=== PATIENT | female | born 1980 | race Caucasian/White ===

== ENCOUNTER 2022-12-27 21:10 | Emergency (ER) | payer MEDICAID, SELFPAY ==
[2022-12-27 21:11] VITALS: BP 201/115; PULSE 89; RESP 16; TEMP 36.1; O2SAT 100; BMI 28.8
--- NOTE | 2022-12-27 21:30 | ED.VIS.FEGU ---
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 She denies any pain, urinary symptoms, lightheadedness, near syncope, fevers or chills. [facility] Medical History (Updated 12/27/22 @ 22:[address] Wes Corona MD) Home Medications NK 12/27/22 [History Last Taken Unknown] Allergy/AdvReac Type Severity Reaction Status Date / Time No Known Allergies Allergy Verified 07/16/15 16:56 Social History Smoking Status: Light Smoker (<10/day) ROS ROS ED Constitutional Constitutional ED: Denies chills or fever(s) Eyes Eyes: Denies change in vision or diplopia ENT ENT ED: Denies rhinorrhea or sore throat Cardiovascular Cardiovascular: Denies chest pain or palpitations Respiratory/Chest Respiratory/Chest: Denies cough or dyspnea Gastrointestinal Gastrointestinal: Denies abdominal pain, diarrhea, nausea or vomiting Genitourinary Genitourinary ED: Reports as per HPI and vaginal bleeding; Denies dysuria or hematuria Musculoskeletal Musculoskeletal: Denies back pain or neck pain Integumentary Denies abscess or rash Neurologic Neurologic: Denies headache(s), paresthesias or weakness Psychiatric Psychiatric: Denies anxiety or suicidal thoughts EXAM Physical Exam Const Vital Signs: 12/27/22 21:11 12/27/22 22:50 12/27/22 23:03 Temperature 96.9 F L Temperature Source Temporal Pulse Rate 89 81 Respiratory Rate 16 16 Blood Pressure 201/115 H 160/100 H 149/96 H Blood Pressure Mean 143 120 Pulse Ox 100 99 Oxygen Delivery Method Room Air Positive well nourished and well developed General Appearance ED: well developed and NAD HEENT Reports moist mucous membranes normocephalic and atraumatic Eyes PERRL and EOMs intact bilaterally Neck full ROM and supple Resp normal respiratory effort and clear to auscultation bilaterally Cardio regular rate, regular rhythm and no murmurs GI non-tender and non-distended Auscultation: normoactive bowel sounds Palpation: soft Speculum Exam - Vagina: vaginal bleeding Back/Spine no CVA tenderness General Back: other FROM Extremity normal to inspection General Extremety ED: Negative for edema, pulses abnormal or tenderness General Extremity: Negative for edema or pulses abnormal Neuro oriented x3, CN's II-XII intact bilaterally and no sensory deficits noted Sensorium / Orientation: awake and alert Motor Exam: strength 5/5 throughout Skin no rashes or lesions noted and no wounds MDM MDM MDM Narrative Medical decision making narrative: Performed a bedside ultrasound, patient does have a good double decidual sign, and what appears to be an early pole versus yolk sac but I cannot detect whether there is a heart rate or absence thereof since everything is too small. Exam is somewhat limited due to her abdominal obesity. However she does not have any pain, her exam is very benign, and I think this is good enough to rule out from intensive purposes an ectopic . I am sending off a quantitative hCG, and she is getting an injection of RhoGAM since she states she is O- and gets RhoGAM every time she is , and then she will be able to be discharged and follow-up with her OB, she has an appointment at the practice where she used to see Dr. Barnes. Lab Data Attestation: I reviewed the patient's lab results. Labs: Laboratory Results - last 24 hr 12/27/22 12/27/22 12/27/22 21:36 22:08 22:36 HCG, Quant [id number] H Blood Type Cancelled B NEGATIVE Procedures Other Procedures Procedure(s): Bedside ultrasound OB first trimester: Good double decidual sign with a gestational sac consistent with 8W0D. Small either yolk sac or pole seen, but not large enough to evaluate for heartbeat. Discharge Plan Triage Chief Complaint: Vag Bld, Preg ED Provider: Wes Corona Dx/Rx/DC Orders Clinical Impression: Threatened in first trimester Instructions: If You Are Rh Negative, ED Possible Miscarriage ... Prescriptions: No Action NK Primary Care Provider: Care Physician,No Primary Referrals: Justa Linares DO [Med Staff - Active Staff] - Keep Juan appointment Care Physician,No Primary [Primary Care Provider] - Disposition Disposition: Home, Self Care Discharge Date/Time: 12/27/22 23:42
[2022-12-27 22:50] VITALS: BP 160/100
[2022-12-27 23:03] VITALS: BP 149/96; PULSE 81; RESP 16; O2SAT 99
[2022-12-27 23:42] LABS: hCG Titer Quant., Serum 30053 mIU/mL (1-3)
== END 2022-12-27 23:42 | disposition home or self-care (01) ==
PROVIDERS: Emergency Provider Emergency Medicine; Visit Provider Emergency Medicine
DX: O20.0 Threatened abortion (principal); F17.200 Nicotine dependence, unspecified, uncomplicated; E66.9 Obesity, unspecified; O99.210 Obesity complicating pregnancy, unspecified trimester; O99.330 Smoking (tobacco) complicating pregnancy, unspecified trimester; Z3A.00 Weeks of gestation of pregnancy not specified
CPT/HCPCS: 84702; 86900; 86901; 96372; 99282; A4216; J2790

== ENCOUNTER 2023-01-20 09:12 | Day surgery (SDC) | payer MEDICAID, SELFPAY ==
[2023-01-20] VITALS (9 sets, daily range): BP systolic 136–177; BP diastolic 96–110; PULSE 70–90; RESP 18; TEMP 36.6–36.9; O2SAT 98–100; BMI 29.2
--- NOTE | 2023-01-20 09:55 | PCM.HP.BLA ---
History and Physical Date of Admission: 01/20/23 Chief complaint: Missed History present illness: 42-year-old arrives for scheduled suction dilation and curettage with missed . No medical changes since last seen. All questions answered and consent signed. Obstetric history: with a history of 3 vaginal deliveries Past medical history: Hypertension, thrombocytopenia, hepatitis C Medications: vitamin Past surgical history: Cholecystectomy, D&C Allergies: No known drug allergies Social history: 1 pack/day smoker, denies alcohol or drug use Family history: Denies history DVT or PE Review of systems: Besides above pertinent positives a full review of systems was performed and found to be negative Physical exam: Vitals: Pending General: Normal-appearing no acute distress HEENT: Normocephalic/atraumatic no cervical lymphadenopathy Cardiac/respiratory: No use of accessory muscles, nonlabored breathing Abdomen: Soft, nontender, obese Extremities: No peripheral edema normal peripheral pulses Psych: Normal affect normal demeanor nonpressured speech Assessment and plan: 42-year-old arrives for scheduled suction dilation and curettage with missed . Educated patient on the risks of the procedure include but are not limited to visceral or vascular injury, prolonged hospitalization, blood loss need for transfusion, reoperation. Educated patient on other options for missed . Patient states understanding and wished to proceed. All questions were answered and consent was signed.
[2023-01-20] MEDS: Lactated Ringers 1,000 ML 15 ML IV (10:15)
[2023-01-20 10:16] LABS: Hemoglobin 14.4 g/dL (12.0-15.0); Mean Corp Hgb Conc 33.5 g/dL (32-36); Mean Corpuscular Hgb 33.3 pg (27.0-32.0); Mean Corpuscular Volume 99.5 fL (81-99); Mean Platelet Vol. 10.8 fl (6.2-12.0); POSITIVE COUNT YES; Platelet Count 60 K/mm3 (150-450); RBC Distribution Width CV 13.7 % (11.6-14.6); RBC Distribution Width SD 50.3 fl (35.1-43.9); Red Blood Count 4.32 M/mm3 (4.2-5.4); White Blood Count 5.6 K/mm3 (4.4-11.0)
[2023-01-20 10:19] LABS: Scan Indicated on CBC? Y/N YES- FLAGS NOTED
--- NOTE | 2023-01-20 10:40 | POC_PTH ---
PATIENT: BOB [place] [facility] [id number] AGE/SX: 42/F ROOM: RE01/20/[address]: Dr. Kong Linares MD : 1980 BED: DIS: 01/20/2023 SPEC #: [id number] RECD: 01/20/23 14:33 STATUS: MELINA DIMITRIS #: [id number] AGUILAR: 01/20/23 10:[address]: Kong Linares DEPT: SURGICAL PATHOLOGY RECD BY: Michelle Greenwood ENTERED: 01/21/23 06:45 SP TYPE: PROD CONC OTHR DR: No Primary Care Phys Tissues: Product of conception, NOS Procedures: Surgery Specimen Level IV HEADER OPERATION: Suction dilation and curettage PRE-OP DIAGNOSIS: Missed TISSUE SUBMITTED: Products of conception MICROSCOPIC DIAGNOSIS Endometrium, curettage: Chorionic villi, decidualized stroma and trophoblastic cells consistent with products of conception. AM:alberto 01/22/2023 MICROSCOPIC DESCRIPTION Slides are reviewed. GROSS DESCRIPTION Received in fixative is one container labeled with the patient's name and designated products of conception. The specimen consists of multiple fragments of hemorrhagic soft tissue measuring in aggregate 5.0 x 5.0 x 1.5 cm. tissue is not identified. Consult[employer] In [employer] tissue is submitted in two cassettes. / SJ:alberto 01/21/2023 TC:5 CPT: 46447
[2023-01-20 10:48] LABS: Differential Comment SCANNED
--- NOTE | 2023-01-20 13:40 | DCINST_ITS ---
Discharge Instructions Diet Discharge Diet: No restrictions Activity Discharge Activity: Return to Normal Activity, May Drive and May Shower May resume sexual activity in: 4-6 weeks Weight Bearing Status: Weight bearing as tolerated Dressing / Incision Call your doctor if your incision/area has: Continuous Slow Oozing and Foul Smelling Discharge Call your doctor if you observe: Fever of 101 or Higher, Shortness of breath and Chest pain Follow Up Care Please Follow Up With: Kong Linares MD When: 2 weeks postoperatively Test Results: Test results from this visit will be discussed in further detail at your follow- up appointment, if applicable. Discharge Plan Admission Attending Provider: Kong Linares Primary Care Provider: Selina Vitale Primary Discharge Orders/Prescriptions Prescriptions: No Action (DME) vitamen See Rx Instructions .ROUTE .MEDSUPPLY Rx Instructions: once a day Referrals / Follow Up: Care PhysicianSelina Primary [Primary Care Provider] - Disposition Disposition (needs filled in before D/C Order can be placed): Home, Self Care
--- NOTE | 2023-01-20 13:41 | PCM.OPRPT ---
Report of Operation Date of Procedure: 01/20/23 Pre-Operative Diagnosis: Missed Post-Operative Diagnosis: Missed Surgery/Procedure Performed:: Suction dilation and curettage Description of Surgical Findings:: Surgeon: Kong Linares MD Anesthesia: MAC EBL: 25 cc Urine output: 500 cc IV fluids: 1000 cc Complications: None Specimen: Products of conception Findings: Cervix closed. Mild to moderate amount of tissue. Consent: Patient with missed elects for suction dilation curettage. Patient understands risk of the procedure include but are not limited to visceral or vascular injury, prolonged hospitalization, blood loss need for transfusion, reoperation. Patient state understanding wish to proceed. All questions were answered and consent was signed. Procedure: Patient was brought back to the OR where MAC anesthesia was found to be adequate. 200 mg of doxycycline IV were given for infection prophylaxis. Patient was prepared and draped in a dorsolithotomy position with yellowfin stirrups. A weighted speculum was placed in the posterior aspect of vagina and cervical dilators were used to dilate the cervix. 8 mm curved suction curettage was used under direct visualization. Above findings were noted. Lightly performed sharp endometrial curettings in all 4 quadrants. Again suction curettage was performed in all quadrants. All tissue sent to pathology. Good hemostasis was noted. Prolonged monitoring was performed and again good hemostasis was noted. All counts were correct x2. Patient tolerated procedure well and was brought to recovery in stable condition.
--- NOTE | 2023-01-20 15:29 | SUR.PHASEII ---
clarification that x1 dose of rhogam to be given, order did not reflex to pharmacy for verification and documentation and 2nd order placed in computer but only one dose given as ordered.
== END 2023-01-20 15:34 | disposition home or self-care (01) ==
LOC: SDC 09:15 → AC 09:42
PROVIDERS: Referring Provider Obstetrics & Gynecology; Visit Provider Obstetrics & Gynecology
PROC: (CPT 59820; principal; 2023-01-20 10:25)
DX: O02.1 Missed abortion (principal); O16.9 Unspecified maternal hypertension, unspecified trimester; O99.330 Smoking (tobacco) complicating pregnancy, unspecified trimester; F17.200 Nicotine dependence, unspecified, uncomplicated; Z86.73 Personal history of transient ischemic attack (TIA), and cerebral infarction without residual deficits; Z86.19 Personal history of other infectious and parasitic diseases
CPT/HCPCS: 59820; 85027; 86850; 86870; 86900; 86901; 88305; J7120; J2405; J2790

== ENCOUNTER → 2023-02-12 | Outpatient (CLI) | payer MEDICAID, SELFPAY ==
--- NOTE | 2023-02-12 | CER_PTH ---
PATIENT: BOB WARNER LOC: [facility] U#:[id number] AGE/SX: 42/F ROOM: RE02/12/[address]: Dr. Kong Linares MD : 1980 BED: DIS: 02/12/2023 SPEC #: [id number] RECD: 02/12/23 09:46 STATUS: MELINA DIMITRIS #: [id number] AGUILAR: 02/12/23 00:[address]: oKng Linares DEPT: SURGICAL PATHOLOGY RECD BY: Jasmin Dietz ENTERED: 02/13/23 09:47 SP TYPE: CERV VALERIANO DR: Selina Primary Care Phys Tissues: A - Uterine cervix, NOS B - Endocervical Procedures: Surgery Specimen Level IV HEADER OPERATION: Colposcopy PRE-OP DIAGNOSIS: R87.610 TISSUE SUBMITTED: Lionel Butts 1, 5, 7, 11 o'clock, B - Endocervical curettings MICROSCOPIC DIAGNOSIS A. Cervix, 1, 5, 7 and 11 o'clock, biopsy: Focal changes consistent with HPV cytopathic effects. Moderate acute and chronic inflammation. See comment. B. Endocervical curettings: Fragments of benign ectocervix and endocervical epithelium with focal squamous metaplasia, negative for dysplasia. SANKET:alberto 02/14/2023 COMMENT A. Immunohistochemistry ([id number]) for surrogate HPV marker (p16) supports the above diagnosis. Case has been reviewed in consultation with Dr. Ba who concurs with the above diagnosis. IDC:SJ MICROSCOPIC DESCRIPTION Slides are reviewed. GROSS DESCRIPTION A - Received in fixative is one container labeled with the patient's name and designated cervix 1, 5, 7, 11 o'clock. The specimen consists of multiple irregular fragments of light soni soft tissue that in aggregate measure 1.5 x 0.5 x 0.1 cm. The specimen is totally submitted in one cassette. B - Received in fixative is one container labeled with the patient's name and designated ECC. The specimen consists of a scant amount of soft tissue. The specimen is totally submitted for cell block preparation. / SANKET:alberto 02/13/2023 TC:5 CPT: 82520 x2
--- NOTE | 2023-02-12 | IMM_PTH ---
PATIENT: BOB WARNER LOC: [facility] U#:[id number] AGE/SX: 42/F ROOM: RE02/12/[address]: Dr. Kong Linares MD : 1980 BED: DIS: 02/12/2023 SPEC #: [id number] RECD: 02/14/23 13:16 STATUS: MELINA RENemo #: [id number] AGUILAR: 02/12/23 00:[address]: Kong Linares DEPT: IMMUNOHISTOCHEMISTRY RECD BY: Manju Persaud ENTERED: 02/14/23 13:17 SP TYPE: IMMUNO OT DR: No Primary Care Phys Tissues: A - Uterine cervix, NOS Procedures: p16 (initial) KI-67 (add) PHYSICIAN & INSTITUTION [place] [id number] SPECIMEN INFORMATION: Tissue Source: A - Cervix at 1, 5, 7 & 11 o'clock Clinical Info: [id number] A Specimen Number: [id number] CPT code: 80174, 37682 METHODOLOGY: Deparaffinized sections of prefer/formalin-fixed tissue or PAP/DQ stained slides are incubated with monoclonal/polyclonal antibodies/oligonucleotide probes. Localization is made via biotin free immunoperoxidase method. Appropriate controls are performed and reacted as expected. Results on target cell population are indicated in the following table: RESULTS: ANTIBODY / CLONE RESULT Block A P16 (E6H4) positive, focal, patchy Ki-67 (30-9) positive, low These tests were developed and their performance characteristics determined by [facility]. They may not have been cleared or approved by the U.S. Food and Drug Administration. The FDA has determined that such clearance or approval is not necessary. The above immunohistochemical/dualISH markers are ordered and reviewed by the Pathologist. INTERPRETATION: A. Cervix at 1, 5, 7 & 11 o'clock, biopsy: Focal HPV change present. AM:alberto 02/17/2023
== END | disposition home or self-care (01) ==
LOC: LABSPEC 15:06
PROVIDERS: Visit Provider Obstetrics & Gynecology
DX: R87.610 Atypical squamous cells of undetermined significance on cytologic smear of cervix (ASC-US) (principal)
CPT/HCPCS: 88305; 88341; 88342

== ENCOUNTER 2024-07-13 09:44 | Observation (INO) | payer MEDICAID, SELFPAY ==
[2024-07-13] VITALS (8 sets, daily range): BP systolic 131–148; BP diastolic 75–99; PULSE 97–122; RESP 16–20; TEMP 36.8–38; O2SAT 94–100; BMI 25.7; BMI 26.6
--- NOTE | 2024-07-13 | FLU_PTH ---
PATIENT: BOB WARNER LOC: [facility] U#:[id number] AGE/SX: 43/F ROOM: MS316 RE07/13/[address]: Dr. Mena Bundy MD : 1980 BED: 1 DIS: 07/15/2024 SPEC #: [id number] RECD: 07/13/24 13:37 STATUS: MELINA REQ #: [id number] AGUILAR: 07/13/24 00:[address]: Mena Bundy DEPT: CYTOLOGY RECD BY: Michelle Greenwood ENTERED: 07/14/24 08:58 SP TYPE: Fluid OTHR DR: Dr. Pacheco Friend, DO No Primary Care Phys Tissues: PARACENTESIS FLUID Procedures: Special Stain Group II Surgery Specimen Level IV Cytospin Fluid HEADER OPERATION: Ultrasound guided paracentesis PRE-OP DIAGNOSIS: Ascites TISSUE SUBMITTED: Paracentesis fluid for cytology DIAGNOSIS CYTOLOGY Paracentesis fluid for cytology (cytospins and cellblock): Negative for malignant cells. See comment. mr 07/15/2024 COMMENT Clinical correlation and appropriate follow up are necessary. CYTOLOGY STUDY Slides are reviewed. CYTOLOGY GROSS Received is 80 ml of yellow-cloudy fluid labeled with the patient's name and and designated per the requisition as Paracentesis fluid. Submitted for cytology preparation including cell block. Mr 07/14/2024 TC:5 CPT: 79584,81373
--- NOTE | 2024-07-13 09:56 | EKG12_ITS ---
Test Reason : Blood Pressure : */* mmHG Vent. Rate : 124 BPM Atrial Rate : 124 BPM P-R Int : 136 ms QRS Dur : 62 ms QT Int : 310 ms P-R-T Axes : 63 21 39 degrees QTcB Int : 445 ms Sinus tachycardia Otherwise normal ECG Confirmed by Ambrosio Pope ([id number]), international editorial producer BUCK MENDEZ ([id number]) on 07/14/2024 8:25:01 AM Referred By: Confirmed By: Ambrosio Pope
[2024-07-13] MEDS: Ondansetron 4 MG/2 ML Vial IV ×2 (10:09→21:02)
[2024-07-13] MEDS: Morphine 4 MG/ML Syringe IV (10:10)
--- NOTE | 2024-07-13 10:10 | EDS_ITS ---
HPI History of Present Illness Chief Complaint: Abd Pain Narrative Narrative: Chief complaint and HPI: Abdominal distention and pain. 43-year-old female with past medical history of hepatitis C secondary to IV drug abuse, previous cholecystectomy presents for evaluation of abdominal pain and distention. Patient states over the past week she has had increased abdominal distention and pain. She denies any fever, chills, chest pain, shortness of breath, nausea, vomiting, diarrhea, constipation, dysuria. Her hepatitis C has never been treated. She denies history of cirrhosis. Denies alcohol abuse. Review of systems: See HPI Medications: As listed on the chart Allergies: As listed on the chart PFSH: Per chart Vital signs: As listed on the chart. Reviewed. Physical exam: Gen: A&O x3, NAD Head: Normocephalic, atraumatic Eyes: No sclera icterus, conjunctiva clear, PERRL, EOMI ENT: Moist mucous membranes Neck: Trachea midline, No JVD CV: Tachycardic, regular rhythm, no murmurs, no peripheral edema Resp: Lungs CTA BL, no w/r/c GI: Abd soft, distended secondary to ascites, tender to palpation diffusely but worse in the left upper quadrant with splenomegaly, no r/r/g : No CVA tenderness Musc: Full ROM, no deformity Skin: Warm, dry Neuro: Alert, oriented, grossly intact, sensation intact Psych: Cooperative, appropriate mood and affect [facility] Medical History Diabetes HCC (hepatocellular carcinoma) Hepatitis C Loose, teeth Stroke/cerebrovascular accident Smoker Hypertension Home Medications ?Medication ?Instructions ?Recorded ?Last Taken ?Type vits no.130-ferrous fum 1 tab PO DAILY 07/13/24 07/12/24 History 27 mg iron-folic acid 800 mcg tablet ( Vitamin) Allergy/AdvReac Type Severity Reaction Status Date / Time No Known Allergies Allergy Verified 07/13/24 09:55 Family History Uncle Cancer Surgical History H/O dilation and curettage History of cholecystectomy Social History Smoking Status: Light Smoker (<10/day) EXAM Physical Exam Const Vital Signs: 07/13/24 09:44 07/13/24 11:41 07/13/24 11:43 Temperature 98.2 F 98.2 F Temperature Source Temporal Pulse Rate 122 H 122 H 97 Respiratory Rate 20 H 20 H 19 H Blood Pressure 135/98 H 135/98 H 131/96 H Blood Pressure Mean 110 110 107 Pulse Ox 100 100 100 Oxygen Delivery Method Room Air Room Air MDM MDM MDM Narrative Medical decision making narrative: 43-year-old female with past medical history of hepatitis C secondary to IV drug abuse, previous cholecystectomy presents for evaluation of abdominal pain and distention. Differential diagnosis includes but is not limited to cirrhosis, bowel obstruction, pancreatitis, diverticulitis, appendicitis, UTI, electrolyte abnormality. Morphine, Zofran ordered for symptoms. Abdominal pain workup ordered including CT abdomen pelvis. EKG reviewed see below. CBC shows anemia with hemoglobin of 11.1. Patient has baseline thrombocytopenia. No active bleeding. INR unremarkable. BMP without MURPHY. Lactic acid unremarkable. Hepatic panel positive for hyperbilirubinemia as well as mild transaminitis/AST at 48. Lipase unremarkable. UA negative for UTI. It is a dirty sample. CT abdomen pelvis shows liver cirrhosis, splenomegaly and ascites. This is consistent with physical exam. Patient denies any diagnosis of liver cirrhosis. Given patient's symptoms, I do think she would benefit from paracentesis and further workup of her liver cirrhosis. I suspect her liver cirrhosis is secon alee to her untreated hepatitis C. Patient was updated of all the results and confirmed understanding. Dr. Bundy accepted admission. EKG: Interpreted by me/EM physician: EKG shows sinus tachycardia with no acute ischemic changes. Heart rate 124. Impression: 1. Decompensated liver cirrhosis, new diagnosis 2. History of hepatitis C Lab Data Labs: Laboratory Results - last 24 hr 07/13/24 07/13/24 07/13/24 09:56 10:03 10:05 WBC 9.5 RBC 3.38 L Hgb 11.1 L Hct 32.7 L MCV 96.7 MCH 32.8 H MCHC 33.9 RDW Std Deviation 60.6 H RDW Coeff of Betina 17.4 H Plt Count 64 L MPV 10.6 Immature Gran % (Auto) 0.600 Neut % (Auto) 65.1 Lymph % (Auto) 20.5 Carver % (Auto) 10.9 H Eos % (Auto) 2.4 Baso % (Auto) 0.5 Absolute Neuts (auto) 6.2 Absolute Lymphs (auto) 1.95 Nucleated RBC % 0 PT 16.0 H INR 1.3 Sodium 137 Potassium 4.0 Chloride 106 Carbon Dioxide 27.0 Anion Gap 4 L BUN 8 Creatinine 0.56 Estim Creat Clear Calc 105.92 Est GFR (MDRD) Af Amer 154 Est GFR (MDRD) Non-Af 127 BUN/Creatinine Ratio 14.4 Glucose 114 H Lactic Acid 1.9 Calcium 8.6 Total Bilirubin 1.40 H Direct Bilirubin 0.69 H AST 48 H ALT 48 Alkaline Phosphatase 99 Lactate Dehydrogenase 356 H Total Protein 6.9 Albumin 2.6 L Globulin 4.3 H Lipase 51 Urine Color Catherine Urine Clarity Sl. Cloudy Urine pH 6.0 Ur Specific [place] 1.020 Urine Protein 30 H Urine Glucose (UA) Normal Urine Ketones Negative Urine Occult Blood 10 H Urine Nitrite Negative Urine Bilirubin 1 H Urine Urobilinogen 8 H Ur Leukocyte Esterase 25 H Urine RBC 0 SEEN Urine WBC 0-5 SEEN Ur Squamous Epith Cells 10-25 SEEN Urine Bacteria 1+ Urine Mucus 1+ Urine Test Negative Radiography Diagnostic Testing: Clinical Impression(s) from Imaging Studies Abdomen/Pelvis CT 07/13/24 10:45 IMPRESSION: Liver cirrhosis, splenomegaly and ascites. Electronically Signed: Cooper Hernandez MD at 11:01 EST , Discharge Plan Disposition Disposition: Acute Care Hospital [facility] Discharge Date/Time: 07/13/24 12:28
[2024-07-13 10:13] LABS: Red Blood Cells-Urine 0 SEEN /hpf (0-5)
[2024-07-13 10:19] LABS: Color, Urine Amber (Yellow); Glucose, Dipstick Normal (Normal); Ketone-Dipstick Negative (Negative); Leukocyte Esterase-Dipstick 25 /ul (Negative); Nitrite-Dipstick Negative (Negative); Occult Blood-Urine 10 /ul (Negative); Protein-Dipstick 30 mg/dl (Negative); Urine Clarity Sl. Cloudy (Clear); Urine Urobilinogen 8 mg/dl (Normal)
[2024-07-13 10:21] LABS: Internal QC Validated? YES +Cl - CLEAR BKGD; Urine Bilirubin Dipstick 1 mg/dL (Negative)
[2024-07-13 10:21] LABS: Absolute Lymphocyte Count 1.95 X10^3/uL (0.83-4.51); Absolute Neutrophil Count 6.2 X10^3/uL (2.0-7.7); Basophil# 0.05 X10^3/uL; Basophil% 0.5 % (0-1); Eosinophil# 0.23 X10^3/uL; Eosinophils% 2.4 % (0-5); Hematocrit 32.7 % (37-47); Hemoglobin 11.1 g/dL (12.0-15.0); Lymphocyte # 1.95 X10^3/ul (0.83-4.51); Lymphocyte % 20.5 % (19-41); Mean Corp Hgb Conc 33.9 g/dL (32-36); Mean Corpuscular Hgb 32.8 pg (27.0-32.0); Mean Corpuscular Volume 96.7 fL (81-99); Mean Platelet Vol. 10.6 fl (6.2-12.0); Monocyte# 1.04 X10^3/uL; Monocyte% 10.9 % (0-10); NRBC Flagged by Analyzer 0 % (0-5); Neutrophil # 6.19 X10^3/uL (2.7-7.7); Neutrophil % 65.1 % (47-70); POSITIVE COUNT YES; Platelet Count 64 K/mm3 (150-450); RBC Distribution Width CV 17.4 % (11.6-14.6); RBC Distribution Width SD 60.6 fl (35.1-43.9); Red Blood Count 3.38 M/mm3 (4.2-5.4); White Blood Count 9.5 K/mm3 (4.4-11.0)
[2024-07-13 10:22] LABS: Pregnancy, Urine Negative Negative
[2024-07-13 10:27] LABS: International Normalized Ratio 1.3
[2024-07-13 10:33] LABS: AST(SGOT) 48 U/L (15-37); Alanine Aminotransfer ALT/SGPT 48 U/L (13-56); Albumin, Serum 2.6 g/dL (3.2-5.0); Alkaline Phosphatase 99 U/L (45-117); Anion Gap 4 (5-15); BUN 8 mg/dL (7-18); BUN/Creat Ratio 14.4 RATIO (10-20); Bilirubin, Direct 0.69 mg/dL (0.00-0.30); Calcium,Total 8.6 mg/dL (8.5-10.1); Chloride 106 mmol/L (98-107); Creatinine, Serum 0.56 mg/dL (0.55-1.02); EST Glomerular Filtration Rate 127 mL/min (>60); Est Glom Filt Rate - Afr Amer 154 mL/min (>60); Estimated Creatinine Clearance 105.92 ml/min; Globulin 4.3 g/dL (2.2-4.2); Glucose 114 mg/dL (74-106); Lipase 51 U/L (13-75); Protein, Total 6.9 g/dL (6.4-8.2); Sodium Level 137 mmol/L (136-145)
[2024-07-13 10:35] LABS: Squamous Epithelial Cells - UA 10-25 SEEN /hpf (5-10)
[2024-07-13 10:36] LABS: White Blood Cells 0-5 SEEN /hpf (0-5)
[2024-07-13 10:37] LABS: Bacteria 1+ /hpf (None Seen); Mucous, Urine 1+ /hpf (<or=2+)
[2024-07-13 10:45] LABS: Lactic Acid 1.9 mmol/L (0.4-1.9)
--- NOTE | 2024-07-13 10:45 | CT_ITS ---
EXAM: CT ABDOMEN AND PELVIS WITH INTRAVENOUS CONTRAST CLINICAL INDICATION: abdominal pain and distention TECHNIQUE: Helically acquired images were obtained of the abdomen and pelvis with intravenous contrast. This CT exam was performed using one or more of the following dose reduction techniques: automated exposure control, adjustment of the mA and/or kV according to patient size, and/or use of iterative reconstruction technique. CONTRAST: IV 100mL Isovue-300 RADIATION DOSE: CTDIvol = 12.96 mGy, DLP = 834.44 mGy-cm COMPARISON: No relevant prior studies available. FINDINGS: LOWER THORAX: Unremarkable. Lung bases are clear. No cardiomegaly. No significant pericardial effusion. ABDOMEN: LIVER: Nodularity of the liver surface is due to cirrhosis. GALLBLADDER AND BILE DUCTS: Unremarkable. No calcified gallstones. No gallbladder distention or wall edema. No intra- or extrahepatic biliary ductal dilation. PANCREAS: Unremarkable. No focal cystic or solid mass. SPLEEN: Splenomegaly measuring at least 17.4 cm long. ADRENALS: Unremarkable. No nodules. KIDNEYS AND URETERS: Unremarkable. Normal renal size and position. No hydronephrosis. STOMACH AND BOWEL: Midline umbilical hernia containing only small ascites. No stomach or bowel distention. No focal inflammatory change. PELVIS: APPENDIX: Normal. BLADDER: Unremarkable. REPRODUCTIVE: Unremarkable as visualized. No mass. ABDOMEN and PELVIS: INTRAPERITONEAL SPACE: Ascites in the abdomen and pelvis. BONES/JOINTS: Unremarkable. No suspicious lytic or blastic abnormality. SOFT TISSUES: Edema of the subcutaneous fat in the abdomen. VASCULATURE: Unremarkable. Abdominal aorta is non-dilated. LYMPH NODES: Unremarkable. No enlarged lymph nodes. CT/Abdomen/Pelvis W IV Cont ONLY IMPRESSION: Liver cirrhosis, splenomegaly and ascites. Electronically Signed: Cooper Hernandez MD at 11:01 EST ,
--- NOTE | 2024-07-13 12:14 | PCM.HP.STD ---
HPI - General General Date of Admission: 07/13/24 Date of Service: 07/13/24 Chief Complaint: Abd pain HPI Narrative BOB WARNER, is a 43-year-old female history of hepatitis C secondary to IV drug use and previous cholecystectomy who presented [facility] ED 07/13/2024 due to abdominal pain and distention over the past week. Reports she was never treated for hepatitis C. In the ED patient with total bili 1.40, direct bili 0.69 with AST of 48 and ALT of 48. CT abdomen with liver cirrhosis, splenomegaly, and ascites. Given the new diagnosis of liver cirrhosis with ascites and abdominal pain hospitalist contacted for admission. Patient evaluated at bedside and she reports upper abdominal pain and diffuse stiff abdominal swelling for 3 days that is progressively worsening and no longer tolerable. Denies changes in bowels or bladder, no fevers or headache, does not necessarily feel significant lower quadrant tenderness but painful above her umbilicus and to both sides. Reports history of hepatitis C that was not treated, denies any known history of other liver problems. Previously used IV substances however has not used IV drugs or opioids in years though did smoke methamphetamine 1 to 2 weeks ago and denies any current IV drug use. Irregular tobacco use. ROS otherwise negative [facility] Medical History Diabetes HCC (hepatocellular carcinoma) Hepatitis C Hypertension Loose, teeth Smoker Stroke/cerebrovascular accident Home Medications ?Medication ?Instructions ?Recorded ?Last Taken ?Type vits no.130-ferrous fum 1 tab PO DAILY 07/13/24 07/12/24 History 27 mg iron-folic acid 800 mcg tablet ( Vitamin) Allergy/AdvReac Type Severity Reaction Status Date / Time No Known Allergies Allergy Verified 07/13/24 09:55 Family History Uncle Cancer Surgical History H/O dilation and curettage History of cholecystectomy Social History Smoking Status: Light Smoker (<10/day) ROS ROS Narrative General: Denies fever/chills HENT: Denies headache, denies stuffy nose, denies sore throat EYES: Denies changes in vision Resp: Denies cough, denies shortness of breath Cardiac: Denies chest pain GI: Abdominal pain and swelling especially in upper quadrants, denies changes in bowel, denies nausea/vomiting : Denies changes in urination Extremity: Denies swelling MSK: Denies weakness Neuro: Denies any numbness/tingling Heme: Denies any bleeding or bruising Skin: Denies rashes Psychiatric: No complaints voiced Vital Signs Vital Signs Vital Signs: 07/13/24 09:44 07/13/24 11:41 07/13/24 11:43 Temperature 98.2 F 98.2 F Temperature Source Temporal Pulse Rate 122 H 122 H 97 Respiratory Rate 20 H 20 H 19 H Blood Pressure 135/98 H 135/98 H 131/96 H Blood Pressure Mean 110 110 107 Pulse Ox 100 100 100 Oxygen Delivery Method Room Air Room Air Weight Weight: 59.92 kg Body Mass Index (BMI) 25.7 Physical Exam Narrative General: Alert, oriented, no apparent distress HEENT: Atraumatic, normocephalic Eyes: Anicteric, normal conjunctiva, extraocular movements grossly intact Neck: Supple Respiratory: Clear to auscultation bilaterally, normal respiratory effort Cardiovascular: Regular rate and rhythm GI: Distended, tender particularly in bilateral upper quadrants Extremities: No edema Musculoskeletal: Moving all extremities Neuro: No overt focal neurological deficits Skin: No rashes appreciated Psych: Cooperative Results Lab / Micro Data 07/13/24 09:56 07/13/24 09:56 Labs: Laboratory Results - last 24 hr 07/13/24 09:56: WBC 9.5, RBC 3.38 L, Hgb 11.1 L, Hct 32.7 L, MCV 96.7, MCH 32.8 H, MCHC 33.9, RDW Std Deviation 60.6 H, RDW Coeff of [place] 17.4 H, Plt Count 64 L, MPV 10.6, Immature Gran % (Auto) 0.600, Neut % (Auto) 65.1, Lymph % (Auto) 20.5, [place] % (Auto) 10.9 H, Eos % (Auto) 2.4, Baso % (Auto) 0.5, Absolute Neuts (auto) 6.2, Absolute Lymphs (auto) 1.95, Nucleated RBC % 0, PT 16.0 H, INR 1.3, Sodium 137, Potassium 4.0, Chloride 106, Carbon Dioxide 27.0, Anion Gap 4 L, BUN 8, Creatinine 0.56, Estim Creat Clear Calc 105.92, Est GFR (MDRD) Af Amer 154, Est GFR (MDRD) Non-Af 127, BUN/Creatinine Ratio 14.4, Glucose 114 H, Calcium 8.6, Total Bilirubin 1.40 H, Direct Bilirubin 0.69 H, AST 48 H, ALT 48, Alkaline Phosphatase 99, Total Protein 6.9, Albumin 2.6 L, Globulin 4.3 H, Lipase 51 07/13/24 10:03: Lactic Acid 1.9 07/13/24 10:05: Urine Color Catherine, Urine Clarity Sl. Cloudy, Urine pH 6.0, Ur Specific [place] 1.020, Urine Protein 30 H, Urine Glucose (UA) Normal, Urine Ketones Negative, Urine Occult Blood 10 H, Urine Nitrite Negative, Urine Bilirubin 1 H, Urine Urobilinogen 8 H, Ur Leukocyte Esterase 25 H, Urine RBC 0 SEEN, Urine WBC 0-5 SEEN, Ur Squamous Epith Cells 10-25 SEEN, Urine Bacteria 1+, Urine Mucus 1+, Urine Test Negative Imaging Radiology Impression Abdomen/Pelvis CT 07/13/24 10:45 IMPRESSION: Liver cirrhosis, splenomegaly and ascites. Electronically Signed: Cooper Hernandez MD at 11:01 EST , Assessment & Plan Assessment/Plan (1) Abdominal pain: PLAN: Plan # Liver cirrhosis with new onset ascites and abdominal pain -Patient reports history of hepatitis C but denies ever being told she had any problems with her liver though problem list has HCC on it, unclear whether this diagnosis came from given patient's report of not having known problems with her liver -Pain is primarily in bilateral upper quadrants and not so much lower quadrants, additionally no confusion, hypotension, hypothermia, diarrhea, fever or leukocytosis suggesting SBP -Suspect ascites is secondary to her cirrhosis -Paracentesis ordered -Daily weights -I?s and O?s -GI consult -Lasix and spironolactone #Hx hepatitis C -Check hepatitis panel and viral load #Substance use d/o -Denies alcohol, remote hx of opioid use d/o -Did recently use meth via smoking, denies IVDA at this time #DVT ppx: SCDs Mena Bundy MD Time spent in the patient's overall evaluation, decision-making process, review of diagnostic data, adjustment of management, discussion with other providers, nursing and ancillary staff involved in patient's care documentation, 56 Minutes Charges/Coding Visit Charges Inpatient E&M: 60031 Init Hosp L2
--- NOTE | 2024-07-13 12:23 | US_ITS ---
PROCEDURE: Ultrasound guided paracentesis. DATE OF EXAMINATION: July 13, 2024.. INDICATION: Female, 43 years old. Ascites. PHYSICIAN: Harinder Alcala M.D. TECHNIQUE: The risks, benefits, and alternatives to the procedure were explained to the patient. The specific risks of bleeding, infection, and damage to bowel were detailed and accepted. Witnessed informed consent was obtained. The abdomen was ultrasonographically surveyed. An appropriate pocket of fluid was identified at the right lower quadrant. The skin were cleaned and prepped in the usual sterile fashion. Using ultrasound guidance, the peritoneal cavity was accessed with a 5-Malaw[place] paracentesis needle/catheter system. The trocar was removed. A total of 2420 ml of anish-colored fluid were removed from the peritoneal cavity. A 100 mL sample was sent to the laboratory. The catheter was removed and a sterile dressing was applied. The procedure was well tolerated. US/Paracentesis with US IMPRESSION: Ultrasound guided paracentesis. Electronically Signed: Harinder Alcala MD at 14:26 EST ,
[2024-07-13 12:47] LABS: LDH 356 U/L (84-246)
[2024-07-13] MEDS: Lidocaine 2% (20 ml mdv) 20 ML Vial INFILT (13:28)
[2024-07-13 14:08] LABS: Cytology, Body Fluid / CSF SEE PATHOLOGY REPORT
[2024-07-13 14:21] LABS: Body Fluid Mononuclear WBC # 0.208 10^3/uL; Body Fluid Mononuclear WBC % 95.4 %; Body Fluid Polynuclear WBC % 4.6 %; Body Fluid Total Cells Counted 0.251 10^3/ul; White Blood Count/Body Fluid 0.218 10^3/uL
[2024-07-13 15:01] LABS: Appearance/Body Fluid CLEAR; Auto B Fluid Analyzer BKGD Ct COUNTS W/IN LIMITS (W/IN LIMITS); Color/Body Fluid LT YEL; Red Cell Count/Body Fluid 382 /mm3; Source- Body Fluid PARACENTESIS
[2024-07-13 15:18] LABS: Glucose, Body Fluid 117 mg/dL (40-70); LDH,Body Fluid 38 Units/L (Not Establ.); Protein, Body Fluid 0.5 g/dL (Not Establ.)
[2024-07-13 15:20] LABS: Lymphocytes 27 %; Monocytes 64 %; Neutrophil (Segs) 1 %
[2024-07-13 15:21] LABS: Body Fluid QC Type(s) 42880413; Mesothelial Cells 8 %
[2024-07-13] MEDS: Furosemide 20 MG Tablet PO (16:08)
[2024-07-13] MEDS: Spironolactone 50 MG Tablet PO (16:08)
[2024-07-13] MEDS: oxyCODONE 5 MG Tablet PO ×2 (16:32→22:38)
--- NOTE | 2024-07-13 17:11 | EX.PCM.CON.G ---
HPI Consult Data Date of Consult: 07/13/24 HPI Narrative Reason for Consultation: Cirrhosis HPI Narrative: BOB WARNER, is a 43-year-old female history of hepatitis C secondary to IV drug use with a history of cirrhosis. She previous cholecystectomy who presented [facility] ED 07/13/2024 due to abdominal pain and distention over the past week. Reports she was never treated for hepatitis C. In the ED patient with total bili 1.40, direct bili 0.69 with AST of 48 and ALT of 48. CT abdomen with liver cirrhosis, splenomegaly, and ascites. She says this is a new diagnosis of cirrhosis for her. Patient evaluated at bedside and she reports upper abdominal pain and diffuse stiff abdominal swelling for 3 days that is progressively worsening and no longer tolerable. Denies changes in bowels or bladder, no fevers or headache, does not necessarily feel significant lower quadrant tenderness but painful above her umbilicus and to both sides. Reports history of hepatitis C that was not treated, denies any known history of other liver problems. Previously used IV substances however has not used IV drugs or opioids in years though did smoke methamphetamine 1 to 2 weeks ago and denies any current IV drug use. Irregular tobacco use. ROS otherwise negative [facility] Medical History Diabetes HCC (hepatocellular carcinoma) Hepatitis C Loose, teeth Stroke/cerebrovascular accident Smoker Hypertension Home Medications ?Medication ?Instructions ?Recorded ?Last Taken ?Type vits no.130-ferrous fum 1 tab PO DAILY 07/13/24 07/12/24 History 27 mg iron-folic acid 800 mcg tablet ( Vitamin) Allergy/AdvReac Type Severity Reaction Status Date / Time No Known Allergies Allergy Verified 07/13/24 09:55 Family History Uncle Cancer Surgical History H/O dilation and curettage History of cholecystectomy Social History Smoking Status: Light Smoker (<10/day) ROS ROS Narrative General: Denies fever/chills HENT: Denies headache, denies stuffy nose, denies sore throat EYES: Denies changes in vision Resp: Denies cough, denies shortness of breath Cardiac: Denies chest pain GI: Abdominal pain and swelling especially in upper quadrants, denies changes in bowel, denies nausea/vomiting : Denies changes in urination Extremity: Denies swelling MSK: Denies weakness Neuro: Denies any numbness/tingling Heme: Denies any bleeding or bruising Skin: Denies rashes Psychiatric: No complaints voiced Physical Exam Narrative General: Alert, oriented, no apparent distress HEENT: Atraumatic, normocephalic Eyes: Anicteric, normal conjunctiva, extraocular movements grossly intact Neck: Supple Respiratory: Clear to auscultation bilaterally, normal respiratory effort Cardiovascular: Regular rate and rhythm GI: Distended, tender particularly in bilateral upper quadrants Extremities: No edema Musculoskeletal: Moving all extremities Neuro: No overt focal neurological deficits Skin: No rashes appreciated Psych: Cooperative Lab / Micro Data 07/13/24 09:56 07/13/24 09:56 Labs: Laboratory Results - last 24 hr 07/13/24 09:56: WBC 9.5, RBC 3.38 L, Hgb 11.1 L, Hct 32.7 L, MCV 96.7, MCH 32.8 H, MCHC 33.9, RDW Std Deviation 60.6 H, RDW Coeff of [place] 17.4 H, Plt Count 64 L, MPV 10.6, Immature Gran % (Auto) 0.600, Neut % (Auto) 65.1, Lymph % (Auto) 20.5, [place] % (Auto) 10.9 H, Eos % (Auto) 2.4, Baso % (Auto) 0.5, Absolute Neuts (auto) 6.2, Absolute Lymphs (auto) 1.95, Nucleated RBC % 0, PT 16.0 H, INR 1.3, Sodium 137, Potassium 4.0, Chloride 106, Carbon Dioxide 27.0, Anion Gap 4 L, BUN 8, Creatinine 0.56, Estim Creat Clear Calc 105.92, Est GFR (MDRD) Af Amer 154, Est GFR (MDRD) Non-Af 127, BUN/Creatinine Ratio 14.4, Glucose 114 H, Calcium 8.6, Total Bilirubin 1.40 H, Direct Bilirubin 0.69 H, AST 48 H, ALT 48, Alkaline Phosphatase 99, Lactate Dehydrogenase 356 H, Total Protein 6.9, Albumin 2.6 L, Globulin 4.3 H, Lipase 51 07/13/24 10:03: Lactic Acid 1.9 07/13/24 10:05: Urine Color Catherine, Urine Clarity Sl. Cloudy, Urine pH 6.0, Ur Specific [place] 1.020, Urine Protein 30 H, Urine Glucose (UA) Normal, Urine Ketones Negative, Urine Occult Blood 10 H, Urine Nitrite Negative, Urine Bilirubin 1 H, Urine Urobilinogen 8 H, Ur Leukocyte Esterase 25 H, Urine RBC 0 SEEN, Urine WBC 0-5 SEEN, Ur Squamous Epith Cells 10-25 SEEN, Urine Bacteria 1+, Urine Mucus 1+, Urine Test Negative 07/13/24 12:22: Fluid Glucose 117 H, Fluid Total Protein 0.5, Fluid LDH 38 07/13/24 12:45: Ammonia 24.0 07/13/24 13:37: Fluid Source PARACENTESIS, Fluid Color LT YEL, Fluid Appearance CLEAR, Fluid WBC 0.218, Fluid RBC 382, Fluid Tot Cell Count 0.251 H, Fld Polynuclear WBCs # 0.010, Fld Polynuclear WBCs % 4.6, Fluid Mononuclear WBCs 0.208, Fld Mononuclear WBCs % 95.4, Fluid Neutrophils 1, Fluid Lymphocytes 27, Fluid Monocytes 64, Fld Mesothelial Cells 8, Fl Pathologist Comment May follow, Fluid Comment 2 SEE COMMENT Micro: Microbiology 07/13/24 13:38 Fluid - Paracentesis (Abd) Gram Stain - Final Imaging Radiology Impression Abdomen/Pelvis CT 07/13/24 10:45 IMPRESSION: Liver cirrhosis, splenomegaly and ascites. Electronically Signed: Cooper Hernandez MD at 11:01 EST , Paracentesis Ultrasound 07/13/24 12:23 IMPRESSION: Ultrasound guided paracentesis. Electronically Signed: Harinder Alcala MD at 14:26 EST , Assessment & Plan Assessment/Plan (1) Abdominal pain: PLAN: Plan # 43-year-old with liver cirrhosis secondary to IV drug abuse and chronic hepatitis C with new onset ascites and abdominal pain -Patient reports history of hepatitis C but denies ever being told she had any problems with her liver though problem list has HCC on it, unclear whether this diagnosis came from given patient's report of not having known problems with her liver -At this time sees a child Brown class B to C.she has decompensated cirrhosis. She underwent diagnostic and therapeutic paracentesis we will are awaiting to see if there are any signs of SBP. She has no history of heart disease or any infiltrative diseases that would affect the liver and cause ascites. -She will need upper endoscopy to evaluate her for esophageal varices. She will also need treatment for chronic hepatitis C to prevent the development of parasellar carcinoma. -Daily weights -I?s and O?s -GI consult -Lasix and spironolactone Hx hepatitis C -Check hepatitis panel and viral load Substance use d/o -Denies alcohol, remote hx of opioid use d/o -Did recently use meth via smoking, denies IVDA at this time Charges/Coding Visit Charges Inpatient E&M: 18672 Init Hosp L3
[2024-07-13 18:11] LABS: Internal QC Validated? YES +Cl - CLEAR BKGD; Pregnancy, Urine Negative Negative
[2024-07-13] MEDS: 0.9% Saline Lock 10 ML Syringe IV (21:02)
[2024-07-14] VITALS (10 sets, daily range): BP systolic 105–125; BP diastolic 65–88; PULSE 89–112; RESP 16–20; TEMP 36.8–38.1; O2SAT 99–100; BMI 26.8; BMI 26.6
[2024-07-14] MEDS: oxyCODONE 5 MG Tablet PO ×2 (06:34→17:53)
[2024-07-14 07:08] LABS: Absolute Lymphocyte Count 1.68 X10^3/uL (0.83-4.51); Absolute Neutrophil Count 7.3 X10^3/uL (2.0-7.7); Basophil# 0.05 X10^3/uL; Basophil% 0.5 % (0-1); Eosinophil# 0.19 X10^3/uL; Eosinophils% 1.8 % (0-5); Hematocrit 29.4 % (37-47); Hemoglobin 10.1 g/dL (12.0-15.0); Lymphocyte # 1.68 X10^3/ul (0.83-4.51); Lymphocyte % 16.3 % (19-41); Mean Corp Hgb Conc 34.4 g/dL (32-36); Mean Corpuscular Hgb 33.1 pg (27.0-32.0); Mean Corpuscular Volume 96.4 fL (81-99); Mean Platelet Vol. 10.7 fl (6.2-12.0); Monocyte# 0.99 X10^3/uL; Monocyte% 9.6 % (0-10); NRBC Flagged by Analyzer 0 % (0-5); Neutrophil # 7.33 X10^3/uL (2.7-7.7); Neutrophil % 71.2 % (47-70); POSITIVE COUNT YES; Platelet Count 68 K/mm3 (150-450); RBC Distribution Width CV 17.1 % (11.6-14.6); RBC Distribution Width SD 59.9 fl (35.1-43.9); Red Blood Count 3.05 M/mm3 (4.2-5.4); White Blood Count 10.3 K/mm3 (4.4-11.0)
[2024-07-14 07:15] LABS: Differential Indicated SCAN CRITERIA MET
[2024-07-14 07:23] LABS: ALB/GLOB Ratio 0.6 RATIO (0.9-2.4); AST(SGOT) 65 U/L (15-37); Alanine Aminotransfer ALT/SGPT 59 U/L (13-56); Albumin, Serum 2.2 g/dL (3.2-5.0); Alkaline Phosphatase 112 U/L (45-117); Anion Gap 5 (5-15); BUN 9 mg/dL (7-18); BUN/Creat Ratio 17.5 RATIO (10-20); Calcium,Total 7.9 mg/dL (8.5-10.1); Chloride 104 mmol/L (98-107); Creatinine, Serum 0.52 mg/dL (0.55-1.02); EST Glomerular Filtration Rate 139 mL/min (>60); Est Glom Filt Rate - Afr Amer 168 mL/min (>60); Estimated Creatinine Clearance 115.92 ml/min; Globulin 3.8 g/dL (2.2-4.2); Glucose 121 mg/dL (74-106); Magnesium 1.8 mg/dL (1.6-2.6); Potassium 4.3 mmol/L (3.5-5.1); Sodium Level 132 mmol/L (136-145)
--- NOTE | 2024-07-14 07:56 | PN.HOSP_ITS ---
Reason for Visit Reason for Visit: Diagnoses Unspecified abdominal pain (07/13/24) Subjective Subjective Still with some tenderness in various areas specifically upper quadrants however significantly improved from yesterday and patient reports she feels stronger and overall better Objective Data Objective Data Vital Signs: Vital Signs Temp Pulse Resp BP Pulse Ox O2 Del Method 99.5 F H 108 H 16 114/70 100 Room Air 07/14/24 03:00 07/14/24 03:00 07/14/24 03:00 07/14/24 03:00 07/14/24 03:00 07/14/24 03:01 Oxygen Delivery Method Room Air Weight: 62 kg Body Mass Index (BMI) 26.8 Intake & Output: Intake and Output for Last 24 Hours 07/12/24 07/13/24 07/14/24 23:59 23:59 23:59 Intake Total 250 / 250 Output Total 2420 / 2420 Balance -2170 / -2170 Lab / Micro Data 07/14/24 06:08 07/14/24 06:08 Labs: Laboratory Results - last 24 hr 07/13/24 09:56: WBC 9.5, RBC 3.38 L, Hgb 11.1 L, Hct 32.7 L, MCV 96.7, MCH 32.8 H, MCHC 33.9, RDW Std Deviation 60.6 H, RDW Coeff of Bet[place] 17.4 H, Plt Count 64 L, MPV 10.6, Immature Gran % (Auto) 0.600, Neut % (Auto) 65.1, Lymph % (Auto) 20.5, [place] % (Auto) 10.9 H, Eos % (Auto) 2.4, Baso % (Auto) 0.5, Absolute Neuts (auto) 6.2, Absolute Lymphs (auto) 1.95, Nucleated RBC % 0, PT 16.0 H, INR 1.3, Sodium 137, Potassium 4.0, Chloride 106, Carbon Dioxide 27.0, Anion Gap 4 L, BUN 8, Creatinine 0.56, Estim Creat Clear Calc 105.92, Est GFR (MDRD) Af Amer 154, Est GFR (MDRD) Non-Af 127, BUN/Creatinine Ratio 14.4, Glucose 114 H, Calcium 8.6, T otal Bilirubin 1.40 H, Direct Bilirubin 0.69 H, AST 48 H, ALT 48, Alkaline Phosphatase 99, Lactate Dehydrogenase 356 H, Total Protein 6.9, Albumin 2.6 L, G lobulin 4.3 H, Lipase 51 07/13/24 10:03: Lactic Acid 1.9 07/13/24 10:05: Urine Color Catherine, Urine Clarity Sl. Cloudy, Urine pH 6.0, Ur Specific [place] 1.020, Urine Protein 30 H, Urine Glucose (UA) Normal, Urine Ketones Negative, Urine Occult Blood 10 H, Urine Nitrite Negative, Urine Bilirubin 1 H, Urine Urobilinogen 8 H, Ur Leukocyte Esterase 25 H, Urine RBC 0 SEEN, Urine WBC 0-5 SEEN, Ur Squamous Epith Cells 10-25 SEEN, Urine Bacteria 1+, Urine Mucus 1+, Urine Test Negative 07/13/24 10:05: Urine Test Negative 07/13/24 12:22: Fluid Glucose 117 H, Fluid Total Protein 0.5, Fluid LDH 38 07/13/24 12:45: Ammonia 24.0 07/13/24 13:37: Fluid Source PARACENTESIS, Fluid Color LT YEL, Fluid Appearance CLEAR, Fluid WBC 0.218, Fluid RBC 382, Fluid Tot Cell Count 0.251 H, Fld Polynuclear WBCs # 0.010, Fld Polynuclear WBCs % 4.6, Fluid Mononuclear WBCs 0.208, Fld Mononuclear WBCs % 95.4, Fluid Neutrophils 1, Fluid Lymphocytes 27, Fluid Monocytes 64, Fld Mesothelial Cells 8, Fl Pathologist Comment May follow, Fluid Comment 2 SEE COMMENT 07/14/24 06:08: WBC 10.3, RBC 3.05 L, Hgb 10.1 L, Hct 29.4 L, MCV 96.4, MCH 33.1 H, MCHC 34.4, RDW Std Deviation 59.9 H, RDW Coeff of [place] 17.1 H, Plt Count 68 L, MPV 10.7, Immature Gran % (Auto) 0.600, Neut % (Auto) 71.2 H, Lymph % (Auto) 16.3 L, [place] % (Auto) 9.6, Eos % (Auto) 1.8, Baso % (Auto) 0.5, Absolute Neuts (auto) 7.3, Absolute Lymphs (auto) 1.68, Nucleated RBC % 0, Sodium 132 L, Potassium 4.3, Chloride 104, Carbon Dioxide 24.0, Anion Gap 5, BUN 9, Creatinine 0.52 L, Estim Creat Clear Calc 115.92, Est GFR (MDRD) Af Amer 168, Est GFR (MDRD) Non-Af 139, BUN/Creatinine Ratio 17.5, Glucose 121 H, Calcium 7.9 L, Magnesium 1.8, Total Bilirubin 1.10 H, AST 65 H, ALT 59 H, Alkaline Phosphatase 112, Total Protein 6.0 L, Albumin 2.2 L, Globulin 3.8, Albumin/Globulin Ratio 0.6 L, TSH 2.340 Micro: Microbiology 07/13/24 13:38 Fluid - Paracentesis (Abd) Gram Stain - Final Radiography Diagnostic Testing: Radiology Impression Abdomen/Pelvis CT 07/13/24 10:45 IMPRESSION: Liver cirrhosis, splenomegaly and ascites. Electronically Signed: Cooper Hernandez MD at 11:01 EST , Paracentesis Ultrasound 07/13/24 12:23 IMPRESSION: Ultrasound guided paracentesis. Electronically Signed: Harinder Alcala MD at 14:26 EST , Physical Exam Narrative General: Alert, oriented, no apparent distress HEENT: Atraumatic, normocephalic Eyes: Anicteric, normal conjunctiva, extraocular movements grossly intact Neck: Supple Respiratory: Clear to auscultation bilaterally, normal respiratory effort Cardiovascular: Regular rate and rhythm GI: Less distended, softer, distillation operator but less so Extremities: No edema Musculoskeletal: Moving all extremities Neuro: No overt focal neurological deficits Skin: No rashes appreciated Psych: Cooperative Assessment & Plan Assessment/Plan (1) Abdominal pain: PLAN: Plan # Liver cirrhosis with new onset ascites and abdominal pain -Patient reports history of hepatitis C but denies ever being told she had any problems with her liver though problem list has HCC on it, unclear whether this diagnosis came from given patient's report of not having known problems with her liver -Pain is primarily in bilateral upper quadrants and not so much lower quadrants, additionally no confusion, hypotension, hypothermia, diarrhea, fever or leukocytosis suggesting SBP -Suspect ascites is secondary to her cirrhosis -Paracentesis ordered -Daily weights -I?s and O?s -GI consult -Lasix and spironolactone -07/14: Patient evaluated by GI, patient for upper endoscopy to evaluate for varices. Additionally patient underwent paracentesis with 2.4 L removed. Gram stain thus far with no organisms. Ascitic fluid with 8 mesothelial cells, 64 monocytes, 27 lymphocytes, 1 neutrophil. White blood cell count within normal limits. Patient had one-time temperature of 100.4 but this resolved without any antipyretics and clinical picture does not seem consistent with SBP so empiric antibiotics were not started at this time # Hyponatremia -07/14: Sodium was 137, patient started on Lasix and spironolactone and sodium this a.m. is 132, will hold spironolactone #Hx hepatitis C -Check hepatitis panel and viral load -07/14: Lab results pending Chronic medical problems: #Substance use d/o -Denies alcohol, remote hx of opioid use d/o -Did recently use meth via smoking, denies IVDA at this time #DVT ppx: SCDs Mena Bundy MD Time spent in the patient's overall evaluation, decision-making process, review of diagnostic data, adjustment of management, discussion with other providers, nursing and ancillary staff involved in patient's care documentation, 36 Minutes Charges/Coding Visit Charges Inpatient E&M: 12997 Subs Hosp L2
[2024-07-14 08:43] LABS: Ovalocyte 1+; Platelet Estimate MOD DEC (ADEQ); Polychromasia 1+
--- NOTE | 2024-07-14 11:00 | CASEMGMT ---
RN CM [facility] [employer] CM?to room to meet with patient for initial transition planning/care coordination assessment. RN CM?introduced self and role at [facility]. Pt voices understanding and consents to assessment?at this time. Pt sitting up in chair in no distress at this time. Pt is A/O at this time and answers all questions appropriately. Care providers, pharmacy, and demographics verified/updated at this time. Strata:?1 PCP: No PCP. Pt would like a list of local PCP's to review and she states she will start calling around to get an appt to get established as a new patient. Pt states if she is unable to get in somewhere soon enough, her next preference would be to go to [facility] and she would like assistance w/an appt there, stating she has been trying to reach someone there but has not been able to get through. She states she does have an appt in court Jul 20 @ noon, so would not be able to go to an appt at that time. Specialists: none Preferred Pharmacy: Pt would like [facility] @ [place], [id number]. Insurance: [employer] and [employer] Stewarte listed on demographics. Pt states she cancelled [employer] w/in 24-hrs of signing on and states just has [employer]. Call placed to Radha in registration who states will look into this and to f/u with THANG Damon RN, CM. Prescription Benefit: yes Living Will/HPOA:Pt does not currently have LW/HCPOA and declines info at this time. Pt made aware that she can contact as an out-pt and make appt in the future if she decides she would like to talk with someone about this or would like to utilize [facility] social work for advanced directive completion. LNOK: Mother Sofia, is only contact listed. Pt states she has 2 children, ages 21 and 17. Pt also has a 20-yr-old son who lives in [place], but states he has been adopted out. Living Arrangements: Lives w/.roommate in mobile home w/5 steps to enter. Independent. Denies difficulty w/stairs. Transportation:?Pt states she does not drive, stating she walks everywhere. She states she thinks her friend, Melissa, will take her home @ discharge. She is aware of [place] [facility]s transportation benefits for appts and has used this in the past. DME: Denies using any DME and denies needs. HHC/SNF: No hx. ETOH: Denies Drugs: states has hx of illegal drugs, but denies current use and denies the need for resources. States does vape THC. Pt wishes to return home and states has no concerns with going home at time of discharge. CM?to follow for any further discharge planning/needs. Pt voices no further concerns/needs at this time. Advised pt to ask for CM?if any further questions/concerns/needs arise. Voices understanding. PLAN: Home CM to f/u for possible assistance w/getting PCP appt/to get established as a new patient. Enriqueta VYASN RN CM
--- NOTE | 2024-07-14 11:20 | CASEMGMT ---
Received tc from Cuca from registration who states that pt [employer] is active and the premium was paid on 07/06 and good until the end of July. JIGNESH HASSAN into pt room, provided pt with a local healthcare directory pamphlet as well as info on [facility]. Pt plans to call today to set up a PCP. She is aware of hospital transportation for [place] PCPs. Pt will call JIGNESH HASSAN should she need any assistance with this. Pt also made aware that [employer] insurance is active through the end of July. Pt denies further questions/concerns at this time.
--- NOTE | 2024-07-14 13:30 | CHAPLAIN ---
Type of Pastoral Visit _x__ Initial Visit ___ Follow-up Visit ___ On-call Visit ___ General Patient Visit ___ Spiritual Assessment ___ Family Conference ___ Bereavement ___ Rapid Response ___ Code Blue ___ Other (describe below) Pastoral Care Referral From _x__ Patient ___ Family ___ Nurse ___ Physician ___ Multi Craft Maintenance Technician ___ Ambulatory Analyst ___ Other (describe below) Sacrament/Intervention _x__ Active listening ___ Anointing ___ Worship ___ Bereavement ___ Communion ___ Elise exploration ___ ___ Life review _x__ Prayer ___ Reconciliation ___ Sacrament of Sick _x__ Supportive presence ___ Wedding ___ Other (describe below) Pastoral Comments patient explains her situation and the emergent need to get to the hospital after several friends encouraged her to come; pt states that she understands better what was happening in her body and will be more aware of this in the future; pt says that she recently moved here from [place] and has come to appreciate the good medical care and the support of friends while here so far; pt states that she is not affiliated with any adventism but would welcome a prayer for her health; pt has a scope to be done in a couple of hours and has some anxiety about that
[2024-07-14 14:09] LABS: Pathologist Comment/Body Fluid Reviewed
--- NOTE | 2024-07-14 15:33 | PRE.ANES_ITS ---
ASA Classification* ASA Classification ASA Classification: 3 Assessment & Plan Anesthesia* Anesthesia Assessment Anesthesia Assessment: Discussed sedation and/or anesthesia options, risks, benefits, and alternatives with patient/parents/legal guardian/POA. Questions invited. The patient/parents/legal guardian/POA seems to understand and agrees to proceed with anesthesia plan. Reviewed the physical assessment, medical history, allergy history and patient home medications list prior to surgery/procedure/anesthetic and documented any changes. Performed airway and anesthesia risk assessments. Anesthesia Type Anesthesia Type: MAC Anesthesia Focused Assessment* Temperature: 98.2 F Pulse Rate: 92 Blood Pressure: 105/65 Respiratory Rate: 18 Pulse Ox: 100 Airway Assessment Mouth opens: >3 cm Mallampati Score: II Focused Labs Anesthesia Preop lab: CBC WBC 10.3 K/mm3 (4.4-11.0) 07/14/24 06:08 RBC 3.05 M/mm3 (4.2-5.4) L 07/14/24 06:08 Hgb 10.1 g/dL (12.0-15.0) L 07/14/24 06:08 Hct 29.4 % (37-47) L 07/14/24 06:08 Plt Count 68 K/mm3 (150-450) L 07/14/24 06:08 CHEMISTRY Potassium 4.3 mmol/L (3.5-5.1) 07/14/24 06:08 Sodium 132 mmol/L (136-145) L 07/14/24 06:08 Magnesium 1.8 mg/dL (1.6-2.6) 07/14/24 06:08 Phosphorus Pending 07/14/24 06:08 BUN 9 mg/dL (7-18) 07/14/24 06:08 Creatinine 0.52 mg/dL (0.55-1.02) L 07/14/24 06:08 Glucose 121 mg/dL (74-106) H 07/14/24 06:08 TSH 2.340 uIU/mL (0.358-3.740) 07/14/24 06:08 COAG PT 16.0 SECONDS (11.7-14.9) H 07/13/24 09:56 HCG, Quant 52697 mIU/mL (1-3) H 12/27/22 22:36 Urine Test Negative Negative 07/13/24 10:05 Pre-Assessment Diagnosis/Proposed Procedure Planned Operative Procedure(s): EGD Anesthesia History Anesthesia History - hacksaw inspector: Anesthesia History - hacksaw inspector Hx Hospitalization No 01/17/23 10:26 Any Problems With Anesthesia No 07/13/24 22:29 Cholinesterase deficiency No 07/13/24 22:29 You/Your Family Experience No 07/13/24 22:29 fever (hyperthermia) with Relationship Recent Exposure to Contagious No 07/13/24 22:29 Disease Does patient have nerve No 07/13/24 22:29 stimulator Patient instructed to have No 07/13/24 22:29 device shut off --Does patient have Pacemaker No 07/14/24 14:07 or ICD? When Was Last Pacemaker Check QUESTION #4 FULL TEXT: You/Your Family Experience fever (hyperthermia) with Anesthesia Last Oral Intake Last Oral intake: Last Oral Intake NPO since 00:00 07/14/24 14:07 Meds taken in AM with sips of water? Meds patient instructed to take am of surgery PONV PONV - hacksaw inspector: PONV - hacksaw inspector Female HX of Motion Sickness HX of N/V After Surgery Non-Smoker Duration of Surgery greater than 60 minutes Number of Risk Factors PONV Score Height & Weight Height & Weight: Anesthesia: Height & Weight Height 5 ft 07/14/24 14:32 Weight: 62 kg 07/14/24 14:32 Body Mass Index (BMI) 26.6 07/14/24 14:07 Respiratory Assessment Respiratory Assessment - hacksaw inspector: Respiratory Tract Infection Hx - hacksaw inspector Hx Respiratory Tract Infection No 07/13/24 22:29 STOP Sleep Apnea STOP Sleep Apnea - hacksaw inspector: STOP Sleep Apnea - hacksaw inspector Hx Hypertension Yes: no meds 07/13/24 12:32 Hx Sleep Apnea No 07/13/24 12:32 CPAP BIPAP Do you snore loudly (louder No 07/13/24 12:32 than talking or can be heard Do you often feel tired/ No 07/13/24 12:32 fatigued/ sleepy during daytime? Has anyone observed you stop No 07/13/24 12:32 breathing during sleep? STOP Results Negative 07/13/24 12:32 QUESTION #5 FULL TEXT : Do you snore loudly (louder than talking or can be heard through closed doors)? Tobacco Use History Tobacco Use History - hacksaw inspector: Tobacco Use History - hacksaw inspector Tobacco Use Smoking Status Light Smoker (<10/day) 07/13/24 12:32 Hx Tobacco Use Yes 07/13/24 12:32 Years Smoking Packs Smoked per Day Smoking Cessation Date was within the last 15 years Hx Smoking Cessation Date Hx Smoking Cessation Counseling Hematologic Medial History Hematologic Hx - hacksaw inspector: Hematologic Medical Hx - perch machine inspector Hx of Blood Transfusion No 07/13/24 12:32 Hx of Transfusion in last 3 No 07/13/24 12:32 Months Date of Last Transfusion (if within last 3 months) Ever experience any problems No 07/13/24 12:32 with transfusion(s)? Specify any problems Hx of Preganancy in last 3 No 07/13/24 12:32 Months Nurse Filling Out Transfusion [email or web address] 07/13/24 12:32 & Questions: Date: 07/13/24 07/13/24 12:32 Time: 13:01 07/13/24 12:32 Patient unable to answer at this time (ie. confused, unrespo /Reproduction History /Reproductive History - hacksaw inspector: /Reproductive Hx- hacksaw inspector Hx Now No 07/13/24 22:29 Gestational Age (in weeks): EDC: Hx Hx Para Hx Section SAB No 07/13/24 22:29 Active Medications Active Medications: Current Medications Generic Name Dose Route Start Last Admin Trade Name Freq PRN Reason Stop Dose Admin Albuterol Sulfate 2.5 mg 07/13/24 12:30 Albuterol 2.5 Mg/3 Ml Vial.Neb. INHALATION Q2H PRN PRN SOB &/OR WHEEZING Furosemide 20 mg 07/13/24 14:45 07/14/24 09:57 Furosemide 20 Mg Tablet PO Not Given DAILY LYNSEY Protocol Melatonin 3 mg 07/13/24 12:30 Melatonin 3 Mg Tablet PO QHS PRN PRN INSOMNIA Morphine Sulfate 2 mg 07/13/24 12:30 Morphine 2 Mg/Ml Syringe IV Q3H PRN PRN Pain Score 6-10 Ondansetron HCl 4 mg 07/13/24 12:30 07/13/24 21:02 Ondansetron 4 Mg/2 Ml Vial IV 4 mg Q8H PRN PRN Administration NAUSEA/VOMITING Oxycodone HCl 5 mg 07/13/24 12:30 07/14/24 06:34 Oxycodone 5 Mg Tablet PO 5 mg Q4H PRN PRN Administration Pain Score 4-10 Senna/Docusate Sodium 2 tablet 07/13/24 12:30 Senna/Docusate Sodium 1 Tablet PO BID PRN PRN Constipation Sodium Chloride 10 - 40 ml 07/13/24 13:03 07/13/24 21:02 0.9% Saline Lock 10 Ml Syringe IV 10 ml UD PRN Administration SALINE FLUSH PFSH Medical History Diabetes HCC (hepatocellular carcinoma) Hepatitis C Loose, teeth Stroke/cerebrovascular accident Smoker Hypertension Home Medications ?Medication ?Instructions ?Recorded ?Last Taken ?Type vits no.130-ferrous fum 1 tab PO DAILY 07/13/24 07/12/24 History 27 mg iron-folic acid 800 mcg tablet ( Vitamin) Allergy/AdvReac Type Severity Reaction Status Date / Time No Known Allergies Allergy Verified 07/13/24 09:55 Family History Uncle Cancer Surgical History H/O dilation and curettage History of cholecystectomy Social History Smoking Status: Light Smoker (<10/day) Review of Systems (Anesthesia) ROS Narrative System reviewed and no additional complaints, except as documented.
--- NOTE | 2024-07-14 15:48 | EX.PCM.PN.GI ---
Subjective Subjective Patient has been NPO. She feels a lot better after undergoing large-volume paracentesis yesterday. She is waiting for upper endoscopy today. To evaluate upper GI tract for varices. Objective Data Objective Data Vital Signs: Vital Signs Temp Pulse Resp BP Pulse Ox O2 Del Method 98.2 F 92 18 105/65 100 Room Air 07/14/24 15:34 07/14/24 15:34 07/14/24 15:34 07/14/24 15:34 07/14/24 15:34 07/14/24 14:05 Oxygen Delivery Method Room Air Weight: 136 lb 10.986 oz Body Mass Index (BMI) 26.6 Intake & Output: Intake and Output for Last 24 Hours 07/12/24 07/13/24 07/14/24 23:59 23:59 23:59 Intake Total 250 / 250 Output Total 2420 / 2420 Balance -2170 / -2170 Lab / Micro Data 07/14/24 06:08 07/14/24 06:08 Labs: Laboratory Results - last 24 hr 07/13/24 10:05: Urine Test Negative 07/13/24 13:37: Fl Pathologist Comment Reviewed 07/14/24 06:08: WBC 10.3, RBC 3.05 L, Hgb 10.1 L, Hct 29.4 L, MCV 96.4, MCH 33.1 H, MCHC 34.4, RDW Std Deviation 59.9 H, RDW Coeff of Betina 17.1 H, Plt Count 68 L, MPV 10.7, Immature Gran % (Auto) 0.600, Neut % (Auto) 71.2 H, Lymph % (Auto) 16.3 L, [place] % (Auto) 9.6, Eos % (Auto) 1.8, Baso % (Auto) 0.5, Absolute Neuts (auto) 7.3, Absolute Lymphs (auto) 1.68, Nucleated RBC % 0, Platelet Estimate MOD DEC, Polychromasia 1+, Ovalocytes 1+, Sodium 132 L, Potassium 4.3, Chloride 104, Carbon Dioxide 24.0, Anion Gap 5, BUN 9, Creatinine 0.52 L, Estim Creat Clear Calc 115.92, Est GFR (MDRD) Af Amer 168, Est GFR (MDRD) Non-Af 139, BUN/Creatinine Ratio 17.5, Glucose 121 H, Calcium 7.9 L, Magnesium 1.8, Total Bilirubin 1.10 H, AST 65 H, ALT 59 H, Alkaline Phosphatase 112, Total Protein 6.0 L, Albumin 2.2 L, Globulin 3.8, Albumin/Globulin Ratio 0.6 L, TSH 2.340 Micro: Microbiology 07/13/24 13:38 Fluid - Paracentesis (Abd) Gram Stain - Final 07/13/24 13:38 Fluid - Paracentesis (Abd) Body Fluid Culture - Preliminary No growth-Final to follow Physical Exam Narrative General: Alert, oriented, no apparent distress HEENT: Atraumatic, normocephalic Eyes: Anicteric, normal conjunctiva, extraocular movements grossly intact Neck: Supple Respiratory: Clear to auscultation bilaterally, normal respiratory effort Cardiovascular: Regular rate and rhythm GI: Less distended, softer, 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 She was explained alternatives, risks, benefits include not withstanding bleeding, infection, sepsis, perforation, need emergent . She have an ASA of 3. Charges/Coding Visit Charges Inpatient E&M: 24569 Subs Hosp L2
[2024-07-14 15:58] LABS: Phosphorus 2.8 mg/dL (2.5-4.9)
--- NOTE | 2024-07-14 16:14 | PCM.POST.ANE ---
Anesthesia: Postop Eval I Current Vital Signs Temperature: 99.8 F Pulse Rate: 112 Blood Pressure: 122/75 Respiratory Rate: 20 Pulse Ox: 100 Oxygen Delivery Method: Room Air Assessment Airway patent: Yes Spontaneous unlabored respirations: Yes Mental status: Awake nausea: No Vomiting: No Anesthesia Complication: No Fluid Hydration Crystalloid volume administer (ml): 15 Total IV fluid infused: 15 Progress Note Anesthesia document: Postop Eval 1 completed: Yes
--- NOTE | 2024-07-14 16:48 | OP.EGD_ITS ---
Patient Name: Liberty Turcios Procedure Date: 07/14/2024 3:50 PM Date of : 1980 Age: 43 Procedure: Upper GI endoscopy Indications: Iron deficiency anemia, Suspected upper gastrointestinal bleeding Providers: Junior Holloway DO Medicines: Monitored Anesthesia Care Patient Profile: This is a 43 year old female. Refer to note in patient chart for documentation of history and physical. Patient has symptoms. Complications: No immediate complications. Procedure: Pre-Anesthesia Assessment: - Prior to the procedure, a History and Physical was performed, and patient medications and allergies were reviewed. The patient is competent. The risks and benefits of the procedure and the sedation options and risks were discussed with the patient. All questions were answered and informed consent was obtained. Patient identification and proposed procedure were verified by the physician in the pre-procedure area. Mental Status Examination: alert and oriented. Airway Examination: normal oropharyngeal airway and neck mobility. Respiratory Examination: clear to auscultation. CV Examination: normal. Prophylactic Antibiotics: The patient does not require prophylactic antibiotics. Prior Anticoagulants: The patient has taken no anticoagulant or antiplatelet agents. ASA Grade Assessment: III - A patient with severe systemic disease. After reviewing the risks and benefits, the patient was deemed in satisfactory condition to undergo the procedure. The anesthesia plan was to use monitored anesthesia care (MAC). Immediately prior to administration of medications, the patient was re-assessed for adequacy to receive sedatives. The heart rate, respiratory rate, oxygen saturations, blood pressure, adequacy of pulmonary ventilation, and response to care were monitored throughout the procedure. The physical status of the patient was re-assessed after the procedure. After obtaining informed consent, the endoscope was passed under direct vision. Throughout the procedure, the patient's blood pressure, pulse, and oxygen saturations were monitored continuously. The Endoscope was introduced through the mouth, and advanced to the second part of duodenum. The upper GI endoscopy was accomplished without difficulty. The patient tolerated the procedure well. Scope In: 3:59:38 PM Scope Out: 4:08:09 PM Total Procedure Duration Time 0 hours 8 minutes 31 seconds Findings: No gross lesions were noted in the first portion of the duodenum. 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 They were 19 mm in largest diameter. Four bands were successfully placed with incomplete eradication of varices. Bleeding had stopped at the end of the procedure. 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 Impression: - Normal esophagus. 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 Biopsied. - No gross lesions in the first portion of the duodenum. Recommendation: - [facility]. - Resume previous diet. - Continue present medications. - Await pathology results. Procedure Code(s): --- Professional --- 94837, Esophagogastroduodenoscopy, flexible, transoral; with band ligation of esophageal/gastric varices CPT copyright 2021 [employer]. All rights reserved. The codes documented in this report are preliminary and upon chief building inspector review may be revised to meet current compliance requirements. Junior Holloway DO 07/14/2024 4:47:59 PM This report has been signed electronically. Number of Addenda: 0 Note Initiated On: 07/14/2024 3:50 PM
--- NOTE | 2024-07-14 16:48 | OP.CCLET_ITS ---
07/14/2024 No Primary Care Physician Re : Upper GI endoscopy procedure for Liberty Turcios Dear Care Physician This procedure was performed on Sunday, July 14, 2024. My impressions and recommendations are as follows: Impressions : - Normal esophagus. 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 Biopsied. - No gross lesions in the first portion of the duodenum. Recommendations : - [facility]. - Resume previous diet. - Continue present medications. - Await pathology results. My findings are described in the full procedure note, which is enclosed. If I can be of further assistance, please feel free to contact me at . Sincerely, Junior Holloway, 07/14/2024 4:47:59 PM This report has been signed electronically.
[2024-07-14 16:50] LABS: Bedside Glucose 73 mg/dL (74-106)
[2024-07-14 20:07] LABS: HCV Quant. RNA PCR 4550000 IU/mL (.); HCV log 10 6.658 (.)
[2024-07-15] MEDS: oxyCODONE 5 MG Tablet PO ×3 (02:09→12:58)
[2024-07-15] MEDS: Senna/Docusate Sodium 1 Tablet 2 TABLET PO (02:09)
[2024-07-15 02:54] VITALS: BP 125/79; PULSE 97; RESP 16; TEMP 37; O2SAT 96
[2024-07-15 06:00] VITALS: BMI 25.7
[2024-07-15 06:45] LABS: Absolute Lymphocyte Count 1.32 X10^3/uL (0.83-4.51); Absolute Neutrophil Count 5.6 X10^3/uL (2.0-7.7); Basophil# 0.04 X10^3/uL; Basophil% 0.5 % (0-1); Eosinophil# 0.19 X10^3/uL; Eosinophils% 2.4 % (0-5); Hematocrit 31.6 % (37-47); Hemoglobin 10.7 g/dL (12.0-15.0); Lymphocyte # 1.32 X10^3/ul (0.83-4.51); Lymphocyte % 16.7 % (19-41); Mean Corp Hgb Conc 33.9 g/dL (32-36); Mean Corpuscular Hgb 33.1 pg (27.0-32.0); Mean Corpuscular Volume 97.8 fL (81-99); Mean Platelet Vol. 10.7 fl (6.2-12.0); Monocyte# 0.75 X10^3/uL; Monocyte% 9.5 % (0-10); NRBC Flagged by Analyzer 0 % (0-5); Neutrophil # 5.55 X10^3/uL (2.7-7.7); Neutrophil % 70.3 % (47-70); POSITIVE COUNT YES; Platelet Count 73 K/mm3 (150-450); RBC Distribution Width SD 60.6 fl (35.1-43.9); Red Blood Count 3.23 M/mm3 (4.2-5.4); White Blood Count 7.9 K/mm3 (4.4-11.0)
--- NOTE | 2024-07-15 07:14 | POSTOPAN2_ITS ---
Anesthesia Postop Eval I Sum Postop Eval Completion status Anesthesia document: Postop Eval 1 completed: Yes Anesthesia Postop Eval I Summary Anesthesia Postop Eval I Summary: Anesthesia Postop Eval I: Assessment Summary Airway patent Yes 07/14/24 16:15 [email or web address] Spontaneous unlabored Yes 07/14/24 16:15 [email or web address] [email or web address] respirations Mental status Awake 07/14/24 16:15 [email or web address] nausea No 07/14/24 16:15 [email or web address] [email or web address] Vomiting No 07/14/24 16:15 [email or web address] Anesthesia Postop Eval I: Fluid Summary Crystalloid volume administer 15 07/14/24 16:15 [email or web address] (ml) Colloids volume administered ( ml) Blood Product volume administered (ml) Total IV fluid infused 15 07/14/24 16:15 [email or web address] Anesthesia Postop Eval I: Summary Notes Anesthesia Complication No 07/14/24 16:15 [email or web address] Anesthesia Complication Comment: Post-operative progress note Anesthesia: Postop Eval II Evaluation Mental status: Awake Pain Level: 0 nausea: No Vomiting: No
--- NOTE | 2024-07-15 07:14 | PCM.POSTANE2 ---
Anesthesia Postop Eval I Sum Postop Eval Completion status Anesthesia document: Postop Eval 1 completed: Yes Anesthesia Postop Eval I Summary Anesthesia Postop Eval I Summary: Anesthesia Postop Eval I: Assessment Summary Airway patent Yes 07/14/24 16:15 [email or web address] Spontaneous unlabored Yes 07/14/24 16:15 [email or web address] respirations Mental status Awake 07/14/24 16:15 [email or web address] nausea No 07/14/24 16:15 [email or web address] Vomiting No 07/14/24 16:15 [email or web address] Anesthesia Postop Eval I: Fluid Summary Crystalloid volume administer 15 07/14/24 16:15 [email or web address] (ml) Colloids volume administered ( ml) Blood Product volume administered (ml) Total IV fluid infused 15 07/14/24 16:15 [email or web address] Anesthesia Postop Eval I: Summary Notes Anesthesia Complication No 07/14/24 16:15 [email or web address] Anesthesia Complication Comment: Post-operative progress note Anesthesia: Postop Eval II Evaluation Mental status: Awake Pain Level: 0 nausea: No Vomiting: No
[2024-07-15 07:24] LABS: ALB/GLOB Ratio 0.6 RATIO (0.9-2.4); AST(SGOT) 55 U/L (15-37); Alanine Aminotransfer ALT/SGPT 52 U/L (13-56); Albumin, Serum 2.4 g/dL (3.2-5.0); Alkaline Phosphatase 107 U/L (45-117); Anion Gap 4 (5-15); BUN 5 mg/dL (7-18); BUN/Creat Ratio 9.6 RATIO (10-20); Calcium,Total 8.1 mg/dL (8.5-10.1); Chloride 103 mmol/L (98-107); Creatinine, Serum 0.52 mg/dL (0.55-1.02); EST Glomerular Filtration Rate 137 mL/min (>60); Est Glom Filt Rate - Afr Amer 166 mL/min (>60); Globulin 3.9 g/dL (2.2-4.2); Glucose 132 mg/dL (74-106); Potassium 4.3 mmol/L (3.5-5.1); Protein, Total 6.3 g/dL (6.4-8.2); Sodium Level 133 mmol/L (136-145)
[2024-07-15 08:02] VITALS: BP 113/74; PULSE 86; RESP 16; TEMP 36.6; O2SAT 97
[2024-07-15] MEDS: Furosemide 20 MG Tablet PO (08:05)
--- NOTE | 2024-07-15 10:33 | CASEMGMT ---
RN MO into pt room, pt states she has not had a chance to set up her PCP appt. Pt agreeable for this to be set up for her. She requests that the appt be in the afternoon and not on Jul 19 or . Pt states she does not have transportation home and is agreeable to using her insurance for transportation.
--- NOTE | 2024-07-15 11:30 | NURSING ---
hip hop performers documentation reviewed.
[2024-07-15 12:55] VITALS: BP 121/88; PULSE 96; RESP 18; TEMP 37.1; O2SAT 100
--- NOTE | 2024-07-15 13:27 | DCINST_ITS ---
Discharge Instructions Diet Discharge Diet: 2000 mg Sodium Diet and - DC O2, CPAP, BIPAP needs Home O2 Discharge instructions: No Dressing / Incision Discharge Activity: - (Increase activity as tolerated) Follow Up Care Test Results: Test results from this visit will be discussed in further detail at your follow- up appointment, if applicable. Discharge Plan Admission Admit Date/Time: 07/13/24 12:15 Primary Reason for Your Visit: Abdominal pain Attending Provider: Mena Bundy Primary Care Provider: Care Physician,No Primary Consulting Providers: uJnior Holloway Instructions Patient Instructions: SHER RN Paracentesis Dc Additional Instructions / Restrictions: DISCHARGE INSTRUCTIONS PLEASE READ *Please take this with you to your next doctors appointment* -You will be discharged on Lasix -You will need to follow-up with Dr. Holloway with GI in his office upon discharge. Please call his office to schedule an appointment (ph. [phone]) -Please call your primary care provider's office upon discharge to schedule a hospital follow up within 1 week. -If you do not have a primary care physician of list of local primary care physicians can be provided for you upon discharge. Please ask for this list prior to discharge -For any concerning signs or symptoms please call 911 or proceed to the nearest emergency department Discharge Orders/Prescriptions Prescriptions: New furosemide 20 mg Tablet 20 mg PO DAILY 30 Days Qty: 30 0RF Continued Vitamin 27 mg iron- 800 mcg tablet 1 tab PO DAILY [facility]] Junior Holloway DO [Med Staff - Active Staff] - Within 2 Weeks Care Physician,No Primary [Primary Care Provider] - Disposition Disposition (needs filled in before D/C Order can be placed): Home, Self Care
--- NOTE | 2024-07-15 13:28 | DS.PCM_ITS ---
Providers Date of Admission: 07/13/24 Date of Discharge: 07/15/24 Primary Care Physician: Selina Primary Care Phys Consultations 07/13/24 13:37 Consult: Gastroenterology Routine Consulting Provider: Junior Holloway Reason for Consult: Cirrhosis, new ascites and abd pain EMERGENT Consult: No MD Notified: Yes Date Notified: 07/13/24 Time Notified: 13:37 Method of Notification: Answering Service Reason For Visit: NEW CIRRHOSIS, ABD PAIN, ASCITES Diagnosis Discharge Diagnosis (1) Hepatitis C: Status: Acute Code(s): B19.20 - Unspecified viral hepatitis C without hepatic coma (2) Abdominal pain: Status: Acute Code(s): R10.9 - Unspecified abdominal pain Plan # Liver cirrhosis with new onset ascites and abdominal pain # Active hepatitis C #Substance use d/o Medications at Discharge Home Medications vits no.130-ferrous fum 27 mg iron-folic acid 800 mcg tablet ( Vitamin) 1 tab PO DAILY 07/13/24 furosemide 20 mg tablet 20 mg PO DAILY 30 days #30 tabs 07/15/24 Hospital Course Procedures - (EGD, paracentesis) Summary of Care Provided Minutes Spent on Discharge: 31 Hospital Course: BOB WARNER, is a 43-year-old female 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 In the ED patient with total bili 1.40, direct bili 0.69 with AST of 48 [address] ALT of 48. [address] abdomen with liver cirrhosis, splenomegaly, and ascites. Given the new diagnosis of liver cirrhosis with ascites and abdominal pain hospitalist contacted for admission. Paracentesis ordered and patient started on furosemide and spironolactone and GI also consulted. Due to resultant hyponatremia spironolactone held and patient tolerated furosemide well. She did have paracentesis with 2.4 L removed with no organisms on Gram stain and preliminary cultures negative. Cytology negative for malignant cells. 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 Patient overall did very well, was noted to still have elevated viral load for hepatitis C. She is agreeable to following with GI and would like treatment for hepatitis C. Discussed with GI and was told she could follow-up with them and all of that can be discussed/arranged. Patient feeling much better on day of discharge, abdominal pain significantly improved and she is agreeable to the discharge instructions. Discharge instructions as followed: -You will be discharged on Lasix -You will need to follow-up with Dr. Holloway with GI in his office upon discharge. Please call his office to schedule an appointment (ph. [phone]) -Please call your primary care provider's office upon discharge to schedule a hospital follow up within 1 week. -If you do not have a primary care physician of list of local primary care physicians can be provided for you upon discharge. Please ask for this list prior to discharge -For any concerning signs or symptoms please call 911 or proceed to the nearest emergency department Physical Exam Narrative General: Alert, oriented, no apparent distress HEENT: Atraumatic, normocephalic Eyes: Anicteric, normal conjunctiva, extraocular movements grossly intact Neck: Supple Respiratory: Clear to auscultation bilaterally, normal respiratory effort Cardiovascular: Regular rate and rhythm GI: Fairly soft, less distended, tenderness significantly improved Extremities: No edema Musculoskeletal: Moving all extremities Neuro: No overt focal neurological deficits Skin: No rashes appreciated Psych: Cooperative Weight / BMI Weight Weight: 59.4 kg Body Mass Index (BMI) 25.7 ABG / Lab / Microbiology Data 07/15/24 06:16 07/15/24 06:16 Laboratory: Laboratory Results - last 24 hr 07/13/24 09:56: HCV RNA Quant (PCR) [id number], HCV RNA (PCR) IU log10 6.658, HCV RNA PCR Test Info Comment 07/13/24 14:07: Miscellaneous Cytology SEE PATHOLOGY REPORT 07/15/24 06:16: WBC 7.9, RBC 3.23 L, Hgb 10.7 L, Hct 31.6 L, MCV 97.8, MCH 33.1 H, MCHC 33.9, RDW Std Deviation 60.6 H, RDW Coeff of Betina 17.0 H, Plt Count 73 L, MPV 10.7, Immature Gran % (Auto) 0.600, Neut % (Auto) 70.3 H, Lymph % (Auto) 16.7 L, [place] % (Auto) 9.5, Eos % (Auto) 2.4, Baso % (Auto) 0.5, Absolute Neuts (auto) 5.6, Absolute Lymphs (auto) 1.32, Nucleated RBC % 0, Sodium 133 L, Potassium 4.3, Chloride 103, Carbon Dioxide 26.0, Anion Gap 4 L, BUN 5 L, C reatinine 0.52 L, Estim Creat Clear Calc 113.60, Est GFR (MDRD) Af Amer 166, Est GFR (MDRD) Non-Af 137, BUN/Creatinine Ratio 9.6 L, Glucose 132 H, Calcium 8.1 L, Total Bilirubin 1.40 H, AST 55 H, ALT 52, Alkaline Phosphatase 107, Total Protein 6.3 L, Albumin 2.4 L, Globulin 3.9, Albumin/Globulin Ratio 0.6 L Microbiology: Microbiology 07/13/24 13:38 Fluid - Paracentesis (Abd) Gram Stain - Final 07/13/24 13:38 Fluid - Paracentesis (Abd) Body Fluid Culture - Preliminary 07/13/24 13:38 Fluid - Paracentesis (Abd) Anaerobic Culture - Preliminary No growth in 48 hours. D/C Instructions Discharge Diet: 2000 mg Sodium Diet and - DC O2, CPAP, BIPAP Needs Home O2 Discharge instructions: No Meaningful Use Info Meaningful Use Meaningful Use Diagnoses (Choose all that apply): None applicable Ischemic Stroke Statin Dosing Therapy Reference: STATIN DOSE THERAPY REFERENCE: * Patients > 75 years receive moderate or high dose statin therapy. * Patients 75 years or YOUNGER should receive HIGH intensity statin dose unless contraindicated. You will be required to document reason for non-treatment if statin daily dose does not meet guidelines. HIGH DOSE STATIN THERAPY DAILY Atorvastatin > than or = to 40 mg Rosuvastatin > than or = to 20 mg Amlodipine + Atorvastatin > than or = to 2.5/40 mg Ezetimibe + Simvastatin 10/80 mg Simvastatin 80mg Discharge Plan Admission Admit Date/Time: 07/13/24 12:15 Primary Reason for Your Visit: Abdominal pain Attending Provider: Mena Bundy Primary Care Provider: Care Physician,No Primary Consulting Providers: Junior Holloway Instructions Patient Instructions: SHER RN Paracentesis Dc Additional Instructions / Restrictions: DISCHARGE INSTRUCTIONS PLEASE READ *Please take this with you to your next doctors appointment* -You will be discharged on Lasix -You will need to follow-up with Dr. Holloway with GI in his office upon discharge. Please call his office to schedule an appointment (ph. [phone]) -Please call your primary care provider's office upon discharge to schedule a hospital follow up within 1 week. -If you do not have a primary care physician of list of local primary care physicians can be provided for you upon discharge. Please ask for this list prior to discharge -For any concerning signs or symptoms please call 911 or proceed to the nearest emergency department Discharge Orders/Prescriptions Prescriptions: New furosemide 20 mg Tablet 20 mg PO DAILY 30 Days Qty: 30 0RF Continued Vitamin 27 mg iron- 800 mcg tablet 1 tab PO DAILY [facility] 07/22/24 1:00 pm Junior Holloway DO [Med Staff - Active Staff] - Within 2 Weeks Care Physician,No Primary [Primary Care Provider] - Disposition Disposition (needs filled in before D/C Order can be placed): Home, Self Care Charges/Coding Visit Charges Inpatient E&M: 47485 Disch Hosp >30min
--- NOTE | 2024-07-15 13:29 | NURSING ---
Addendum entered by Neetu Hardin 07/15/24 15:27: call returned battery recharger made appointment Addendum entered by Neetu Hardin 07/15/24 13:31: still no return call Original Note: attempted to make follow up patient for patient at [facility], no answer, left voicemail for a return call back.
--- NOTE | 2024-07-15 15:07 | CASEMGMT ---
TC to Provide A Ride, set up pt for transportation home between 3:30pm-5:30pm. Trip ID [id number]. Updated pt nurse on pickling tank operator time as well as junior legal secretary. The floor will be called 15min prior to arrival and pt will need to be at the main entrance. JIGNESH HASSAN into pt room to make aware. Pt asks if she can have her dinner before she leaves. TC to [employer] and spoke with male who states that this floor has delivery at 5pm so pt will not get her meal unless it was approved by art objects supervisor. He recommended that pt get a sandwich from the fridge on the floor. JIGNESH HASSAN checked fridges and offered pt a frozen uncrustable and other items in the fridge. Pt states she has had to have those foods since she has been here since she has not had a regular diet. Pt then states that she does not have any food in her home as her roommate was going to get groceries yesterday but there was something that came up and she was not able. TC back to [employer] number and requested that this be sent to the art objects supervisor to see if pt could get her meal early. He asked JIGNESH HASSAN to call. TC to [place], she states she will look up pt meal and have it ready early and kept offset printer case pt leaves by 3:30. JIGNESH HASSAN into pt room to make aware that she will get her meal. She was also provided handouts by [employer] for food options in the community. Pt thankful for this. She states normally they do go to [employer] but she will not have transportation to do so today for food. Pt denies further needs.
[2024-07-15 15:40] VITALS: BP 134/89; PULSE 98; RESP 18; TEMP 37.2; O2SAT 100
[2024-07-16 21:07] LABS: HCV log 10 6.859 (.); HEPATITIS B SURFACE AG Negative (Negative); Hep C Antibodies Reactive (Non Reactive); Hepatitis A IgM Antibody Negative (Negative); Hepatitis B Core AB IgM Negative (Negative); Hepatitis C Quant 7230000 IU/mL (.)
[2024-07-18 08:07] LABS: Albumin, Body Fluid 0.4 g/dL (Not Estab.)
== END 2024-07-15 15:42 | disposition home or self-care (01) | DRG 432 ==
LOC: ED 12:21 → MS3 12:54
PROVIDERS: Anesthesiology; Internal Medicine Gastroenterology; Admitting Provider Internal Medicine; Emergency Provider Surgery; Visit Provider Internal Medicine
PROC: 0DJ08ZZ Inspection of Upper Intestinal Tract, Via Natural or Artificial Opening Endoscopic (ICD-10-PCS; CPT 43235; principal; 2024-07-14 16:25)
DX: K74.60 Unspecified cirrhosis of liver (principal); C22.0 Liver cell carcinoma; I85.11 Secondary esophageal varices with bleeding; K76.6 Portal hypertension; B18.2 Chronic viral hepatitis C; E11.9 Type 2 diabetes mellitus without complications; R18.8 Other ascites; E87.1 Hypo-osmolality and hyponatremia; D50.9 Iron deficiency anemia, unspecified; I10 Essential (primary) hypertension; K31.89 Other diseases of stomach and duodenum; F15.90 Other stimulant use, unspecified, uncomplicated; R16.1 Splenomegaly, not elsewhere classified; B17.10 Acute hepatitis C without hepatic coma; F17.200 Nicotine dependence, unspecified, uncomplicated; D69.6 Thrombocytopenia, unspecified
CPT/HCPCS: 43244; 43239; 36415; 49083; 74177; 80048; 80053; 80074; 80076; 81001; 81025; 82042; 82140; 82945; 82962; 83605; 83615; 83690; 83735; 84100; 84157; 84443; 85025; 85610; 87070; 87075; 87205; 87522; 88108; 88305; 88313; 89050; 93005; 96374; 96375; 96376; 99221; 99284; Q9967; A4216; G0378; J2405

== ENCOUNTER 2024-07-21 11:29 | Inpatient (IN) | payer MEDICAID, SELFPAY ==
[2024-07-21] VITALS (20 sets, daily range): BP systolic 91–113; BP diastolic 55–82; PULSE 78–126; RESP 14–23; TEMP 36.4–37.9; O2SAT 98–100; BMI 27.9; BMI 28.3
--- NOTE | 2024-07-21 12:26 | EDS_ITS ---
HPI History of Present Illness Chief Complaint: Nausea/Vomiting Informant: patient Narrative Narrative: 43-year-old female presenting to the emergency room with a chief complaint of hematemesis. Patient states that she was admitted to the hospital earlier this month and was diagnosed with liver cirrhosis. While in the hospital she had an EGD that showed grade 3 esophageal varices he did undergo some banding. Some mild portal gastropathy was noted. Patient states that she was put on furosemide but has been taking that. She notes however that her legs seem swollen last night compared to what they had been there more so today. She continues to have abdominal pain which she states initially was on her right side because an enlarged spleen but then states that it is the left side. She has a history of hepatitis C from IVD. She denies any fevers. [facility] Medical History Diabetes HCC (hepatocellular carcinoma) Hepatitis C Loose, teeth Stroke/cerebrovascular accident Smoker Hypertension Home Medications ?Medication ?Instructions ?Recorded ?Last Taken ?Type vits no.130-ferrous fum 1 tab PO DAILY 07/13/24 07/12/24 History 27 mg iron-folic acid 800 mcg tablet ( Vitamin) furosemide 20 mg tablet 20 mg PO DAILY 30 days #30 tabs 07/15/24 Unknown Rx Allergy/AdvReac Type Severity Reaction Status Date / Time No Known Allergies Allergy Verified 07/13/24 09:55 Family History Uncle Cancer Surgical History H/O dilation and curettage History of cholecystectomy Social History Smoking Status: Light Smoker (<10/day) ROS ROS ED Constitutional Constitutional ED: Denies chills, fever(s) or weight loss Eyes Eyes: Denies change in vision or diplopia ENT ENT ED: Denies ear pain, rhinorrhea or sore throat Cardiovascular Cardiovascular: Denies chest pain, orthopnea, palpitations or racing heartbeat Respiratory/Chest Respiratory/Chest: Denies cough, dyspnea or orthopnea Gastrointestinal Gastrointestinal: Reports abdominal pain, nausea and vomiting; Denies diarrhea Genitourinary Genitourinary ED: Denies dysuria, hematuria or urinary frequency Musculoskeletal Musculoskeletal: Denies arthralgias or myalgias Integumentary Denies abscess or rash Neurologic Neurologic: Denies headache(s) or weakness Psychiatric Psychiatric: Denies anxiety, depression, suicidal ideation or suicidal thoughts Endocrine Endocrinology: Denies polydipsia, polyphagia or polyuria Allergic/Immunologic Allergic/Immunologic ED: Denies mouth swelling, tongue swelling or urticaria EXAM Physical Exam Const Vital Signs: 07/21/24 11:30 07/21/24 13:29 07/21/24 13:39 Temperature 97.5 F L 97.6 F L Temperature Source Oral Pulse Rate 126 H 100 100 Respiratory Rate 22 H 18 18 Blood Pressure 105/82 H 91/60 91/60 Blood Pressure Mean 89 70 70 Pulse Ox 100 100 100 Oxygen Delivery Method Room Air Positive well nourished and well developed General Appearance ED: well developed and NAD HEENT Reports normocephalic, head/scalp atraumatic and moist mucous membranes Eyes PERRL and EOMs intact bilaterally General Eye ED: Yes pale conjunctiva Neck no lymphadenopathy, supple and no JVD Resp normal respiratory effort and clear to auscultation bilaterally Cardio regular rate, regular rhythm and no murmurs Rate: tachycardic GI GI Narrative: Abdomen is soft but diffusely tender to palpation Inspection: Negative for abdominal distention Auscultation: normoactive bowel sounds Palpation: soft Back/Spine no CVA tenderness and normal ROM Extremity General Extremety ED: Yes edema General Extremity: edema bilateral lower extremity Details: mild Neuro oriented x3 and CN's II-XII intact bilaterally Sensorium / Orientation: alert Motor Exam: strength 5/5 throughout Psych mental status grossly normal Mood & Affect: Negative for depressed or tearful Skin no rashes or lesions noted and no wounds MDM MDM MDM Narrative Medical decision making narrative: Differential diagnosis includes but not limited to anemia esophageal varicocele bleeding gastric ulcer gastritis portal hypertension cirrhosis. Patient had a Glascow-Blatchford score of 14. Patient's white count slightly elevated 13.8 hemoglobin is 7.4 platelet count is 134. INR is 1.4 PTT 28.2 BUN of 21 creatinine 0.61. Total bilirubin is 1 with a direct bilirubin 0.53. AST elevated at 143 ALT of 83 lipase of 49. Patient received Zofran. Patient was started on Protonix drip with bolus and w as also given Rocephin and octreotide. I spoke with Dr. Holloway who would like the patient to receive a unit of blood. I will speak with the hospitalist regarding admission. It is felt that the patient does not need an NG tube at this time. History & Record Review Discussion w/independent historian: Patient Additional record(s) reviewed:: Prior inpatient record, Prior ED visit and Prior labs Lab Data Attestation: I reviewed the patient's lab results. Labs: Laboratory Results - last 24 hr 07/21/24 12:32 WBC 13.8 H RBC 2.22 L Hgb 7.4 L Hct 21.9 L MCV 98.6 MCH 33.3 H MCHC 33.8 RDW Std Deviation 64.0 H RDW Coeff of Betina 17.8 H Plt Count 134 L MPV 10.7 Immature Gran % (Auto) 1.900 H Neut % (Auto) 74.1 H Lymph % (Auto) 17.2 L [place] % (Auto) 6.1 Eos % (Auto) 0.3 Baso % (Auto) 0.4 Absolute Neuts (auto) 10.2 H Absolute Lymphs (auto) 2.37 Nucleated RBC % 0 PT 17.3 H INR 1.4 APTT 28.2 Sodium 137 Potassium 5.8 H Chloride 108 H Carbon Dioxide 26.0 Anion Gap 3 L BUN 21 H Creatinine 0.61 Estim Creat Clear Calc 101.01 Est GFR (MDRD) Af Amer 137 Est GFR (MDRD) Non-Af 113 BUN/Creatinine Ratio 34.3 H Glucose 118 H Calcium 8.4 L Total Bilirubin 1.00 Direct Bilirubin 0.53 H AST 143 H ALT 83 H Alkaline Phosphatase 76 Total Protein 5.5 L Albumin 2.0 L Globulin 3.5 Lipase 49 EKG Initial EKG: Attestation: I personally reviewed and interpreted this EKG as follows: Comments: Normal sinus rhythm ventricular rate of 95 bpm Management Discussion w/another healthcare provider: Hospitalist (Dr. Royal) and Jigger Artisan (Dr. Holloway) Critical Care Time Critical Care Time: Yes Critical care time (excluding procedures): 30-74 minutes (35 min), Including time spent:, Discussing w/Patient &/or Family/Certified Ophthalmic Surgical Assistant, Discussing w/Consultants, Arranging Admission or Transfer and Performing Direct Patient Care at Bedside Discharge Plan Dx/Rx/DC Orders Clinical Impression: Cirrhosis, ABLA (acute blood loss anemia), Acute upper gastrointestinal bleeding, Esophageal varices, Thrombocytopenia Disposition Disposition: Acute Care Hospital [facility]
[2024-07-21] MEDS: Ondansetron 4 MG/2 ML Vial IV (12:48)
[2024-07-21] MEDS: 0.9% Normal Saline (1000mL) 1,000 ML 1000 ML IV (12:48)
[2024-07-21 12:52] LABS: Absolute Lymphocyte Count 2.37 X10^3/uL (0.83-4.51); Absolute Neutrophil Count 10.2 X10^3/uL (2.0-7.7); Basophil# 0.05 X10^3/uL; Basophil% 0.4 % (0-1); Eosinophil# 0.04 X10^3/uL; Eosinophils% 0.3 % (0-5); Hematocrit 21.9 % (37-47); Hemoglobin 7.4 g/dL (12.0-15.0); Lymphocyte # 2.37 X10^3/ul (0.83-4.51); Lymphocyte % 17.2 % (19-41); Mean Corp Hgb Conc 33.8 g/dL (32-36); Mean Corpuscular Hgb 33.3 pg (27.0-32.0); Mean Corpuscular Volume 98.6 fL (81-99); Mean Platelet Vol. 10.7 fl (6.2-12.0); Monocyte# 0.84 X10^3/uL; Monocyte% 6.1 % (0-10); NRBC Flagged by Analyzer 0 % (0-5); Neutrophil # 10.19 X10^3/uL (2.7-7.7); Neutrophil % 74.1 % (47-70); Platelet Count 134 K/mm3 (150-450); RBC Distribution Width CV 17.8 % (11.6-14.6); Red Blood Count 2.22 M/mm3 (4.2-5.4); White Blood Count 13.8 K/mm3 (4.4-11.0)
[2024-07-21 12:58] LABS: International Normalized Ratio 1.4; Prothrombin Time (Protime)PT. 17.3 SECONDS (11.7-14.9)
[2024-07-21 12:59] LABS: Partial Thromboplast Time 28.2 Seconds (24.1-36.2)
[2024-07-21 13:12] LABS: AST(SGOT) 143 U/L (15-37); Alanine Aminotransfer ALT/SGPT 83 U/L (13-56); Alkaline Phosphatase 76 U/L (45-117); Anion Gap 3 (5-15); BUN 21 mg/dL (7-18); BUN/Creat Ratio 34.3 RATIO (10-20); Bilirubin, Direct 0.53 mg/dL (0.00-0.30); Calcium,Total 8.4 mg/dL (8.5-10.1); Chloride 108 mmol/L (98-107); Creatinine, Serum 0.61 mg/dL (0.55-1.02); EST Glomerular Filtration Rate 113 mL/min (>60); Est Glom Filt Rate - Afr Amer 137 mL/min (>60); Estimated Creatinine Clearance 101.01 ml/min; Globulin 3.5 g/dL (2.2-4.2); Glucose 118 mg/dL (74-106); Lipase 49 U/L (13-75); Potassium 5.8 mmol/L (3.5-5.1); Protein, Total 5.5 g/dL (6.4-8.2); Sodium Level 137 mmol/L (136-145)
[2024-07-21] MEDS: Ceftriaxone 1 GM/50 ML BAG IV (13:32)
[2024-07-21] MEDS: Pantoprazole Sodium 80 MG in 0.9% Normal Saline (50mL Bag) 15 ML 420 MG IV BOLUS (13:51)
--- NOTE | 2024-07-21 13:57 | HP.PCM.HOS_ITS ---
HPI - General General Date of Admission: 07/21/24 Date of Service: 07/21/24 Chief Complaint: Hematemesis HPI Narrative BOB WARNER, is a 43 F who presented to the emergency department at [facility] 07/21/2024 due to hematemesis. Patient has known history of cirrhosis secondary to hepatitis C with also previous alcohol use who was recently admitted here from 07/13/2024 through 07/15/2024. She was found to have cirrhosis and splenomegaly on CT of her abdomen pelvis. She evidently reported abdominal pain at that time. An EGD was done at that time and noted no gross lesions in the first portion of duodenum, grade 3 esophageal varices in the entire esophagus that were 1.9 cm in largest diameter and 4 bands were placed at that time with incomplete eradication and mild portal hypertensive gastropathy in the entire stomach. Her hemoglobin at the time of discharge was 10.7. Patient reported this morning at about 330 she woke up and had a large volume hematemesis that was filled with clots so she came to the emergency department for further evaluation. She has had no further episodes of hematemesis since that point in time. She denies any bowel movements today. She still is complaining of abdominal pain and reported to the emergency department doctor that her spleen hurt because it was so big however at that time she was holding her right side. Vital signs on presentation showed a temperature of 97.5, heart rate 126, blood pressure 105/82, respiratory rate 22 and pulse ox was 100% on room air. CBC shows a mild leukocytosis a white count of 13.8 and a hemoglobin of 7.4. Platelet count was 134,000 which is her baseline. Chemistry panel shows mild hyperkalemia with a potassium of 5.8. BUN of 21 and a serum creatinine of 1.06 demonstrating elevated BUN to creatinine ratio consistent with upper GI bleed, AST was 143 and ALT was 83. Ammonia was 42 our mentation is normal. Lipase was 49. No new imaging was done at this time. 1 unit of packed red blood cells was ordered and she was started on octreotide and Protonix drip as well as given 1 dose of ceftriaxone in the emergency department due to her history of cirrhosis and upper GI bleed. The case was discussed with the mannequin mounter who indicated that the plan would be for EGD later today as an add-on. Poli Blatchford score was 13 and suggestive of high risk GI bleed that requires medical intervention at greater than 50% [facility] Medical History GI bleed Hepatitis Diabetes HCC (hepatocellular carcinoma) Hepatitis C Loose, teeth Stroke/cerebrovascular accident Smoker Hypertension Home Medications ?Medication ?Instructions ?Recorded ?Last Taken ?Type vits no.130-ferrous fum 1 tab PO DAILY 07/13/24 07/12/24 History 27 mg iron-folic acid 800 mcg tablet ( Vitamin) furosemide 20 mg tablet 20 mg PO DAILY 30 days #30 tabs 07/15/24 Unknown Rx Allergy/AdvReac Type Severity Reaction Status Date / Time No Known Allergies Allergy Verified 07/13/24 09:55 Family History Uncle Cancer Surgical History H/O dilation and curettage History of cholecystectomy Social History (Updated 07/21/24 @ 15:[address] Gogo Royal DO) Smoking Status: Light Smoker (<10/day) alcohol intake: current alcohol intake frequency: a few times a month substance use type: former substance user ROS Constitutional Constitutional: Denies anorexia, change in weight, chills, fatigue, fever(s), malaise, night sweats, weakness or other Eyes Eyes: Denies blurry vision, change in eye color, change in vision, discharge from eye(s), double vision, erythema, eye pain, loss of vision or other ENT HEENT: Denies abnormal hearing, dysphagia, ear pain, epistaxis, headache(s), hearing loss, nasal congestion, nasal discharge, post nasal drip, sinus pressure, sore throat or other Cardiovascular Cardiovascular: Denies chest pain, claudication, dyspnea on exertion, edema, lightheadedness, orthopnea, palpitations, paroxysmal nocturnal dyspnea, rapid heart rate, syncope or other Respiratory/Chest Respiratory/Chest: Denies cough, dyspnea, excessive phlegm production, hemoptysis, productive cough, shortness of breath at rest, shortness of breath with exertion, wheezing or other Gastrointestinal Gastrointestinal: Reports abdominal pain, hematemesis, nausea and vomiting; Denies coffee ground emesis, constipation, diarrhea, dyspepsia, hematochezia, loose stools, melena or other Genitourinary Genitourinary: Denies burning urination, difficulty urinating, dysuria, hematuria, nocturia, urinary frequency, urinary hesitancy, urinary incontinence, urinary urgency or other Musculoskeletal Musculoskeletal: Reports back pain; Denies arthralgias, joint pain, joint stiffness, joint swelling, myalgias, neck pain or other Neurologic Neurologic: Denies abnormal gait, abnormal speech, confusion, disequilibrium, dizziness, focal weakness, headache(s), numbness, paresthesias, seizure-like activity, seizures, syncope, tingling, tremor(s) or other Psychiatric Psychiatric: Denies anxiety, depression, homicidal ideation, suicidal ideation or other Endocrine Endocrinology: Denies change in body appearance, cold intolerance, excessive sweating, heat intolerance, polydipsia, polyuria or other Hematologic/Lymphatic Hematologic/Lymphatic: Denies anemia, easy bleeding, easy bruising, lymphadenopathy or other Allergic/Immunologic Allergic/Immunologic: Denies rhinitis, hives, eczemia, asthma or other Vital Signs Vital Signs Vital Signs: 07/21/24 11:30 07/21/24 13:29 07/21/24 13:39 Temperature 97.5 F L 97.6 F L Temperature Source Oral Pulse Rate 126 H 100 100 Respiratory Rate 22 H 18 18 Blood Pressure 105/82 H 91/60 91/60 Blood Pressure Mean 89 70 70 Pulse Ox 100 100 100 Oxygen Delivery Method Room Air Weight Weight: 64.9 kg Body Mass Index (BMI) 27.9 Physical Exam Const alert, oriented x3 and no apparent distress; Negative for healthy appearing or well nourished Constitutional Narrative: Disheveled appearing, middle-aged, white female who appears much older than stated age, sitting up in bed talking on the phone to her mom, currently appears comfortable nontoxic, nursing at bedside, hemodynamically stable at this time General Appearance: cooperative HEENT normocephalic, head/scalp atraumatic, hearing grossly normal bilaterally and moist oral mucous membranes HEENT Narrative: Edentulous, Mallampati 1-2, no thrush Eyes EOMs intact bilaterally; Negative for conjunctivae normal Eyes Narrative: Conjunctiva are pale bilaterally, no scleral icterus Neck no lymphadenopathy and supple Neck Narrative: Trachea midline Resp normal respiratory effort, no retractions, no use of accessory muscles and clear to auscultation bilaterally Resp Narrative: Diffusely diminished but clear Auscultation: Negative for crackles, rhonchi or wheezes Cardio regular rhythm, S1 normal heart sound, S2 normal heart sound, no murmurs, no rub and no gallops Cardio Narrative: Mild tachycardia GI normal to inspection, nondistended, normoactive bowel sounds and soft to palpation; Negative for non-tender GI Narrative: Diffuse abdominal pain with palpation even with very light touch, splenomegaly noted, no significant fluid wave noted Extremity no clubbing, cyanosis or edema Extremity Narrative: Pedal pulses and radial pulses are 2+ Neuro oriented x3, moves all extremities and no focal motor deficits Speech: speech normal Psych affect normal Psych Narrative: Interacts appropriately Mood & Affect: anxious Results Lab / Micro Data 07/21/24 12:32 07/21/24 12:32 Labs: Laboratory Results - last 24 hr 07/21/24 12:32: WBC 13.8 H, RBC 2.22 L, Hgb 7.4 L, Hct 21.9 L, MCV 98.6, MCH 33.3 H, MCHC 33.8, RDW Std Deviation 64.0 H, RDW Coeff of Betina 17.8 H, Plt Count 134 L, MPV 10.7, Immature Gran % (Auto) 1.900 H, Neut % (Auto) 74.1 H, Lymph % (Auto) 17.2 L, Walker % (Auto) 6.1, Eos % (Auto) 0.3, Baso % (Auto) 0.4, Absolute Neuts (auto) 10.2 H, Absolute Lymphs (auto) 2.37, Nucleated RBC % 0, PT 17.3 H, INR 1.4, APTT 28.2, Sodium 137, Potassium 5.8 H, Chloride 108 H, Carbon Dioxide 26.0, Anion Gap 3 L, BUN 21 H, Creatinine 0.61, Estim Creat Clear Calc 101.01, Est GFR (MDRD) Af Amer 137, Est GFR (MDRD) Non-Af 113, BUN/Creatinine Ratio 34.3 H, Glucose 118 H, Calcium 8.4 L, Total Bilirubin 1.00, Direct Bilirubin 0.53 H, AST 143 H, ALT 83 H, Alkaline Phosphatase 76, Total Protein 5.5 L, Albumin 2.0 L , Globulin 3.5, Lipase 49 Assessment & Plan Assessment/Plan (1) Acute upper gastrointestinal bleeding: (2) Esophageal varices: (3) Thrombocytopenia: (4) Acute on chronic anemia: (5) Hyperkalemia: (6) Cirrhosis: PLAN: Plan Upper GI bleed -Suspect related to underlying esophageal varices -Recent EGD done on 07/14/2024 that showed extensive esophageal varices and 4 of which were banded, patient also has portal hypertension gastropathy -Hemoglobin down from 10.7-7.4 today -Transfuse 1 unit packed red blood cells -Monitor hemodynamics closely in the intensive care unit given massive hemoptysis -Start octreotide drip -start Protonix drip -Start ceftriaxone 1 g daily for SBP prophylaxis with history of cirrhosis -Cycle hemoglobin every 6 hours -Consult GI--> Case was discussed with From the emergency department Hyperkalemia -Patient is not on any potassium supplementation -Does not appear to be hemolyzed -Will repeat BMP at 1900 to reassess and if still elevated will need to consider Kayexalate -no EKG changes noted on admission EKG Acute on chronic anemia -Baseline hemoglobin at discharge was 10.7 -Today hemoglobin 7.4 -Packed red blood cells x 1 unit given now -Monitor every 6 hours Chronic thrombocytopenia secondary to liver disease with splenomegaly -Platelet count stable despite GI bleeding -Continue to monitor Cirrhosis/splenomegaly -Hold diuretics for now -May need to consider nonselective beta-daryl given varices but will hold off until hemodynamically stable 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
[2024-07-21 14:09] LABS: Platelet Count 136 K/mm3 (150-450); Reticulocyte Count 6.73 % (0.5-1.5)
[2024-07-21 14:11] LABS: Alcohol, Blood (Medical)-Serum < 3.0 mg/dL
[2024-07-21 14:21] LABS: Ferritin 1111 ng/mL (8-252); Iron 74 ug/dL (50-170); Iron Binding Capacity,Total 247 ug/dL (250-450)
[2024-07-21 14:25] LABS: Phosphorus 3.9 mg/dL (2.5-4.9)
[2024-07-21] MEDS: Pantoprazole Sodium 80 MG in 0.9% Normal Saline (100mL Bag) 80 ML 10 MG CONT INF ×2 (14:30→23:49)
[2024-07-21 15:35] LABS: Anion Gap 7 (5-15); BUN 22 mg/dL (7-18); BUN/Creat Ratio 34.5 RATIO (10-20); Calcium,Total 8.6 mg/dL (8.5-10.1); Chloride 108 mmol/L (98-107); Creatinine, Serum 0.64 mg/dL (0.55-1.02); EST Glomerular Filtration Rate 108 mL/min (>60); Est Glom Filt Rate - Afr Amer 131 mL/min (>60); Estimated Creatinine Clearance 96.28 ml/min; Glucose 121 mg/dL (74-106); Potassium 5.8 mmol/L (3.5-5.1); Sodium Level 137 mmol/L (136-145)
[2024-07-21] MEDS: 0.9% Normal Saline (500mL Bag) 500 ML 15 ML IV (15:53)
--- NOTE | 2024-07-21 16:05 | PCM.PRE.AN2 ---
ASA Classification* ASA Classification ASA Classification: 3 and E Assessment & Plan Anesthesia* Anesthesia Assessment Anesthesia Assessment: Discussed sedation and/or anesthesia options, risks, benefits, and alternatives with patient/parents/legal guardian/POA. Questions invited. The patient/parents/legal guardian/POA seems to understand and agrees to proceed with anesthesia plan. Reviewed the physical assessment, medical history, allergy history and patient home medications list prior to surgery/procedure/anesthetic and documented any changes. Performed airway and anesthesia risk assessments. Anesthesia Type Anesthesia Type: MAC (GA bkup) Anesthesia Focused Assessment* Temperature: 100.3 F Pulse Rate: 112 Blood Pressure: 99/63 Respiratory Rate: 18 Pulse Ox: 100 Airway Assessment Mouth opens: >3 cm Mallampati Score: II Focused Labs Anesthesia Preop lab: CBC WBC 13.8 K/mm3 (4.4-11.0) H 07/21/24 12:32 RBC 2.22 M/mm3 (4.2-5.4) L 07/21/24 12:32 Hgb 7.4 g/dL (12.0-15.0) L 07/21/24 12:32 Hct 21.9 % (37-47) L 07/21/24 12:32 Plt Count 134 K/mm3 (150-450) L 07/21/24 12:32 CHEMISTRY Potassium 5.8 mmol/L (3.5-5.1) H 07/21/24 12:32 Sodium 137 mmol/L (136-145) 07/21/24 12:32 Magnesium 2.0 mg/dL (1.6-2.6) 07/21/24 13:43 Phosphorus 3.9 mg/dL (2.5-4.9) 07/21/24 12:20 BUN 21 mg/dL (7-18) H 07/21/24 12:32 Creatinine 0.61 mg/dL (0.55-1.02) 07/21/24 12:32 Glucose 118 mg/dL (74-106) H 07/21/24 12:32 POC Glucose 73 mg/dL (74-106) L 07/14/24 14:15 TSH 2.340 uIU/mL (0.358-3.740) 07/14/24 06:08 COAG PT 17.3 SECONDS (11.7-14.9) H 07/21/24 12:32 HCG, Quant 09540 mIU/mL (1-3) H 12/27/22 22:36 Urine Test Negative Negative 07/13/24 10:05 Pre-Assessment Diagnosis/Proposed Procedure Planned Operative Procedure(s): EGD Anesthesia History 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 When Was Last Pacemaker Check QUESTION #4 FULL TEXT: You/Your Family Experience fever (hyperthermia) with Anesthesia Last Oral Intake Last Oral intake: Last Oral Intake NPO since 04:00 07/21/24 15:25 Meds taken in AM with sips of No 07/21/24 15:25 water? Meds patient instructed to take am of surgery PONV PONV - wheel shop supervisor: PONV - wheel shop supervisor Female HX of Motion Sickness HX of N/V After Surgery Non-Smoker Duration of Surgery greater than 60 minutes Number of Risk Factors PONV Score Height & Weight Height & Weight: Anesthesia: Height & Weight Height 5 ft 07/21/24 15:25 Weight: 64.9 kg 07/21/24 15:25 Body Mass Index (BMI) 27.9 07/21/24 15:25 Respiratory Assessment Respiratory Assessment - wheel shop supervisor: Respiratory Tract Infection Hx - wheel shop supervisor Hx Respiratory Tract Infection No 07/21/24 14:48 STOP Sleep Apnea STOP Sleep Apnea - wheel shop supervisor: STOP Sleep Apnea - wheel shop supervisor Hx Hypertension No 07/21/24 14:48 Hx Sleep Apnea No 07/21/24 14:48 CPAP BIPAP Do you snore loudly (louder No 07/21/24 14:48 than talking or can be heard Do you often feel tired/ No 07/21/24 14:48 fatigued/ sleepy during daytime? Has anyone observed you stop No 07/21/24 14:48 breathing during sleep? STOP Results Negative 07/21/24 14:48 QUESTION #5 FULL TEXT : Do you snore loudly (louder than talking or can be heard through closed doors)? 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 Specify any problems Hx of Preganancy in last 3 Months Nurse Filling Out Transfusion & Questions: Date: Time: Patient unable to answer at this time (ie. confused, unrespo /Reproduction History /Reproductive History - wheel shop supervisor: /Reproductive Hx- wheel shop supervisor Hx Now No 07/21/24 14:48 Gestational Age (in weeks): EDC: Hx Hx Para Hx Section SAB No 07/21/24 11:30 Active Medications Active Medications: Current Medications Generic Name Dose Route Start Last Admin Trade Name Freq PRN Reason Stop Dose Admin Pantoprazole Sodium 80 mg/ 100 mls @ 10 mls/hr 07/21/24 13:45 07/21/24 14:30 Sodium Chloride CONT INF 10 mls/hr Q10H LYNSEY Administration Sodium Chloride 500 mls @ 0 mls/hr 07/21/24 16:00 07/21/24 15:53 IV 15 mls/hr .Q0M LYNSEY Administration KVO Octreotide Acetate 0.5 mg/ 251 mls @ 12.5 mls/hr 07/21/24 16:00 Dextrose CONT INF .Q20H5M LYNSEY PFSH Medical History GI bleed Hepatitis Diabetes HCC (hepatocellular carcinoma) Hepatitis C Loose, teeth Stroke/cerebrovascular accident Smoker Hypertension Home Medications ?Medication ?Instructions ?Recorded ?Last Taken ?Type vits no.130-ferrous fum 1 tab PO DAILY 07/13/24 07/12/24 History 27 mg iron-folic acid 800 mcg tablet ( Vitamin) furosemide 20 mg tablet 20 mg PO DAILY 30 days #30 tabs 07/15/24 Unknown Rx Allergy/AdvReac Type Severity Reaction Status Date / Time No Known Allergies Allergy Verified 07/13/24 09:55 Family History Uncle Cancer Surgical History H/O dilation and curettage History of cholecystectomy Social History Smoking Status: Light Smoker (<10/day) alcohol intake: current alcohol intake frequency: a few times a month substance use type: former substance user Review of Systems (Anesthesia) ROS Narrative System reviewed and no additional complaints, except as documented.
--- NOTE | 2024-07-21 16:12 | EX.PCM.CON.G ---
HPI Consult Data Date of Consult: 07/21/24 HPI Narrative Reason for Consultation: GI bleed HPI Narrative: BOB WARNER, is a 43 F who presents with nausea and vomiting with hematemesis. Patient says she has been following on the weather for about 3 days. She has a history of hepatitis C secondary to IV drug use and previous cholecystectomy who presented [facility] ED 07/13/2024 due to abdominal pain and distention over 1 week and known history of hepatitis C that she has never had treated. In the ED patient with total bili 1.40, direct bili 0.69 with AST of 48 and ALT of 48. [address] abdomen with liver cirrhosis, splenomegaly, and ascites. Paracentesis ordered and patient started on furosemide and spironolactone and I was also consulted. Due to resultant hyponatremia spironolactone held and patient tolerated furosemide well. She did have paracentesis with 2.4 L removed with no organisms on Gram stain and preliminary cultures negative. Cytology negative for malignant cells. She was discovered to have worsening anemia and thrombocytopenia. She did complain of some black stools. She underwent an upper endoscopy and was discovered to have grade 3-4 esophageal varices. One of her varices had stigmata of recent bleed. She underwent esophageal banding. She was sent home on beta-daryl therapy along with Lasix. She did not get spironolactone because of an increased potassium level. 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 This lesion was not biopsied. We recommended endoscopic ultrasound due to her history of cirrhosis. [facility] Medical History GI bleed Hepatitis Diabetes HCC (hepatocellular carcinoma) Hepatitis C Loose, teeth Stroke/cerebrovascular accident Smoker Hypertension Home Medications ?Medication ?Instructions ?Recorded ?Last Taken ?Type vits no.130-ferrous fum 1 tab PO DAILY 07/13/24 07/12/24 History 27 mg iron-folic acid 800 mcg tablet ( Vitamin) furosemide 20 mg tablet 20 mg PO DAILY 30 days #30 tabs 07/15/24 Unknown Rx Allergy/AdvReac Type Severity Reaction Status Date / Time No Known Allergies Allergy Verified 07/13/24 09:55 Family History Uncle Cancer Surgical History H/O dilation and curettage History of cholecystectomy Social History Smoking Status: Light Smoker (<10/day) alcohol intake: current alcohol intake frequency: a few times a month substance use type: former substance user ROS Constitutional Constitutional: Denies anorexia, change in weight, chills, fatigue, fever(s), malaise, night sweats, weakness or other Eyes Eyes: Denies blurry vision, change in eye color, change in vision, discharge from eye(s), double vision, erythema, eye pain, loss of vision or other ENT HEENT: Denies abnormal hearing, dysphagia, ear pain, epistaxis, headache(s), hearing loss, nasal congestion, nasal discharge, post nasal drip, sinus pressure, sore throat or other Cardiovascular Cardiovascular: Denies chest pain, claudication, dyspnea on exertion, edema, lightheadedness, orthopnea, palpitations, paroxysmal nocturnal dyspnea, rapid heart rate, syncope or other Respiratory/Chest Respiratory/Chest: Denies cough, dyspnea, excessive phlegm production, hemoptysis, productive cough, shortness of breath at rest, shortness of breath with exertion, wheezing or other Gastrointestinal Gastrointestinal: Reports abdominal pain, hematemesis, nausea and vomiting; Denies coffee ground emesis, constipation, diarrhea, dyspepsia, hematochezia, loose stools, melena or other Genitourinary Genitourinary: Denies burning urination, difficulty urinating, dysuria, hematuria, nocturia, urinary frequency, urinary hesitancy, urinary incontinence, urinary urgency or other Musculoskeletal Musculoskeletal: Reports back pain; Denies arthralgias, joint pain, joint stiffness, joint swelling, myalgias, neck pain or other Neurologic Neurologic: Denies abnormal gait, abnormal speech, confusion, disequilibrium, dizziness, focal weakness, headache(s), numbness, paresthesias, seizure-like activity, seizures, syncope, tingling, tremor(s) or other Psychiatric Psychiatric: Denies anxiety, depression, homicidal ideation, suicidal ideation or other Endocrine Endocrinology: Denies change in body appearance, cold intolerance, excessive sweating, heat intolerance, polydipsia, polyuria or other Hematologic/Lymphatic Hematologic/Lymphatic: Denies anemia, easy bleeding, easy bruising, lymphadenopathy or other Allergic/Immunologic Allergic/Immunologic: Denies rhinitis, hives, eczemia, asthma or other Physical Exam Const alert, oriented x3, no apparent distress and healthy appearing General Appearance: cooperative GI normal to inspection, nondistended, normoactive bowel sounds, soft to palpation, non-tender and non-distended Percussion: normal to percussion Rectal Exam: deferred Lab / Micro Data 07/21/24 12:32 07/21/24 12:32 Labs: Laboratory Results - last 24 hr 07/21/24 12:20: Sodium 137, Potassium 5.8 H, Chloride 108 H, Carbon Dioxide 22.0, Anion Gap 7, BUN 22 H, Creatinine 0.64, Estim Creat Clear Calc 96.28, Est GFR (MDRD) Af Amer 131, Est GFR (MDRD) Non-Af 108, BUN/Creatinine Ratio 34.5 H, Glucose 121 H, Calcium 8.6, Phosphorus 3.9 07/21/24 12:32: WBC 13.8 H, RBC 2.22 L, Hgb 7.4 L, Hct 21.9 L, MCV 98.6, MCH 33.3 H, MCHC 33.8, RDW Std Deviation 64.0 H, RDW Coeff of Betina 17.8 H, Plt Count 134 L, MPV 10.7, Immature Gran % (Auto) 1.900 H, Neut % (Auto) 74.1 H, Lymph % (Auto) 17.2 L, Stafford % (Auto) 6.1, Eos % (Auto) 0.3, Baso % (Auto) 0.4, Absolute Neuts (auto) 10.2 H, Absolute Lymphs (auto) 2.37, Nucleated RBC % 0, Retic Count 6.73 H, Immature Retic Fraction 24.00 H, Retic Hgb Equivalent 33.0, PT 17.3 H, INR 1.4, APTT 28.2, Sodium 137, Potassium 5.8 H, Chloride 108 H, Carbon Dioxide 26.0, Anion Gap 3 L, BUN 21 H, Creatinine 0.61, Estim Creat Clear Calc 101.01, Est GFR (MDRD) Af Amer 137, Est GFR (MDRD) Non-Af 113, BUN/Creatinine Ratio 34.3 H, Glucose 118 H, Calcium 8.4 L, Total Bilirubin 1.00, Direct Bilirubin 0.53 H, AST 143 H, ALT 83 H, Alkaline Phosphatase 76, Total Protein 5.5 L, Albumin 2.0 L, Globulin 3.5, Lipase 49 07/21/24 13:23: Ammonia 42.0 H, Blood Type B NEGATIVE, Antibody Screen NEGATIVE, Crossmatch See Detail 07/21/24 13:43: Magnesium 2.0, Iron 74, TIBC 247 L, Iron Saturation 30.0, Ferritin 1111 H, Ethyl Alcohol < 3.0 Assessment & Plan Assessment/Plan (1) Abdominal pain: PLAN: Plan 43-year-old with worsening cough and subjective fevers at home who presents with hematemesis in a setting of cirrhosis with anemia and thrombocytopenia Differential diagnosis for upper GI bleed is variceal bleed, ulcer at the base where the band came off, Alice-Contreras tear. She will need to undergo emergent upper endoscopy to evaluate upper GI tract. She was explained alternatives, risk and benefits include not withstanding bleeding, infection, sepsis, perforation, need for more charge and . She will have an ASA of 3. She would also need repeat ultrasound to see if she needs repeat paracentesis. History of hepatitis C -recommend outpatient treatment. -Daily weights -I?s and O?s -Denies alcohol, remote hx of opioid use d/o -Did recently use meth via smoking, denies IVDA at this time #DVT ppx: SCDs Charges/Coding Visit Charges Inpatient E&M: 89630 Init Hosp L3
--- NOTE | 2024-07-21 16:50 | PCM.POST.ANE ---
Anesthesia: Postop Eval I Current Vital Signs Temperature: 98.2 F Pulse Rate: 110 Blood Pressure: 104/65 Respiratory Rate: 22 Pulse Ox: 100 Oxygen Delivery Method: Non-Rebreather Oxygen Flow Rate (L/min): 4 Assessment Airway patent: Yes Spontaneous unlabored respirations: Yes Mental status: Asleep nausea: No Vomiting: No Anesthesia Complication: No Fluid Hydration Crystalloid volume administer (ml): 10 Total IV fluid infused: 10 Progress Note Anesthesia document: Postop Eval 1 completed: Yes
[2024-07-21] MEDS: 0.9% Normal Saline (1000mL) 1,000 ML 75 ML IV (17:57)
[2024-07-21] MEDS: OCTREOTIDE CONT INF (18:00)
[2024-07-21] MEDS: DEXTROSE 5% CONT INF (18:00)
[2024-07-21] MEDS: proCHLORPERazine 10 MG/2 ML Vial 5 MG IV (18:27)
[2024-07-21] MEDS: 0.9% Saline Lock 10 ML Syringe IV ×3 (18:27→23:49)
[2024-07-21 18:47] LABS: Hematocrit 22.2 % (37-47); Hemoglobin 7.6 g/dL (12.0-15.0)
[2024-07-21] MEDS: Morphine 2 MG/ML Syringe IV (20:25)
[2024-07-21 21:39] LABS: Anion Gap 5 (5-15); BUN 21 mg/dL (7-18); BUN/Creat Ratio 34.7 RATIO (10-20); Calcium,Total 7.5 mg/dL (8.5-10.1); Chloride 111 mmol/L (98-107); Creatinine, Serum 0.61 mg/dL (0.55-1.02); EST Glomerular Filtration Rate 115 mL/min (>60); Est Glom Filt Rate - Afr Amer 139 mL/min (>60); Estimated Creatinine Clearance 101.77 ml/min; Glucose 87 mg/dL (74-106); Potassium 6.2 mmol/L (3.5-5.1); Sodium Level 141 mmol/L (136-145)
[2024-07-21 22:10] LABS: Allen Test Positive; Base Excess 1 mmol/L (-2 to +2); Bicarbonate 24.5 mmol/L (22-26); Blood Gas Specimen Type ART; Mode Not entered; O2 Delivery Device Room Air; PO2 87 mmHG (75-100); SITE R Radial; SO2 97 % (95-99); Total Carbon Dioxide 26 mmol/L; pCO2 35.4 mmHg (35-45); pH 7.45 (7.35-7.45)
[2024-07-21] MEDS: Sodium Polystyrene Sulfonate 15 GM/60 ML UDC 30 GM PO (22:48)
[2024-07-22] VITALS (27 sets, daily range): BP systolic 92–139; BP diastolic 54–91; PULSE 76–115; RESP 12–20; TEMP 36.4–37.6; O2SAT 96–100; BMI 27.8; BMI 27.6
[2024-07-22 00:14] LABS: Hematocrit 21.6 % (37-47); Hemoglobin 7.3 g/dL (12.0-15.0)
[2024-07-22] MEDS: 0.9% Saline Lock 10 ML Syringe IV ×6 (00:59→23:42)
[2024-07-22] MEDS: Morphine 2 MG/ML Syringe IV ×5 (00:59→23:42)
[2024-07-22 04:45] LABS: Amphetamine Urine VISTA NEGATIVE (<1000 ng/mL); Barbiturate Urine VISTA NEGATIVE (< 200 ng/mL); Benzodiazepine Urine VISTA NEGATIVE (< 200 ng/mL); Cocaine Urine VISTA NEGATIVE (< 300 ng/mL); Ecstacy Urine VISTA NEGATIVE (< 500 ng/mL); Methadone Urine VISTA NEGATIVE (< 300 ng/mL); PCP Urine VISTA NEGATIVE (< 25 ng/mL); THC Urine VISTA POSITIVE (< 50 ng/mL); Vista UDS pH Range 5
[2024-07-22 06:45] LABS: Absolute Lymphocyte Count 1.64 X10^3/uL (0.83-4.51); Absolute Neutrophil Count 6.7 X10^3/uL (2.0-7.7); Basophil# 0.03 X10^3/uL; Basophil% 0.3 % (0-1); Eosinophil# 0.15 X10^3/uL; Eosinophils% 1.6 % (0-5); Hematocrit 21.2 % (37-47); Hemoglobin 6.9 g/dL (12.0-15.0); Lymphocyte # 1.64 X10^3/ul (0.83-4.51); Lymphocyte % 17.8 % (19-41); Mean Corp Hgb Conc 32.5 g/dL (32-36); Mean Corpuscular Hgb 30.8 pg (27.0-32.0); Mean Corpuscular Volume 94.6 fL (81-99); Mean Platelet Vol. 10.7 fl (6.2-12.0); Monocyte# 0.64 X10^3/uL; NRBC Flagged by Analyzer 0 % (0-5); Neutrophil # 6.65 X10^3/uL (2.7-7.7); Neutrophil % 72.4 % (47-70); POSITIVE MORPHOLOGY YES; Platelet Count 101 K/mm3 (150-450); RBC Distribution Width CV 19.9 % (11.6-14.6); RBC Distribution Width SD 67.3 fl (35.1-43.9); Red Blood Count 2.24 M/mm3 (4.2-5.4); White Blood Count 9.2 K/mm3 (4.4-11.0)
[2024-07-22 07:19] LABS: ALB/GLOB Ratio 0.6 RATIO (0.9-2.4); AST(SGOT) 762 U/L (15-37); Alanine Aminotransfer ALT/SGPT 393 U/L (13-56); Albumin, Serum 1.8 g/dL (3.2-5.0); Alkaline Phosphatase 82 U/L (45-117); Anion Gap 5 (5-15); BUN 21 mg/dL (7-18); BUN/Creat Ratio 28.8 RATIO (10-20); Calcium,Total 7.7 mg/dL (8.5-10.1); Chloride 113 mmol/L (98-107); Creatinine, Serum 0.73 mg/dL (0.55-1.02); EST Glomerular Filtration Rate 93 mL/min (>60); Est Glom Filt Rate - Afr Amer 112 mL/min (>60); Estimated Creatinine Clearance 84.03 ml/min; Globulin 3.2 g/dL (2.2-4.2); Glucose 118 mg/dL (74-106); Potassium 4.3 mmol/L (3.5-5.1); Sodium Level 141 mmol/L (136-145)
[2024-07-22 07:33] LABS: Differential Indicated SCAN CRITERIA MET
--- NOTE | 2024-07-22 07:53 | POSTOPAN2_ITS ---
Anesthesia Postop Eval I Sum Postop Eval Completion status Anesthesia document: Postop Eval 1 completed: Yes Anesthesia Postop Eval I Summary Anesthesia Postop Eval I Summary: Anesthesia Postop Eval I: Assessment Summary Airway patent Yes 07/21/24 16:51 [email or web address] Spontaneous unlabored Yes 07/21/24 16:51 [email or web address] respirations Mental status Asleep 07/21/24 16:51 [email or web address] nausea No 07/21/24 16:51 [email or web address] [email or web address] Vomiting No 07/21/24 16:51 [email or web address] Anesthesia Postop Eval I: Fluid Summary Crystalloid volume administer 10 07/21/24 16:51 [email or web address] (ml) Colloids volume administered ( ml) Blood Product volume administered (ml) Total IV fluid infused 10 07/21/24 16:51 [email or web address] Anesthesia Postop Eval I: Summary Notes Anesthesia Complication No 07/21/24 16:51 [email or web address] Anesthesia Complication Comment: Post-operative progress note Anesthesia: Postop Eval II Evaluation Mental status: Awake Pain Level: 0 nausea: No Vomiting: No
--- NOTE | 2024-07-22 07:53 | PCM.POSTANE2 ---
Anesthesia Postop Eval I Sum Postop Eval Completion status Anesthesia document: Postop Eval 1 completed: Yes Anesthesia Postop Eval I Summary Anesthesia Postop Eval I Summary: Anesthesia Postop Eval I: Assessment Summary Airway patent Yes 07/21/24 16:51 INSTRUMENT [email or web address] Spontaneous unlabored Yes 07/21/24 16:51 INSTRUMENT [email or web address] respirations Mental status Asleep 07/21/24 16:51 INSTRUMENT [email or web address] nausea No 07/21/24 16:51 INSTRUMENT [email or web address] Vomiting No 07/21/24 16:51 INSTRUMENT [email or web address] Anesthesia Postop Eval I: Fluid Summary Crystalloid volume administer 10 07/21/24 16:51 INSTRUMENT [email or web address] (ml) Colloids volume administered ( ml) Blood Product volume administered (ml) Total IV fluid infused 10 07/21/24 16:51 INSTRUMENT [email or web address] Anesthesia Postop Eval I: Summary Notes Anesthesia Complication No 07/21/24 16:51 INSTRUMENT [email or web address] Anesthesia Complication Comment: Post-operative progress note Anesthesia: Postop Eval II Evaluation Mental status: Awake Pain Level: 0 nausea: No Vomiting: No
[2024-07-22 08:22] LABS: Anisocytosis 1+; Ovalocyte 1+; Platelet Estimate SLT DEC (ADEQ); Polychromasia 1+; Tear Drop Cell 1+
[2024-07-22] MEDS: Ceftriaxone 1 GM/50 ML BAG IV (09:34)
[2024-07-22] MEDS: Pantoprazole Sodium 80 MG in 0.9% Normal Saline (100mL Bag) 80 ML 10 MG CONT INF ×2 (10:18→20:43)
[2024-07-22] MEDS: Ondansetron 4 MG/2 ML Vial IV (10:18)
[2024-07-22 12:14] LABS: Hematocrit 22.8 % (37-47); Hemoglobin 7.7 g/dL (12.0-15.0)
[2024-07-22] MEDS: OCTREOTIDE CONT INF (13:52)
[2024-07-22] MEDS: DEXTROSE 5% CONT INF (13:52)
--- NOTE | 2024-07-22 14:03 | CASEMGMT ---
JIGNESH HASSAN Chart Review: Patient was admitted 07/13/24 - 07/15/24 for cirrhosis, abdominal pain, and ascites. See assessment from 07/13/24. Patient was discharged home with roommate. Patient does not have a PCP, set up appointment with Whitney Thompson for 07/22/24. Pt was admitted back into hospital on 07/21/24 for UGIB 2/2 esophageal varices. Pt states she was sleeping and woke up with abdominal pain, went to the bathroom and had a lot of bleeding. Pt mom and kids came into the room during assessment. Pt states will need transportation home from the hospital. Pt states she would like JIGNESH HASSAN to call [facility] and reschedule her appointment, Pt will also need transport set up for appointment.
--- NOTE | 2024-07-22 14:40 | CHAPLAIN ---
Type of Pastoral Visit _x__ Initial Visit ___ Follow-up Visit ___ On-call Visit ___ General Patient Visit ___ Spiritual Assessment ___ Family Conference ___ Bereavement ___ Rapid Response ___ Code Blue ___ Other (describe below) Pastoral Care Referral From _x__ Patient ___ Family ___ Nurse ___ Physician ___ Clerk Entry Level ___ Pillowcase Cleaner ___ Other (describe below) Sacrament/Intervention _x__ Active listening ___ Anointing ___ Mosque ___ Bereavement ___ Communion ___ Elise exploration ___ ___ Life review _x__ Prayer ___ Reconciliation ___ Sacrament of Sick _x__ Supportive presence ___ Wedding ___ Other (describe below) Pastoral Comments patient gives update on her health since her last recent visit to the hospital; pt admits that she is surprised by her health problems at 'such a young age'; pt reviews her living situation; pt admits also that she has some fear and anxiety about the procedure to happen this afternoon; pt says that she is trusting God and welcomes a prayer
--- NOTE | 2024-07-22 15:14 | NURSING ---
To OR for EGD at this time
--- NOTE | 2024-07-22 15:52 | PRE.ANES_ITS ---
ASA Classification* ASA Classification ASA Classification: 3 Assessment & Plan Anesthesia* Anesthesia Assessment Anesthesia Assessment: Discussed sedation and/or anesthesia options, risks, benefits, and alternatives with patient/parents/legal guardian/POA. Questions invited. The patient/parents/legal guardian/POA seems to understand and agrees to proceed with anesthesia plan. Reviewed the physical assessment, medical history, allergy history and patient home medications list prior to surgery/procedure/anesthetic and documented any changes. Performed airway and anesthesia risk assessments. Anesthesia Type Anesthesia Type: MAC Anesthesia Focused Assessment* Temperature: 98.1 F Pulse Rate: 90 Blood Pressure: 124/72 Respiratory Rate: 14 Pulse Ox: 100 Oxygen Flow Rate (L/min): 2 Airway Assessment Mouth opens: >3 cm Mallampati Score: II Focused Labs Anesthesia Preop lab: CBC WBC 9.2 K/mm3 (4.4-11.0) 07/22/24 06:20 RBC 2.24 M/mm3 (4.2-5.4) L 07/22/24 06:20 Hgb 7.7 g/dL (12.0-15.0) L 07/22/24 12:08 Hct 22.8 % (37-47) L 07/22/24 12:08 Plt Count 101 K/mm3 (150-450) L 07/22/24 06:20 CHEMISTRY Potassium 4.3 mmol/L (3.5-5.1) 07/22/24 06:20 Sodium 141 mmol/L (136-145) 07/22/24 06:20 Magnesium 2.0 mg/dL (1.6-2.6) 07/21/24 13:43 Phosphorus 3.9 mg/dL (2.5-4.9) 07/21/24 12:20 BUN 21 mg/dL (7-18) H 07/22/24 06:20 Creatinine 0.73 mg/dL (0.55-1.02) 07/22/24 06:20 Glucose 118 mg/dL (74-106) H 07/22/24 06:20 POC Glucose 73 mg/dL (74-106) L 07/14/24 14:15 TSH 2.340 uIU/mL (0.358-3.740) 07/14/24 06:08 COAG PT 17.3 SECONDS (11.7-14.9) H 07/21/24 12:32 HCG, Quant 48324 mIU/mL (1-3) H 12/27/22 22:36 Urine Test Negative Negative 07/13/24 10:05 Pre-Assessment Diagnosis/Proposed Procedure Planned Operative Procedure(s): EGD Anesthesia History Anesthesia History - coverage specialist rn: Anesthesia History - coverage specialist rn Hx Hospitalization No 01/17/23 10:26 Any Problems With Anesthesia No 07/21/24 14:48 Cholinesterase deficiency No 07/21/24 14:48 You/Your Family Experience No 07/21/24 14:48 fever (hyperthermia) with Relationship Recent Exposure to Contagious No 07/21/24 14:48 Disease Does patient have nerve No 07/21/24 14:48 stimulator Patient instructed to have No 07/21/24 14:48 device shut off --Does patient have Pacemaker No 07/22/24 15:30 or ICD? When Was Last Pacemaker Check QUESTION #4 FULL TEXT: You/Your Family Experience fever (hyperthermia) with Anesthesia Last Oral Intake Last Oral intake: Last Oral Intake NPO since 04:00 07/22/24 15:30 Meds taken in AM with sips of No 07/22/24 15:30 water? Meds patient instructed to take am of surgery PONV PONV - coverage specialist rn: PONV - coverage specialist rn Female HX of Motion Sickness HX of N/V After Surgery Non-Smoker Duration of Surgery greater than 60 minutes Number of Risk Factors PONV Score Height & Weight Height & Weight: Anesthesia: Height & Weight Height 5 ft 07/22/24 15:30 Weight: 64.3 kg 07/22/24 15:30 Body Mass Index (BMI) 27.6 07/22/24 15:30 Respiratory Assessment Respiratory Assessment - coverage specialist rn: Respiratory Tract Infection Hx - coverage specialist rn Hx Respiratory Tract Infection No 07/21/24 14:48 STOP Sleep Apnea STOP Sleep Apnea - coverage specialist rn: STOP Sleep Apnea - coverage specialist rn Hx Hypertension Yes 07/21/24 18:09 Hx Sleep Apnea No 07/21/24 18:09 CPAP BIPAP Do you snore loudly (louder No 07/21/24 18:09 than talking or can be heard Do you often feel tired/ No 07/21/24 18:09 fatigued/ sleepy during daytime? Has anyone observed you stop No 07/21/24 18:09 breathing during sleep? STOP Results Negative 07/21/24 18:09 QUESTION #5 FULL TEXT : Do you snore loudly (louder than talking or can be heard through closed doors)? Tobacco Use History Tobacco Use History - coverage specialist rn: Tobacco Use History - coverage specialist rn Tobacco Use Smoking Status Light Smoker (<10/day) 07/21/24 18:09 Hx Tobacco Use Yes 07/21/24 18:09 Years Smoking Packs Smoked per Day Smoking Cessation Date was within the last 15 years Hx Smoking Cessation Date Hx Smoking Cessation Counseling Hematologic Medial History Hematologic Hx - coverage specialist rn: Hematologic Medical Hx - final inspector Hx of Blood Transfusion No 07/21/24 18:09 Hx of Transfusion in last 3 No 07/21/24 18:09 Months Date of Last Transfusion (if within last 3 months) Ever experience any problems No 07/21/24 18:09 with transfusion(s)? Specify any problems Hx of Preganancy in last 3 No 07/21/24 18:09 Months Nurse Filling Out Transfusion CGERBER 07/21/24 18:09 & Questions: Date: 07/21/24 07/21/24 18:09 Time: 18:16 07/21/24 18:09 Patient unable to answer at this time (ie. confused, unrespo /Reproduction History /Reproductive History - coverage specialist rn: /Reproductive Hx- coverage specialist rn Hx Now No 07/21/24 18:09 Gestational Age (in weeks): EDC: Hx Hx Para Hx Section SAB No 07/21/24 11:30 Active Medications Active Medications: Current Medications Generic Name Dose Route Start Last Admin Trade Name Freq PRN Reason Stop Dose Admin Acetaminophen 650 mg 07/21/24 17:19 Acetaminophen 325 Mg Tablet PO Q6H PRN PRN Pain 1-10 Or Fever>100.7 Albuterol Sulfate 2.5 mg 07/21/24 17:19 Albuterol 2.5 Mg/3 Ml Vial.Neb. INHALATION Q2H PRN PRN SOB &/OR WHEEZING Carvedilol 3.125 mg 07/22/24 17:30 Carvedilol 3.125 Mg Tablet PO BIDCM LYNSEY Protocol Pantoprazole Sodium 80 mg/ 100 mls @ 10 mls/hr 07/21/24 13:45 07/22/24 10:18 Sodium Chloride CONT INF 10 mls/hr Q10H LYNSEY Administration Sodium Chloride 500 mls @ 0 mls/hr 07/21/24 16:00 07/21/24 19:00 IV Infused .Q0M LYNSEY Infusion KVO Octreotide Acetate 0.5 mg/ 251 mls @ 12.5 mls/hr 07/21/24 16:00 07/22/24 13:52 Dextrose CONT INF 12.5 mls/hr .Q20H5M LYNSEY Administration Ceftriaxone Sodium 1 gm in 50 mls @ 100 mls/hr 07/22/24 10:00 07/22/24 10:25 Rocephin IV 07/29/24 10:01 Infused Q24 LYNSEY Infusion Sodium Chloride 100 mls @ 15 mls/hr 07/21/24 18:09 IV .Q6H40M PRN Saline Flush Sodium Chloride 100 mls @ 15 mls/hr 07/21/24 18:09 IV .Q6H40M PRN Additional IVPB Infusion Melatonin 3 mg 07/21/24 17:19 Melatonin 3 Mg Tablet PO QHS PRN PRN INSOMNIA Morphine Sulfate 2 mg 07/21/24 17:19 07/22/24 10:18 Morphine 2 Mg/Ml Syringe IV 2 mg Q4H PRN PRN Administration Pain Score 6-10 Ondansetron HCl 4 mg 07/21/24 17:19 07/22/24 10:18 Ondansetron 4 Mg/2 Ml Vial IV 4 mg Q8H PRN PRN Administration NAUSEA/VOMITING Multivit/Folic Acid/Iron 1 tablet 07/22/24 10:00 07/22/24 09:03 Vits Tablet PO Not Given DAILY LYNSEY Prochlorperazine Edisylate 5 mg 07/21/24 17:19 07/21/24 18:27 Prochlorperazine 10 Mg/2 Ml Vial IV 5 mg Q4H PRN PRN Administration Breakthrough Nausea/Vomiting Senna/Docusate Sodium 2 tablet 07/21/24 17:19 Senna/Docusate Sodium 1 Tablet PO BID PRN PRN Constipation Sodium Chloride 10 - 40 ml 07/21/24 18:09 07/22/24 13:52 0.9% Saline Lock 10 Ml Syringe IV 20 ml UD PRN Administration SALINE FLUSH PFS Medical History GI bleed Hepatitis Diabetes HCC (hepatocellular carcinoma) Hepatitis C Loose, teeth Stroke/cerebrovascular accident Smoker Hypertension Home Medications ?Medication ?Instructions ?Recorded ?Last Taken ?Type vits no.130-ferrous fum 1 tab PO DAILY 07/13/24 07/12/24 History 27 mg iron-folic acid 800 mcg tablet ( Vitamin) furosemide 20 mg tablet 20 mg PO DAILY 30 days #30 tabs 07/15/24 Unknown Rx Allergy/AdvReac Type Severity Reaction Status Date / Time No Known Allergies Allergy Verified 07/13/24 09:55 Family History Uncle Cancer Surgical History H/O dilation and curettage History of cholecystectomy Social History Smoking Status: Light Smoker (<10/day) alcohol intake: current alcohol intake frequency: a few times a month substance use type: former substance user Review of Systems (Anesthesia) ROS Narrative System reviewed and no additional complaints, except as documented.
--- NOTE | 2024-07-22 16:38 | EX.PCM.PN.GI ---
Subjective Subjective Patient is having a little bit of dysphagia. She is scheduled for repeat upper endoscopy today. She is status post banding for upper GI bleed secondary to esophageal varices. Objective Data Objective Data Vital Signs: Vital Signs Temp Pulse Resp BP Pulse Ox O2 Del Method O2 Flow Rate 98.1 F 90 14 124/72 H 100 Room Air 2 07/22/24 15:53 07/22/24 15:53 07/22/24 15:53 07/22/24 15:53 07/22/24 15:53 07/22/24 15:00 07/22/24 15:53 Oxygen Flow Rate (L/min) 2 Oxygen Delivery Method Room Air Weight: 141 lb 12.116 oz Body Mass Index (BMI) 27.6 Intake & Output: Intake and Output for Last 24 Hours 07/20/24 07/21/24 07/22/24 23:59 23:59 23:59 Intake Total 1841.92 / 1841.92 1454.58 / 1454.58 Output Total 600 / 600 Balance 1841.92 / 1841.92 854.58 / 854.58 Lab / Micro Data 07/22/24 12:08 07/22/24 06:20 Labs: Laboratory Results - last 24 hr 07/21/24 13:23: Crossmatch See Detail 07/21/24 18:30: Hgb 7.6 L, Hct 22.2 L 07/21/24 21:15: Sodium 141, Potassium 6.2 H*, Chloride 111 H, Carbon Dioxide 25.0, Anion Gap 5, BUN 21 H, Creatinine 0.61, Estim Creat Clear Calc 101.77, Est GFR (MDRD) Af Amer 139, Est GFR (MDRD) Non-Af 115, BUN/Creatinine Ratio 34.7 H, Glucose 87, Calcium 7.5 L 07/21/24 23:52: Hgb 7.3 L, Hct 21.6 L 07/22/24 04:20: Urine Opiates Screen POSITIVE H, Urine Methadone Screen NEGATIVE, Ur Barbiturates Screen NEGATIVE, Ur Phencyclidine Scrn NEGATIVE, Ur Amphetamines Screen NEGATIVE, MDMA (Ecstasy) Screen NEGATIVE, U Benzodiazepines Scrn NEGATIVE, Urine Cocaine Screen NEGATIVE, U Cannabinoids Screen POSITIVE H, Ur Drug Screen Comment 07/22/24 06:20: WBC 9.2, RBC 2.24 L, Hgb 6.9 L, Hct 21.2 L, MCV 94.6, MCH 30.8, MCHC 32.5, RDW Std Deviation 67.3 H, RDW Coeff of Betina 19.9 H, Plt Count 101 L, MPV 10.7, Immature Gran % (Auto) 0.900, Neut % (Auto) 72.4 H, Lymph % (Auto) 17.8 L, [place] % (Auto) 7.0, Eos % (Auto) 1.6, Baso % (Auto) 0.3, Absolute Neuts (auto) 6.7, Absolute Lymphs (auto) 1.64, Nucleated RBC % 0, Platelet Estimate SLT DEC, Polychromasia 1+, Anisocytosis 1+, Tear Drop Cells 1+, Ovalocytes 1+, Sodium 141, Potassium 4.3, Chloride 113 H, Carbon Dioxide 23.0, Anion Gap 5, BUN 21 H, Creatinine 0.73, Estim Creat Clear Calc 84.03, Est GFR (MDRD) Af Amer 112, Est GFR (MDRD) Non-Af 93, BUN/Creatinine Ratio 28.8 H, Glucose 118 H, Calcium 7.7 L, Total Bilirubin 0.80, AST 762 H, ALT 393 H, Alkaline Phosphatase 82, Total Protein 5.0 L, Albumin 1.8 L, Globulin 3.2, Albumin/Globulin Ratio 0.6 L 07/22/24 12:08: Hgb 7.7 L, Hct 22.8 L ABG Data ABG results: ABG 07/21/24 22:05 Specimen Type ART Sample Site R Radial pH 7.45 Bicarbonate Actual 24.5 Total CO2 26 Base Excess 1 O2 Saturation 97 ABG pCO2 35.4 ABG pO2 87 Samuel Test Positive O2 Delivery Device Room Air Vent Mode Not entered Physical Exam Const alert, oriented x3, no apparent distress and healthy appearing General Appearance: cooperative GI normal to inspection, nondistended, normoactive bowel sounds, soft to palpation, non-tender and non-distended Percussion: normal to percussion Rectal Exam: deferred Assessment & Plan Assessment/Plan (1) Abdominal pain: PLAN: Plan 43-year-old with worsening cough and subjective fevers at home who presents with hematemesis in a setting of cirrhosis with anemia and thrombocytopenia Differential diagnosis for upper GI bleed is variceal bleed, ulcer at the base where the band came off, Alice-Contreras tear. She will need to undergo emergent upper endoscopy to evaluate upper GI tract. She was explained alternatives, risk and benefits include not withstanding bleeding, infection, sepsis, perforation, need for more charge and . She will have an ASA of 3. She would also need repeat ultrasound to see if she needs repeat paracentesis. History of hepatitis C -recommend outpatient treatment. -Daily weights -I?s and O?s -Denies alcohol, remote hx of opioid use d/o -Did recently use meth via smoking, denies IVDA at this time #DVT ppx: SCDs 07/22/2024-patient's hemoglobin seems to be stable. We will repeat upper endoscopy today to make sure it is safe for her to eat as she had several varices banded yesterday along with being started on beta-daryl therapy and continuing octreotide and PPI drip.
--- NOTE | 2024-07-22 17:27 | PCM.PN.HOSP ---
Reason for Visit Reason for Visit: Diagnoses Anemia, unspecified (07/21/24) Thrombocytopenia, unspecified (07/21/24) Hyperkalemia (07/21/24) Esophageal varices without bleeding (07/21/24) Unspecified cirrhosis of liver (07/21/24) Gastrointestinal hemorrhage, unspecified (07/21/24) Unspecified abdominal pain (07/21/24) Subjective Subjective Patient was seen and examined today, patient was going down for another EGD today. Objective Data Objective Data Vital Signs: Vital Signs Temp Pulse Resp BP Pulse Ox O2 Del Method O2 Flow Rate 98.9 F 110 H 16 117/89 H 99 Room Air 2 07/22/24 17:06 07/22/24 17:20 07/22/24 17:20 07/22/24 17:20 07/22/24 17:20 07/22/24 17:20 07/22/24 15:53 Oxygen Flow Rate (L/min) 2 Oxygen Delivery Method Room Air Weight: 64.3 kg Body Mass Index (BMI) 27.6 Intake & Output: Intake and Output for Last 24 Hours 07/20/24 07/21/24 07/22/24 23:59 23:59 23:59 Intake Total 1841.92 / 1841.92 1454.58 / 1454.58 Output Total 600 / 600 Balance 1841.92 / 1841.92 854.58 / 854.58 Lab / Micro Data 07/22/24 12:08 07/22/24 06:20 Labs: Laboratory Results - last 24 hr 07/21/24 13:23: Crossmatch See Detail 07/21/24 18:30: Hgb 7.6 L, Hct 22.2 L 07/21/24 21:15: Sodium 141, Potassium 6.2 H*, Chloride 111 H, Carbon Dioxide 25.0, Anion Gap 5, BUN 21 H, Creatinine 0.61, Estim Creat Clear Calc 101.77, Est GFR (MDRD) Af Amer 139, Est GFR (MDRD) Non-Af 115, BUN/Creatinine Ratio 34.7 H, Glucose 87, Calcium 7.5 L 07/21/24 23:52: Hgb 7.3 L, Hct 21.6 L 07/22/24 04:20: Urine Opiates Screen POSITIVE H, Urine Methadone Screen NEGATIVE, Ur Barbiturates Screen NEGATIVE, Ur Phencyclidine Scrn NEGATIVE, Ur Amphetamines Screen NEGATIVE, MDMA (Ecstasy) Screen NEGATIVE, U Benzodiazepines Scrn NEGATIVE, Urine Cocaine Screen NEGATIVE, U Cannabinoids Screen POSITIVE H, Ur Drug Screen Comment 07/22/24 06:20: WBC 9.2, RBC 2.24 L, Hgb 6.9 L, Hct 21.2 L, MCV 94.6, MCH 30.8, MCHC 32.5, RDW Std Deviation 67.3 H, RDW Coeff of Betina 19.9 H, Plt Count 101 L, MPV 10.7, Immature Gran % (Auto) 0.900, Neut % (Auto) 72.4 H, Lymph % (Auto) 17.8 L, [place] % (Auto) 7.0, Eos % (Auto) 1.6, Baso % (Auto) 0.3, Absolute Neuts (auto) 6.7, Absolute Lymphs (auto) 1.64, Nucleated RBC % 0, Platelet Estimate SLT DEC, Polychromasia 1+, Anisocytosis 1+, Tear Drop Cells 1+, Ovalocytes 1+, Sodium 141, Potassium 4.3, Chloride 113 H, Carbon Dioxide 23.0, Anion Gap 5, BUN 21 H, Creatinine 0.73, Estim Creat Clear Calc 84.03, Est GFR (MDRD) Af Amer 112, Est GFR (MDRD) Non-Af 93, BUN/Creatinine Ratio 28.8 H, Glucose 118 H, Calcium 7.7 L, Total Bilirubin 0.80, AST 762 H, ALT 393 H, Alkaline Phosphatase 82, Total Protein 5.0 L, Albumin 1.8 L, Globulin 3.2, Albumin/Globulin Ratio 0.6 L 07/22/24 12:08: Hgb 7.7 L, Hct 22.8 L ABG Data ABG results: ABG 07/21/24 22:05 Specimen Type ART Sample Site R Radial pH 7.45 Bicarbonate Actual 24.5 Total CO2 26 Base Excess 1 O2 Saturation 97 ABG pCO2 35.4 ABG pO2 87 Samuel Test Positive O2 Delivery Device Room Air Vent Mode Not entered Physical Exam Const alert, oriented x3 and no apparent distress General Appearance: cooperative, well kempt and well developed Orientation / Consciousness: awake, oriented to person, oriented to place and oriented to time HEENT normocephalic, head/scalp atraumatic and moist oral mucous membranes Eyes PERRL, EOMs intact bilaterally and conjunctivae normal Neck supple, no JVD, thyroid normal and no carotid bruits General: trachea midline Resp normal respiratory effort, no retractions, no use of accessory muscles and clear to auscultation bilaterally Auscultation: Negative for rales, rhonchi or wheezes Cardio regular rate, regular rhythm, S1 normal heart sound, S2 normal heart sound, no murmurs, no rub and no gallops GI normal to inspection, nondistended, normoactive bowel sounds, soft to palpation, non-tender and non-distended Extremity no clubbing, cyanosis or edema Skin no rashes or lesions noted General Skin Exam: no breakdown Neuro oriented x3, CN's II-XII intact bilaterally, moves all extremities, no focal motor deficits and no sensory deficits noted Sensorium / Orientation: awake and alert Speech: speech normal Psych affect normal Assessment & Plan Assessment/Plan (1) Acute upper gastrointestinal bleeding: PLAN: Plan 1. Acute upper GI bleed secondary to esophageal variceal hemorrhage-patient is going to have a repeat EGD today, gastroenterology is participating in her care, she remains on an octreotide drip and Rocephin. #2 acute blood loss anemia secondary to bleeding esophageal varices requiring transfusion-CBC will be monitored #3 cirrhosis secondary to past history of alcohol use and hepatitis C-complicates care, management, recovery, and prognosis #4 hyperkalemia-resolved at this time, labs will be monitored as necessary Total clinical time spent by myself addressing the patient's medical issues, reviewing her data, and collaborating with patient's care team: 35 minutes Charges/Coding Visit Charges Inpatient E&M: 80821 Subs Hosp L2
--- NOTE | 2024-07-22 17:41 | OP.CCLET_ITS ---
07/22/2024 No Primary Care Physician Re : Upper GI endoscopy procedure for [facility] Dear Care Physician This procedure was performed on July. My impressions and recommendations are as follows: Impressions : - Grade III esophageal varices. Treated with argon plasma coagulation (APC). Clip was placed. 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 - Erythematous mucosa in the stomach. - Portal hypertensive gastropathy. 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 - No gross lesions in the first portion of the duodenum. - No specimens collected. Recommendations : - [facility]. - Full liquid diet. - Continue present medications. My findings are described in the full procedure note, which is enclosed. If I can be of further assistance, please feel free to contact me at . Sincerely, Junior Holloway, 07/22/2024 5:41:04 PM This report has been signed electronically.
--- NOTE | 2024-07-22 17:41 | OP.EGD_ITS ---
Patient Name: Liberty Turcios Procedure Date: 07/22/2024 4:46 PM Date of : 1980 Age: 43 Procedure: Upper GI endoscopy Indications: For therapy of esophageal varices Providers: Junior Holloway DO Referring MD: Junior Holloway DO Medicines: Monitored Anesthesia Care Patient Profile: This is a 43 year old female. Refer to note in patient chart for documentation of history and physical. Patient has symptoms of acute vomiting. Complications: No immediate complications. Procedure: Pre-Anesthesia Assessment: - Prior to the procedure, a History and Physical was performed, and patient medications and allergies were reviewed. The patient is competent. The risks and benefits of the procedure and the sedation options and risks were discussed with the patient. All questions were answered and informed consent was obtained. Patient identification and proposed procedure were verified by the physician in the pre-procedure area. Mental Status Examination: alert and oriented. Airway Examination: normal oropharyngeal airway and neck mobility. Respiratory Examination: clear to auscultation. CV Examination: normal. Prophylactic Antibiotics: The patient does not require prophylactic antibiotics. Prior Anticoagulants: The patient has taken no anticoagulant or antiplatelet agents except for NSAID medication. ASA Grade Assessment: II - A patient with mild systemic disease. After reviewing the risks and benefits, the patient was deemed in satisfactory condition to undergo the procedure. The anesthesia plan was to use monitored anesthesia care (MAC). Immediately prior to administration of medications, the patient was re-assessed for adequacy to receive sedatives. The heart rate, respiratory rate, oxygen saturations, blood pressure, adequacy of pulmonary ventilation, and response to care were monitored throughout the procedure. The physical status of the patient was re-assessed after the procedure. After obtaining informed consent, the endoscope was passed under direct vision. Throughout the procedure, the patient's blood pressure, pulse, and oxygen saturations were monitored continuously. The gastroscope was introduced through the mouth, and advanced to the second part of duodenum. The upper GI endoscopy was accomplished without difficulty. The patient tolerated the procedure well. Scope In: 4:50:29 PM Scope Out: 4:59:37 PM Total Procedure Duration Time 0 hours 9 minutes 8 seconds Findings: Grade III varices were found in the upper third of the esophagus, in the middle third of the esophagus and in the lower third of the esophagus. They were 10 mm in largest diameter. Coagulation for hemostasis using argon plasma at 0.3 liters/minute and 20 leblanc was successful. To prevent bleeding post-intervention, one hemostatic clip was successfully placed. Clip practice specialist: [employer]. There was no bleeding at the end of the procedure. Diffuse moderately erythematous mucosa without bleeding was found in the entire examined stomach. Moderate portal hypertensive gastropathy was found in the entire examined stomach. A medium-sized, submucosal, non-circumferential mass with no bleeding and no stigmata of recent bleeding was found in the gastric antrum. No gross lesions were noted in the first portion of the duodenum. Impression: - Grade III esophageal varices. Treated with argon plasma coagulation (APC). Clip was placed. Clip practice specialist: [employer]. - Erythematous mucosa in the stomach. - Portal hypertensive gastropathy. 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 - No gross lesions in the first portion of the duodenum. - No specimens collected. Recommendation: - [facility]. - Full liquid diet. - Continue present medications. Procedure Code(s): --- Professional --- 94163, Esophagogastroduodenoscopy, flexible, transoral; with control of bleeding, any method CPT copyright 2021 [employer]. All rights reserved. The codes documented in this report are preliminary and upon aquatic habitat biologist review may be revised to meet current compliance requirements. Junior Holloway DO 07/22/2024 5:41:04 PM This report has been signed electronically. Number of Addenda: 0 Note Initiated On: 07/22/2024 4:46 PM
--- NOTE | 2024-07-22 17:42 | PCM.POST.ANE ---
Anesthesia: Postop Eval I Current Vital Signs Temperature: 99.7 F Pulse Rate: 107 Blood Pressure: 122/85 Respiratory Rate: 16 Pulse Ox: 100 Assessment Airway patent: Yes Spontaneous unlabored respirations: Yes Mental status: Awake nausea: No Vomiting: No Anesthesia Complication: No Fluid Hydration Crystalloid volume administer (ml): 10 Total IV fluid infused: 10 Progress Note Anesthesia document: Postop Eval 1 completed: Yes
--- NOTE | 2024-07-22 17:44 | OP.CCLET_ITS ---
07/22/2024 No Primary Care Physician Re : Upper GI endoscopy procedure for Liberty Turcios Dear Care Physician This procedure was performed on Sunday, July 21, 2024. My impressions and recommendations are as follows: Impressions : - Large (> 5 mm) esophageal varices. Incompletely eradicated. Banded. 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 - No gross lesions in the second portion of the duodenum. - No specimens collected. Recommendations : - [facility]. - Clear liquid diet today. - Continue present medications. - Repeat EGD tomorrow - N.p.o. past midnight - My findings are described in the full procedure note, which is enclosed. If I can be of further assistance, please feel free to contact me at . Sincerely, Junior Holloway, 07/22/2024 5:43:52 PM This report has been signed electronically.
--- NOTE | 2024-07-22 17:44 | OP.EGD_ITS ---
Patient Name: Liberty Turcios Procedure Date: 07/21/2024 3:20 PM Date of : 1980 Age: 43 Procedure: Upper GI endoscopy Indications: Hematemesis, For therapy of esophageal varices with bleeding Providers: Junior Holloway DO Medicines: Monitored Anesthesia Care Patient Profile: This is a 43 year old female. Refer to note in patient chart for documentation of history and physical. Patient has symptoms of acute nausea and acute vomiting. Her most recent EGD for treatment of bleeding was recently. Complications: No immediate complications. Procedure: Pre-Anesthesia Assessment: - Prior to the procedure, a History and Physical was performed, and patient medications and allergies were reviewed. The patient is competent. The risks and benefits of the procedure and the sedation options and risks were discussed with the patient. All questions were answered and informed consent was obtained. Patient identification and proposed procedure were verified by the physician in the pre-procedure area. Mental Status Examination: alert and oriented. Airway Examination: normal oropharyngeal airway and neck mobility. Respiratory Examination: clear to auscultation. CV Examination: normal. Prophylactic Antibiotics: The patient does not require prophylactic antibiotics. Prior Anticoagulants: The patient has taken no anticoagulant or antiplatelet agents except for NSAID medication. ASA Grade Assessment: IV - A patient with severe systemic disease that is a constant threat to life. After reviewing the risks and benefits, the patient was deemed in satisfactory condition to undergo the procedure. The anesthesia plan was to use monitored anesthesia care (MAC). Immediately prior to administration of medications, the patient was re-assessed for adequacy to receive sedatives. The heart rate, respiratory rate, oxygen saturations, blood pressure, adequacy of pulmonary ventilation, and response to care were monitored throughout the procedure. The physical status of the patient was re-assessed after the procedure. After obtaining informed consent, the endoscope was passed under direct vision. Throughout the procedure, the patient's blood pressure, pulse, and oxygen saturations were monitored continuously. The Endoscope was introduced through the mouth, and advanced to the second part of duodenum. The upper GI endoscopy was accomplished without difficulty. The patient tolerated the procedure well. Scope In: 4:28:21 PM Scope Out: 4:40:11 PM Total Procedure Duration Time 0 hours 11 minutes 50 seconds Findings: Large (> 5 mm) varices were found in the proximal esophagus, in the mid esophagus and in the distal esophagus. They were 20 mm in largest diameter. Three bands were successfully placed with incomplete eradication of varices. Bleeding had stopped at the end of the procedure. A medium-sized, polypoid, non-circumferential mass with no bleeding and no stigmata of recent bleeding was found in the gastric antrum. No gross lesions were noted in the second portion of the duodenum. Impression: - Large (> 5 mm) esophageal varices. Incompletely eradicated. Banded. 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 - No gross lesions in the second portion of the duodenum. - No specimens collected. Recommendation: - [facility]. - Clear liquid diet today. - Continue present medications. - Repeat EGD tomorrow - N.p.o. past midnight - Procedure Code(s): --- Professional --- 24237, Esophagogastroduodenoscopy, flexible, transoral; with band ligation of esophageal/gastric varices CPT copyright 2021 [employer]. All rights reserved. The codes documented in this report are preliminary and upon smoking pipe maker review may be revised to meet current compliance requirements. Junior Holloway DO 07/22/2024 5:43:52 PM This report has been signed electronically. Number of Addenda: 0 Note Initiated On: 07/21/2024 3:20 PM
--- NOTE | 2024-07-22 17:44 | PCM.POSTANE2 ---
Anesthesia Postop Eval I Sum Postop Eval Completion status Anesthesia document: Postop Eval 1 completed: Yes Anesthesia Postop Eval I Summary Anesthesia Postop Eval I Summary: Anesthesia Postop Eval I: Assessment Summary Airway patent Yes 07/22/24 17:44 Spontaneous unlabored Yes 07/22/24 17:44 respirations Mental status Awake 07/22/24 17:44 nausea No 07/22/24 17:44 Vomiting No 07/22/24 17:44 Anesthesia Postop Eval I: Fluid Summary Crystalloid volume administer 10 07/22/24 17:44 (ml) Colloids volume administered ( ml) Blood Product volume administered (ml) Total IV fluid infused 10 07/22/24 17:44 Anesthesia Postop Eval I: Summary Notes Anesthesia Complication No 07/22/24 17:44 Anesthesia Complication Comment: Post-operative progress note Anesthesia: Postop Eval II Evaluation Mental status: Awake Pain Level: 0 nausea: No Vomiting: No
--- NOTE | 2024-07-22 17:45 | ANES.CONFIRM ---
Anesthesia: Confirm Documents Multiple Procedures on Account (2) Confirmed Documents: Yes
[2024-07-22] MEDS: Carvedilol 3.125 MG TABLET PO (18:27)
[2024-07-23 05:09] VITALS: BMI 27.6
[2024-07-23 06:25] VITALS: BP 118/76; PULSE 100; RESP 18; TEMP 36.8; O2SAT 98
[2024-07-23] MEDS: Pantoprazole Sodium 80 MG in 0.9% Normal Saline (100mL Bag) 80 ML 10 MG CONT INF (06:27)
[2024-07-23] MEDS: 0.9% Saline Lock 10 ML Syringe IV ×2 (06:37→11:27)
[2024-07-23] MEDS: Morphine 2 MG/ML Syringe IV ×2 (06:37→11:26)
--- NOTE | 2024-07-23 08:55 | CASEMGMT ---
JIGNESH HASSAN NOTE: Call placed to [facility] and spoke w/Lorene. She was made aware pt was not able to come to appt that was scheduled yesterday d/t being admitted to [facility]. Appt rescheduled for 07/28 @ 0830 w/Sal, TOOLING SUPERVISOR. This was added to pt's discharge plan. Enriqueta SANCHEZ RN CM
--- NOTE | 2024-07-23 09:03 | PN.GI_ITS ---
Subjective Subjective Patient is doing a lot better today. She tolerated diet without any problem. Objective Data Objective Data Vital Signs: Vital Signs Temp Pulse Resp BP Pulse Ox O2 Del Method O2 Flow Rate 98.5 F 96 18 118/80 98 Room Air 2 07/23/24 16:40 07/23/24 16:40 07/23/24 16:40 07/23/24 16:40 07/23/24 16:40 07/23/24 16:40 07/22/24 15:53 Oxygen Flow Rate (L/min) 2 Oxygen Delivery Method Room Air Weight: 141 lb 12.116 oz Body Mass Index (BMI) 27.6 Intake & Output: Intake and Output for Last 24 Hours 07/21/24 07/22/24 07/23/24 23:59 23:59 23:59 Intake Total 1841.92 / 1841.92 2354.58 / 2354.58 1092.84 / 1092.84 Output Total 600 / 600 Balance 1841.92 / 1841.92 1754.58 / 1754.58 1092.84 / 1092.84 Lab / Micro Data 07/23/24 09:55 07/23/24 09:55 Labs: Laboratory Results - last 24 hr 07/23/24 09:55: WBC 15.1 H, RBC 2.59 L, Hgb 8.2 L, Hct 24.9 L, MCV 96.1, MCH 31.7, MCHC 32.9, RDW Std Deviation 65.3 H, RDW Coeff of Betina 19.6 H, Plt Count 101 L, MPV 10.7, Immature Gran % (Auto) 2.200 H, Neut % (Auto) 69.4, Lymph % (Auto) 17.0 L, Love % (Auto) 9.8, Eos % (Auto) 1.1, Baso % (Auto) 0.5, Absolute Neuts (auto) 10.5 H, Absolute Lymphs (auto) 2.56, Nucleated RBC % 0.1, Anisocytosis 1+, Sodium 134 L, Potassium 3.2 L, Chloride 104, Carbon Dioxide 23.0, Anion Gap 7, BUN 13, Creatinine 0.75, Estim Creat Clear Calc 81.79, Est GFR (MDRD) Af Amer 109, Est GFR (MDRD) Non-Af 90, BUN/Creatinine Ratio 17.4, G lucose 130 H, Calcium 7.7 L, Total Bilirubin 1.40 H, AST 370 H, ALT 371 H, Alkaline Phosphatase 108, Total Protein 6.1 L, Albumin 2.2 L, Globulin 3.9, A lbumin/Globulin Ratio 0.6 L Physical Exam Const alert, oriented x3 and no apparent distress General Appearance: cooperative, well kempt and well developed Orientation / Consciousness: awake, oriented to person, oriented to place and oriented to time HEENT normocephalic, head/scalp atraumatic and moist oral mucous membranes Eyes PERRL, EOMs intact bilaterally and conjunctivae normal Neck supple, no JVD, thyroid normal and no carotid bruits General: trachea midline Resp normal respiratory effort, no retractions, no use of accessory muscles and clear to auscultation bilaterally Auscultation: Negative for rales, rhonchi or wheezes Cardio regular rate, regular rhythm, S1 normal heart sound, S2 normal heart sound, no murmurs, no rub and no gallops GI normal to inspection, nondistended, normoactive bowel sounds, soft to palpation, non-tender and non-distended Extremity no clubbing, cyanosis or edema Skin no rashes or lesions noted General Skin Exam: no breakdown Neuro oriented x3, CN's II-XII intact bilaterally, moves all extremities, no focal motor deficits and no sensory deficits noted Sensorium / Orientation: awake and alert Speech: speech normal Psych affect normal Assessment & Plan Assessment/Plan (1) Abdominal pain: PLAN: Plan 43-year-old with worsening cough and subjective fevers at home who presents with hematemesis in a setting of cirrhosis with anemia and thrombocytopenia Differential diagnosis for upper GI bleed is variceal bleed, ulcer at the base where the band came off, Alice-Contreras tear. She will need to undergo emergent upper endoscopy to evaluate upper GI tract. She was explained alternatives, risk and benefits include not withstanding bleeding, infection, sepsis, perforation, need for more charge and . She will have an ASA of 3. She would also need repeat ultrasound to see if she needs repeat paracentesis. History of hepatitis C -recommend outpatient treatment. -Daily weights -I?s and O?s -Denies alcohol, remote hx of opioid use d/o -Did recently use meth via smoking, denies IVDA at this time #DVT ppx: SCDs 07/22/2024-patient's hemoglobin seems to be stable. We will repeat upper endoscopy today to make sure it is safe for her to eat as she had several varices banded yesterday along with being started on beta-daryl therapy and continuing octreotide and PPI drip. 07/23/2024. She is doing a lot better. She is not showing any signs of decompensated cirrhosis other than her previous upper GI bleed. Her beta- daryl therapy can be continued. She will need to be on antibiotics once discharged from the hospital. Close follow-up in the GI clinic. She will need treatment for hepatitis C. Charges/Coding Visit Charges Inpatient E&M: 57683 [facility] Hosp L3
[2024-07-23 10:28] LABS: Absolute Lymphocyte Count 2.56 X10^3/uL (0.83-4.51); Absolute Neutrophil Count 10.5 X10^3/uL (2.0-7.7); Basophil# 0.08 X10^3/uL; Basophil% 0.5 % (0-1); Eosinophil# 0.16 X10^3/uL; Eosinophils% 1.1 % (0-5); Hematocrit 24.9 % (37-47); Hemoglobin 8.2 g/dL (12.0-15.0); Lymphocyte # 2.56 X10^3/ul (0.83-4.51); Mean Corp Hgb Conc 32.9 g/dL (32-36); Mean Corpuscular Hgb 31.7 pg (27.0-32.0); Mean Corpuscular Volume 96.1 fL (81-99); Mean Platelet Vol. 10.7 fl (6.2-12.0); Monocyte# 1.48 X10^3/uL; Monocyte% 9.8 % (0-10); NRBC Flagged by Analyzer 0.1 % (0-5); Neutrophil # 10.48 X10^3/uL (2.7-7.7); Neutrophil % 69.4 % (47-70); POSITIVE MORPHOLOGY YES; Platelet Count 101 K/mm3 (150-450); RBC Distribution Width CV 19.6 % (11.6-14.6); RBC Distribution Width SD 65.3 fl (35.1-43.9); Red Blood Count 2.59 M/mm3 (4.2-5.4); White Blood Count 15.1 K/mm3 (4.4-11.0)
[2024-07-23 10:36] LABS: Differential Indicated SCAN CRITERIA MET
[2024-07-23 10:47] LABS: ALB/GLOB Ratio 0.6 RATIO (0.9-2.4); AST(SGOT) 370 U/L (15-37); Alanine Aminotransfer ALT/SGPT 371 U/L (13-56); Albumin, Serum 2.2 g/dL (3.2-5.0); Alkaline Phosphatase 108 U/L (45-117); Anion Gap 7 (5-15); BUN 13 mg/dL (7-18); BUN/Creat Ratio 17.4 RATIO (10-20); Calcium,Total 7.7 mg/dL (8.5-10.1); Chloride 104 mmol/L (98-107); Creatinine, Serum 0.75 mg/dL (0.55-1.02); EST Glomerular Filtration Rate 90 mL/min (>60); Est Glom Filt Rate - Afr Amer 109 mL/min (>60); Estimated Creatinine Clearance 81.79 ml/min; Globulin 3.9 g/dL (2.2-4.2); Glucose 130 mg/dL (74-106); Potassium 3.2 mmol/L (3.5-5.1); Protein, Total 6.1 g/dL (6.4-8.2); Sodium Level 134 mmol/L (136-145)
--- NOTE | 2024-07-23 11:02 | CASEMGMT ---
Addendum entered by Domitila Irene 07/23/24 11:17: This information was written down and provided to pt. Domitila Irene DC Planning Asst. Original Note: Transport for pts appt at [facility] on 07/28/24 @ 8:30a was scheduled with [id number]. Pt will be picked up between 7:30-8:00a and return ride scheduled for 9:45a. Confirmation [id number]. Call was completed on speaker phone in pts room. Contact information for pt was updated. Domitila Irene DC Planning Asst.
[2024-07-23 11:10] VITALS: BP 112/72; PULSE 104; RESP 18; TEMP 37.7; O2SAT 97
[2024-07-23] MEDS: Ceftriaxone 1 GM/50 ML BAG IV (11:16)
[2024-07-23] MEDS: Carvedilol 3.125 MG TABLET PO ×2 (11:20→16:39)
[2024-07-23] MEDS: Prenatal Vits Tablet 1 TABLET PO (11:20)
[2024-07-23 11:26] LABS: Anisocytosis 1+
--- NOTE | 2024-07-23 14:20 | CASEMGMT ---
JIGNESH HASSAN NOTE: JIGNESH CM to room. Pt sitting up in chair. Pt denies having any concerns w/discharging home. She states her friend, Melissa, may be able to take her home @ [place], but she is not sure. She states Melissa is working until 5 PM and she will not be able to ask her until later. Pt is aware her insurance can transport her home from the hospital if her friend is not able to take her home and she has this contact information. RNSharon, also made aware. Enriqueta SANCHEZ RN CM
--- NOTE | 2024-07-23 16:01 | DCINST_ITS ---
Discharge Instructions Diet Discharge Diet: No restrictions DC O2, CPAP, BIPAP needs Home O2 Discharge instructions: No Dressing / Incision Discharge Activity: Return to Normal Activity Weight Bearing Status: Full weight bearing Follow Up Care Test Results: Test results from this visit will be discussed in further detail at your follow- up appointment, if applicable. Discharge Plan Admission Admit Date/Time: 07/21/24 13:50 Primary Reason for Your Visit: Upper GI bleed Attending Provider: Ranjith Blair Primary Care Provider: Vicki Kasper Consulting Providers: Gogo Royal Discharge Orders/Prescriptions Prescriptions: New carvedilol 3.125 mg Tablet 3.125 mg PO BIDCM Qty: 60 0RF pantoprazole [Protonix] 40 mg tablet,delayed release (DR/EC) 40 mg PO BID Qty: 60 0RF spironolactone [Aldactone] 25 mg tablet 25 mg PO DAILY Qty: 30 0RF Continued Vitamin 27 mg iron- 800 mcg tablet 1 tab PO DAILY furosemide 20 mg Tablet 20 mg PO DAILY 30 Days Qty: 30 0RF Referrals / Follow Up: Junior Holloway DO [Med Staff - Active Staff] - See Referral Note (In 3 weeks) Vicki Kasper, LOGISTICS PLANNING ENGINEER-C [Primary Care Provider] - 07/28/24 8:30 am (You will need a CBC and a BMP rechecked) Disposition Disposition (needs filled in before D/C Order can be placed): Home, Self Care
--- NOTE | 2024-07-23 16:06 | DS.PCM_ITS ---
Providers Date of Admission: 07/21/24 Date of Discharge: 07/23/24 Primary Care Physician: CLEO Steinberg, DIRECTOR OF PROCUREMENT-C Consultations 07/21/24 17:19 Consult: Gastroenterology Routine Consulting Provider: [facility] Reason for Consult: GI bleed EMERGENT Consult: No MD Notified: Yes Date Notified: 07/21/24 Time Notified: 13:52 Method of Notification: ED Physician Initiated Reason For Visit: UGIB 2/2 ESOPHAGEAL VARICES Diagnosis Discharge Diagnosis (1) Acute upper gastrointestinal bleeding: Status: Acute Code(s): K92.2 - Gastrointestinal hemorrhage, unspecified Plan 1. Acute upper GI bleed secondary to esophageal variceal hemorrhage-patient is going to have a repeat EGD today, gastroenterology is participating in her care, she remains on an octreotide drip and Rocephin. #2 acute blood loss anemia secondary to bleeding esophageal varices requiring transfusion-CBC will be monitored #3 cirrhosis secondary to past history of alcohol use and hepatitis C- complicates care, management, recovery, and prognosis #4 hyperkalemia-resolved at this time, labs will be monitored as necessary Total clinical time spent by myself addressing the patient's medical issues, reviewing her data, and collaborating with patient's care team: 35 minutes Medications at Discharge Home Medications vits no.130-ferrous fum 27 mg iron-folic acid 800 mcg tablet ( Vitamin) 1 tab PO DAILY 07/13/24 furosemide 20 mg tablet 20 mg PO DAILY 30 days #30 tabs 07/15/24 carvedilol 3.125 mg tablet 3.125 mg PO BIDCM #60 tabs 07/23/24 pantoprazole 40 mg tablet,delayed release (Protonix) 40 mg PO BID #60 tabs 07/23/24 spironolactone 25 mg tablet (Aldactone) 25 mg PO DAILY #30 tabs 07/23/24 Hospital Course Operations None Procedures EGD Summary of Care Provided Minutes Spent on Discharge: 31 Hospital Course: This 43-year-old white female was seen in the emergency room at [facility] with a chief complaint of hematemesis, patient has a history of cirrhosis from hepatitis C and previous alcohol usage. CBC obtained in the emergency room showed a white blood cell count at 13.8, hemoglobin was 7.4. Patient was admitted to [facility] and seen in consultation by gastroenterology, she was placed on IV Rocephin and a Protonix drip, she received 1 unit of packed red blood cells. EGD was carried out which showed grade 3 esophageal varices, clip was placed and they were treated with argon plasma coagulation. There was also noted to be benign gastric tumor in the gastric antrum-no specimens collected. On 07/23/2024, patient was seen and examined: On examination she appeared in good health and spirits, she does not appear to be in any distress. Vital signs as documented. Skin warm and dry and without overt rashes. Neck without JVD, thyroid appears normal, trachea is midline, neck is supple. Lungs clear, normal air movement was noted. Heart exam notable for regular rhythm, normal sounds and absence of murmurs, rubs or gallops. Abdomen unremarkable and without evidence of organomegaly, masses, or abdominal aortic enlargement, bowel sounds are present in all 4 quadrants, no abdominal tenderness was noted. Extremities nonedematous, no cyanosis was noted, no clubbing was noted. Neuro: Cranial nerves II through XII are grossly intact, no focal motor deficits were noted, sensation to light touch and pinprick is intact, motor exam 5/5 throughout. Psych: Patient is alert and oriented x3, she does not appear anxious or depressed, she does not appear agitated. Patient appears stable for discharge home on 07/23/2024 Weight / BMI Weight Weight: 64.3 kg Body Mass Index (BMI) 27.6 ABG / Lab / Microbiology Data 07/23/24 09:55 07/23/24 09:55 Laboratory: Laboratory Results - last 24 hr 07/23/24 09:55: WBC 15.1 H, RBC 2.59 L, Hgb 8.2 L, Hct 24.9 L, MCV 96.1, MCH 31.7, MCHC 32.9, RDW Std Deviation 65.3 H, RDW Coeff of Betina 19.6 H, Plt Count 101 L, MPV 10.7, Immature Gran % (Auto) 2.200 H, Neut % (Auto) 69.4, Lymph % (Auto) 17.0 L, Platte % (Auto) 9.8, Eos % (Auto) 1.1, Baso % (Auto) 0.5, Absolute Neuts (auto) 10.5 H, Absolute Lymphs (auto) 2.56, Nucleated RBC % 0.1, Anisocytosis 1+, Sodium 134 L, Potassium 3.2 L, Chloride 104, Carbon Dioxide 23.0, Anion Gap 7, BUN 13, Creatinine 0.75, Estim Creat Clear Calc 81.79, Est GFR (MDRD) Af Amer 109, Est GFR (MDRD) Non-Af 90, BUN/Creatinine Ratio 17.4, G lucose 130 H, Calcium 7.7 L, Total Bilirubin 1.40 H, AST 370 H, ALT 371 H, Alkaline Phosphatase 108, Total Protein 6.1 L, Albumin 2.2 L, Globulin 3.9, A lbumin/Globulin Ratio 0.6 L D/C Instructions Discharge Diet: No restrictions Weight Bearing Status: Full weight bearing DC O2, CPAP, BIPAP Needs Home O2 Discharge instructions: No Meaningful Use Info Meaningful Use Meaningful Use Diagnoses (Choose all that apply): None applicable Ischemic Stroke Statin Dosing Therapy Reference: STATIN DOSE THERAPY REFERENCE: * Patients > 75 years receive moderate or high dose statin therapy. * Patients 75 years or YOUNGER should receive HIGH intensity statin dose unless contraindicated. You will be required to document reason for non-treatment if statin daily dose does not meet guidelines. HIGH DOSE STATIN THERAPY DAILY Atorvastatin > than or = to 40 mg Rosuvastatin > than or = to 20 mg Amlodipine + Atorvastatin > than or = to 2.5/40 mg Ezetimibe + Simvastatin 10/80 mg Simvastatin 80mg Discharge Plan Admission Admit Date/Time: 07/21/24 13:50 Primary Reason for Your Visit: Upper GI bleed Attending Provider: Ranjith Blair Primary Care Provider: Vicki Kasper [facility] Consulting Providers: Gogo Royal Discharge Orders/Prescriptions Prescriptions: New carvedilol 3.125 mg Tablet 3.125 mg PO BIDCM Qty: 60 0RF pantoprazole [Protonix] 40 mg tablet,delayed release (DR/EC) 40 mg PO BID Qty: 60 0RF spironolactone [Aldactone] 25 mg tablet 25 mg PO DAILY Qty: 30 0RF Continued Vitamin 27 mg iron- 800 mcg tablet 1 tab PO DAILY furosemide 20 mg Tablet 20 mg PO DAILY 30 Days Qty: 30 0RF Referrals / Follow Up: Junior Holloway DO [Med Staff - Active Staff] - See Referral Note (In 3 weeks) Vicki Kasper, DIRECTOR OF PROCUREMENT-C [Primary Care Provider] - 07/28/24 8:30 am (You will need a CBC and a BMP rechecked) Disposition Disposition (needs filled in before D/C Order can be placed): Home, Self Care Charges/Coding Visit Charges Inpatient E&M: 32216 Disch Hosp >30min
[2024-07-23 16:40] VITALS: BP 118/80; PULSE 96; RESP 18; TEMP 36.9; O2SAT 98
[2024-07-23] MEDS: Potassium Chloride Oral Tablet 10 MEQ PO (16:44)
[2024-07-24 17:16] LABS: Bedside Glucose 174 mg/dL (74-106)
== END 2024-07-23 17:51 | disposition home or self-care (01) | DRG 369 ==
LOC: ED 13:59 → ICU 15:14 → PCU 07-23 08:54
PROVIDERS: Admitting Provider Internal Medicine; Emergency Provider Emergency Medicine; Referring Provider Internal Medicine Gastroenterology; Visit Provider Internal Medicine
PROC: 0DJ08ZZ Inspection of Upper Intestinal Tract, Via Natural or Artificial Opening Endoscopic (ICD-10-PCS; CPT 43235; principal; 2024-07-21 14:10)
DX: I85.01 Esophageal varices with bleeding (principal); K76.6 Portal hypertension; R18.8 Other ascites; D62 Acute posthemorrhagic anemia; D69.6 Thrombocytopenia, unspecified; E11.9 Type 2 diabetes mellitus without complications; F15.10 Other stimulant abuse, uncomplicated; F11.99 Opioid use, unspecified with unspecified opioid-induced disorder; K74.60 Unspecified cirrhosis of liver; E87.5 Hyperkalemia; K31.89 Other diseases of stomach and duodenum; B19.20 Unspecified viral hepatitis C without hepatic coma; D13.1 Benign neoplasm of stomach; F10.90 Alcohol use, unspecified, uncomplicated; K92.0 Hematemesis; R10.9 Unspecified abdominal pain; Z90.49 Acquired absence of other specified parts of digestive tract
CPT/HCPCS: 36415; 36600; 80048; 80053; 80076; 80307; 82077; 82140; 82728; 82803; 82962; 83540; 83550; 83690; 83735; 84100; 85014; 85018; 85025; 85045; 85610; 85730; 86850; 86900; 86901; 86920; 86922; 93005; 94668; 99285; 99406; P9016; A4216; J2405

== ENCOUNTER → 2024-08-13 | Outpatient (CLI) | payer MEDICAID, SELFPAY ==
[2024-08-13 16:00] LABS: Absolute Lymphocyte Count 0.69 X10^3/uL (0.83-4.51); Basophil# 0.01 X10^3/uL; Basophil% 0.5 % (0-1); Eosinophil# 0.07 X10^3/uL; Eosinophils% 3.4 % (0-5); Hematocrit 27.4 % (37-47); Hemoglobin 8.5 g/dL (12.0-15.0); Lymphocyte # 0.69 X10^3/ul (0.83-4.51); Mean Corpuscular Hgb 29.6 pg (27.0-32.0); Mean Corpuscular Volume 95.5 fL (81-99); Mean Platelet Vol. 11.6 fl (6.2-12.0); Monocyte# 0.24 X10^3/uL; Monocyte% 11.8 % (0-10); NRBC Flagged by Analyzer 0 % (0-5); Neutrophil # 1.01 X10^3/uL (2.7-7.7); Neutrophil % 49.8 % (47-70); POSITIVE COUNT YES; Platelet Count 91 K/mm3 (150-450); RBC Distribution Width CV 17.2 % (11.6-14.6); RBC Distribution Width SD 60.3 fl (35.1-43.9); Red Blood Count 2.87 M/mm3 (4.2-5.4)
[2024-08-13 16:04] LABS: Differential Indicated SCAN CRITERIA MET
[2024-08-13 16:10] LABS: International Normalized Ratio 1.2; Prothrombin Time (Protime)PT. 15.7 SECONDS (11.7-14.9)
[2024-08-13 16:11] LABS: Partial Thromboplast Time 28.5 Seconds (24.1-36.2)
[2024-08-13 16:33] LABS: Platelet Estimate MOD DEC (ADEQ)
[2024-08-13 16:34] LABS: Ovalocyte 1+
[2024-08-13 16:35] LABS: Acanthocytes 1+
[2024-08-13 16:38] LABS: ALB/GLOB Ratio 0.6 RATIO (0.9-2.4); AST(SGOT) 60 U/L (15-37); Alanine Aminotransfer ALT/SGPT 39 U/L (13-56); Albumin, Serum 2.5 g/dL (3.2-5.0); Alkaline Phosphatase 80 U/L (45-117); Anion Gap 5 (5-15); BUN 8 mg/dL (7-18); BUN/Creat Ratio 9.3 RATIO (10-20); Calcium,Total 7.8 mg/dL (8.5-10.1); Chloride 105 mmol/L (98-107); Creatinine, Serum 0.86 mg/dL (0.55-1.02); EST Glomerular Filtration Rate 77 mL/min (>60); Est Glom Filt Rate - Afr Amer 93 mL/min (>60); Globulin 3.9 g/dL (2.2-4.2); Glucose 91 mg/dL (74-106); LDH 176 U/L (84-246); Potassium 4.3 mmol/L (3.5-5.1); Protein, Total 6.4 g/dL (6.4-8.2); Sodium Level 138 mmol/L (136-145); Triglycerides 124 mg/dL
[2024-08-13 16:50] LABS: HIV - WCH Non-Reactive (Nonreactive)
[2024-08-17 17:07] LABS: AFP, Tumor Marker < 1.8 ng/mL (0.0-6.4); Hepatitis C Genotype 3 (.)
== END | disposition home or self-care (01) ==
LOC: LAB 15:32
PROVIDERS: Referring Provider Internal Medicine Gastroenterology; Visit Provider Internal Medicine Gastroenterology
DX: B19.20 Unspecified viral hepatitis C without hepatic coma (principal)
CPT/HCPCS: 36415; 80053; 82105; 82140; 83615; 84478; 85025; 85610; 85730; 86703; 87902

== ENCOUNTER → 2024-10-13 | Outpatient (CLI) | payer MEDICAID, SELFPAY ==
[2024-10-13 12:39] LABS: Absolute Lymphocyte Count 1.28 X10^3/uL (0.83-4.51); Absolute Neutrophil Count 3.8 X10^3/uL (2.0-7.7); Basophil# 0.03 X10^3/uL; Basophil% 0.5 % (0-1); Eosinophil# 0.16 X10^3/uL; Eosinophils% 2.8 % (0-5); Hematocrit 40.5 % (37-47); Hemoglobin 13.5 g/dL (12.0-15.0); Lymphocyte # 1.28 X10^3/ul (0.83-4.51); Lymphocyte % 22.4 % (19-41); Mean Corp Hgb Conc 33.3 g/dL (32-36); Mean Corpuscular Hgb 29.6 pg (27.0-32.0); Mean Corpuscular Volume 88.8 fL (81-99); Mean Platelet Vol. 10.8 fl (6.2-12.0); Monocyte# 0.41 X10^3/uL; Monocyte% 7.2 % (0-10); NRBC Flagged by Analyzer 0 % (0-5); Neutrophil # 3.81 X10^3/uL (2.7-7.7); Neutrophil % 66.7 % (47-70); POSITIVE COUNT YES; Platelet Count 68 K/mm3 (150-450); RBC Distribution Width CV 19.9 % (11.6-14.6); RBC Distribution Width SD 63.8 fl (35.1-43.9); Red Blood Count 4.56 M/mm3 (4.2-5.4); White Blood Count 5.7 K/mm3 (4.4-11.0)
[2024-10-13 13:24] LABS: International Normalized Ratio 1.1; Prothrombin Time (Protime)PT. 14.1 SECONDS (11.7-14.9)
[2024-10-13 13:32] LABS: ALB/GLOB Ratio 1.2 RATIO (0.9-2.4); AST(SGOT) 68 U/L (<=31); Alanine Aminotransfer ALT/SGPT 86 U/L (<=34); Albumin, Serum 4.3 g/dL (3.5-5.0); Alkaline Phosphatase 95 U/L (35-104); Anion Gap 8 (5-15); BUN 14 mg/dL (4-19); BUN/Creat Ratio 19.3 RATIO (10-20); Calcium,Total 9.7 mg/dL (7.6-11.0); Carbon Dioxide 22.6 mmol/L (21.0-32.0); Chloride 104 mmol/L (98-108); Creatinine, Serum 0.73 mg/dL (0.70-1.20); EST Glomerular Filtration Rate 106 (>60); Globulin 3.4 g/dL (2.2-4.2); Glucose 77 mg/dL (70-99); Phosphorus 3.8 mg/dL (2.7-4.5); Potassium 5.6 mmol/L (3.3-5.1); Protein, Total 7.7 g/dL (5.9-8.4); Sodium Level 135 mmol/L (133-145); Total Bilirubin 0.55 mg/dL (0.00-1.30)
[2024-10-14 13:08] LABS: ANTINUCLEAR ANTIBODIES DIRECT Negative (Negative); Anti-Mitochondrial AB <20.0 Units (0.0-20.0)
[2024-10-15 23:07] LABS: Anti-Smooth Muscle ABS 11 Units (0-19); HCV Quant. RNA PCR 8100000 IU/mL (.); HCV log 10 6.908 (.); Hepatitis C Genotype 3 (.)
== END | disposition home or self-care (01) ==
LOC: LAB 12:11
PROVIDERS: Referring Provider Internal Medicine; Visit Provider Internal Medicine
DX: I85.00 Esophageal varices without bleeding (principal); K74.60 Unspecified cirrhosis of liver; D69.6 Thrombocytopenia, unspecified; D64.9 Anemia, unspecified; R18.8 Other ascites; B19.20 Unspecified viral hepatitis C without hepatic coma; R19.7 Diarrhea, unspecified
CPT/HCPCS: 36415; 80053; 82140; 83516; 83735; 84100; 84443; 85025; 85610; 86038; 87522; 87902

== ENCOUNTER → 2024-12-13 | Outpatient (CLI) | payer MEDICAID, SELFPAY ==
[2024-12-13 14:06] LABS: Absolute Lymphocyte Count 1.11 X10^3/uL (0.83-4.51); Basophil# 0.02 X10^3/uL; Basophil% 0.4 % (0-1); Eosinophil# 0.16 X10^3/uL; Eosinophils% 3.4 % (0-5); Hematocrit 36.4 % (37-47); Lymphocyte # 1.11 X10^3/ul (0.83-4.51); Lymphocyte % 23.5 % (19-41); Mean Corp Hgb Conc 35.7 g/dL (32-36); Mean Corpuscular Hgb 32.3 pg (27.0-32.0); Mean Corpuscular Volume 90.5 fL (81-99); Mean Platelet Vol. 10.5 fl (6.2-12.0); Monocyte# 0.38 X10^3/uL; Monocyte% 8.1 % (0-10); NRBC Flagged by Analyzer 0 % (0-5); Neutrophil # 3.04 X10^3/uL (2.7-7.7); Neutrophil % 64.4 % (47-70); POSITIVE COUNT YES; Platelet Count 63 K/mm3 (150-450); RBC Distribution Width CV 15.6 % (11.6-14.6); RBC Distribution Width SD 51.7 fl (35.1-43.9); Red Blood Count 4.02 M/mm3 (4.2-5.4); White Blood Count 4.7 K/mm3 (4.4-11.0)
[2024-12-13 14:14] LABS: International Normalized Ratio 1.2; Prothrombin Time (Protime)PT. 15.7 SECONDS (11.7-14.9)
[2024-12-13 14:32] LABS: ALB/GLOB Ratio 1.5 RATIO (0.9-2.4); AST(SGOT) 33 U/L (<=31); Alanine Aminotransfer ALT/SGPT 29 U/L (<=34); Albumin, Serum 4.3 g/dL (3.5-5.0); Alkaline Phosphatase 84 U/L (35-104); Anion Gap 11 (5-15); BUN 6 mg/dL (4-19); BUN/Creat Ratio 7.9 RATIO (10-20); Calcium,Total 9.2 mg/dL (7.6-11.0); Carbon Dioxide 26.5 mmol/L (21.0-32.0); Chloride 102 mmol/L (98-108); Creatinine, Serum 0.75 mg/dL (0.70-1.20); EST Glomerular Filtration Rate 102 (>60); Globulin 2.9 g/dL (2.2-4.2); Glucose 117 mg/dL (70-99); Potassium 3.2 mmol/L (3.3-5.1); Protein, Total 7.2 g/dL (5.9-8.4); Sodium Level 140 mmol/L (133-145); Total Bilirubin 0.79 mg/dL (0.00-1.30)
== END | disposition home or self-care (01) ==
LOC: LAB 13:18
PROVIDERS: Referring Provider Internal Medicine; Visit Provider Internal Medicine
DX: K74.60 Unspecified cirrhosis of liver (principal); E11.9 Type 2 diabetes mellitus without complications; B19.20 Unspecified viral hepatitis C without hepatic coma
CPT/HCPCS: 36415; 80053; 85025; 85610

== ENCOUNTER → 2025-04-06 | Outpatient (CLI) | payer MEDICAID, SELFPAY ==
--- NOTE | 2025-04-06 07:37 | US_ITS ---
PROCEDURE: ABD LIMITED W/ ELASTOGRAPHY REASON FOR EXAM: HEPATITIS C CIRRHOSIS, DECOMPENSATED COMPARISON: July 13, 2024 TECHNIQUE: Procedure Code: [id number] Modality: US Procedure: ABD LIMITED W/ ELASTOGRAPHY Right upper quadrant abdominal ultrasound. Trevor ElastQ Imaging shear wave elastography for non-invasive assessment of liver tissue stiffness. Trevor EPIQ Elite. FINDINGS: LIVER: Size: Unremarkable Length: 12.4 cm Echotexture: Echogenic, coarsened. Contour: Cirrhotic morphology Lesions: None identified Elastography: EQI Med: 19.4 kPa EQI Med Jayant: 2.5 m/s IQR/Med: 14.9 %* GALLBLADDER: Normal COMMON BILE DUCT: Normal 3.4 mm. PANCREAS: Normal Spleen is enlarged measuring up to 15.3 cm in length. Right kidney is normal in appearance measuring up to 10.5 cm in length. No mass or collecting system dilation. No ascites. US/ABD Limited w/ Elastography IMPRESSION: Cirrhotic liver morphology. Metavir score F3-F4 Splenomegaly. No ascites. Reference Values: SRU <1.37 m/s (5.7kPa): No to mild fibrosis 1.37 m/s - 2.2 m/s: Moderate to severe fibrosis >2.2 m/s (15kPa): Significant fibrosis / cirrhosis METAVIR Score F2 or higher: 1.34 m/s (5.7kPa) F3 or higher: 1.55 m/s (7.3kPa) F4: 1.80 m/s (10kPa) * If the IQR/Med is >30%, the variance in the measurements is a large and the a ccuracy of the measurement may be in question. Reading Location: [id number]
--- OUTSIDE RECORDS SUMMARY | 2025-04-07 22:07 | XMS RPT_ITS | CCD ---
Author Organization [facility] Care Team Providers Care Hydrodynamics Professor Name Role Phone ARIEL, JONELLE Unavailable Unavailable ARIEL, JONELLE Unavailable Unavailable Junior Holloway DO Primary Care Provider Care Physician, No Primary Primary Care Provider Unavailable Dr. Arias White DO Emergency Provider Dr. Mena Bundy MD Admit Provider Dr. Mena Bundy MD Attending Provider Dr. Junior Holloway DO Other Provider Dr. Mena Bundy MD Referring Provider Dr. Mena Bundy MD Other Provider Dr. Junior Holloway DO Attending Provider Dr. Eric Singh DO Emergency Provider Dr. Gogo Royal DO Admit Provider Dr. Gogo Royal DO Other Provider Dr. Junior Holloway DO Referring Provider Dr. Quang Blair DO Attending Provider Beam CARAMEL CANDY MAKER HELPER-C, Zebupantera Primary Care Provider Dr. Gogo Royal DO Attending Provider Dr. Quang Blair DO Other Provider Beam CARAMEL CANDY MAKER HELPER-C, Zebupantera Referring Provider Dr. Dave Dupree MD Attending Provider Dr. Dave Dupree MD Referring Provider Beam CARAMEL CANDY MAKER HELPER-C, Zebulun Primary Care Provider Beam CARAMEL CANDY MAKER HELPER-C, [place]ebulun Referring Provider Dave Dupree Attending Unavailable Beam, Zebulun Primary Care Unavailable Beam, Zebulun Referring Unavailable Dave Dupree Attending Unavailable Beam, Zebulun Referring Unavailable Beam, Zebulun Primary Care Unavailable Friend, Junior Attending Unavailable Friend, Junior Referring Unavailable Beam, Zebulun Primary Care Unavailable Friend, Junior Referring Unavailable Quang Blair Attending Unavailable Beam, Zebulun Primary Care Unavailable Gogo Royal Consulting Unavailable Gogo Royal Admitting Unavailable Quang Blair Consulting Unavailable Dave Dupree Attending Unavailable Beam, Zebulun Referring Unavailable Beam, Zebulun Primary Care Unavailable Friend, Junior Attending Unavailable Beam, Zebulun Referring Unavailable Beam, Zebulun Primary Care Unavailable Dave Dupree Attending Unavailable Joon Dave Referring Unavailable Beam, Zebulun Primary Care Unavailable Dave Dupree Attending Unavailable Dave Dupree Referring Unavailable Beam, Zebulun Primary Care Unavailable Care Physician, No Primary Primary Care Unava ilable Mena Bundy Consulting Unavailable Mena Bundy Attending Unavailable Mena Bundy Admitting Unavailable Friend, Junior Consulting Unavailable Friend, Junior Referring Unavailable Quang Blair Attending Unavailable Gogo Royal Admitting Unavailable Beam, Zebulun Primary Care Unavailable Gogo Royal Consulting Unavailable Care Physician, No Primary Primary Care Unava ilable Friend, Junior Consulting Unavailable Mena Bundy Attending Unavailable Bundy Mena Admitting Unavailable Dave Dupree Referring Unavailable Dave Dupree Attending Unavailable Beam, Zebulun Primary Care Unavailable Friend, Junior Attending Unavailable Mena Bundy Referring Unavailable Care Physician, No Primary Primary Care Unava ilable Gogo Royal Attending Unavailable Friend, Junior Attending Unavailable Medications Current Medications Medication Drug Class(es) Dates Sig (Normalized) Sig (Original) 200 actuat albuterol 0.09 mg/actuat metered dose inhaler (1 source) beta2-Adrenergic Agonist Start: 02-27-2006 take 2 puff(s) by inhalation every four to six hours as needed ALBUTEROL 90 MCG/ACTUATION AEROSOL INHALER Indications: Shortness of breath 2 puffs q4-6 hours as needed for SOB 1 MDI with spacer 2 02/27/2006 Active carvedilol 6.25 mg oral tablet (8 sources) alpha-Adrenergic Yuniel, beta-Adrenergic Yuniel Start: 10-13-2024 take 1 tablet by mouth twice daily at mealtime Carvedilol 6.25 mg tablet Active 6.25 mg PO TWICE DAILY WITH MEALS 60 30 3 October 13, 2024 12:10pm Start: 07-23-2024 End: 10-13-2024 take 1 tablet by mouth twice daily at mealtime Carvedilol 3.125 mg Tablet Discontinued 3.125 mg PO TWICE DAILY WITH MEALS 60 0 July 23, 2024 1:00am October 13, 2024 12:13pm FLUoxetine 20 mg oral capsule (1 source) Serotonin Reuptake Inhibitor Start: 07-26-2005 PROZAC 20 MG CAP Take one(1) tablet daily in the morning. 30 12 07/26/2005 Active furosemide 20 mg oral tablet (7 sources) Loop Diuretic Start: 07-15-2024 End: 11-26-2024 take 1 tablet by mouth once daily Furosemide 20 mg tablet Active 20 mg PO DAILY 30 30 4 November 26, 2024 2:28pm lactulose 667 mg/ml oral solution (11 sources) Osmotic Laxative Start: 10-13-2024 End: 11-03-2024 take 10 g by mouth three times daily Lactulose 20 gram/30 mL solution Active 10 g PO THREE TIMES A DAY 4050 90 2 November 03, 2024 4:23pm Start: 10-13-2024 End: 10-13-2024 take 30 g by mouth twice daily Lactulose 20 gram/30 mL solution Discontinued 30 g PO TWICE A DAY October 13, 2024 12:00am October 13, 2024 12:13pm spironolactone 25 mg oral tablet (13 sources) Aldosterone Antagonist Start: 12-13-2024 Spironolactone 25 mg tablet Active 25 mg PO DAILY 30 30 3 December 13, 2024 3:22pm Hold for serum potassium more than 5.0 Start: 10-13-2024 End: 12-13-2024 Spironolactone 25 mg tablet Discontinued 12.5 mg PO DAILY 30 30 3 November 26, 2024 2:28pm December 13, 2024 3:23pm Hold for serum potassium more than 5.0 Start: 07-23-2024 End: 10-13-2024 take 1 tablet by mouth once daily Spironolactone (Aldactone) 25 mg tablet Discontinued 25 mg PO DAILY 30 0 July 23, 2024 1:00am October 13, 2024 11:32am Completed/Discontinued Medications Medication Drug Class(es) Dates Sig (Normalized) Sig (Original) pantoprazole 40 mg delayed release oral tablet (8 sources) Proton Pump Inhibitor Start: 10-13-2024 End: 11-12-2024 take 1 tablet by mouth once daily as needed Pantoprazole (Protonix) 40 mg tablet,delayed release (DR/EC) Discontinued 40 mg PO daily as needed for heart burn/gastritis 30 30 0 October 13, 2024 12:11pm November 11, 2024 12:00am November 12, 2024 12:08am For heartburn Start: 07-23-2024 End: 10-13-2024 take 1 tablet by mouth twice daily Pantoprazole (Protonix) 40 mg tablet,delayed release (DR/EC) Discontinued 40 mg PO TWICE A DAY 60 0 July 23, 2024 1:00am October 13, 2024 12:13pm Vit No.424-Vqav-Chp ic ( Vitamin) 27 mg iron- 800 mcg tablet (4 sources) Start: 07-13-2024 End: 08-13-2024 Vit No.262-Pbxr-Cda ic ( Vitamin) 27 mg iron- 800 mcg tablet Discontinued 1 {tbl} PO DAILY July 13, 2024 1:00am August 13, 2024 4:02pm vitamen (6 sources) Start: 01-17-2023 End: 03-05-2023 vitamen Discontinue d 0 .Route .MEDSUPPLY January 17, 2023 12:00am March 05, 2023 9:00am once a day Start: 01-17-2023 vitam en Active 0 .ROUTE .MEDSUPPLY January 17, 2023 12:00am once a day vitamin (4 sources) Start: 03-05-2023 End: 07-13-2024 vitamin Discontinued 0 .Route .MEDSUPPLY March 05, 2023 9:00am July 13, 2024 12:25pm once a day sofosbuvir 400 mg / velpatasvir 100 mg oral tablet (11 sources) Hepatitis C Virus NS5A Inhibitor, Hepatitis C Virus Nucleotide Analog NS5B Polymerase Inhibitor Start: 10-18-2024 End: 10-25-2024 take 1 tablet by mouth once daily Sofosbuvir-Velpatas vir (Epclusa) 400-100 mg tablet Discontinued 1 {tbl} PO daily 168 168 0 October 19, 2024 11:07am April 04, 2025 12:00am October 25, 2024 9:00am Problems Active Problems Problem Classification Problem Date Documented Da te Episodic/Chronic Acute posthemorrhagic anemia (5 sources) Acute posthemorrhagic anemia; Translations: [Acute posthemorrhagic anemia] 07-31-2024 Episodic Cancer of liver and intrahepatic bile duct (2 sources) Liver cell carcinoma; Translations: [Liver cell carcinoma] Onset: 5 07-15-2024 Chronic Coagulation and hemorrhagic disorders (6 sources) Thrombocytopenic disorder; Translations: [Thrombocytopenia, unspecified] Onset: 5 07-31-2024 Chronic Deficiency and other anemia (12 sources) Chronic anemia; Translations: [Anemia, unspecified] 07-31-2024 Episodic Deficiency and other anemia (2 sources) Anemia, unspecified; Translations: [Anemia, unspecified] Onset: Episodic Diabetes mellitus without complication (4 sources) Diabetes mellitus; Translations: [Type 2 diabetes mellitus without complications] 03-05-2023 Chronic Esophageal disorders (16 sources) Esophageal varices without bleeding; Translations: [Esophageal varices without bleeding] Onset: 5 10-18-2024 Chronic Essential hypertension (4 sources) Hypertensive disorder; Translations: [Essential (primary) hypertension] 03-05-2023 Chronic Comment on above: states she has does not take medications, decreases activity when it is high per patient Hemorrhage during ; abruptio placenta; placenta previa (6 sources) Threatened miscarriage in first trimester; Translations: [Threatened ] 01-04-2023 Episodic Hepatitis (18 sources) Viral hepatitis C; Translations: [Unspecified viral hepatitis C without hepatic coma] Onset: 5 10-18-2024 Episodic Other gastrointestinal disorders (4 sources) Ascites; Translations: [Other ascites] 07-15-2024 Episodic Other gastrointestinal disorders (1 source) Other ascites; Translations: [Other ascites] Onset: 5 Episodic Other liver diseases (13 sources) Cirrhosis of liver; Translations: [Unspecified cirrhosis of liver] 10-13-2024 Chronic Other liver diseases (2 sources) Unspecified cirrhosis of liver; Translations: [Unspecified cirrhosis of liver] Onset: 5 Chronic Unclassified (2 sources) Unknown / UNK(Unknown) Onset: 7 Unclassified (1 source) In 3 weeks Unclassified (1 source) You will need a CBC and a BMP rechecked Past or Other Problems Problem Classification Problem Date Documented Da te Episodic/Chronic Abdominal pain (8 sources) Abdominal pain; Translations: [Unspecified abdominal pain] Onset: 5 07-23-2024 Episodic Fluid and electrolyte disorders (8 sources) Acidosis; Translations: [Acidosis] Onset: 5 10-18-2024 Episodic Gastrointestinal hemorrhage (7 sources) Acute upper gastrointestinal hemorrhage; Translations: [Gastrointestinal hemorrhage, unspecified] Onset: 5 07-31-2024 Episodic Unclassified (1 source) B18.2/MDO ECHO/FAX/[place] Onset: 7 Results Test Name Value Interpretation Reference Range Facility Gastroenterology Visit Repor ton 01-10-2025 Gastroenterology Visit Report Normal [facility] Absolute lymphocyte countOrd ered By: Dave Dupree on 12-13-2024 Lymphocytes Auto (Unsp spec) [#/Vol] 1.11 10*3/uL 0.83-4.51 [facility] Absolute neutrophil countOrd ered By: Dave Dupree on 12-13-2024 Neutrophils (Bld) [#/Vol] 3.0 10*3/uL 2.0-7.7 [facility] Anion gap in Serum or Plasma Ordered By: Dave Dupree on 12-13-2024 Anion gap [Moles/Vol] 11 mmol/L 5-15 [facility] Automated lymphocyte count a s percentage of total leukocytesOrdered By: Dave Dupree on 12-13-2024 Lymphocytes/100 WBC Auto (Unsp spec) 23.5 % 19-41 [facility] BUN/creatinine ratioOrdered By: Dave Dupree on 12-13-2024 Urea nitrogen/Creatinine [Mass ratio] 7.9 mg/mg Low 10-20 [facility] Basophil percentageOrdered B y: Dave Dupree on 12-13-2024 Basophils/100 WBC (Bld) 0.4 % 0-1 [facility] Bilirubin, totalOrdered By: Dave Dupree on 12-13-2024 Bilirubin [Mass/Vol] 0.79 mg/dL 0.00-1.30 [facility] CBC W/Diff, Automatedon Absolute Lymph 1.11 X10 3/uL Normal 0.83-4.51 [facility] Comment on above: Performed By: #### L 100.0100, L300.3900, L500.4050 ####[facility] [address] [place], [address] Absolute Neut 3.0 X10 3/uL Normal 2.0-7.7 [facility] Comment on above: Performed By: #### L 100.0100, L300.3900, L500.4050 ####[facility] [address] [place], [address] Basophils/100 WBC (Bld) 0.4 % Normal 0-1 [facility] Comment on above: Performed By: #### L 100.0100, L300.3900, L500.4050 ####[facility] [address] [place], [address] Eosinophils/100 WBC (Bld) 3.4 % Normal 0-5 [facility] Comment on above: Performed By: #### L 100.0100, L300.3900, L500.4050 ####[facility] [address] [place], [address] Erythrocyte distribution width (RBC) [Ratio] 15.6 % High 11.6-14.6 [facility] Comment on above: Performed By: #### L 100.0100, L300.3900, L500.4050 ####[facility] [address] [place], [address] Hematocrit (Bld) [Volume fraction] 36.4 % Low 37-47 [facility] Comment on above: Performed By: #### L 100.0100, L300.3900, L500.4050 ####[facility] [address] [place], [address] Hemoglobin (Bld) [Mass/Vol] 13.0 g/dL Normal 12.0-15.0 [facility] Comment on above: Performed By: #### L 100.0100, L300.3900, L500.4050 ####[facility] [address] [place], [address] IG% 0.200 Normal 0.0-0.9 [facility] Comment on above: Result Comment: IG% - Immature Granulocytes (promyelocytes, myelocytes andmetamyelocytes) > 1% indicates that a LEFT SHIFT is Present. Performed By: #### L 100.0100, L300.3900, L500.4050 ####[facility] [address] [place], [address] Lymphocytes/100 WBC (Bld) 23.5 % Normal 19-41 [facility] Comment on above: Performed By: #### L 100.0100, L300.3900, L500.4050 ####[facility] [address] [place], [address] MCH (RBC) [Entitic mass] 32.3 pg High 27.0-32.0 [facility] Comment on above: Performed By: #### L 100.0100, L300.3900, L500.4050 ####[facility] [address] [place], [address] MCHC (RBC) [Mass/Vol] 35.7 g/dL Normal 32-36 [facility] Comment on above: Performed By: #### L 100.0100, L300.3900, L500.4050 ####[facility] [address] [place], [address] MCV (RBC) [Entitic vol] 90.5 fL Normal 81-99 [facility] Comment on above: Performed By: #### L 100.0100, L300.3900, L500.4050 ####[facility] [address] [place], [address] Monocytes/100 WBC (Bld) 8.1 % Normal 0-10 [facility] Comment on above: Performed By: #### L 100.0100, L300.3900, L500.4050 ####[facility] [address] [place], [address] Neutrophils/100 WBC (Bld) 64.4 % Normal 47-70 [facility] Comment on above: Performed By: #### L 100.0100, L300.3900, L500.4050 ####[facility] [address] [place], [address] Nucleated RBC (Bld) [#/Vol] 0 10*3/uL Normal 0-5 [facility] Comment on above: Performed By: #### L 100.0100, L300.3900, L500.4050 ####[facility] [address] [place], [address] Platelet mean volume (Bld) [Entitic vol] 10.5 fL Normal 6.2-12.0 [facility] Comment on above: Performed By: #### L 100.0100, L300.3900, L500.4050 ####[facility] [address] [place], [address] Platelets (Bld) [#/Vol] 63 10*3/uL Low 150-450 [facility] Comment on above: Performed By: #### L 100.0100, L300.3900, L500.4050 ####[facility] [address] [place], [address] RBC (Bld) [#/Vol] 4.02 10*6/uL Low 4.2-5.4 [facility] Comment on above: Performed By: #### L 100.0100, L300.3900, L500.4050 ####[facility] [address] [place], [address] RDW SD 51.7 fl High 35.1-43.9 [facility] Comment on above: Performed By: #### L 100.0100, L300.3900, L500.4050 ####[facility] [address] [place], [address] WBC (Bld) [#/Vol] 4.7 10*3/uL Normal 4.4-11.0 [facility] Comment on above: Performed By: #### L 100.0100, L300.3900, L500.4050 ####[facility] [address] [place], [address] Carbon dioxide, total [Moles /volume] in Central venous bloodOrdered By: Dave Dupree on 12-13-2024 CO2 [Moles/Vol] 26.5 mmol/L 21.0-32.0 [facility] Chloride assayOrdered By: Lupis Dupree on 12-13-2024 Chloride [Moles/Vol] 102 mmol/L 98-108 [facility] Comprehensive Metabolic Prof ilon 12-13-2024 Albumin [Mass/Vol] 4.3 g/dL Normal 3.5-5.0 [facility] Comment on above: Performed By: #### L 100.0100, L300.3900, L500.4050 ####[facility] [address] [place], [address] Albumin/Globulin [Mass ratio] 1.5 {ratio} Normal 0.9-2.4 [facility] Comment on above: Performed By: #### L 100.0100, L300.3900, L500.4050 ####[facility] [address] [place], [address] ALK PHOS 84 U/L Normal 35-104 [facility] Comment on above: Performed By: #### L 100.0100, L300.3900, L500.4050 ####[facility] [address] [place], [address] ALT [Catalytic activity/Vol] 29 U/L Normal <=34 [facility] Comment on above: Performed By: #### L 100.0100, L300.3900, L500.4050 ####[facility] [address] [place], [address] AST [Catalytic activity/Vol] 33 U/L High <=31 [facility] Comment on above: Performed By: #### L 100.0100, L300.3900, L500.4050 ####[facility] [address] [place], [address] Bilirubin [Mass/Vol] 0.79 mg/dL Normal 0.00-1.30 [facility] Comment on above: Performed By: #### L 100.0100, L300.3900, L500.4050 ####[facility] [address] [place], [address] BUN/CRE 7.9 RATIO Low 10-20 [facility] Comment on above: Performed By: #### L 100.0100, L300.3900, L500.4050 ####[facility] [address] [place], [address] Calcium [Mass/Vol] 9.2 mg/dL Normal 7.6-11.0 [facility] Comment on above: Performed By: #### L 100.0100, L300.3900, L500.4050 ####[facility] [address] [place], [address] Chloride [Moles/Vol] 102 mmol/L Normal 98-108 [facility] Comment on above: Performed By: #### L 100.0100, L300.3900, L500.4050 ####[facility] [address] [place], [address] CO2 [Moles/Vol] 26.5 mmol/L Normal 21.0-32.0 [facility] Comment on above: Performed By: #### L 100.0100, L300.3900, L500.4050 ####[facility] [address] [place], [address] Creatinine [Mass/Vol] 0.75 mg/dL Normal 0.70-1.20 [facility] Comment on above: Performed By: #### L 100.0100, L300.3900, L500.4050 ####[facility] [address] [place], [address] GAP 11 Normal 5-15 [facility] Comment on above: Performed By: #### L 100.0100, L300.3900, L500.4050 ####[facility] [address] [place], [address] GFR/1.73 sq M.predicted among non-blacks MDRD (S/P/Bld) [Vol rate/Area] 102 mL/min/{1.73_m2} Normal >60 [facility] Comment on above: Result Comment: mL/m in/1.73m2 CKD-EPI Creatinine Equation (2020) Performed By: #### L 100.0100, L300.3900, L500.4050 ####[facility] [address] [place], [address] Globulin (S) [Mass/Vol] 2.9 g/dL Normal 2.2-4.2 [facility] Comment on above: Performed By: #### L 100.0100, L300.3900, L500.4050 ####[facility] [address] [place], [address] Glucose [Mass/Vol] 117 mg/dL High 70-99 [facility] Comment on above: Performed By: #### L 100.0100, L300.3900, L500.4050 ####[facility] [address] [place], [address] Potassium [Moles/Vol] 3.2 mmol/L Low 3.3-5.1 [facility] Comment on above: Performed By: #### L 100.0100, L300.3900, L500.4050 ####[facility] [address] [place], [address] Sodium [Moles/Vol] 140 mmol/L Normal 133-145 [facility] Comment on above: Performed By: #### L 100.0100, L300.3900, L500.4050 ####[facility] [address] [place], [address] T PROT 7.2 g/dL Normal 5.9-8.4 [facility] Comment on above: Performed By: #### L 100.0100, L300.3900, L500.4050 ####[facility] [address] [place], [address] Urea nitrogen [Mass/Vol] 6 mg/dL Normal 4-19 [facility] Comment on above: Performed By: #### L 100.0100, L300.3900, L500.4050 ####[facility] [address] [place], [address] Eosinophil percentageOrdered By: Dave Dupree on 12-13-2024 Eosinophils/100 WBC (Bld) 3.4 % 0-5 [facility] Erythrocyte distribution wid th ratioOrdered By: Dave Dupree on 12-13-2024 Erythrocyte distribution width (RBC) [Ratio] 15.6 % High 11.6-14.6 [facility] Erythrocyte distribution wid th standard deviationOrdered By: Dave Dupree on 12-13-2024 Erythrocyte distribution width (RBC) [Ratio] 51.7 fl High 35.1-43.9 [facility] Gastroenterology Visit Repor ton 12-13-2024 Gastroenterology Visit Report Normal [facility] Glomerular filtration rate ( GFR) estimation/1.73 sq m using serum, plasma, or whole bOrdered By: Dave Dupree on 12-13-2024 GFR/1.73 sq M.predicted among non-blacks MDRD (S/P/Bld) [Vol rate/Area] 102 mL/min/{1.73_m2} >60 [facility] Comment on above: mL/min/1.73m2 CKD-EP I Creatinine Equation (2020) Hematocrit Auto (Bld) [Volum e fraction]Ordered By: Dave Dupree on 12-13-2024 Hematocrit (Bld) [Volume fraction] 36.4 % Low 37-47 [facility] Hemoglobin measurementOrdere d By: Dave Dupree on 12-13-2024 Hemoglobin (Bld) [Mass/Vol] 13.0 g/dL 12.0-15.0 [facility] Immature granulocytes/100 WB C Auto (Bld)Ordered By: Dave Dupree on 12-13-2024 Immature granulocytes/100 WBC (Bld) 0.200 % 0.0-0.9 [facility] Comment on above: IG% - Immature Granu locytes (promyelocytes, myelocytes and metamyelocytes) > 1% indicates that a LEFT SHIFT is Present. International normalized rat io (INR) calculationOrdered By: Dave Dupree on 12-13-2024 INR Coag (Bld) [Relative time] 1.2 {INR} [facility] Laboratory - Chemistry and C hemistry - challengeOrdered By: Dave Dupree on 12-13-2024 AST [Catalytic activity/Vol] 33 U/L High <32 [facility] MCV (mean corpuscular volume ) determinationOrdered By: Dave Dupree on 12-13-2024 MCV (RBC) [Entitic vol] 90.5 fL 81-99 [facility] Mean corpuscular hemoglobin (MCH) determinationOrdered By: Dave Dupree on 12-13-2024 MCH (RBC) [Entitic mass] 32.3 pg High 27.0-32.0 [facility] Mean corpuscular hemoglobin concentration (MCHC) determinationOrdered By: Dave Dupree on 12-13-2024 MCHC (RBC) [Mass/Vol] 35.7 g/dL 32-36 [facility] Mean platelet volume determi nationOrdered By: Dave Dupree on 12-13-2024 Platelet mean volume (Bld) [Entitic vol] 10.5 fL 6.2-12.0 [facility] Monocyte percentageOrdered B y: Dave Dupree on 12-13-2024 Monocytes/100 WBC (Bld) 8.1 % 0-10 [facility] Neutrophil percentageOrdered By: Dave Dupree on 12-13-2024 Neutrophils/100 WBC (Bld) 64.4 % 47-70 [facility] Nucleated red blood cell per centageOrdered By: Dave Dupree on 12-13-2024 Nucleated RBC/100 WBC (Bld) [Ratio] 0 % 0-5 [facility] Platelet countOrdered By: Lupis Dupree on 12-13-2024 Platelets (Bld) [#/Vol] 63 10*3/uL Low 150-450 [facility] Potassium measurement (mass/ volume)Ordered By: Dave Dupree on 12-13-2024 Potassium (Unsp spec) [Mass/Vol] 3.2 mmol/L Low 3.3-5.1 [facility] Prothrombin Time w/INRon INR Coag (PPP) [Relative time] 1.2 {INR} Normal [facility] Comment on above: Performed By: #### L 100.0100, L300.3900, L500.4050 ####[facility] [facility] [address] [place], [address] PT Coag (PPP) [Time] 15.7 s High 11.7-14.9 [facility] Comment on above: Performed By: #### L 100.0100, L300.3900, L500.4050 ####[facility] [address] [place], [address] Prothrombin timeOrdered By: Dave Dupree on 12-13-2024 PT Coag (PPP) [Time] 15.7 s High 11.7-14.9 [facility] RBC Auto (Bld) [#/Vol]Ordere d By: Dave Dupree on 12-13-2024 RBC (Bld) [#/Vol] 4.02 10*6/uL Low 4.2-5.4 [facility] Serum creatinine measurement (mass/volume)Ordered By: Dave Dupree on 12-13-2024 Creatinine [Mass/Vol] 0.75 mg/dL 0.70-1.20 [facility] Serum globulin measurementOr dered By: Dave Dupree on 12-13-2024 Globulin (S) [Mass/Vol] 2.9 g/dL 2.2-4.2 [facility] Serum glucose measurement (m ass/volume)Ordered By: Dave Dupree on 12-13-2024 Glucose [Mass/Vol] 117 mg/dL High 70-99 [facility] Serum or plasma alanine gutierrez otransferase (ALT) measurementOrdered By: Dave Dupree on 12-13-2024 ALT [Catalytic activity/Vol] 29 U/L <35 [facility] Serum or plasma albumin char urement (mass/volume)Ordered By: Dave Dupree on 12-13-2024 Albumin [Mass/Vol] 4.3 g/dL 3.5-5.0 [facility] Serum or plasma albumin/glob ulin mass ratioOrdered By: Dave Dupree on 12-13-2024 Albumin/Globulin [Mass ratio] 1.5 {ratio} 0.9-2.4 [facility] Serum or plasma alkaline samy sphatase measurementOrdered By: Dave Dupree on 12-13-2024 ALP [Catalytic activity/Vol] 84 U/L 35-104 [facility] Serum or plasma calcium char urement (mass/volume)Ordered By: Dave Dupree on 12-13-2024 Calcium [Mass/Vol] 9.2 mg/dL 7.6-11.0 [facility] Serum or plasma urea nitroge n measurement (mass/volume)Ordered By: Dave Dupree on 12-13-2024 Urea nitrogen [Mass/Vol] 6 mg/dL 4-19 [facility] Sodium levelOrdered By: Mar Dupree on 12-13-2024 Sodium [Moles/Vol] 140 mmol/L 133-145 [facility] Total proteinOrdered By: Shira Dupree on 12-13-2024 Protein [Mass/Vol] 7.2 g/dL 5.9-8.4 [facility] White blood cell (WBC) count Ordered By: Dave Dupree on 12-13-2024 WBC (Bld) [#/Vol] 4.7 10*3/uL 4.4-11.0 [facility] Anti-Smooth Muscle ABSon ANTISMOOTH MUSC 11 Units Normal 0-19 [facility] Comment on above: Order Comment: Test( s) 501075-Audfcxitx C Genotypewas developed and its performance characteristicsdetermined by [facility]. It has not been cleared or approvedby the Food and Drug Administration. Result Comment: Nega tive 0 - 19 Weak positive 20 - 30 Moderate to strong positive >30 Actin Antibodies are found in 52-85% of patients with autoimmune hepatitis or chronic active hepatitis and in 22% of patients with primary biliary cirrhosis. Performed By: #### L 501.2300, L803.2200, L501.5200, L7000.8000, L800.1280, L300.3900, L503.5510, L100.0100, L7000.7000, L500.4050, L3100.5450, L501.9520 ####[facility] [address] [place], [place], [id number] Hepatitis C Genotypeon 10-15 HEP C GENOTYPE 3 Normal . [facility] Comment on above: Order Comment: Test( s) 905288-Stjyjysxm C Genotypewas developed and its performance characteristicsdetermined by [facility]. It has not been cleared or approvedby the Food and Drug Administration. Result Comment: Perf ormed at: - [facility] [id number] Director: Avi Cardenas MD, Phone: [phone] at: [address] [id number] Director: Floyd Sandra PhD, Phone: [phone] Performed By: #### L 501.2300, L803.2200, L501.5200, L7000.8000, L800.1280, L300.3900, L503.5510, L100.0100, L7000.7000, L500.4050, L3100.5450, L501.9520 ####[facility] [address] 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 [facility] Comment on above: Order Comment: Test( s) 255949-Czqzhnges C Genotypewas developed and its performance characteristicsdetermined by [facility]. It has not been cleared or approvedby the Food and Drug Administration. Result Comment: Resu lt Units: log10 IU/mL Performed By: #### L 501.2300, L803.2200, L501.5200, L7000.8000, L800.1280, L300.3900, L503.5510, L100.0100, L7000.7000, L500.4050, L3100.5450, L501.9520 ####[facility] [address] [place], [place], [phone] HCV QT RNA PCR [id number] IU/mL Normal . [facility] Comment on above: Order Comment: Test( s) 260722-Qvsziozem C Genotypewas developed and its performance characteristicsdetermined by [facility]. It has not been cleared or approvedby the Food and Drug Administration. Performed By: #### L 501.2300, L803.2200, L501.5200, L7000.8000, L800.1280, L300.3900, L503.5510, L100.0100, L7000.7000, L500.4050, L3100.5450, L501.9520 ####[facility] [address] [place], [place], [phone] TEST INFO: Comment Normal . [facility] Comment on above: Order Comment: Test( s) 573942-Lteyzofyj C Genotypewas developed and its performance characteristicsdetermined by [facility]. It has not been cleared or approvedby the Food and Drug Administration. Result Comment: The quantitative range of this assay is 15 IU/mL to 100million IU/mL. Performed By: #### L 501.2300, L803.2200, L501.5200, L7000.8000, L800.1280, L300.3900, L503.5510, L100.0100, L7000.7000, L500.4050, L3100.5450, L501.9520 ####[facility] [address] [place], [place], [phone] MENDY w/ Reflex Mult Confirmon 10-14-2024 MENDY,DIRECT Negative Normal Negative [facility] Comment on above: Result Comment: Perf ormed at: - [facility] [id number] Director: Floyd Sandra PhD, Phone: [phone] Performed By: #### L 501.2300, L803.2200, L501.5200, L7000.8000, L800.1280, L300.3900, L503.5510, L100.0100, L7000.7000, L500.4050, L3100.5450, L501.9520 ####[facility] [address] [place], [address] Anti-Mitochondrial ABon 04- ANTIMITOCHON AB <20.0 Normal 0.0-20.0 [facility] Comment on above: Result Comment: Nega tive 0.0 - 20.0 Equivocal 20.1 - 24.9 Positive >24.9Mitochondrial (M2) Antibodies are found in 90-96% ofpatients with primary biliary cirrhosis. Performed By: #### L 501.2300, L803.2200, L501.5200, L7000.8000, L800.1280, L300.3900, L503.5510, L100.0100, L7000.7000, L500.4050, L3100.5450, L501.9520 ####[facility] [address] [place], [address] MENDY serumOrdered By: Dave Dupree on 10-13-2024 Anti-Nuclear Antibody Screen Negative Negative [facility] Comment on above: Performed at: [address] [id number] Director: Floyd Sandra PhD, Phone: [phone] Absolute lymphocyte countOrd ered By: Dave Dupree on 10-13-2024 Lymphocytes Auto (Unsp spec) [#/Vol] 1.28 10*3/uL 0.83-4.51 [facility] Absolute neutrophil countOrd ered By: Dave Dupree on 10-13-2024 Neutrophils (Bld) [#/Vol] 3.8 10*3/uL 2.0-7.7 [facility] Actin IgG QnOrdered By: Mar Dupree on 10-13-2024 Anti-Smooth Muscle Antibody 11 Units 0-19 [facility] Comment on above: Negative 0 - 19 Weak positive 20 - 30 Moderate to strong positive >30 Actin Antibodies are found in 52-85% of patients with autoimmune hepatitis or chronic active hepatitis and in 22% of patients with primary biliary cirrhosis. Addendum DocumentOrdered By: Dave Dupree on 10-13-2024 Hepatitis C RNA Qnt (PCR) Test Info Comment . [facility] Comment on above: The quantitative ran ge of this assay is 15 IU/mL to 100million IU/mL. Ammoniaon 10-13-2024 Ammonia (P) [Moles/Vol] 36.0 umol/L Normal 11-51 [facility] Comment on above: Performed By: #### L 501.2300, L803.2200, L501.5200, L7000.8000, L800.1280, L300.3900, L503.5510, L100.0100, L7000.7000, L500.4050, L3100.5450, L501.9520 ####[facility] [address] [place], [place], [phone] Anion gap in Serum or Plasma Ordered By: Dave Dupree on 10-13-2024 Anion gap [Moles/Vol] 8 mmol/L 5-15 [facility] Automated lymphocyte count a s percentage of total leukocytesOrdered By: Dave Dupree on 10-13-2024 Lymphocytes/100 WBC Auto (Unsp spec) 22.4 % 19-41 [facility] BUN/creatinine ratioOrdered By: Dave Dupree on 10-13-2024 Urea nitrogen/Creatinine [Mass ratio] 19.3 mg/mg 10-20 [facility] Basophil percentageOrdered B y: Dave Dupree on 10-13-2024 Basophils/100 WBC (Bld) 0.5 % 0-1 [facility] Bilirubin, totalOrdered By: Dave Dupree on 10-13-2024 Bilirubin [Mass/Vol] 0.55 mg/dL 0.00-1.30 [facility] CBC W/Diff, Automatedon Absolute Lymph 1.28 X10 3/uL Normal 0.83-4.51 [facility] Comment on above: Performed By: #### L 501.2300, L803.2200, L501.5200, L7000.8000, L800.1280, L300.3900, L503.5510, L100.0100, L7000.7000, L500.4050, L3100.5450, L501.9520 ####[facility] [address] [place], [address] Absolute Neut 3.8 X10 3/uL Normal 2.0-7.7 [facility] Comment on above: Performed By: #### L 501.2300, L803.2200, L501.5200, L7000.8000, L800.1280, L300.3900, L503.5510, L100.0100, L7000.7000, L500.4050, L3100.5450, L501.9520 ####[facility] [address] [place], [address] Basophils/100 WBC (Bld) 0.5 % Normal 0-1 [facility] Comment on above: Performed By: #### L 501.2300, L803.2200, L501.5200, L7000.8000, L800.1280, L300.3900, L503.5510, L100.0100, L7000.7000, L500.4050, L3100.5450, L501.9520 ####[facility] [address] [place], [address] Eosinophils/100 WBC (Bld) 2.8 % Normal 0-5 [facility] Comment on above: Performed By: #### L 501.2300, L803.2200, L501.5200, L7000.8000, L800.1280, L300.3900, L503.5510, L100.0100, L7000.7000, L500.4050, L3100.5450, L501.9520 ####[facility] [address] [place], [place], [phone] Erythrocyte distribution width (RBC) [Ratio] 19.9 % High 11.6-14.6 [facility] Comment on above: Performed By: #### L 501.2300, L803.2200, L501.5200, L7000.8000, L800.1280, L300.3900, L503.5510, L100.0100, L7000.7000, L500.4050, L3100.5450, L501.9520 ####[facility] [address] [place], [place], [phone] Hematocrit (Bld) [Volume fraction] 40.5 % Normal 37-47 [facility] Comment on above: Performed By: #### L 501.2300, L803.2200, L501.5200, L7000.8000, L800.1280, L300.3900, L503.5510, L100.0100, L7000.7000, L500.4050, L3100.5450, L501.9520 ####[facility] [address] [place], [address] Hemoglobin (Bld) [Mass/Vol] 13.5 g/dL Normal 12.0-15.0 [facility] Comment on above: Performed By: #### L 501.2300, L803.2200, L501.5200, L7000.8000, L800.1280, L300.3900, L503.5510, L100.0100, L7000.7000, L500.4050, L3100.5450, L501.9520 ####[facility] [address] [place], [place], [phone] IG% 0.400 Normal 0.0-0.9 [facility] Comment on above: Result Comment: IG% - Immature Granulocytes (promyelocytes, myelocytes andmetamyelocytes) > 1% indicates that a LEFT SHIFT is Present. Performed By: #### L 501.2300, L803.2200, L501.5200, L7000.8000, L800.1280, L300.3900, L503.5510, L100.0100, L7000.7000, L500.4050, L3100.5450, L501.9520 ####[facility] [address] [facility] [place], [address] Lymphocytes/100 WBC (Bld) 22.4 % Normal 19-41 [facility] Comment on above: Performed By: #### L 501.2300, L803.2200, L501.5200, L7000.8000, L800.1280, L300.3900, L503.5510, L100.0100, L7000.7000, L500.4050, L3100.5450, L501.9520 ####[facility] [address] [facility] [address] [place], [address] MCH (RBC) [Entitic mass] 29.6 pg Normal 27.0-32.0 [facility] Comment on above: Performed By: #### L 501.2300, L803.2200, L501.5200, L7000.8000, L800.1280, L300.3900, L503.5510, L100.0100, L7000.7000, L500.4050, L3100.5450, L501.9520 ####[facility] [address] [facility] [address] [place], [address] MCHC (RBC) [Mass/Vol] 33.3 g/dL Normal 32-36 [facility] Comment on above: Performed By: #### L 501.2300, L803.2200, L501.5200, L7000.8000, L800.1280, L300.3900, L503.5510, L100.0100, L7000.7000, L500.4050, L3100.5450, L501.9520 ####[facility] [address] [place], [address] MCV (RBC) [Entitic vol] 88.8 fL Normal 81-99 [facility] Comment on above: Performed By: #### L 501.2300, L803.2200, L501.5200, L7000.8000, L800.1280, L300.3900, L503.5510, L100.0100, L7000.7000, L500.4050, L3100.5450, L501.9520 ####[facility] [address] [place], [address] Monocytes/100 WBC (Bld) 7.2 % Normal 0-10 [facility] Comment on above: Performed By: #### L 501.2300, L803.2200, L501.5200, L7000.8000, L800.1280, L300.3900, L503.5510, L100.0100, L7000.7000, L500.4050, L3100.5450, L501.9520 ####[facility] [address] [place], [address] Neutrophils/100 WBC (Bld) 66.7 % Normal 47-70 [facility] Comment on above: Performed By: #### L 501.2300, L803.2200, L501.5200, L7000.8000, L800.1280, L300.3900, L503.5510, L100.0100, L7000.7000, L500.4050, L3100.5450, L501.9520 ####[facility] [address] [place], [address] Nucleated RBC (Bld) [#/Vol] 0 10*3/uL Normal 0-5 [facility] Comment on above: Performed By: #### L 501.2300, L803.2200, L501.5200, L7000.8000, L800.1280, L300.3900, L503.5510, L100.0100, L7000.7000, L500.4050, L3100.5450, L501.9520 ####[facility] [address] [place], [address] Platelet mean volume (Bld) [Entitic vol] 10.8 fL Normal 6.2-12.0 [facility] Comment on above: Performed By: #### L 501.2300, L803.2200, L501.5200, L7000.8000, L800.1280, L300.3900, L503.5510, L100.0100, L7000.7000, L500.4050, L3100.5450, L501.9520 ####[facility] [address] [place], [address] Platelets (Bld) [#/Vol] 68 10*3/uL Low 150-450 [facility] Comment on above: Performed By: #### L 501.2300, L803.2200, L501.5200, L7000.8000, L800.1280, L300.3900, L503.5510, L100.0100, L7000.7000, L500.4050, L3100.5450, L501.9520 ####[facility] [address] [place], [address] RBC (Bld) [#/Vol] 4.56 10*6/uL Normal 4.2-5.4 [facility] Comment on above: Performed By: #### L 501.2300, L803.2200, L501.5200, L7000.8000, L800.1280, L300.3900, L503.5510, L100.0100, L7000.7000, L500.4050, L3100.5450, L501.9520 ####[facility] [address] [place], [address] RDW SD 63.8 fl High 35.1-43.9 [facility] Comment on above: Performed By: #### L 501.2300, L803.2200, L501.5200, L7000.8000, L800.1280, L300.3900, L503.5510, L100.0100, L7000.7000, L500.4050, L3100.5450, L501.9520 ####[facility] [address] [place], [place], [phone] WBC (Bld) [#/Vol] 5.7 10*3/uL Normal 4.4-11.0 [facility] Comment on above: Performed By: #### L 501.2300, L803.2200, L501.5200, L7000.8000, L800.1280, L300.3900, L503.5510, L100.0100, L7000.7000, L500.4050, L3100.5450, L501.9520 ####[facility] [address] [place], [place], [phone] Carbon dioxide, total [Moles /volume] in Central venous bloodOrdered By: Dave Dupree on 10-13-2024 CO2 [Moles/Vol] 22.6 mmol/L 21.0-32.0 [facility] Centromere B antibody assayO rdered By: Dave Dupree on 10-13-2024 [facility] on [facility]: Test not performed Chloride assayOrdered By: Lupis Dupree on 10-13-2024 Chloride [Moles/Vol] 104 mmol/L 98-108 [facility] Chromatin antibody assayOrde red By: Dave Dupree on 10-13-2024 Antichromatin Antibodies [facility] Comment on above: Test not performed Comprehensive Metabolic Prof ilon 10-13-2024 Albumin [Mass/Vol] 4.3 g/dL Normal 3.5-5.0 [facility] Comment on above: Performed By: #### L 501.2300, L803.2200, L501.5200, L7000.8000, L800.1280, L300.3900, L503.5510, L100.0100, L7000.7000, L500.4050, L3100.5450, L501.9520 ####[facility] [address] [place], [address] Albumin/Globulin [Mass ratio] 1.2 {ratio} Normal 0.9-2.4 [facility] Comment on above: Performed By: #### L 501.2300, L803.2200, L501.5200, L7000.8000, L800.1280, L300.3900, L503.5510, L100.0100, L7000.7000, L500.4050, L3100.5450, L501.9520 ####[facility] [address] [place], [address] ALK PHOS 95 U/L Normal 35-104 [facility] Comment on above: Performed By: #### L 501.2300, L803.2200, L501.5200, L7000.8000, L800.1280, L300.3900, L503.5510, L100.0100, L7000.7000, L500.4050, L3100.5450, L501.9520 ####[facility] [address] [place], [place], [phone] ALT [Catalytic activity/Vol] 86 U/L High <=34 [facility] Comment on above: Performed By: #### L 501.2300, L803.2200, L501.5200, L7000.8000, L800.1280, L300.3900, L503.5510, L100.0100, L7000.7000, L500.4050, L3100.5450, L501.9520 ####[facility] [address] [place], [place], [phone] AST [Catalytic activity/Vol] 68 U/L High <=31 [facility] Comment on above: Performed By: #### L 501.2300, L803.2200, L501.5200, L7000.8000, L800.1280, L300.3900, L503.5510, L100.0100, L7000.7000, L500.4050, L3100.5450, L501.9520 ####[facility] [address] [place], [address] Bilirubin [Mass/Vol] 0.55 mg/dL Normal 0.00-1.30 [facility] Comment on above: Performed By: #### L 501.2300, L803.2200, L501.5200, L7000.8000, L800.1280, L300.3900, L503.5510, L100.0100, L7000.7000, L500.4050, L3100.5450, L501.9520 ####[facility] [address] [place], [place], [phone] BUN/CRE 19.3 RATIO Normal 10-20 [facility] Comment on above: Performed By: #### L 501.2300, L803.2200, L501.5200, L7000.8000, L800.1280, L300.3900, L503.5510, L100.0100, L7000.7000, L500.4050, L3100.5450, L501.9520 ####[facility] [address] [place], [place], [phone] Calcium [Mass/Vol] 9.7 mg/dL Normal 7.6-11.0 [facility] Comment on above: Performed By: #### L 501.2300, L803.2200, L501.5200, L7000.8000, L800.1280, L300.3900, L503.5510, L100.0100, L7000.7000, L500.4050, L3100.5450, L501.9520 ####[facility] [address] [place], [place], [phone] Chloride [Moles/Vol] 104 mmol/L Normal 98-108 [facility] Comment on above: Performed By: #### L 501.2300, L803.2200, L501.5200, L7000.8000, L800.1280, L300.3900, L503.5510, L100.0100, L7000.7000, L500.4050, L3100.5450, L501.9520 ####[facility] [address] [place], [place], [phone](192) CO2 [Moles/Vol] 22.6 mmol/L Normal 21.0-32.0 [facility] Comment on above: Performed By: #### L 501.2300, L803.2200, L501.5200, L7000.8000, L800.1280, L300.3900, L503.5510, L100.0100, L7000.7000, L500.4050, L3100.5450, L501.9520 ####[facility] [address] [place], [address] Creatinine [Mass/Vol] 0.73 mg/dL Normal 0.70-1.20 [facility] Comment on above: Performed By: #### L 501.2300, L803.2200, L501.5200, L7000.8000, L800.1280, L300.3900, L503.5510, L100.0100, L7000.7000, L500.4050, L3100.5450, L501.9520 ####[facility] [address] [place], [place], [phone] GAP 8 Normal 5-15 [facility] Comment on above: Performed By: #### L 501.2300, L803.2200, L501.5200, L7000.8000, L800.1280, L300.3900, L503.5510, L100.0100, L7000.7000, L500.4050, L3100.5450, L501.9520 ####[facility] [address] [place], [address] GFR/1.73 sq M.predicted among non-blacks MDRD (S/P/Bld) [Vol rate/Area] 106 mL/min/{1.73_m2} Normal >60 [facility] Comment on above: Result Comment: mL/m in/1.73m2 CKD-EPI Creatinine Equation (2020) Performed By: #### L 501.2300, L803.2200, L501.5200, L7000.8000, L800.1280, L300.3900, L503.5510, L100.0100, L7000.7000, L500.4050, L3100.5450, L501.9520 ####[facility] [address] [place], [place], [phone] Globulin (S) [Mass/Vol] 3.4 g/dL Normal 2.2-4.2 [facility] Comment on above: Performed By: #### L 501.2300, L803.2200, L501.5200, L7000.8000, L800.1280, L300.3900, L503.5510, L100.0100, L7000.7000, L500.4050, L3100.5450, L501.9520 ####[facility] [address] [place], [place], [phone] Glucose [Mass/Vol] 77 mg/dL Normal 70-99 [facility] Comment on above: Performed By: #### L 501.2300, L803.2200, L501.5200, L7000.8000, L800.1280, L300.3900, L503.5510, L100.0100, L7000.7000, L500.4050, L3100.5450, L501.9520 ####[facility] [address] [place], [place], [phone] Potassium [Moles/Vol] 5.6 mmol/L High 3.3-5.1 [facility] Comment on above: Performed By: #### L 501.2300, L803.2200, L501.5200, L7000.8000, L800.1280, L300.3900, L503.5510, L100.0100, L7000.7000, L500.4050, L3100.5450, L501.9520 ####[facility] [address] [place], [place], [phone] Sodium [Moles/Vol] 135 mmol/L Normal 133-145 [facility] Comment on above: Performed By: #### L 501.2300, L803.2200, L501.5200, L7000.8000, L800.1280, L300.3900, L503.5510, L100.0100, L7000.7000, L500.4050, L3100.5450, L501.9520 ####[facility] [address] [place], [place], [phone] T PROT 7.7 g/dL Normal 5.9-8.4 [facility] Comment on above: Performed By: #### L 501.2300, L803.2200, L501.5200, L7000.8000, L800.1280, L300.3900, L503.5510, L100.0100, L7000.7000, L500.4050, L3100.5450, L501.9520 ####[facility] [address] [place], [place], [id number] Urea nitrogen [Mass/Vol] 14 mg/dL Normal 4-19 [facility] Comment on above: Performed By: #### L 501.2300, L803.2200, L501.5200, L7000.8000, L800.1280, L300.3900, L503.5510, L100.0100, L7000.7000, L500.4050, L3100.5450, L501.9520 ####[facility] [address] [place], [place], [id number] DNA double strand Ab Qn (S)O rdered By: Dave Dupree on 10-13-2024 Anti-Double Strand DNA Antibody TNP [facility] Comment on above: Test not performed Eosinophil percentageOrdered By: Dave Dupree on 10-13-2024 Eosinophils/100 WBC (Bld) 2.8 % 0-5 [facility] Erythrocyte distribution wid th (RBC) [Ratio]Ordered By: Dave Dupree on 10-13-2024 Erythrocyte distribution width (RBC) [Entitic vol] 63.8 fL High 35.1-43.9 [facility] Erythrocyte distribution wid th ratioOrdered By: Dave Dupree on 10-13-2024 Erythrocyte distribution width (RBC) [Ratio] 19.9 % High 11.6-14.6 [facility] Erythrocyte distribution wid th standard deviationOrdered By: Dave Dupree on 10-13-2024 Erythrocyte distribution width (RBC) [Ratio] 63.8 fl High 35.1-43.9 [facility] [facility] GFR/1.73 sq M.predicted sheri g non-blacks MDRD (S/P/Bld) [Vol rate/Area]Ordered By: Dave Dupree on 10-13-2024 Estimated GFR (MDRD) Non-Af Amer 106 >60 [facility] Comment on above: mL/min/1.73m2 CKD-EP I Creatinine Equation (2020) Gastroenterology Visit Repor ton 10-13-2024 Gastroenterology Visit Report Normal [facility] Glomerular filtration rate ( GFR) estimation/1.73 sq m using serum, plasma, or whole bOrdered By: Dave Dupree on 10-13-2024 GFR/1.73 sq M.predicted among non-blacks MDRD (S/P/Bld) [Vol rate/Area] 106 mL/min/{1.73_m2} >60 [facility] Comment on above: mL/min/1.73m2 CKD-EP I Creatinine Equation (2020) HCV RNA LORAINE+probe QnOrdered By: Dave Dupree on 10-13-2024 Hepatitis C RNA Quantitative (PCR) 5359500 IU/mL . [facility] Hematocrit Auto (Bld) [Volum e fraction]Ordered By: Dave Dupree on 10-13-2024 Hematocrit (Bld) [Volume fraction] 40.5 % 37-47 [facility] Hemoglobin measurementOrdere d By: Dave Dupree on 10-13-2024 Hemoglobin (Bld) [Mass/Vol] 13.5 g/dL 12.0-15.0 [facility] Hepatitis C genotypeOrdered By: Dave Dupree on 10-13-2024 Hepatitis C Genotype 3 . [facility] Comment on above: Performed at: - [address] [id number] Director: Avi Cardenas MD, Phone: [phone] at: CB - [facility] [address] [id number] Director: Floyd Sandra PhD, Phone: [phone] Hepatitis C viral load measu rementOrdered By: Dave Dupree on 10-13-2024 Hepatitis C RNA (PCR) IU log10 6.908 . [facility] Comment on above: Result Units: log10 IU/mL Immature granulocytes/100 WB C Auto (Bld)Ordered By: Dave Dupree on 10-13-2024 Immature granulocytes/100 WBC (Bld) 0.400 % 0.0-0.9 [facility] Comment on above: IG% - Immature Granu locytes (promyelocytes, myelocytes and metamyelocytes) > 1% indicates that a LEFT SHIFT is Present. International normalized rat io (INR) calculationOrdered By: Dave Dupree on 10-13-2024 INR Coag (Bld) [Relative time] 1.1 {INR} [facility] Rose-1 antibody assayOrdered B y: Dave Dupree on 10-13-2024 ROSE-1 Antibody TNP [facility] Comment on above: Test not performed Laboratory - Chemistry and C hemistry - challengeOrdered By: Dave Dupree on 10-13-2024 AST [Catalytic activity/Vol] 68 U/L High <32 [facility] Lymphocytes Auto (Unsp spec) [#/Vol]Ordered By: Dave Dupree on 10-13-2024 Lymphocytes (Bld) [#/Vol] 1.28 10*3/uL 0.83-4.51 [facility] Lymphocytes/100 WBC Auto (Un sp spec)Ordered By: Dave Dupree on 10-13-2024 Lymphocytes/100 WBC (Bld) 22.4 % 19-41 [facility] MCV (mean corpuscular volume ) determinationOrdered By: Dave Dupree on 10-13-2024 MCV (RBC) [Entitic vol] 88.8 fL 81-99 [facility] Magnesiumon 10-13-2024 Magnesium [Mass/Vol] 2.0 mg/dL Normal 1.5-2.2 [facility] Comment on above: Performed By: #### L 501.2300, L803.2200, L501.5200, L7000.8000, L800.1280, L300.3900, L503.5510, L100.0100, L7000.7000, L500.4050, L3100.5450, L501.9520 ####[facility] [address] [facility] [place], [address] Magnesium (Unsp spec) [Mass/ Vol]Ordered By: Dave Dupree on 10-13-2024 Magnesium [Mass/Vol] 2.0 mg/dL 1.5-2.2 [facility] Magnesium measurement (mass/ volume)Ordered By: Dave Dupree on 10-13-2024 Magnesium (Unsp spec) [Mass/Vol] 2.0 mg/dL 1.5-2.2 [facility] Mean corpuscular hemoglobin (MCH) determinationOrdered By: Dave Dupree on 10-13-2024 MCH (RBC) [Entitic mass] 29.6 pg 27.0-32.0 [facility] Mean corpuscular hemoglobin concentration (MCHC) determinationOrdered By: Dave Dupree on 10-13-2024 MCHC (RBC) [Mass/Vol] 33.3 g/dL 32-36 [facility] Mean platelet volume determi nationOrdered By: Dave Dupree on 10-13-2024 Platelet mean volume (Bld) [Entitic vol] 10.8 fL 6.2-12.0 [facility] Mitochondria Ab Ql (S)Ordere d By: Dave Dupree on 10-13-2024 Anti-Mitochondrial Antibody <20.0 Units 0.0-20.0 [facility] Comment on above: Negative 0.0 - 20.0 Equivocal 20.1 - 24.9 Positive >24.9Mitochondrial (M2) Antibodies are found in 90-96% ofpatients with primary biliary cirrhosis. Monocyte percentageOrdered B y: Dave Dupree on 10-13-2024 Monocytes/100 WBC (Bld) 7.2 % 0-10 [facility] Neutrophil percentageOrdered By: Dave Dupree on 10-13-2024 Neutrophils/100 WBC (Bld) 66.7 % 47-70 [facility] No Panel InformationOrdered By: Dave Dupree on 10-13-2024 Addendum Document Comment . [facility] Comment on above: The quantitative ran ge of this assay is 15 IU/mL to 100million IU/mL. Nucleated red blood cell per centageOrdered By: Dave Dupree on 10-13-2024 Nucleated RBC/100 WBC (Bld) [Ratio] 0 % 0-5 [facility] Phosphoruson 10-13-2024 Phosphate [Mass/Vol] 3.8 mg/dL Normal 2.7-4.5 [facility] Comment on above: Performed By: #### L 501.2300, L803.2200, L501.5200, L7000.8000, L800.1280, L300.3900, L503.5510, L100.0100, L7000.7000, L500.4050, L3100.5450, L501.9520 ####[facility] [address] [place], [place], [phone] Platelet countOrdered By: Lupis Dupree on 10-13-2024 Platelets (Bld) [#/Vol] 68 10*3/uL Low 150-450 [facility] Potassium (Unsp spec) [Mass/ Vol]Ordered By: Dave Dupree on 10-13-2024 Potassium [Moles/Vol] 5.6 mmol/L High 3.3-5.1 [facility] Potassium measurement (mass/ volume)Ordered By: Dave Dupree on 10-13-2024 Potassium (Unsp spec) [Mass/Vol] 5.6 mmol/L High 3.3-5.1 [facility] Prothrombin Time w/INRon INR Coag (PPP) [Relative time] 1.1 {INR} Normal [facility] Comment on above: Performed By: #### L 501.2300, L803.2200, L501.5200, L7000.8000, L800.1280, L300.3900, L503.5510, L100.0100, L7000.7000, L500.4050, L3100.5450, L501.9520 ####[facility] [address] [place], [place], [phone] PT Coag (PPP) [Time] 14.1 s Normal 11.7-14.9 [facility] Comment on above: Performed By: #### L 501.2300, L803.2200, L501.5200, L7000.8000, L800.1280, L300.3900, L503.5510, L100.0100, L7000.7000, L500.4050, L3100.5450, L501.9520 ####[facility] [address] [place], [place], [phone] Prothrombin timeOrdered By: Dave Dupree on 10-13-2024 PT Coag (PPP) [Time] 14.1 s 11.7-14.9 [facility] RBC Auto (Bld) [#/Vol]Ordere d By: Dave Dupree on 10-13-2024 RBC (Bld) [#/Vol] 4.56 10*6/uL 4.2-5.4 [facility] GAMBLING SUPERVISOR abOrdered By: Dave Torres and on 10-13-2024 GAMBLING SUPERVISOR Antibody [facility] Comment on above: Test not performed SCL-70 extractable nuclear A b Qn (S)Ordered By: Dave Dupree on 10-13-2024 Scl-70 (Scleroderma) Antibody [facility] Comment on above: Test not performed SS-A IgG antibody assayOrder ed By: Dave Dupree on 10-13-2024 SS-A/Ro IgG Antibody [facility] Comment on above: Test not performed SS-B IgG antibody assayOrder ed By: Dave Dupree on 10-13-2024 SS-B/La IgG Antibody [facility] Comment on above: Test not performed Serum DNA double strand anti body assay (units/volume)Ordered By: Dave Dupree on 10-13-2024 DNA double strand Ab Qn (S) [facility] Comment on above: Test not performed Serum Scl-70 antibody assay (units/volume)Ordered By: Dave Dupree on 10-13-2024 SCL-70 extractable nuclear Ab Qn (S) [facility] Comment on above: Test not performed Serum creatinine measurement (mass/volume)Ordered By: Dave Dupree on 10-13-2024 Creatinine [Mass/Vol] 0.73 mg/dL 0.70-1.20 [facility] Serum globulin measurementOr dered By: Dave Dupree on 10-13-2024 Globulin (S) [Mass/Vol] 3.4 g/dL 2.2-4.2 [facility] Serum glucose measurement (m ass/volume)Ordered By: Dave Dupree on 10-13-2024 Glucose [Mass/Vol] 77 mg/dL 70-99 [facility] Serum mitochondria antibody detectionOrdered By: Dave Dupree on 10-13-2024 Mitochondria Ab Ql (S) <20.0 Units 0.0-20.0 [facility] Comment on above: Negative 0.0 - 20.0 Equivocal 20.1 - 24.9 Positive >24.9Mitochondrial (M2) Antibodies are found in 90-96% ofpatients with primary biliary cirrhosis. Serum or plasma actin IgG an tibody assay (units/volume)Ordered By: Dave Dupree on 10-13-2024 Actin IgG Qn 11 Units 0-19 [facility] Comment on above: Negative 0 - 19 Weak positive 20 - 30 Moderate to strong positive >30 Actin Antibodies are found in 52-85% of patients with autoimmune hepatitis or chronic active hepatitis and in 22% of patients with primary biliary cirrhosis. Serum or plasma alanine gutierrez otransferase (ALT) measurementOrdered By: Dave Dupree on 10-13-2024 ALT [Catalytic activity/Vol] 86 U/L High <35 [facility] Serum or plasma albumin char urement (mass/volume)Ordered By: Dave Dupree on 10-13-2024 Albumin [Mass/Vol] 4.3 g/dL 3.5-5.0 [facility] Serum or plasma albumin/glob ulin mass ratioOrdered By: Dave Dupree on 10-13-2024 Albumin/Globulin [Mass ratio] 1.2 {ratio} 0.9-2.4 [facility] Serum or plasma alkaline samy sphatase measurementOrdered By: Dave Dupree on 10-13-2024 ALP [Catalytic activity/Vol] 95 U/L 35-104 [facility] Serum or plasma calcium char urement (mass/volume)Ordered By: Dave Dupree on 10-13-2024 Calcium [Mass/Vol] 9.7 mg/dL 7.6-11.0 [facility] Serum or plasma hepatitis C virus RNA measurement by probe and target amplification mOrdered By: Dave Dupree on 10-13-2024 HCV RNA LORAINE+probe Qn [id number] IU/mL . [facility] Serum or plasma urea nitroge n measurement (mass/volume)Ordered By: Dave Dupree on 10-13-2024 Urea nitrogen [Mass/Vol] 14 mg/dL 4-19 [facility] Serum phosphorus measurement Ordered By: Dave Dupree on 10-13-2024 Phosphorus Level 3.8 mg/dL 2.7-4.5 [facility] [place]upe antibody assayOrdered By: Dave Dupree on 10-13-2024 SM Antibody TNP [facility] Comment on above: Test not performed Sodium levelOrdered By: Mar Dupree on 10-13-2024 Sodium [Moles/Vol] 135 mmol/L 133-145 [facility] TSH DL <= 0.005 mIU/L QnOrde red By: Dave Dupree on 10-13-2024 Thyroid Stimulating Hormone (TSH) 2.040 uIU/mL 0.300-4.200 [facility] TSH Qn 2.040 uIU/mL 0.300-4.200 [facility] Thyroid Stim Hormone (TSH)on 10-13-2024 TSH 2.040 uIU/mL Normal 0.300-4.200 [facility] Comment on above: Performed By: #### L 501.2300, L803.2200, L501.5200, L7000.8000, L800.1280, L300.3900, L503.5510, L100.0100, L7000.7000, L500.4050, L3100.5450, L501.9520 ####[facility] [address] [place], [place], [phone] Total proteinOrdered By: Shira Dupree on 10-13-2024 Protein [Mass/Vol] 7.7 g/dL 5.9-8.4 [facility] Venous blood ammonia measure mentOrdered By: Dave Dupree on 10-13-2024 Ammonia (P) [Moles/Vol] 36.0 umol/L 11-51 [facility] White blood cell (WBC) count Ordered By: Dave Dupree on 10-13-2024 WBC (Bld) [#/Vol] 5.7 10*3/uL 4.4-11.0 [facility] AFP, Tumor Markeron 08-17-19 25 AFP TUMOR QUANG < 1.8 Normal 0.0-6.4 [facility] Comment on above: Order Comment: Test( s) 905877-Scodzukxy C Genotypewas developed and its performance characteristicsdetermined by [facility]. It has not been cleared or approvedby the Food and Drug Administration.N237056 Result Comment: [facility] Electrochemiluminescence Immunoassay(ECLIA)Values obtained with different assay methods or kits cannotbe used interchangeably. Results cannot be interpreted asabsolute evidence of the presence or absence of malignantdisease.This test is not interpretable in females. Performed By: #### L 501.5000, L7000.8000, L504.2610, L500.4050, L503.5510, L300.4310, L300.3900, L3890.6005, L3300.0700, L100.0100 ####[facility] [address] [place], [place], [address] Hepatitis C Genotypeon 08-17 HEP C GENOTYPE 3 Normal . [facility] Comment on above: Order Comment: Test( s) 946742-Mpefvoins C Genotypewas developed and its performance characteristicsdetermined by [facility]. It has not been cleared or approvedby the Food and Drug Administration. Result Comment: Perf ormed at: [id number] [place], [place] [id number] Director: Floyd Sandra PhD, Phone: [phone] at: [address] [id number] Director: Avi Cardenas MD, Phone: [phone] Performed By: #### L 501.5000, L7000.8000, L504.2610, L500.4050, L503.5510, L300.4310, L300.3900, L3890.6005, L3300.0700, L100.0100 ####[facility] [address] [place], [place], [phone] Absolute neutrophil countOrd ered By: Junior Holloway on 08-13-2024 Neutrophils (Bld) [#/Vol] 1.0 10*3/uL Low 2.0-7.7 [facility] Acanthocyte detectionOrdered By: Junior Holloway on 08-13-2024 Acanthocytes 1+ [facility] Albumin to globulin ratioOrd ered By: Junior Holloway on 08-13-2024 Albumin/Globulin [Mass ratio] 0.6 {ratio} Low 0.9-2.4 [facility] Alpha fetoprotein measuremen t as tumor markerOrdered By: Juniorrichardson Holloway on 08-13-2024 Tumor Marker Alpha Fetoprotein < 1.8 ng/mL 0.0-6.4 [facility] Comment on above: [facility] El ectrochemiluminescence Immunoassay(ECLIA)Values obtained with different assay methods or kits cannotbe used interchangeably. Results cannot be interpreted asabsolute evidence of the presence or absence of malignantdisease.This test is not interpretable in females. Ammoniaon 08-13-2024 Ammonia (P) [Moles/Vol] 31.0 umol/L Normal 11-32 [facility] Comment on above: Performed By: #### L 501.5000, L7000.8000, L504.2610, L500.4050, L503.5510, L300.4310, L300.3900, L3890.6005, L3300.0700, L100.0100 ####[facility] [address] [place], [place], [phone] Basophil percentageOrdered B y: Junior Holloway on 08-13-2024 Basophils/100 WBC (Bld) 0.5 % 0-1 [facility] Bilirubin, totalOrdered By: Junior Holloway on 08-13-2024 Bilirubin [Mass/Vol] 0.40 mg/dL 0.20-1.00 [facility] Comment on above: For patients on eltr ombopag therapy, use of Dimension [place] TBIL is not recommended. Blood urea nitrogen (BUN)/cr eatinine ratioOrdered By: Junior Holloway on 08-13-2024 Urea nitrogen/Creatinine [Mass ratio] 9.3 mg/mg Low 10-20 [facility] CBC W/Diff, Automatedon ACANTHOCYTE 1+ Normal [facility] Comment on above: Performed By: #### L 501.5000, L7000.8000, L504.2610, L500.4050, L503.5510, L300.4310, L300.3900, L3890.6005, L3300.0700, L100.0100 ####[facility] [address] [place], [place], [phone] OVALOCYTE 1+ Normal [facility] Comment on above: Performed By: #### L 501.5000, L7000.8000, L504.2610, L500.4050, L503.5510, L300.4310, L300.3900, L3890.6005, L3300.0700, L100.0100 ####[facility] [address] [place], [place], [phone] PLT EST MOD DEC Normal ADEQ [facility] Comment on above: Performed By: #### L 501.5000, L7000.8000, L504.2610, L500.4050, L503.5510, L300.4310, L300.3900, L3890.6005, L3300.0700, L100.0100 ####[facility] [address] [place], [place], [phone] Carbon dioxide measurementOr dered By: Junior Holloway on 08-13-2024 CO2 [Moles/Vol] 27.0 mmol/L 21.0-32.0 [facility] Chloride measurementOrdered By: Junior Holloway on 08-13-2024 Chloride [Moles/Vol] 105 mmol/L 98-107 [facility] Comprehensive Metabolic Prof ilon 08-13-2024 Albumin [Mass/Vol] 2.5 g/dL Low 3.2-5.0 [facility] Comment on above: Order Comment: [id number] 5 Performed By: #### L 501.5000, L7000.8000, L504.2610, L500.4050, L503.5510, L300.4310, L300.3900, L3890.6005, L3300.0700, L100.0100 ####[facility] [address] [place], [place], [phone] Albumin/Globulin [Mass ratio] 0.6 {ratio} Low 0.9-2.4 [facility] Comment on above: Order Comment: 96622 5 Performed By: #### L 501.5000, L7000.8000, L504.2610, L500.4050, L503.5510, L300.4310, L300.3900, L3890.6005, L3300.0700, L100.0100 ####[facility] [address] [place], [place], [phone] ALK P 80 U/L Normal 45-117 [facility] Comment on above: Order Comment: [id number] 5 Performed By: #### L 501.5000, L7000.8000, L504.2610, L500.4050, L503.5510, L300.4310, L300.3900, L3890.6005, L3300.0700, L100.0100 ####[facility] [address] [place], [place], [phone] ALT [Catalytic activity/Vol] 39 U/L Normal 13-56 [facility] Comment on above: Order Comment: 02188 5 Performed By: #### L 501.5000, L7000.8000, L504.2610, L500.4050, L503.5510, L300.4310, L300.3900, L3890.6005, L3300.0700, L100.0100 ####[facility] [address] [place], [place], [phone] AST [Catalytic activity/Vol] 60 U/L High 15-37 [facility] Comment on above: Order Comment: 40687 5 Performed By: #### L 501.5000, L7000.8000, L504.2610, L500.4050, L503.5510, L300.4310, L300.3900, L3890.6005, L3300.0700, L100.0100 ####[facility] [address] [place], [place], [phone] Bilirubin [Mass/Vol] 0.40 mg/dL Normal 0.20-1.00 [facility] Comment on above: Order Comment: 05824 5 Result Comment: For patients on eltrombopag therapy, use of Dimension [place] TBIL is not recommended. Performed By: #### L 501.5000, L7000.8000, L504.2610, L500.4050, L503.5510, L300.4310, L300.3900, L3890.6005, L3300.0700, L100.0100 ####[facility] [address] [place], [address] BUN/CRE 9.3 RATIO Low 10-20 [facility] Comment on above: Order Comment: 73347 5 Performed By: #### L 501.5000, L7000.8000, L504.2610, L500.4050, L503.5510, L300.4310, L300.3900, L3890.6005, L3300.0700, L100.0100 ####[facility] [address] [place], [address] CA,Total 7.8 mg/dL Low 8.5-10.1 [facility] Comment on above: Order Comment: 26767 5 Performed By: #### L 501.5000, L7000.8000, L504.2610, L500.4050, L503.5510, L300.4310, L300.3900, L3890.6005, L3300.0700, L100.0100 ####[facility] [address] [facility] [place], [place], [phone]) Chloride [Moles/Vol] 105 mmol/L Normal 98-107 [facility] Comment on above: Order Comment: 64461 5 Performed By: #### L 501.5000, L7000.8000, L504.2610, L500.4050, L503.5510, L300.4310, L300.3900, L3890.6005, L3300.0700, L100.0100 ####[facility] [address] [place], [address] CO2 [Moles/Vol] 27.0 mmol/L Normal 21.0-32.0 [facility] Comment on above: Order Comment: 72862 5 Performed By: #### L 501.5000, L7000.8000, L504.2610, L500.4050, L503.5510, L300.4310, L300.3900, L3890.6005, L3300.0700, L100.0100 ####[facility] [address] [place], [address] Creatinine [Mass/Vol] 0.86 mg/dL Normal 0.55-1.02 [facility] Comment on above: Order Comment: 45074 5 Result Comment: The validity of the calculated GFR GFRAA in patients over70 years has not been determined. Clinical correlation isessential. Performed By: #### L 501.5000, L7000.8000, L504.2610, L500.4050, L503.5510, L300.4310, L300.3900, L3890.6005, L3300.0700, L100.0100 ####[facility] [address] [place], [address] EST GFR - AA 93 mL/min Normal >60 [facility] Comment on above: Order Comment: 37900 5 Result Comment: Afri can Iraqi GFR Calc Performed By: #### L 501.5000, L7000.8000, L504.2610, L500.4050, L503.5510, L300.4310, L300.3900, L3890.6005, L3300.0700, L100.0100 ####[facility] [address] [place], [address] GAP 5 Normal 5-15 [facility] Comment on above: Order Comment: 77427 5 Performed By: #### L 501.5000, L7000.8000, L504.2610, L500.4050, L503.5510, L300.4310, L300.3900, L3890.6005, L3300.0700, L100.0100 ####[facility] [address] [place], [address] GFR/1.73 sq M.predicted among non-blacks MDRD (S/P/Bld) [Vol rate/Area] 77 mL/min/{1.73_m2} Normal >60 [facility] Comment on above: Order Comment: 68964 5 Result Comment: Non- GFR Calc Performed By: #### L 501.5000, L7000.8000, L504.2610, L500.4050, L503.5510, L300.4310, L300.3900, L3890.6005, L3300.0700, L100.0100 ####[facility] [address] [place], [place], [phone] Globulin (S) [Mass/Vol] 3.9 g/dL Normal 2.2-4.2 [facility] Comment on above: Order Comment: 99044 5 Performed By: #### L 501.5000, L7000.8000, L504.2610, L500.4050, L503.5510, L300.4310, L300.3900, L3890.6005, L3300.0700, L100.0100 ####[facility] [address] [place], [place], [phone] Glucose [Mass/Vol] 91 mg/dL Normal 74-106 [facility] Comment on above: Order Comment: 56070 5 Performed By: #### L 501.5000, L7000.8000, L504.2610, L500.4050, L503.5510, L300.4310, L300.3900, L3890.6005, L3300.0700, L100.0100 ####[facility] [address] [place], [place], [phone] Potassium [Moles/Vol] 4.3 mmol/L Normal 3.5-5.1 [facility] Comment on above: Order Comment: 03988 5 Performed By: #### L 501.5000, L7000.8000, L504.2610, L500.4050, L503.5510, L300.4310, L300.3900, L3890.6005, L3300.0700, L100.0100 ####[facility] [address] [place], [place], [address] Sodium [Moles/Vol] 138 mmol/L Normal 136-145 [facility] Comment on above: Order Comment: 29525 5 Performed By: #### L 501.5000, L7000.8000, L504.2610, L500.4050, L503.5510, L300.4310, L300.3900, L3890.6005, L3300.0700, L100.0100 ####[facility] [address] [place], [place], [phone] T PROT 6.4 g/dL Normal 6.4-8.2 [facility] Comment on above: Order Comment: 82452 5 Performed By: #### L 501.5000, L7000.8000, L504.2610, L500.4050, L503.5510, L300.4310, L300.3900, L3890.6005, L3300.0700, L100.0100 ####[facility] [address] [facility] [address] [place], [place], [phone] Urea nitrogen [Mass/Vol] 8 mg/dL Normal 7-18 [facility] Comment on above: Order Comment: [id number] 5 Performed By: #### L 501.5000, L7000.8000, L504.2610, L500.4050, L503.5510, L300.4310, L300.3900, L3890.6005, L3300.0700, L100.0100 ####[facility] [address] [facility] [place], [place], [phone] Eosinophil percentageOrdered By: Junior Friend on 08-13-2024 Eosinophils/100 WBC (Bld) 3.4 % 0-5 [facility] Erythrocyte distribution wid th (RBC) [Ratio]Ordered By: Junior Friend on 08-13-2024 Erythrocyte distribution width (RBC) [Entitic vol] 60.3 fL High 35.1-43.9 [facility] Erythrocyte distribution wid th ratioOrdered By: Junior Friend on 08-13-2024 Erythrocyte distribution width (RBC) [Ratio] 17.2 % High 11.6-14.6 [facility] Estimated glomerular filtrat ion rate (GFR) AmericanOrdered By: Junior Holloway on 08-13-2024 Estimated GFR (MDRD) Amer 93 mL/min >60 [facility] Comment on above: GFR Calc Gastroenterology Visit Repor ton 08-13-2024 Gastroenterology Visit Report Normal [facility] Glomerular filtration rate ( GFR) estimationOrdered By: Junior Holloway on 08-13-2024 Estimated GFR (MDRD) Non-Af Amer 77 mL/min >60 [facility] Comment on above: Non- GFR Calc Glucose measurementOrdered B y: Junior Holloway on 08-13-2024 Glucose [Mass/Vol] 91 mg/dL 74-106 [facility] HIV - WCHon 08-13-2024 HIV Non-Reactive Normal Nonreactive [facility] Comment on above: Performed By: #### L 501.5000, L7000.8000, L504.2610, L500.4050, L503.5510, L300.4310, L300.3900, L3890.6005, L3300.0700, L100.0100 ####[facility] [address] [place], [place], [id number] HIV 1+2 Ab+HIV1 p24 Ag IA Ql Ordered By: Junior Holloway on 08-13-2024 HIV (1&2) Antibody Non-Reactive Nonreactive [facility] Hematocrit Auto (Bld) [Volum e fraction]Ordered By: Junior Holloway on 08-13-2024 Hematocrit (Bld) [Volume fraction] 27.4 % Low 37-47 [facility] Hemoglobin measurementOrdere d By: Junior Holloway on 08-13-2024 Hemoglobin (Bld) [Mass/Vol] 8.5 g/dL Low 12.0-15.0 [facility] Hepatitis C genotypeOrdered By: Juniorrichardson Holloway on 08-13-2024 Hepatitis C Genotype 3 . [facility] Comment on above: Performed at: [facility] [address] [id number] Director: Floyd Sandra PhD, Phone: [phone] at: BN - [facility] [address] [id number] Director: Avi Cardenas MD, Phone: [phone] Immature granulocytes/100 WB C Auto (Bld)Ordered By: Junior Holloway on 08-13-2024 Immature granulocytes/100 WBC (Bld) 0.500 % 0.0-0.9 [facility] Comment on above: IG% - Immature Granu locytes (promyelocytes, myelocytes and metamyelocytes) > 1% indicates that a LEFT SHIFT is Present. International normalized rat io (INR) calculationOrdered By: Junior Holloway on 08-13-2024 INR Coag (Bld) [Relative time] 1.2 {INR} [facility] LDHon 08-13-2024 LDH 176 U/L Normal 84-246 [facility] Comment on above: Order Comment: [id number] Performed By: #### L 501.5000, L7000.8000, L504.2610, L500.4050, L503.5510, L300.4310, L300.3900, L3890.6005, L3300.0700, L100.0100 ####[facility] [address] [place], [place], [address] Laboratory - Chemistry and C hemistry - challengeOrdered By: Junior Holloway on 08-13-2024 AST [Catalytic activity/Vol] 60 U/L High 15-37 [facility] Lactate dehydrogenase (LDH) measurementOrdered By: Junior Holloway on 08-13-2024 LDH [Catalytic activity/Vol] 176 U/L 84-246 [facility] Lymphocytes Auto (Unsp spec) [#/Vol]Ordered By: Junior Holloway on 08-13-2024 Lymphocytes (Bld) [#/Vol] 0.69 10*3/uL Low 0.83-4.51 [facility] Lymphocytes/100 WBC Auto (Un sp spec)Ordered By: Junior Holloway on 08-13-2024 Lymphocytes/100 WBC (Bld) 34.0 % 19-41 [facility] MCV (mean corpuscular volume ) determinationOrdered By: Junior Holloway on 08-13-2024 MCV (RBC) [Entitic vol] 95.5 fL 81-99 [facility] Mean corpuscular hemoglobin (MCH) determinationOrdered By: Junior Holloway on 08-13-2024 MCH (RBC) [Entitic mass] 29.6 pg 27.0-32.0 [facility] Mean corpuscular hemoglobin concentration (MCHC) determinationOrdered By: Junior Holloway on 08-13-2024 MCHC (RBC) [Mass/Vol] 31.0 g/dL Low 32-36 [facility] Mean platelet volume determi nationOrdered By: Junior Holloway on 08-13-2024 Platelet mean volume (Bld) [Entitic vol] 11.6 fL 6.2-12.0 [facility] Monocyte percentageOrdered B y: Junior Holloway on 08-13-2024 Monocytes/100 WBC (Bld) 11.8 % High 0-10 [facility] Neutrophil percentageOrdered By: Junior Holloway on 08-13-2024 Neutrophils/100 WBC (Bld) 49.8 % 47-70 [facility] Nucleated red blood cell per centageOrdered By: Junior Holloway on 08-13-2024 Nucleated RBC/100 WBC (Bld) [Ratio] 0 % 0-5 [facility] Ovalocytes LM Ql (Bld)Ordere d By: Junior Holloway on 08-13-2024 Ovalocytes 1+ [facility] Partial Thromboplast Timeon 08-13-2024 aPTT Coag (Bld) [Time] 28.5 s Normal 24.1-36.[address] [facility] Comment on above: Performed By: #### L 501.5000, L7000.8000, L504.2610, L500.4050, L503.5510, L300.4310, L300.3900, L3890.6005, L3300.0700, L100.0100 ####[facility] [address] [place], [address] Platelet countOrdered By: Ra arturo Holloway on 08-13-2024 Platelets (Bld) [#/Vol] 91 10*3/uL Low 150-450 [facility] Platelets LM Ql (Bld)Ordered By: Junior Holloway on 08-13-2024 Platelet Estimate MOD DEC ADEQ [facility] Potassium measurementOrdered By: Junior Holloway on 08-13-2024 Potassium [Moles/Vol] 4.3 mmol/L 3.5-5.1 [facility] Prothrombin Time w/INRon INR Coag (PPP) [Relative time] 1.2 {INR} Normal [facility] Comment on above: Performed By: #### L 501.5000, L7000.8000, L504.2610, L500.4050, L503.5510, L300.4310, L300.3900, L3890.6005, L3300.0700, L100.0100 ####[facility] [address] [place], [place], [address] PT Coag (PPP) [Time] 15.7 s High 11.7-14.9 [facility] Comment on above: Performed By: #### L 501.5000, L7000.8000, L504.2610, L500.4050, L503.5510, L300.4310, L300.3900, L3890.6005, L3300.0700, L100.0100 ####[facility] [address] [place], [place], [address] Prothrombin timeOrdered By: Junior Holloway on 08-13-2024 PT Coag (PPP) [Time] 15.7 s High 11.7-14.9 [facility] RBC Auto (Bld) [#/Vol]Ordere d By: Junior Holloway on 08-13-2024 RBC (Bld) [#/Vol] 2.87 10*6/uL Low 4.2-5.4 [facility] Serum anion gap measurementO rdered By: Junior Holloway on 08-13-2024 Anion gap [Moles/Vol] 5 mmol/L 5-15 [facility] Serum globulin measurementOr dered By: Junior Holloway on 08-13-2024 Globulin (S) [Mass/Vol] 3.9 g/dL 2.2-4.2 [facility] Serum or plasma alanine gutierrez otransferase (ALT) measurementOrdered By: Junior Holloway on 08-13-2024 ALT [Catalytic activity/Vol] 39 U/L 13-56 [facility] Serum or plasma albumin char urement (mass/volume)Ordered By: Junior Holloway on 08-13-2024 Albumin [Mass/Vol] 2.5 g/dL Low 3.2-5.0 [facility] Serum or plasma alkaline samy sphatase measurementOrdered By: Junior Holloway on 08-13-2024 ALP [Catalytic activity/Vol] 80 U/L 45-117 [facility] Serum or plasma calcium char urement (mass/volume)Ordered By: Junior Holloway on 08-13-2024 Calcium [Mass/Vol] 7.8 mg/dL Low 8.5-10.1 [facility] Serum or plasma creatinine m easurement (mass/volume)Ordered By: Junior Holloway on 08-13-2024 Creatinine [Mass/Vol] 0.86 mg/dL 0.55-1.02 [facility] Comment on above: The validity of the calculated GFR & GFRAA in patients over 70 years has not been determined. Clinical correlation is essential. Serum or plasma urea nitroge n measurement (mass/volume)Ordered By: Junior Holloway on 08-13-2024 Urea nitrogen [Mass/Vol] 8 mg/dL 7-18 [facility] Sodium levelOrdered By: Damaso Feng on 08-13-2024 Sodium [Moles/Vol] 138 mmol/L 136-145 [facility] Total proteinOrdered By: Juan Holloway on 08-13-2024 Protein [Mass/Vol] 6.4 g/dL 6.4-8.2 [facility] Triglycerideson 08-13-2024 Triglyceride [Mass/Vol] 124 mg/dL Normal [facility] Comment on above: Order Comment: [id number] Result Comment: The drugs N-Acetylcysteine and Metamizole may falselydepress this assay.Serum Triglycerides Reference Interval Normal <150 mg/dL Borderline high 150 - 199 mg/dL High 200 - 499 mg/dL Very High > or = 500 mg/dL Performed By: #### L 501.5000, L7000.8000, L504.2610, L500.4050, L503.5510, L300.4310, L300.3900, L3890.6005, L3300.0700, L100.0100 ####[facility] [address] [place], [place], [id number] Triglycerides measurementOrd ered By: Junior Holloway on 08-13-2024 Triglyceride [Mass/Vol] 124 mg/dL <199 [facility] Comment on above: The drugs N-Acetylcy steine and Metamizole may falsely depress this assay.Serum Triglycerides Reference Interval Normal <150 mg/dL Borderline high 150 - 199 mg/dL High 200 - 499 mg/dL Very High > or = 500 mg/dL Venous blood ammonia measure mentOrdered By: Junior Holloway on 08-13-2024 Ammonia (P) [Moles/Vol] 31.0 umol/L [facility] White blood cell (WBC) count Ordered By: Junior Holloway on 08-13-2024 WBC (Bld) [#/Vol] 2.0 10*3/uL Low 4.4-11.0 [facility] aPTT Coag (PPP) [Time]Ordere d By: Junior Holloway on 08-13-2024 aPTT Coag (Bld) [Time] 28.5 s 24.1-36.[address] [facility] Bedside Glucoseon 07-24-2024 FINGERSTICK GLU 174 mg/dL High 74-106 [facility] Comment on above: Result Comment: AI ELIZABETH OF PATIENT CARE PER NURSING PROTOCOL Performed By: #### L 501.080 ####[facility] [address] [place], [place], [id number] Absolute neutrophil countOrd ered By: Quang Blair on 07-23-2024 Neutrophils (Bld) [#/Vol] 10.5 10*3/uL High 2.0-7.7 [facility] Albumin to globulin ratioOrd ered By: Quang Blair on 07-23-2024 Albumin/Globulin [Mass ratio] 0.6 {ratio} Low 0.9-2.4 [facility] Basophil percentageOrdered B y: Quang Blair on 07-23-2024 Basophils/100 WBC (Bld) 0.5 % 0-1 [facility] Bilirubin, totalOrdered By: Quang Blair on 07-23-2024 Bilirubin [Mass/Vol] 1.40 mg/dL High 0.20-1.00 [facility] Comment on above: For patients on eltr ombopag therapy, use of Dimension [place] TBIL is not recommended. Blood urea nitrogen (BUN)/cr eatinine ratioOrdered By: Quang Blair on 07-23-2024 Urea nitrogen/Creatinine [Mass ratio] 17.4 mg/mg 10-20 [facility] CBC W/Diff, Automatedon 07-07 Anisocytosis Ql (Bld) 1+ Normal [facility] Comment on above: Performed By: #### L 100.0100, L500.4050 ####[facility] [address] [place], [place], [id number] Carbon dioxide measurementOr dered By: Quang Blair on 07-23-2024 CO2 [Moles/Vol] 23.0 mmol/L 21.0-32.0 [facility] Chloride measurementOrdered By: Quang Blair on 07-23-2024 Chloride [Moles/Vol] 104 mmol/L 98-107 [facility] Comprehensive Metabolic Prof ilon 07-23-2024 Albumin [Mass/Vol] 2.2 g/dL Low 3.2-5.0 [facility] Comment on above: Performed By: #### L 100.0100, L500.4050 ####[facility] [address] [place], [place], [id number] Albumin/Globulin [Mass ratio] 0.6 {ratio} Low 0.9-2.4 [facility] Comment on above: Performed By: #### L 100.0100, L500.4050 ####[facility] [address] [place], [address] ALK P 108 U/L Normal 45-117 [facility] Comment on above: Performed By: #### L 100.0100, L500.4050 ####[facility] [address] [place], [address] ALT [Catalytic activity/Vol] 371 U/L High 13-56 [facility] Comment on above: Performed By: #### L 100.0100, L500.4050 ####[facility] [address] [place], [address] AST [Catalytic activity/Vol] 370 U/L High 15-37 [facility] Comment on above: Performed By: #### L 100.0100, L500.4050 ####[facility] [address] [place], [address] Bilirubin [Mass/Vol] 1.40 mg/dL High 0.20-1.00 [facility] Comment on above: Result Comment: For patients on eltrombopag therapy, use of Dimension [place] TBIL is not recommended. Performed By: #### L 100.0100, L500.4050 ####[facility] [address] [place], [address] BUN/CRE 17.4 RATIO Normal 10-20 [facility] Comment on above: Performed By: #### L 100.0100, L500.4050 ####[facility] [address] [place], [address] CA,Total 7.7 mg/dL Low 8.5-10.1 [facility] Comment on above: Performed By: #### L 100.0100, L500.4050 ####[facility] [address] [place], [address] Chloride [Moles/Vol] 104 mmol/L Normal 98-107 [facility] Comment on above: Performed By: #### L 100.0100, L500.4050 ####[facility] [address] [place], [address] CO2 [Moles/Vol] 23.0 mmol/L Normal 21.0-32.0 [facility] Comment on above: Performed By: #### L 100.0100, L500.4050 ####[facility] [address] [place], [address] Creatinine [Mass/Vol] 0.75 mg/dL Normal 0.55-1.02 [facility] Comment on above: Result Comment: The validity of the calculated GFR GFRAA in patients over70 years has not been determined. Clinical correlation isessential. Performed By: #### L 100.0100, L500.4050 ####[facility] [address] [place], [address] ECRCL 81.79 ml/min Normal [facility] Comment on above: Performed By: #### L 100.0100, L500.4050 ####[facility] [address] [place], [address] EST GFR - AA 109 mL/min Normal >60 [facility] Comment on above: Result Comment: Afri can Iraqi GFR Calc Performed By: #### L 100.0100, L500.4050 ####[facility] [address] [place], [address] GAP 7 Normal 5-15 [facility] Comment on above: Performed By: #### L 100.0100, L500.4050 ####[facility] [address] [place], [address] GFR/1.73 sq M.predicted among non-blacks MDRD (S/P/Bld) [Vol rate/Area] 90 mL/min/{1.73_m2} Normal >60 [facility] Comment on above: Result Comment: Non- GFR Calc Performed By: #### L 100.0100, L500.4050 ####[facility] [address] [place], [address] Globulin (S) [Mass/Vol] 3.9 g/dL Normal 2.2-4.2 [facility] Comment on above: Performed By: #### L 100.0100, L500.4050 ####[facility] [address] [place], [address] Glucose [Mass/Vol] 130 mg/dL High 74-106 [facility] Comment on above: Result Comment: Fast ing Glucose result greater than or equal to 126 mg/dLsuggests DIABETES MELLITUS per A.D.A. criteria. Performed By: #### L 100.0100, L500.4050 ####[facility] [address] [place], [address] Potassium [Moles/Vol] 3.2 mmol/L Low 3.5-5.1 [facility] Comment on above: Performed By: #### L 100.0100, L500.4050 ####[facility] [address] [place], [address] Sodium [Moles/Vol] 134 mmol/L Low 136-145 [facility] Comment on above: Performed By: #### L 100.0100, L500.4050 ####[facility] [address] [place], [address] T PROT 6.1 g/dL Low 6.4-8.2 [facility] Comment on above: Performed By: #### L 100.0100, L500.4050 ####[facility] [address] [place], [address] Urea nitrogen [Mass/Vol] 13 mg/dL Normal 7-18 [facility] Comment on above: Performed By: #### L 100.0100, L500.4050 ####[facility] [address] [place], [address] Discharge Instructionon 07-07 Discharge Instruction Normal [facility] Eosinophil percentageOrdered By: Quang Blair on 07-23-2024 Eosinophils/100 WBC (Bld) 1.1 % 0-5 [facility] Erythrocyte distribution wid th (RBC) [Ratio]Ordered By: Quang Blair on 07-23-2024 Erythrocyte distribution width (RBC) [Entitic vol] 65.3 fL High 35.1-43.9 [facility] Erythrocyte distribution wid th ratioOrdered By: Quang Blair on 07-23-2024 Erythrocyte distribution width (RBC) [Ratio] 19.6 % High 11.6-14.6 [facility] Estimated glomerular filtrat ion rate (GFR) AmericanOrdered By: Quang Blair on 07-23-2024 Estimated GFR (MDRD) Amer 109 mL/min >60 [facility] Comment on above: GFR Calc Estimation of creatinine indira aranceOrdered By: Quang Blair on 07-23-2024 Estimated Creatinine Clearance Calc 81.79 ml/min [facility] Glomerular filtration rate ( GFR) estimationOrdered By: Quang Blair on 07-23-2024 Estimated GFR (MDRD) Non-Af Amer 90 mL/min >60 [facility] Comment on above: Non- GFR Calc Glucose measurementOrdered B y: Quang Blair on 07-23-2024 Glucose [Mass/Vol] 130 mg/dL High 74-106 [facility] Comment on above: Fasting Glucose resu lt greater than or equal to 126 mg/dL suggests DIABETES MELLITUS per A.D.A. criteria. Glucose measurement at bedsi deOrdered By: Quang Blair on 07-23-2024 Bedside Glucose (Misc Panel) 174 mg/dL High 74-106 [facility] Comment on above: MANAGEMENT OF PATIEN T CARE PER NURSING PROTOCOL Hematocrit Auto (Bld) [Volum e fraction]Ordered By: Quang Blair on 07-23-2024 Hematocrit (Bld) [Volume fraction] 24.9 % Low 37-47 [facility] Hemoglobin measurementOrdere d By: Quang Blair on 07-23-2024 Hemoglobin (Bld) [Mass/Vol] 8.2 g/dL Low 12.0-15.0 [facility] Immature granulocytes/100 WB C Auto (Bld)Ordered By: Quang Blair on 07-23-2024 Immature granulocytes/100 WBC (Bld) 2.200 % High 0.0-0.9 [facility] Comment on above: IG% - Immature Granu locytes (promyelocytes, myelocytes and metamyelocytes) > 1% indicates that a LEFT SHIFT is Present. Laboratory - Chemistry and C hemistry - challengeOrdered By: Quang Blair on 07-23-2024 AST [Catalytic activity/Vol] 370 U/L High 15-37 [facility] Laboratory - Hematology and Cell countsOrdered By: Quang Blair on 07-23-2024 Anisocytosis Ql (Bld) 1+ [facility] Lymphocytes Auto (Unsp spec) [#/Vol]Ordered By: Quang Blair on 07-23-2024 Lymphocytes (Bld) [#/Vol] 2.56 10*3/uL 0.83-4.51 [facility] Lymphocytes/100 WBC Auto (Un sp spec)Ordered By: Quang Blair on 07-23-2024 Lymphocytes/100 WBC (Bld) 17.0 % Low 19-41 [facility] MCV (mean corpuscular volume ) determinationOrdered By: Quang Blair on 07-23-2024 MCV (RBC) [Entitic vol] 96.1 fL 81-99 [facility] MR/PN.GIon 07-23-2024 MR/PN.GI Normal [facility] Mean corpuscular hemoglobin (MCH) determinationOrdered By: Quang Blair on 07-23-2024 MCH (RBC) [Entitic mass] 31.7 pg 27.0-32.0 [facility] Mean corpuscular hemoglobin concentration (MCHC) determinationOrdered By: Quang Blair on 07-23-2024 MCHC (RBC) [Mass/Vol] 32.9 g/dL 32-36 [facility] Mean platelet volume determi nationOrdered By: Quang Blair on 07-23-2024 Platelet mean volume (Bld) [Entitic vol] 10.7 fL 6.2-12.0 [facility] Monocyte percentageOrdered B y: Quang Blair on 07-23-2024 Monocytes/100 WBC (Bld) 9.8 % 0-10 [facility] Neutrophil percentageOrdered By: Quang Blair on 07-23-2024 Neutrophils/100 WBC (Bld) 69.4 % 47-70 [facility] Nucleated red blood cell per centageOrdered By: Quang Blair on 07-23-2024 Nucleated RBC/100 WBC (Bld) [Ratio] 0.1 % 0-5 [facility] Platelet countOrdered By: Chato Blair on 07-23-2024 Platelets (Bld) [#/Vol] 101 10*3/uL Low 150-450 [facility] Potassium measurementOrdered By: Quang Blair on 07-23-2024 Potassium [Moles/Vol] 3.2 mmol/L Low 3.5-5.1 [facility] RBC Auto (Bld) [#/Vol]Ordere d By: Quang Blair on 07-23-2024 RBC (Bld) [#/Vol] 2.59 10*6/uL Low 4.2-5.4 [facility] Serum anion gap measurementO rdered By: Quang Blair on 07-23-2024 Anion gap [Moles/Vol] 7 mmol/L 5-15 [facility] Serum globulin measurementOr dered By: Quang Blair on 07-23-2024 Globulin (S) [Mass/Vol] 3.9 g/dL 2.2-4.2 [facility] Serum or plasma alanine gutierrez otransferase (ALT) measurementOrdered By: Quang Blair on 07-23-2024 ALT [Catalytic activity/Vol] 371 U/L High 13-56 [facility] Serum or plasma albumin char urement (mass/volume)Ordered By: Quang Blair on 07-23-2024 Albumin [Mass/Vol] 2.2 g/dL Low 3.2-5.0 [facility] Serum or plasma alkaline samy sphatase measurementOrdered By: Quang Blair on 07-23-2024 ALP [Catalytic activity/Vol] 108 U/L 45-117 [facility] Serum or plasma calcium char urement (mass/volume)Ordered By: Qaung Blair on 07-23-2024 Calcium [Mass/Vol] 7.7 mg/dL Low 8.5-10.1 [facility] Serum or plasma creatinine m easurement (mass/volume)Ordered By: Quang Blair on 07-23-2024 Creatinine [Mass/Vol] 0.75 mg/dL 0.55-1.02 [facility] Comment on above: The validity of the calculated GFR & GFRAA in patients over 70 years has not been determined. Clinical correlation is essential. Serum or plasma urea nitroge n measurement (mass/volume)Ordered By: Quang Blair on 07-23-2024 Urea nitrogen [Mass/Vol] 13 mg/dL 7-18 [facility] Sodium levelOrdered By: Quang Blair on 07-23-2024 Sodium [Moles/Vol] 134 mmol/L Low 136-145 [facility] Total proteinOrdered By: Mendy Blair on 07-23-2024 Protein [Mass/Vol] 6.1 g/dL Low 6.4-8.2 [facility] White blood cell (WBC) count Ordered By: Quang Blair on 07-23-2024 WBC (Bld) [#/Vol] 15.1 10*3/uL High 4.4-11.0 [facility] CBC W/Diff, Automatedon 07-07 Anisocytosis Ql (Bld) 1+ Normal [facility] Comment on above: Performed By: #### L 100.0100 ####[facility] [address] [place], [address] OVALOCYTE 1+ Normal [facility] Comment on above: Performed By: #### L 100.0100 ####[facility] [address] [place], [address] PLT EST SLT DEC Normal ADEQ [facility] Comment on above: Performed By: #### L 100.0100 ####[facility] [address] [place], [address] POLYCHROMASIA 1+ Normal [facility] Comment on above: Performed By: #### L 100.0100 ####[facility] [address] [place], [address] TEAR DROP 1+ Normal [facility] Comment on above: Performed By: #### L 100.0100 ####[facility] [address] [place], [address] Comprehensive Metabolic Prof ilon 07-22-2024 Albumin [Mass/Vol] 1.8 g/dL Low 3.2-5.0 [facility] Comment on above: Performed By: #### L 500.4050 ####[facility] [address] [place], [address] Albumin/Globulin [Mass ratio] 0.6 {ratio} Low 0.9-2.4 [facility] Comment on above: Performed By: #### L 500.4050 ####[facility] [address] [place], [address] ALK P 82 U/L Normal 45-117 [facility] Comment on above: Performed By: #### L 500.4050 ####[facility] [address] [place], [address] ALT [Catalytic activity/Vol] 393 U/L High 13-56 [facility] Comment on above: Performed By: #### L 500.4050 ####[facility] [address] [place], [address] AST [Catalytic activity/Vol] 762 U/L High 15-37 [facility] Comment on above: Performed By: #### L 500.4050 ####[facility] [address] [place], [address] Bilirubin [Mass/Vol] 0.80 mg/dL Normal 0.20-1.00 [facility] Comment on above: Result Comment: For patients on eltrombopag therapy, use of Dimension [place] TBIL is not recommended. Performed By: #### L 500.4050 ####[facility] [address] [place], [address] BUN/CRE 28.8 RATIO High 10-20 [facility] Comment on above: Performed By: #### L 500.4050 ####[facility] [address] [place], [address] CA,Total 7.7 mg/dL Low 8.5-10.1 [facility] Comment on above: Performed By: #### L 500.4050 ####[facility] [address] [place], [address] Chloride [Moles/Vol] 113 mmol/L High 98-107 [facility] Comment on above: Performed By: #### L 500.4050 ####[facility] [address] [place], [address] CO2 [Moles/Vol] 23.0 mmol/L Normal 21.0-32.0 [facility] Comment on above: Performed By: #### L 500.4050 ####[facility] [address] [place], [address] Creatinine [Mass/Vol] 0.73 mg/dL Normal 0.55-1.02 [facility] Comment on above: Result Comment: The validity of the calculated GFR GFRAA in patients over70 years has not been determined. Clinical correlation isessential. Performed By: #### L 500.4050 ####[facility] [address] [place], [address] ECRCL 84.03 ml/min Normal [facility] Comment on above: Performed By: #### L 500.4050 ####[facility] [address] [place], [address] EST GFR - AA 112 mL/min Normal >60 [facility] Comment on above: Result Comment: Afri can Iraqi GFR Calc Performed By: #### L 500.4050 ####[facility] [address] [place], [address] GAP 5 Normal 5-15 [facility] Comment on above: Performed By: #### L 500.4050 ####[facility] [address] [place], [address] GFR/1.73 sq M.predicted among non-blacks MDRD (S/P/Bld) [Vol rate/Area] 93 mL/min/{1.73_m2} Normal >60 [facility] Comment on above: Result Comment: Non- GFR Calc Performed By: #### L 500.4050 ####[facility] [address] [place], [address] Globulin (S) [Mass/Vol] 3.2 g/dL Normal 2.2-4.2 [facility] Comment on above: Performed By: #### L 500.4050 ####[facility] [address] [place], [address] Glucose [Mass/Vol] 118 mg/dL High 74-106 [facility] Comment on above: Result Comment: Fast ing Glucose result from 100 to 125 mg/dLsuggests IMPAIRED HOMEOSTASIS per A.D.A. criteria. Performed By: #### L 500.4050 ####[facility] [address] [place], [address] Potassium [Moles/Vol] 4.3 mmol/L Normal 3.5-5.1 [facility] Comment on above: Performed By: #### L 500.4050 ####[facility] [address] [place], [address] Sodium [Moles/Vol] 141 mmol/L Normal 136-145 [facility] Comment on above: Performed By: #### L 500.4050 ####[facility] [address] [place], [address] T PROT 5.0 g/dL Low 6.4-8.2 [facility] Comment on above: Performed By: #### L 500.4050 ####[facility] [address] [place], [address] Urea nitrogen [Mass/Vol] 21 mg/dL High 7-18 [facility] Comment on above: Performed By: #### L 500.4050 ####[facility] [address] [place], [address] Dacrocytes LM Ql (Bld)Ordere d By: Gogo Royal on 07-22-2024 Tear Drop Cells 1+ [facility] EGD Reporton 07-22-2024 EGD Report Normal [facility] EGD Report Normal [facility] HH, Hemoglobin AND Hematocri ton 07-22-2024 Hematocrit (Bld) [Volume fraction] 22.8 % Low 37-47 [facility] Comment on above: Performed By: #### L 100.0600 ####[facility] [address] [place], [address] Hemoglobin (Bld) [Mass/Vol] 7.7 g/dL Low 12.0-15.0 [facility] Comment on above: Performed By: #### L 100.0600 ####[facility] [address] [place], [address] Hematocrit (Bld) [Volume fraction] 21.6 % Low 37-47 [facility] Comment on above: Performed By: #### L 100.0600 ####[facility] [address] [place], [address] Hemoglobin (Bld) [Mass/Vol] 7.3 g/dL Low 12.0-15.0 [facility] Comment on above: Performed By: #### L 100.0600 ####[facility] [address] [place], [address] MR/PN.GIon 07-22-2024 MR/PN.GI Normal [facility] MR/POSTOP.ANEon 07-22-2024 MR/POSTOP.ANE Normal [facility] MR/YCXWBLWG8xv 07-22-2024 MR/POSTOPAN2 Normal [facility] MR/POSTOPAN2 Normal [facility] Methadone, urineOrdered By: Junior Holloway on 07-22-2024 Urine Methadone Screen Negative < 300 ng/mL [facility] No Panel InformationOrdered By: Junior Holloway on 07-22-2024 Urine Drug Screen Comment [facility] Comment on above: CONFIRMATORY TESTING FOR ALL POSITIVE URINE DRUG SCREENRESULTS WILL ONLY BE SENT OUT UPON PHYSICIAN ORDER. VISTA Urine Drug Screen methods provide only preliminaryanalytical test results. A more specific alternate chemicalmethod must be used in order to obtain a confirmedanalytical result. Gas chromatography/mass spectrometery(GC/MS) is the preferred confirmatory method. Clinicalconsideration and professional judgement should be appliedto any drug of abuse test result, particularly whenpreliminary positive results are used. URINE TCA TESTING MUST BE ORDERED SEPARATELY. USE TESTMNEMONIC: UTCA Ovalocytes LM Ql (Bld)Ordere d By: Gogo Royal on 07-22-2024 Ovalocytes 1+ [facility] Platelets LM Ql (Bld)Ordered By: Gogo Royal on 07-22-2024 Platelet Estimate SLT DEC ADEQ [facility] Polychromasia LM Ql (Bld)Ord ered By: Gogo Royal on 07-22-2024 Polychromasia 1+ [facility] Quantitative urine opiates m easurementOrdered By: Junior Holloway on 07-22-2024 Opiates Ql (U) Positive High < 300 ng/mL [facility] Urine Drug Screen (VISTA)on 07-22-2024 AMPHETAMINES Negative Normal <1000 ng/mL [facility] Comment on above: Performed By: #### L 505.5000 ####[facility] [address] [place] [address] BARBITIURATES Negative Normal < 200 ng/mL [facility] Comment on above: Performed By: #### L 505.5000 ####[facility] [address] [place] [id number] BENZODIAZIPINE Negative Normal < 200 ng/mL [facility] Comment on above: Performed By: #### L 505.5000 ####[facility] [address] [place] [address] COCAINE Negative Normal < 300 ng/mL [facility] Comment on above: Performed By: #### L 505.5000 ####[facility] [address] [place] [address] ECSTACY Negative Normal < 500 ng/mL [facility] Comment on above: Performed By: #### L 505.5000 ####[facility] [address] [place] [address] METHADONE Negative Normal < 300 ng/mL [facility] Comment on above: Performed By: #### L 505.5000 ####[facility] [address] [place] [address] OPIATES Positive Abnormal < 300 ng/mL [facility] Comment on above: Performed By: #### L 505.5000 ####[facility] [address] [place] [address] PCP Negative Normal < 25 ng/mL [facility] Comment on above: Performed By: #### L 505.5000 ####[facility] [address] [place] [address] THC Positive Abnormal < 50 ng/mL [facility] Comment on above: Performed By: #### L 505.5000 ####[facility] [address] [place] [address] VISTA UDS PH 5 Normal [facility] Comment on above: Performed By: #### L 505.5000 ####[facility] [address] [place], [place], [id number] Urine amphetamine measuremen tOrdered By: Junior Friend on 07-22-2024 Amphetamines Ql (U) Negative <1000 ng/mL [facility] Urine barbiturates measureme ntOrdered By: Junior Friend on 07-22-2024 Urine Barbiturates Screen Negative < 200 ng/mL [facility] Urine benzodiazepine levelOr dered By: Junior Friend on 07-22-2024 Benzodiazepines Ql (U) Negative < 200 ng/mL [facility] Urine cocaine levelOrdered B y: Junior Friend on 07-22-2024 Cocaine Ql (U) Negative < 300 ng/mL [facility] Urine ksyjx-8-igoheriezmhznf abinol (THC) measurementOrdered By: Junior Friend on 07-22-2024 Cannabinoids Screen Ql (U) Positive High < 50 ng/mL [facility] Urine methylenedioxymethamph etamine (MDMA) measurementOrdered By: Junior Holloway on 07-22-2024 MDMA (Ecstasy) Screen Negative < 500 ng/mL [facility] Urine phencyclidine (PCP) de tectionOrdered By: Junior Friend on 07-22-2024 Phencyclidine Ql (U) Negative < 25 ng/mL [facility] Alcohol, Blood (Medical)-Ser umon 07-21-2024 SERUM ETOH < 3.0 Normal [facility] Comment on above: Result Comment: The serum:whole blood ethanol ratio is approximately 1.14and varies slightly with hematocrit.Medical Alcohol reference interval and critical value innon-tolerant individuals; 50 - 100 Impairment 100 Intoxication 100 - 250 Severe Poisoning 250 - 400 Deep/possible fatal coma Performed By: #### L 501.9100 ####[facility] [address] [place], [address] Ammoniaon 07-21-2024 Ammonia (P) [Moles/Vol] 42.0 umol/L High 11-32 [facility] Comment on above: Performed By: #### B TS, L503.5510 ####[facility] [address] [place], [address] Arterial patency Wrist arter y --pre arterial punctureOrdered By: Gogo Royal on 07-21-2024 Tamica Test Positive [facility] BRCon 07-21-2024 RC Normal [facility] Comment on above: Result Comment: [id number] BN RC TRANSFUSED 07/21/24 1551 Performed By: #### B RC ####[facility] [address] [place], [address] Base excess Calc (BldV) [Mol es/Vol]Ordered By: Gogo Royal on 07-21-2024 Blood Gas Base Excess 1 mmol/L -2-2 [facility] Basic Metabolic Profile (BMP )on 07-21-2024 BUN/CRE 34.7 RATIO High 10-20 [facility] Comment on above: Performed By: #### L 500.2500 ####[facility] [address] [place], [address] CA,Total 7.5 mg/dL Low 8.5-10.1 [facility] Comment on above: Performed By: #### L 500.2500 ####[facility] [address] [place], [address] Chloride [Moles/Vol] 111 mmol/L High 98-107 [facility] Comment on above: Performed By: #### L 500.2500 ####[facility] [address] [place], [address] CO2 [Moles/Vol] 25.0 mmol/L Normal 21.0-32.0 [facility] Comment on above: Performed By: #### L 500.2500 ####[facility] [address] [place], [address] Creatinine [Mass/Vol] 0.61 mg/dL Normal 0.55-1.02 [facility] Comment on above: Result Comment: The validity of the calculated GFR GFRAA in patients over70 years has not been determined. Clinical correlation isessential. Performed By: #### L 500.2500 ####[facility] [address] [place], [address] ECRCL 101.77 ml/min Normal [facility] Comment on above: Performed By: #### L 500.2500 ####[facility] [address] [place], [address] EST GFR - AA 139 mL/min Normal >60 [facility] Comment on above: Result Comment: Afri can Iraqi GFR Calc Performed By: #### L 500.2500 ####[facility] [address] [place], [address] GAP 5 Normal 5-15 [facility] Comment on above: Performed By: #### L 500.2500 ####[facility] [address] [place], [address] GFR/1.73 sq M.predicted among non-blacks MDRD (S/P/Bld) [Vol rate/Area] 115 mL/min/{1.73_m2} Normal >60 [facility] Comment on above: Result Comment: Non- GFR Calc Performed By: #### L 500.2500 ####[facility] [address] [place], [address] Glucose [Mass/Vol] 87 mg/dL Normal 74-106 [facility] Comment on above: Performed By: #### L 500.2500 ####[facility] [address] [place], [address] Potassium [Moles/Vol] 6.2 mmol/L Invalid Interpretation Code 3.5-5.1 [facility] Comment on above: Result Comment: Crit ical Result(s) Called at: 21:36:47 07/21/2024 by: SONIA HARRIS. Results read back by same. Performed By: #### L 500.2500 ####[facility] [address] [place], [address] Sodium [Moles/Vol] 141 mmol/L Normal 136-145 [facility] Comment on above: Performed By: #### L 500.2500 ####[facility] [address] [place], [address] Urea nitrogen [Mass/Vol] 21 mg/dL High 7-18 [facility] Comment on above: Performed By: #### L 500.2500 ####[facility] [address] [place], [address] BUN/CRE 34.5 RATIO High 10-20 [facility] Comment on above: Performed By: #### L 500.2500 ####[facility] [address] [place], [address] CA,Total 8.6 mg/dL Normal 8.5-10.1 [facility] Comment on above: Performed By: #### L 500.2500 ####[facility] [address] [place], [address] Chloride [Moles/Vol] 108 mmol/L High 98-107 [facility] Comment on above: Performed By: #### L 500.2500 ####[facility] [address] [place], [address] CO2 [Moles/Vol] 22.0 mmol/L Normal 21.0-32.0 [facility] Comment on above: Performed By: #### L 500.2500 ####[facility] [address] [place], [address] Creatinine [Mass/Vol] 0.64 mg/dL Normal 0.55-1.02 [facility] Comment on above: Result Comment: The validity of the calculated GFR GFRAA in patients over70 years has not been determined. Clinical correlation isessential. Performed By: #### L 500.2500 ####[facility] [address] [place], [address] ECRCL 96.28 ml/min Normal [facility] Comment on above: Performed By: #### L 500.2500 ####[facility] [address] [place], [address] EST GFR - AA 131 mL/min Normal >60 [facility] Comment on above: Result Comment: Afri can Iraqi GFR Calc Performed By: #### L 500.2500 ####[facility] [address] [place], [address] GAP 7 Normal 5-15 [facility] Comment on above: Performed By: #### L 500.2500 ####[facility] [address] [place], [address] GFR/1.73 sq M.predicted among non-blacks MDRD (S/P/Bld) [Vol rate/Area] 108 mL/min/{1.73_m2} Normal >60 [facility] Comment on above: Result Comment: Non- GFR Calc Performed By: #### L 500.2500 ####[facility] [address] [place], [address] Glucose [Mass/Vol] 121 mg/dL High 74-106 [facility] Comment on above: Result Comment: Fast ing Glucose result from 100 to 125 mg/dLsuggests IMPAIRED HOMEOSTASIS per A.D.A. criteria. Performed By: #### L 500.2500 ####[facility] [address] [place], [address] Potassium [Moles/Vol] 5.8 mmol/L High 3.5-5.1 [facility] Comment on above: Performed By: #### L 500.2500 ####[facility] [address] [place], [address] Sodium [Moles/Vol] 137 mmol/L Normal 136-145 [facility] Comment on above: Performed By: #### L 500.2500 ####[facility] [address] [place], [address] Urea nitrogen [Mass/Vol] 22 mg/dL High 7-18 [facility] Comment on above: Performed By: #### L 500.2500 ####[facility] [address] [place], [address] BUN/CRE 34.3 RATIO High 10-20 [facility] Comment on above: Performed By: #### L 500.3400, L501.2450, L300.3900, L100.0100, L300.4310, L500.2500 ####[facility] [address] [place], [address] CA,Total 8.4 mg/dL Low 8.5-10.1 [facility] Comment on above: Performed By: #### L 500.3400, L501.2450, L300.3900, L100.0100, L300.4310, L500.2500 ####[facility] [address] [place], [address] Chloride [Moles/Vol] 108 mmol/L High 98-107 [facility] Comment on above: Performed By: #### L 500.3400, L501.2450, L300.3900, L100.0100, L300.4310, L500.2500 ####[facility] [address] [place], [address] CO2 [Moles/Vol] 26.0 mmol/L Normal 21.0-32.0 [facility] Comment on above: Performed By: #### L 500.3400, L501.2450, L300.3900, L100.0100, L300.4310, L500.2500 ####[facility] [address] [place], [address] Creatinine [Mass/Vol] 0.61 mg/dL Normal 0.55-1.02 [facility] Comment on above: Result Comment: The validity of the calculated GFR GFRAA in patients over70 years has not been determined. Clinical correlation isessential. Performed By: #### L 500.3400, L501.2450, L300.3900, L100.0100, L300.4310, L500.2500 ####[facility] [address] [place], [place], [phone] ECRCL 101.01 ml/min Normal [facility] Comment on above: Performed By: #### L 500.3400, L501.2450, L300.3900, L100.0100, L300.4310, L500.2500 ####[facility] [address] [place] [id number] EST GFR - AA 137 mL/min Normal >60 [facility] Comment on above: Result Comment: Afri can Iraqi GFR Calc Performed By: #### L 500.3400, L501.2450, L300.3900, L100.0100, L300.4310, L500.2500 ####[facility] [address] [place], [place], [phone] GAP 3 Low 5-15 [facility] Comment on above: Performed By: #### L 500.3400, L501.2450, L300.3900, L100.0100, L300.4310, L500.2500 ####[facility] [address] [place], [place], [address] GFR/1.73 sq M.predicted among non-blacks MDRD (S/P/Bld) [Vol rate/Area] 113 mL/min/{1.73_m2} Normal >60 [facility] Comment on above: Result Comment: Non- GFR Calc Performed By: #### L 500.3400, L501.2450, L300.3900, L100.0100, L300.4310, L500.2500 ####[facility] [address] [place], [address] Glucose [Mass/Vol] 118 mg/dL High 74-106 [facility] Comment on above: Result Comment: Fast ing Glucose result from 100 to 125 mg/dLsuggests IMPAIRED HOMEOSTASIS per A.D.A. criteria. Performed By: #### L 500.3400, L501.2450, L300.3900, L100.0100, L300.4310, L500.2500 ####[facility] [address] [place], [address] Potassium [Moles/Vol] 5.8 mmol/L High 3.5-5.1 [facility] Comment on above: Performed By: #### L 500.3400, L501.2450, L300.3900, L100.0100, L300.4310, L500.2500 ####[facility] [address] [place], [address] Sodium [Moles/Vol] 137 mmol/L Normal 136-145 [facility] Comment on above: Performed By: #### L 500.3400, L501.2450, L300.3900, L100.0100, L300.4310, L500.2500 ####[facility] [address] [place], [address] Urea nitrogen [Mass/Vol] 21 mg/dL High 7-18 [facility] Comment on above: Performed By: #### L 500.3400, L501.2450, L300.3900, L100.0100, L300.4310, L500.2500 ####[facility] [address] [place], [address] Bilirubin directOrdered By: Eric Singh on 07-21-2024 Bilirubin.direct [Mass/Vol] 0.53 mg/dL High 0.00-0.30 [facility] T[facility]ICA [facility] Positive Normal [facility] Comment on above: Performed By: #### L 9000.0800 ####[facility] [address] [place], [address] Base excess Calc (Bld) [Moles/Vol] 1 mmol/L Normal -2 to +2 [facility] Comment on above: Performed By: #### L 9000.0800 ####[facility] [address] [place], [address] Blood Gas Type ART Normal [facility] Comment on above: Performed By: #### L 9000.0800 ####[facility] [address] [place], [address] CO2 [Moles/Vol] 26 mmol/L Normal [facility] Comment on above: Performed By: #### L 9000.0800 ####[facility] [address] [place], [address] HCO3 (Bld) [Moles/Vol] 24.5 mmol/L Normal 22-26 [facility] Comment on above: Performed By: #### L 9000.0800 ####[facility] [address] [place], [address] Mode Not entered Normal [facility] Comment on above: Performed By: #### L 9000.0800 ####[facility] [address] [place], [address] O2 Delivery Dev Room Air Normal [facility] Comment on above: Performed By: #### L 9000.0800 ####[facility] [address] [place], [address] pCO2 35.4 mmHg Normal 35-45 [facility] Comment on above: Performed By: #### L 9000.0800 ####[facility] [address] [place], [address] pH (Bld) 7.45 [pH] Normal 7.35-7.45 [facility] Comment on above: Performed By: #### L 9000.0800 ####[facility] [address] [place], [address] PO2 87 mmHG Normal 75-100 [facility] Comment on above: Performed By: #### L 9000.0800 ####[facility] [address] [place], [address] SITE R Radial Normal [facility] Comment on above: Performed By: #### L 9000.0800 ####[facility] [address] [place], [address] SO2 97 Normal 95-99 [facility] Comment on above: Performed By: #### L 9000.0800 ####[facility] [address] [place], [address] Blood bicarbonate measuremen tOrdered By: Gogo Royal on 07-21-2024 Blood Gas Bicarbonate Actual 24.5 mmol/L [facility] CBC W/Diff, Automatedon 07-07 Absolute Lymph 2.37 X10 3/uL Normal 0.83-4.51 [facility] Comment on above: Performed By: #### L 500.3400, L501.2450, L300.3900, L100.0100, L300.4310, L500.2500 ####[facility] [address] [place], [address] Absolute Neut 10.2 X10 3/uL High 2.0-7.7 [facility] Comment on above: Performed By: #### L 500.3400, L501.2450, L300.3900, L100.0100, L300.4310, L500.2500 ####[facility] [address] [place], [address] Basophils/100 WBC (Bld) 0.4 % Normal 0-1 [facility] Comment on above: Performed By: #### L 500.3400, L501.2450, L300.3900, L100.0100, L300.4310, L500.2500 ####[facility] [address] [place], [address] Eosinophils/100 WBC (Bld) 0.3 % Normal 0-5 [facility] Comment on above: Performed By: #### L 500.3400, L501.2450, L300.3900, L100.0100, L300.4310, L500.2500 ####[facility] [address] [place], [address] Erythrocyte distribution width (RBC) [Ratio] 17.8 % High 11.6-14.6 [facility] Comment on above: Performed By: #### L 500.3400, L501.2450, L300.3900, L100.0100, L300.4310, L500.2500 ####[facility] [address] [place], [address] Hematocrit (Bld) [Volume fraction] 21.9 % Low 37-47 [facility] Comment on above: Performed By: #### L 500.3400, L501.2450, L300.3900, L100.0100, L300.4310, L500.2500 ####[facility] [address] [place], [address] Hemoglobin (Bld) [Mass/Vol] 7.4 g/dL Low 12.0-15.0 [facility] Comment on above: Performed By: #### L 500.3400, L501.2450, L300.3900, L100.0100, L300.4310, L500.2500 ####[facility] [address] [place], [address] IG% 1.900 High 0.0-0.9 [facility] Comment on above: Result Comment: IG% - Immature Granulocytes (promyelocytes, myelocytes andmetamyelocytes) > 1% indicates that a LEFT SHIFT is Present. Performed By: #### L 500.3400, L501.2450, L300.3900, L100.0100, L300.4310, L500.2500 ####[facility] [address] [place], [address] Lymphocytes/100 WBC (Bld) 17.2 % Low 19-41 [facility] Comment on above: Performed By: #### L 500.3400, L501.2450, L300.3900, L100.0100, L300.4310, L500.2500 ####[facility] [address] [place], [address] MCH (RBC) [Entitic mass] 33.3 pg High 27.0-32.0 [facility] Comment on above: Performed By: #### L 500.3400, L501.2450, L300.3900, L100.0100, L300.4310, L500.2500 ####[facility] [address] [place], [address] MCHC (RBC) [Mass/Vol] 33.8 g/dL Normal 32-36 [facility] Comment on above: Performed By: #### L 500.3400, L501.2450, L300.3900, L100.0100, L300.4310, L500.2500 ####[facility] [address] [place], [address] MCV (RBC) [Entitic vol] 98.6 fL Normal 81-99 [facility] Comment on above: Performed By: #### L 500.3400, L501.2450, L300.3900, L100.0100, L300.4310, L500.2500 ####[facility] [address] [place], [address] Monocytes/100 WBC (Bld) 6.1 % Normal 0-10 [facility] Comment on above: Performed By: #### L 500.3400, L501.2450, L300.3900, L100.0100, L300.4310, L500.2500 ####[facility] [address] [place], [address] Neutrophils/100 WBC (Bld) 74.1 % High 47-70 [facility] Comment on above: Performed By: #### L 500.3400, L501.2450, L300.3900, L100.0100, L300.4310, L500.2500 ####[facility] [address] [place], [address] Nucleated RBC (Bld) [#/Vol] 0 10*3/uL Normal 0-5 [facility] Comment on above: Performed By: #### L 500.3400, L501.2450, L300.3900, L100.0100, L300.4310, L500.2500 ####[facility] [address] [place], [address] Platelet mean volume (Bld) [Entitic vol] 10.7 fL Normal 6.2-12.0 [facility] Comment on above: Performed By: #### L 500.3400, L501.2450, L300.3900, L100.0100, L300.4310, L500.2500 ####[facility] [address] [place], [address] Platelets (Bld) [#/Vol] 134 10*3/uL Low 150-450 [facility] Comment on above: Performed By: #### L 500.3400, L501.2450, L300.3900, L100.0100, L300.4310, L500.2500 ####[facility] [address] [place], [address] RBC (Bld) [#/Vol] 2.22 10*6/uL Low 4.2-5.4 [facility] Comment on above: Performed By: #### L 500.3400, L501.2450, L300.3900, L100.0100, L300.4310, L500.2500 ####[facility] [address] [place], [address] RDW SD 64.0 fl High 35.1-43.9 [facility] Comment on above: Performed By: #### L 500.3400, L501.2450, L300.3900, L100.0100, L300.4310, L500.2500 ####[facility] [address] [place], [place], [address] WBC (Bld) [#/Vol] 13.8 10*3/uL High 4.4-11.0 [facility] Comment on above: Performed By: #### L 500.3400, L501.2450, L300.3900, L100.0100, L300.4310, L500.2500 ####[facility] [address] [place], [place], [id number] Emergency Department Summary on 07-21-2024 Emergency Department Summary Normal [facility] Ferritinon 07-21-2024 Ferritin [Mass/Vol] 1111 ng/mL High 8-252 [facility] Comment on above: Performed By: #### L 501.5200, L100.9950, L503.6550, L503.6030 ####[facility] [address] [place], [place], [id number] Ferritin measurementOrdered By: Gogo Royal on 07-21-2024 Ferritin [Mass/Vol] 1111 ng/mL High 8-252 [facility] H AND P Exam - Hospitaliston 07-21-2024 H&P Exam - Hospitalist Normal [facility] HH, Hemoglobin AND Hematocri ton 07-21-2024 Hematocrit (Bld) [Volume fraction] 22.2 % Low 37-47 [facility] Comment on above: Performed By: #### L 100.0600 ####[facility] [address] [place], [address] Hemoglobin (Bld) [Mass/Vol] 7.6 g/dL Low 12.0-15.0 [facility] Comment on above: Performed By: #### L 100.0600 ####[facility] [address] [place], [address] Hemoglobin (Reticulocytes) [ Entitic mass]Ordered By: Gogo Royal on 07-21-2024 Reticulocyte Hemoglobin Equivalent 33.0 pg 30-35 [facility] Immature reticulocyte fracti onOrdered By: Gogo Royal on 07-21-2024 Immature Reticulocyte Fraction 24.00 % High 3.00-15.90 [facility] International normalized rat io (INR) calculationOrdered By: Eric Singh on 07-21-2024 INR Coag (Bld) [Relative time] 1.4 {INR} [facility] Iron (Unsp spec) [Mass/Mass] Ordered By: Gogo Royal on 07-21-2024 Iron [Mass/Vol] 74 ug/dL 50-170 [facility] Iron saturation [Mass fracti on]Ordered By: Gogo Royal on 07-21-2024 Iron Saturation 30.0 % 15.0-55.0 [facility] Iron+Iron Binding Capacityon 07-21-2024 Iron [Mass/Vol] 74 ug/dL Normal 50-170 [facility] Comment on above: Performed By: #### L 501.5200, L100.9950, L503.6550, L503.6030 ####[facility] [address] [place], [address] IRON SATURATION 30.0 Normal 15.0-55.0 [facility] Comment on above: Performed By: #### L 501.5200, L100.9950, L503.6550, L503.6030 ####[facility] [address] [place], [address] TIBC 247 ug/dL Low 250-450 [facility] Comment on above: Performed By: #### L 501.5200, L100.9950, L503.6550, L503.6030 ####[facility] [address] [place], [address] Lipaseon 07-21-2024 Lipase [Catalytic activity/Vol] 49 U/L Normal 13-75 [facility] Comment on above: Result Comment: Isaias paris note:LIPASE revised reference range effective 22.New Lipase methodology. Expected to produce lower valuesthan the previous assay method.NEW Reference Range: 13 - 75 U/L Performed By: #### L 500.3400, L501.2450, L300.3900, L100.0100, L300.4310, L500.2500 ####[facility] [address] [place], [address] Lipase measurementOrdered By : Eric Singh on 07-21-2024 Lipase [Catalytic activity/Vol] 49 U/L 13-75 [facility] Comment on above: Please note:LIPASE r evised reference range effective 22. New Lipase methodology. Expected to produce lower values than the previous assay method. NEW Reference Range: 13 - 75 U/L Liver Profileon 07-21-2024 Albumin [Mass/Vol] 2.0 g/dL Low 3.2-5.0 [facility] Comment on above: Performed By: #### L 500.3400, L501.2450, L300.3900, L100.0100, L300.4310, L500.2500 ####[facility] [address] [place], [address] ALK P 76 U/L Normal 45-117 [facility] Comment on above: Performed By: #### L 500.3400, L501.2450, L300.3900, L100.0100, L300.4310, L500.2500 ####[facility] [address] [place], [address] ALT [Catalytic activity/Vol] 83 U/L High 13-56 [facility] Comment on above: Performed By: #### L 500.3400, L501.2450, L300.3900, L100.0100, L300.4310, L500.2500 ####[facility] [address] [place], [address] AST [Catalytic activity/Vol] 143 U/L High 15-37 [facility] Comment on above: Performed By: #### L 500.3400, L501.2450, L300.3900, L100.0100, L300.4310, L500.2500 ####[facility] [address] [place], [address] Bilirubin [Mass/Vol] 1.00 mg/dL Normal 0.20-1.00 [facility] Comment on above: Result Comment: For patients on eltrombopag therapy, use of Dimension [place] TBIL is not recommended. Performed By: #### L 500.3400, L501.2450, L300.3900, L100.0100, L300.4310, L500.2500 ####[facility] [address] [place], [address] Bilirubin.direct [Mass/Vol] 0.53 mg/dL High 0.00-0.30 [facility] Comment on above: Performed By: #### L 500.3400, L501.2450, L300.3900, L100.0100, L300.4310, L500.2500 ####[facility] [address] [place], [address] Globulin (S) [Mass/Vol] 3.5 g/dL Normal 2.2-4.2 [facility] Comment on above: Performed By: #### L 500.3400, L501.2450, L300.3900, L100.0100, L300.4310, L500.2500 ####[facility] [address] [place], [address] T PROT 5.5 g/dL Low 6.4-8.2 [facility] Comment on above: Performed By: #### L 500.3400, L501.2450, L300.3900, L100.0100, L300.4310, L500.2500 ####[facility] [address] [place], [address] MR/CON.PCM.GIon 07-21-2024 MR/CON.PCM.GI Normal [facility] MR/POSTOP.ANEon 07-21-2024 MR/POSTOP.ANE Normal [facility] Magnesiumon 07-21-2024 Magnesium [Mass/Vol] 2.0 mg/dL Normal 1.6-2.6 [facility] Comment on above: Performed By: #### L 501.5200, L100.9950, L503.6550, L503.6030 ####[facility] [address] [place], [place], [id number] Magnesium measurementOrdered By: Eric Singh on 07-21-2024 Magnesium [Mass/Vol] 2.0 mg/dL 1.6-2.6 [facility] No Panel InformationOrdered By: Gogo Royal on 07-21-2024 Blood Gas Sample Site R Radial [facility] Blood Gas Specimen Type ART [facility] Blood Gas Vent Mode Not entered [facility] Oxygen Delivery Device Room Air [facility] Oxygen saturation measuremen tOrdered By: Gogo Royal on 07-21-2024 Blood Gas Oxygen Saturation 97 % 95-99 [facility] Partial Thromboplast Timeon 07-21-2024 aPTT Coag (Bld) [Time] 28.2 s Normal 24.1-36.[address] [facility] Comment on above: Performed By: #### L 500.3400, L501.2450, L300.3900, L100.0100, L300.4310, L500.2500 ####[facility] [address] [place], [place], [address] Partial pressure of carbon d ioxide measurementOrdered By: Gogo Royal on 07-21-2024 Arterial Blood Partial Pressure CO2 35.4 mmHg 35-45 [facility] Partial pressure of oxygen m easurementOrdered By: Gogo Royal on 07-21-2024 Arterial Blood Partial Pressure O2 87 mmHG 75-100 [facility] Phosphoruson 07-21-2024 Phosphate [Mass/Vol] 3.9 mg/dL Normal 2.5-4.9 [facility] Comment on above: Performed By: #### L 501.2300 ####[facility] [address] [place], [place], [id number] Phosphorus measurementOrdere d By: Eric Singh on 07-21-2024 Phosphorus Level 3.9 mg/dL 2.5-4.9 [facility] Prothrombin Time w/INRon INR Coag (PPP) [Relative time] 1.4 {INR} Normal [facility] Comment on above: Performed By: #### L 500.3400, L501.2450, L300.3900, L100.0100, L300.4310, L500.2500 ####[facility] [address] [place], [place], [address] PT Coag (PPP) [Time] 17.3 s High 11.7-14.9 [facility] Comment on above: Performed By: #### L 500.3400, L501.2450, L300.3900, L100.0100, L300.4310, L500.2500 ####[facility] [address] [place], [address] Prothrombin timeOrdered By: Eric Singh on 07-21-2024 PT Coag (PPP) [Time] 17.3 s High 11.7-14.9 [facility] Retic Panelon 07-21-2024 IM RET FRACTION 24.00 High 3.00-15.90 [facility] Comment on above: Performed By: #### L 501.5200, L100.9950, L503.6550, L503.6030 ####[facility] [address] [place], [address] RET-HE 33.0 pg Normal 30-35 [facility] Comment on above: Performed By: #### L 501.5200, L100.9950, L503.6550, L503.6030 ####[facility] [address] [place], [address] Retic Count 6.73 High 0.5-1.5 [facility] Comment on above: Performed By: #### L 501.5200, L100.9950, L503.6550, L503.6030 ####[facility] [address] [place], [address] Reticulocytes Auto (Bld) [#/ Vol]Ordered By: Gogo Royal on 07-21-2024 Reticulocyte Count 6.73 % High 0.5-1.5 [facility] Serum ethanol measurementOrd ered By: Eric Singh on 07-21-2024 Ethyl Alcohol Level < 3.0 mg/dL [facility] Comment on above: The serum:whole bloo d ethanol ratio is approximately 1.14and varies slightly with hematocrit. Medical Alcohol reference interval and critical value innon-tolerant individuals; 50 - 100 Impairment 100 Intoxication 100 - 250 Severe Poisoning 250 - 400 Deep/possible fatal coma TIBCOrdered By: Gogo Royal on 07-21-2024 Total Iron Binding Capacity 247 ug/dL Low 250-450 [facility] Total carbon dioxide measure mentOrdered By: Gogo Royal on 07-21-2024 Blood Gas Total CO2 26 mmol/L [facility] Type AND Screenon 07-21-2024 Ab SCREEN GEL Negative Normal [facility] Comment on above: Order Comment: HGI Performed By: #### B TS, L503.5510 ####[facility] [address] [place], [address] Venous blood ammonia measure mentOrdered By: Eric Singh on 07-21-2024 Ammonia (P) [Moles/Vol] 42.0 umol/L High 11-32 [facility] aPTT Coag (PPP) [Time]Ordere d By: Eric Singh on 07-21-2024 aPTT Coag (Bld) [Time] 28.2 s 24.1-36.[address] [facility] pH (Unsp spec)Ordered By: Carson Royal on 07-21-2024 Blood Gas pH 7.45 7.35-7.45 [facility] CBC W/Diff, Automatedon 07-07 Absolute Neut Normal 2.0-7.7 [facility] Comment on above: Result Comment: Canc elled via OM: Order cancelled - Patient discharged Performed By: #### L 500.4050, L100.0100 ####[facility] [address] [place], [address] HCT Normal 37-47 [facility] Comment on above: Result Comment: Canc elled via OM: Order cancelled - Patient discharged Performed By: #### L 500.4050, L100.0100 ####[facility] [address] [place], [address] HGB Normal 12.0-15.0 [facility] Comment on above: Result Comment: Canc elled via OM: Order cancelled - Patient discharged Performed By: #### L 500.4050, L100.0100 ####[facility] [address] [place], [address] MCH Normal 27.0-32.0 [facility] Comment on above: Result Comment: Canc elled via OM: Order cancelled - Patient discharged Performed By: #### L 500.4050, L100.0100 ####[facility] [address] [place], [address] MCHC Normal 32-36 [facility] Comment on above: Result Comment: Canc elled via OM: Order cancelled - Patient discharged Performed By: #### L 500.4050, L100.0100 ####[facility] [address] [place], [address] MCV Normal 81-99 [facility] Comment on above: Result Comment: Canc elled via OM: Order cancelled - Patient discharged Performed By: #### L 500.4050, L100.0100 ####[facility] [address] [place], [address] NEUT% Normal 47-70 [facility] Comment on above: Result Comment: Canc elled via OM: Order cancelled - Patient discharged Performed By: #### L 500.4050, L100.0100 ####[facility] [address] [place], [address] PLT Normal 150-450 [facility] Comment on above: Result Comment: Canc elled via OM: Order cancelled - Patient discharged Performed By: #### L 500.4050, L100.0100 ####[facility] [address] [place], [address] RBC Normal 4.2-5.4 [facility] Comment on above: Result Comment: Canc elled via OM: Order cancelled - Patient discharged Performed By: #### L 500.4050, L100.0100 ####[facility] [address] [place], [address] RDW CV Normal 11.6-14.6 [facility] Comment on above: Result Comment: Canc elled via OM: Order cancelled - Patient discharged Performed By: #### L 500.4050, L100.0100 ####[facility] [address] [place], [address] RDW SD Normal 35.1-43.9 [facility] Comment on above: Result Comment: Canc elled via OM: Order cancelled - Patient discharged Performed By: #### L 500.4050, L100.0100 ####[facility] [address] [place], [address] WBC Normal 4.4-11.0 [facility] Comment on above: Result Comment: Canc elled via OM: Order cancelled - Patient discharged Performed By: #### L 500.4050, L100.0100 ####[facility] [address] [place], [address] Comprehensive Metabolic Prof ilon 07-18-2024 ALB Normal 3.2-5.0 [facility] Comment on above: Result Comment: Canc elled via OM: Order cancelled - Patient discharged Performed By: #### L 500.4050, L100.0100 ####[facility] [address] [place], [address] ALK P Normal 45-117 [facility] Comment on above: Result Comment: Canc elled via OM: Order cancelled - Patient discharged Performed By: #### L 500.4050, L100.0100 ####[facility] [address] [place], [address] ALT Normal 13-56 [facility] Comment on above: Result Comment: Canc elled via OM: Order cancelled - Patient discharged Performed By: #### L 500.4050, L100.0100 ####[facility] [address] [place], [address] AST Normal 15-37 [facility] Comment on above: Result Comment: Canc elled via OM: Order cancelled - Patient discharged Performed By: #### L 500.4050, L100.0100 ####[facility] [address] [place], [address] BUN Normal 7-18 [facility] Comment on above: Result Comment: Canc elled via OM: Order cancelled - Patient discharged Performed By: #### L 500.4050, L100.0100 ####[facility] [address] [place], [address] BUN/CRE Normal 10-20 [facility] Comment on above: Result Comment: Canc elled via OM: Order cancelled - Patient discharged Performed By: #### L 500.4050, L100.0100 ####[facility] [address] [place], [address] CA,Total Normal 8.5-10.1 [facility] Comment on above: Result Comment: Canc elled via OM: Order cancelled - Patient discharged Performed By: #### L 500.4050, L100.0100 ####[facility] [address] [place], [address] CL Normal 98-107 [facility] Comment on above: Result Comment: Canc elled via OM: Order cancelled - Patient discharged Performed By: #### L 500.4050, L100.0100 ####[facility] [address] [place], [address] CO2 Normal 21.0-32.0 [facility] Comment on above: Result Comment: Canc elled via OM: Order cancelled - Patient discharged Performed By: #### L 500.4050, L100.0100 ####[facility] [address] [place], [address] CREAT,SERUM Normal 0.55-1.02 [facility] Comment on above: Result Comment: Canc elled via OM: Order cancelled - Patient discharged Performed By: #### L 500.4050, L100.0100 ####[facility] [address] [place], [address] EST GFR Normal >60 [facility] Comment on above: Result Comment: Canc elled via OM: Order cancelled - Patient discharged Performed By: #### L 500.4050, L100.0100 ####[facility] [address] [place], [address] EST GFR - AA Normal >60 [facility] Comment on above: Result Comment: Canc elled via OM: Order cancelled - Patient discharged Performed By: #### L 500.4050, L100.0100 ####[facility] [address] [place], [address] GAP Normal 5-15 [facility] Comment on above: Result Comment: Canc elled via OM: Order cancelled - Patient discharged Performed By: #### L 500.4050, L100.0100 ####[facility] [address] [place], [address] GLU Normal 74-106 [facility] Comment on above: Result Comment: Canc elled via OM: Order cancelled - Patient discharged Performed By: #### L 500.4050, L100.0100 ####[facility] [address] [place], [address] Potassium Normal 3.5-5.1 [facility] Comment on above: Result Comment: Canc elled via OM: Order cancelled - Patient discharged Performed By: #### L 500.4050, L100.0100 ####[facility] [address] [place], [address] T BILI Normal 0.20-1.00 [facility] Comment on above: Result Comment: Canc elled via OM: Order cancelled - Patient discharged Performed By: #### L 500.4050, L100.0100 ####[facility] [address] [place], [address] T PROT Normal 6.4-8.2 [facility] Comment on above: Result Comment: Canc elled via OM: Order cancelled - Patient discharged Performed By: #### L 500.4050, L100.0100 ####[facility] [address] [place], [address] Comprehensive Metabolic Profil Normal 136-145 [facility] Comment on above: Result Comment: Canc elled via OM: Order cancelled - Patient discharged Performed By: #### L 500.4050, L100.0100 ####[facility] [address] [place], [address] Culture, Anaerobic Any Sourc faheem 07-18-2024 CUAN No growth in 5 days. Normal [facility] Comment on above: Performed By: #### M 100.2000, M100.4001, M100.2900 ####[facility] [address] [place], [address] L501.1810on 07-18-2024 Albumin [Mass/Vol] 0.4 g/dL Normal Not Estab. [facility] Comment on above: Result Comment: The reference interval(s) and other method performance specificationshave not been established for this body fluid. The test result must beintegrated into the clinical context for interpretation.Performed at: [facility] [address] [id number] Director: Floyd Sandra PhD, Phone: [phone] Performed By: #### L 501.1810 ####[facility] [address] [place], [address] CBC W/Diff, Automatedon 07-07 Absolute Neut Normal 2.0-7.7 [facility] Comment on above: Result Comment: Canc elled via OM: Order cancelled - Patient discharged Performed By: #### L 100.0100 ####[facility] [address] [place], [address] HCT Normal 37-47 [facility] Comment on above: Result Comment: Canc elled via OM: Order cancelled - Patient discharged Performed By: #### L 100.0100 ####[facility] [address] [place], [address] HGB Normal 12.0-15.0 [facility] Comment on above: Result Comment: Canc elled via OM: Order cancelled - Patient discharged Performed By: #### L 100.0100 ####[facility] [address] [place], [address] MCH Normal 27.0-32.0 [facility] Comment on above: Result Comment: Canc elled via OM: Order cancelled - Patient discharged Performed By: #### L 100.0100 ####[facility] [address] [place], [address] MCHC Normal 32-36 [facility] Comment on above: Result Comment: Canc elled via OM: Order cancelled - Patient discharged Performed By: #### L 100.0100 ####[facility] [address] [place], [address] MCV Normal 81-99 [facility] Comment on above: Result Comment: Canc elled via OM: Order cancelled - Patient discharged Performed By: #### L 100.0100 ####[facility] [address] [place], [address] NEUT% Normal 47-70 [facility] Comment on above: Result Comment: Canc elled via OM: Order cancelled - Patient discharged Performed By: #### L 100.0100 ####[facility] [address] [place], [address] PLT Normal 150-450 [facility] Comment on above: Result Comment: Canc elled via OM: Order cancelled - Patient discharged Performed By: #### L 100.0100 ####[facility] [address] [place], [address] RBC Normal 4.2-5.4 [facility] Comment on above: Result Comment: Canc elled via OM: Order cancelled - Patient discharged Performed By: #### L 100.0100 ####[facility] [address] [place], [address] RDW CV Normal 11.6-14.6 [facility] Comment on above: Result Comment: Canc elled via OM: Order cancelled - Patient discharged Performed By: #### L 100.0100 ####[facility] [address] [place], [address] RDW SD Normal 35.1-43.9 [facility] Comment on above: Result Comment: Canc elled via OM: Order cancelled - Patient discharged Performed By: #### L 100.0100 ####[facility] [address] [place], [address] WBC Normal 4.4-11.0 [facility] Comment on above: Result Comment: Canc elled via OM: Order cancelled - Patient discharged Performed By: #### L 100.0100 ####[facility] [address] [place], [address] Comprehensive Metabolic Prof ilon 07-17-2024 ALB Normal 3.2-5.0 [facility] Comment on above: Result Comment: Canc elled via OM: Order cancelled - Patient discharged Performed By: #### L 500.4050 ####[facility] [address] [place], [address] ALK P Normal 45-117 [facility] Comment on above: Result Comment: Canc elled via OM: Order cancelled - Patient discharged Performed By: #### L 500.4050 ####[facility] [address] [place], [address] ALT Normal 13-56 [facility] Comment on above: Result Comment: Canc elled via OM: Order cancelled - Patient discharged Performed By: #### L 500.4050 ####[facility] [address] [place], [address] AST Normal 15-37 [facility] Comment on above: Result Comment: Canc elled via OM: Order cancelled - Patient discharged Performed By: #### L 500.4050 ####[facility] [address] [place], [address] BUN Normal 7-18 [facility] Comment on above: Result Comment: Canc elled via OM: Order cancelled - Patient discharged Performed By: #### L 500.4050 ####[facility] [address] [place], [address] BUN/CRE Normal 10-20 [facility] Comment on above: Result Comment: Canc elled via OM: Order cancelled - Patient discharged Performed By: #### L 500.4050 ####[facility] [address] [place], [address] CA,Total Normal 8.5-10.1 [facility] Comment on above: Result Comment: Canc elled via OM: Order cancelled - Patient discharged Performed By: #### L 500.4050 ####[facility] [address] [place], [address] CL Normal 98-107 [facility] Comment on above: Result Comment: Canc elled via OM: Order cancelled - Patient discharged Performed By: #### L 500.4050 ####[facility] [address] [place], [address] CO2 Normal 21.0-32.0 [facility] Comment on above: Result Comment: Canc elled via OM: Order cancelled - Patient discharged Performed By: #### L 500.4050 ####[facility] [address] [place], [address] CREAT,SERUM Normal 0.55-1.02 [facility] Comment on above: Result Comment: Canc elled via OM: Order cancelled - Patient discharged Performed By: #### L 500.4050 ####[facility] [address] [place], [address] EST GFR Normal >60 [facility] Comment on above: Result Comment: Canc elled via OM: Order cancelled - Patient discharged Performed By: #### L 500.4050 ####[facility] [address] [place], [address] EST GFR - AA Normal >60 [facility] Comment on above: Result Comment: Canc elled via OM: Order cancelled - Patient discharged Performed By: #### L 500.4050 ####[facility] [address] [place], [address] GAP Normal 5-15 [facility] Comment on above: Result Comment: Canc elled via OM: Order cancelled - Patient discharged Performed By: #### L 500.4050 ####[facility] [address] [place], [address] GLU Normal 74-106 [facility] Comment on above: Result Comment: Canc elled via OM: Order cancelled - Patient discharged Performed By: #### L 500.4050 ####[facility] [address] [place], [address] Potassium Normal 3.5-5.1 [facility] Comment on above: Result Comment: Canc elled via OM: Order cancelled - Patient discharged Performed By: #### L 500.4050 ####[facility] [address] [place], [address] T BILI Normal 0.20-1.00 [facility] Comment on above: Result Comment: Canc elled via OM: Order cancelled - Patient discharged Performed By: #### L 500.4050 ####[facility] [address] [place], [address] T PROT Normal 6.4-8.2 [facility] Comment on above: Result Comment: Canc elled via OM: Order cancelled - Patient discharged Performed By: #### L 500.4050 ####[facility] [address] [place], [address] Comprehensive Metabolic Profil Normal 136-145 [facility] Comment on above: Result Comment: Canc elled via OM: Order cancelled - Patient discharged Performed By: #### L 500.4050 ####[facility] [address] [place], [address] Body Fluid Culton 07-16-2024 BFC Culture exhibits no growth. Normal [facility] Comment on above: Performed By: #### M 100.2000, M100.4001, M100.2900 ####[facility] [address] [place], [address] CBC W/Diff, Automatedon 07-07 Absolute Neut Normal 2.0-7.7 [facility] Comment on above: Result Comment: Canc elled via OM: Order cancelled - Patient discharged Performed By: #### L 100.0100 ####[facility] [address] [place], [address] HCT Normal 37-47 [facility] Comment on above: Result Comment: Canc elled via OM: Order cancelled - Patient discharged Performed By: #### L 100.0100 ####[facility] [address] [place], [address] HGB Normal 12.0-15.0 [facility] Comment on above: Result Comment: Canc elled via OM: Order cancelled - Patient discharged Performed By: #### L 100.0100 ####[facility] [address] [place], [address] MCH Normal 27.0-32.0 [facility] Comment on above: Result Comment: Canc elled via OM: Order cancelled - Patient discharged Performed By: #### L 100.0100 ####[facility] [address] [place], [address] MCHC Normal 32-36 [facility] Comment on above: Result Comment: Canc elled via OM: Order cancelled - Patient discharged Performed By: #### L 100.0100 ####[facility] [address] [place], [address] MCV Normal 81-99 [facility] Comment on above: Result Comment: Canc elled via OM: Order cancelled - Patient discharged Performed By: #### L 100.0100 ####[facility] [address] [place], [address] NEUT% Normal 47-70 [facility] Comment on above: Result Comment: Canc elled via OM: Order cancelled - Patient discharged Performed By: #### L 100.0100 ####[facility] [address] [place], [address] PLT Normal 150-450 [facility] Comment on above: Result Comment: Canc elled via OM: Order cancelled - Patient discharged Performed By: #### L 100.0100 ####[facility] [address] [place], [address] RBC Normal 4.2-5.4 [facility] Comment on above: Result Comment: Canc elled via OM: Order cancelled - Patient discharged Performed By: #### L 100.0100 ####[facility] [address] [place], [address] RDW CV Normal 11.6-14.6 [facility] Comment on above: Result Comment: Canc elled via OM: Order cancelled - Patient discharged Performed By: #### L 100.0100 ####[facility] [address] [place], [address] RDW SD Normal 35.1-43.9 [facility] Comment on above: Result Comment: Canc elled via OM: Order cancelled - Patient discharged Performed By: #### L 100.0100 ####[facility] [address] [place], [address] WBC Normal 4.4-11.0 [facility] Comment on above: Result Comment: Canc elled via OM: Order cancelled - Patient discharged Performed By: #### L 100.0100 ####[facility] [address] [place], [address] Comprehensive Metabolic Prof ilon 07-16-2024 ALB Normal 3.2-5.0 [facility] Comment on above: Result Comment: Canc elled via OM: Order cancelled - Patient discharged Performed By: #### L 500.4050 ####[facility] [address] [place], [address] ALK P Normal 45-117 [facility] Comment on above: Result Comment: Canc elled via OM: Order cancelled - Patient discharged Performed By: #### L 500.4050 ####[facility] [address] [place], [address] ALT Normal 13-56 [facility] Comment on above: Result Comment: Canc elled via OM: Order cancelled - Patient discharged Performed By: #### L 500.4050 ####[facility] [address] [place], [address] AST Normal 15-37 [facility] Comment on above: Result Comment: Canc elled via OM: Order cancelled - Patient discharged Performed By: #### L 500.4050 ####[facility] [address] [place], [address] BUN Normal 7-18 [facility] Comment on above: Result Comment: Canc elled via OM: Order cancelled - Patient discharged Performed By: #### L 500.4050 ####[facility] [address] [place], [address] BUN/CRE Normal 10-20 [facility] Comment on above: Result Comment: Canc elled via OM: Order cancelled - Patient discharged Performed By: #### L 500.4050 ####[facility] [address] [place], [address] CA,Total Normal 8.5-10.1 [facility] Comment on above: Result Comment: Canc elled via OM: Order cancelled - Patient discharged Performed By: #### L 500.4050 ####[facility] [address] [place], [address] CL Normal 98-107 [facility] Comment on above: Result Comment: Canc elled via OM: Order cancelled - Patient discharged Performed By: #### L 500.4050 ####[facility] [address] [place], [address] CO2 Normal 21.0-32.0 [facility] Comment on above: Result Comment: Canc elled via OM: Order cancelled - Patient discharged Performed By: #### L 500.4050 ####[facility] [address] [place], [address] CREAT,SERUM Normal 0.55-1.02 [facility] Comment on above: Result Comment: Canc elled via OM: Order cancelled - Patient discharged Performed By: #### L 500.4050 ####[facility] [address] [place], [address] EST GFR Normal >60 [facility] Comment on above: Result Comment: Canc elled via OM: Order cancelled - Patient discharged Performed By: #### L 500.4050 ####[facility] [address] [place], [address] EST GFR - AA Normal >60 [facility] Comment on above: Result Comment: Canc elled via OM: Order cancelled - Patient discharged Performed By: #### L 500.4050 ####[facility] [address] [place], [address] GAP Normal 5-15 [facility] Comment on above: Result Comment: Canc elled via OM: Order cancelled - Patient discharged Performed By: #### L 500.4050 ####[facility] [address] [place], [address] GLU Normal 74-106 [facility] Comment on above: Result Comment: Canc elled via OM: Order cancelled - Patient discharged Performed By: #### L 500.4050 ####[facility] [address] [place], [address] Potassium Normal 3.5-5.1 [facility] Comment on above: Result Comment: Canc elled via OM: Order cancelled - Patient discharged Performed By: #### L 500.4050 ####[facility] [address] [place], [address] T BILI Normal 0.20-1.00 [facility] Comment on above: Result Comment: Canc elled via OM: Order cancelled - Patient discharged Performed By: #### L 500.4050 ####[facility] [address] [place], [address] T PROT Normal 6.4-8.2 [facility] Comment on above: Result Comment: Canc elled via OM: Order cancelled - Patient discharged Performed By: #### L 500.4050 ####[facility] [address] [place], [address] Comprehensive Metabolic Profil Normal 136-145 [facility] Comment on above: Result Comment: Canc elled via OM: Order cancelled - Patient discharged Performed By: #### L 500.4050 ####[facility] [address] [place], [address] Hepatitis Panel Acuteon 01-1 HCV Interpretat Comment Normal . [facility] Comment on above: Result Comment: Posi tive HCV antibody screen with the presence of HCV RNAis consistent with active infection.Performed at: - [facility] [address] [place], [place] [id number] Director: Floyd Sandra PhD, Phone: [phone] at: - [facility] [address] [place], [place] [id number] Director: Avi Cardenas MD, Phone: [phone] Performed By: #### L 3000.0375 ####[facility] [address] [place], [address] HCV log 10 6.859 Normal . [facility] Comment on above: Result Comment: Resu lt Units: log10 IU/mL Performed By: #### L 3000.0375 ####[facility] [address] [place], [address] HEP B CORE,IgM Negative Normal Negative [facility] Comment on above: Performed By: #### L 3000.0375 ####[facility] [address] [place], [address] HEP B SURF AG Negative Normal Negative [facility] Comment on above: Performed By: #### L 3000.0375 ####[facility] [address] [place], [address] Hep C Quant [id number] IU/mL Normal . [facility] Comment on above: Performed By: #### L 3000.0375 ####[facility] [address] [place], [address] HEP C VIRUS AB Reactive Abnormal Non Reactive [facility] Comment on above: Performed By: #### L 3000.0375 ####[facility] [address] [place], [address] HEPATITIS A-IgM Negative Normal Negative [facility] Comment on above: Result Comment: A ne gative anti-HAV IgM result suggests no recent orcurrent HAV infection. Performed By: #### L 3000.0375 ####[facility] [address] [place], [address] Test Informatio Comment Normal . [facility] Comment on above: Result Comment: The quantitative range of this assay is 15 IU/mL to 100million IU/mL. Performed By: #### L 3000.0375 ####[facility] [address] [place], [address] Absolute neutrophil countOrd ered By: Mena Bundy on 07-15-2024 Neutrophils (Bld) [#/Vol] 5.6 10*3/uL 2.0-7.7 [facility] Albumin to globulin ratioOrd ered By: Mena Bundy on 07-15-2024 Albumin/Globulin [Mass ratio] 0.6 {ratio} Low 0.9-2.4 [facility] Basophil percentageOrdered B y: Mena Bundy on 07-15-2024 Basophils/100 WBC (Bld) 0.5 % 0-1 [facility] Bilirubin, totalOrdered By: Mena Bundy on 07-15-2024 Bilirubin [Mass/Vol] 1.40 mg/dL High 0.20-1.00 [facility] Comment on above: For patients on eltr ombopag therapy, use of Dimension [place] TBIL is not recommended. Blood urea nitrogen (BUN)/cr eatinine ratioOrdered By: Mena Bundy on 07-15-2024 Urea nitrogen/Creatinine [Mass ratio] 9.6 mg/mg Low 10-20 [facility] CBC W/Diff, Automatedon Absolute Lymph 1.32 X10 3/uL Normal 0.83-4.51 [facility] Comment on above: Performed By: #### L 100.0100 ####[facility] [address] [place], [address] Absolute Neut 5.6 X10 3/uL Normal 2.0-7.7 [facility] Comment on above: Performed By: #### L 100.0100 ####[facility] [address] [place], [address] Basophils/100 WBC (Bld) 0.5 % Normal 0-1 [facility] Comment on above: Performed By: #### L 100.0100 ####[facility] [address] [place], [address] Eosinophils/100 WBC (Bld) 2.4 % Normal 0-5 [facility] Comment on above: Performed By: #### L 100.0100 ####[facility] [address] [place], [address] Erythrocyte distribution width (RBC) [Ratio] 17.0 % High 11.6-14.6 [facility] Comment on above: Performed By: #### L 100.0100 ####[facility] [address] [place], [address] Hematocrit (Bld) [Volume fraction] 31.6 % Low 37-47 [facility] Comment on above: Performed By: #### L 100.0100 ####[facility] [address] [place], [address] Hemoglobin (Bld) [Mass/Vol] 10.7 g/dL Low 12.0-15.0 [facility] Comment on above: Performed By: #### L 100.0100 ####[facility] [address] [place], [address] IG% 0.600 Normal 0.0-0.9 [facility] Comment on above: Result Comment: IG% - Immature Granulocytes (promyelocytes, myelocytes andmetamyelocytes) > 1% indicates that a LEFT SHIFT is Present. Performed By: #### L 100.0100 ####[facility] [address] [place], [address] Lymphocytes/100 WBC (Bld) 16.7 % Low 19-41 [facility] Comment on above: Performed By: #### L 100.0100 ####[facility] [address] [place], [address] MCH (RBC) [Entitic mass] 33.1 pg High 27.0-32.0 [facility] Comment on above: Performed By: #### L 100.0100 ####[facility] [address] [place], [address] MCHC (RBC) [Mass/Vol] 33.9 g/dL Normal 32-36 [facility] Comment on above: Performed By: #### L 100.0100 ####[facility] [address] [place], [address] MCV (RBC) [Entitic vol] 97.8 fL Normal 81-99 [facility] Comment on above: Performed By: #### L 100.0100 ####[facility] [address] [place], [address] Monocytes/100 WBC (Bld) 9.5 % Normal 0-10 [facility] Comment on above: Performed By: #### L 100.0100 ####[facility] [address] [place], [address] Neutrophils/100 WBC (Bld) 70.3 % High 47-70 [facility] Comment on above: Performed By: #### L 100.0100 ####[facility] [address] [place], [address] Nucleated RBC (Bld) [#/Vol] 0 10*3/uL Normal 0-5 [facility] Comment on above: Performed By: #### L 100.0100 ####[facility] [address] [place], [address] Platelet mean volume (Bld) [Entitic vol] 10.7 fL Normal 6.2-12.0 [facility] Comment on above: Performed By: #### L 100.0100 ####[facility] [address] [place], [address] Platelets (Bld) [#/Vol] 73 10*3/uL Low 150-450 [facility] Comment on above: Performed By: #### L 100.0100 ####[facility] [address] [place], [address] RBC (Bld) [#/Vol] 3.23 10*6/uL Low 4.2-5.4 [facility] Comment on above: Performed By: #### L 100.0100 ####[facility] [address] [place], [address] RDW SD 60.6 fl High 35.1-43.9 [facility] Comment on above: Performed By: #### L 100.0100 ####[facility] [address] [place], [address] WBC (Bld) [#/Vol] 7.9 10*3/uL Normal 4.4-11.0 [facility] Comment on above: Performed By: #### L 100.0100 ####[facility] [address] [place], [address] Carbon dioxide measurementOr dered By: Mena Bundy on 07-15-2024 CO2 [Moles/Vol] 26.0 mmol/L 21.0-32.0 [facility] Chloride measurementOrdered By: Mena Bundy on 07-15-2024 Chloride [Moles/Vol] 103 mmol/L 98-107 [facility] Comprehensive Metabolic Prof ilon 07-15-2024 Albumin [Mass/Vol] 2.4 g/dL Low 3.2-5.0 [facility] Comment on above: Performed By: #### L 500.4050 ####[facility] [address] [place], [address] Albumin/Globulin [Mass ratio] 0.6 {ratio} Low 0.9-2.4 [facility] Comment on above: Performed By: #### L 500.4050 ####[facility] [address] [place], [address] ALK P 107 U/L Normal 45-117 [facility] Comment on above: Performed By: #### L 500.4050 ####[facility] [address] [place], [address] ALT [Catalytic activity/Vol] 52 U/L Normal 13-56 [facility] Comment on above: Performed By: #### L 500.4050 ####[facility] [address] [place], [address] AST [Catalytic activity/Vol] 55 U/L High 15-37 [facility] Comment on above: Performed By: #### L 500.4050 ####[facility] [address] [place], [address] Bilirubin [Mass/Vol] 1.40 mg/dL High 0.20-1.00 [facility] Comment on above: Result Comment: For patients on eltrombopag therapy, use of Dimension [place] TBIL is not recommended. Performed By: #### L 500.4050 ####[facility] [address] [place], [address] BUN/CRE 9.6 RATIO Low 10-20 [facility] Comment on above: Performed By: #### L 500.4050 ####[facility] [address] [place], [address] CA,Total 8.1 mg/dL Low 8.5-10.1 [facility] Comment on above: Performed By: #### L 500.4050 ####[facility] [address] [place], [address] Chloride [Moles/Vol] 103 mmol/L Normal 98-107 [facility] Comment on above: Performed By: #### L 500.4050 ####[facility] [address] [place], [address] CO2 [Moles/Vol] 26.0 mmol/L Normal 21.0-32.0 [facility] Comment on above: Performed By: #### L 500.4050 ####[facility] [address] [place], [address] Creatinine [Mass/Vol] 0.52 mg/dL Low 0.55-1.02 [facility] Comment on above: Result Comment: The validity of the calculated GFR GFRAA in patients over70 years has not been determined. Clinical correlation isessential. Performed By: #### L 500.4050 ####[facility] [address] [place], [address] ECRCL 113.60 ml/min Normal [facility] Comment on above: Performed By: #### L 500.4050 ####[facility] [address] [place], [address] EST GFR - AA 166 mL/min Normal >60 [facility] Comment on above: Result Comment: Afri can Iraqi GFR Calc Performed By: #### L 500.4050 ####[facility] [address] [place], [address] GAP 4 Low 5-15 [facility] Comment on above: Performed By: #### L 500.4050 ####[facility] [address] [place], [address] GFR/1.73 sq M.predicted among non-blacks MDRD (S/P/Bld) [Vol rate/Area] 137 mL/min/{1.73_m2} Normal >60 [facility] Comment on above: Result Comment: Non- GFR Calc Performed By: #### L 500.4050 ####[facility] [address] [place], [address] Globulin (S) [Mass/Vol] 3.9 g/dL Normal 2.2-4.2 [facility] Comment on above: Performed By: #### L 500.4050 ####[facility] [address] [place], [address] Glucose [Mass/Vol] 132 mg/dL High 74-106 [facility] Comment on above: Result Comment: Fast ing Glucose result greater than or equal to 126 mg/dLsuggests DIABETES MELLITUS per A.D.A. criteria. Performed By: #### L 500.4050 ####[facility] [address] [place], [address] Potassium [Moles/Vol] 4.3 mmol/L Normal 3.5-5.1 [facility] Comment on above: Performed By: #### L 500.4050 ####[facility] [address] [place], [address] Sodium [Moles/Vol] 133 mmol/L Low 136-145 [facility] Comment on above: Performed By: #### L 500.4050 ####[facility] [address] [place], [address] T PROT 6.3 g/dL Low 6.4-8.2 [facility] Comment on above: Performed By: #### L 500.4050 ####[facility] [address] [place], [address] Urea nitrogen [Mass/Vol] 5 mg/dL Low 7-18 [facility] Comment on above: Performed By: #### L 500.4050 ####[facility] [address] [place], [address] Discharge Instructionon Discharge Instruction Normal [facility] Eosinophil percentageOrdered By: Mena Bundy on 07-15-2024 Eosinophils/100 WBC (Bld) 2.4 % 0-5 [facility] Erythrocyte distribution wid th (RBC) [Ratio]Ordered By: Mena Bundy on 07-15-2024 Erythrocyte distribution width (RBC) [Entitic vol] 60.6 fL High 35.1-43.9 [facility] Erythrocyte distribution wid th ratioOrdered By: Mena Bundy on 07-15-2024 Erythrocyte distribution width (RBC) [Ratio] 17.0 % High 11.6-14.6 [facility] Estimated glomerular filtrat ion rate (GFR) AmericanOrdered By: Mena Bundy on 07-15-2024 Estimated GFR (MDRD) Amer 166 mL/min >60 [facility] Comment on above: GFR Calc Estimation of creatinine indira aranceOrdered By: Mena Bundy on 07-15-2024 Estimated Creatinine Clearance Calc 113.60 ml/min [facility] Glomerular filtration rate ( GFR) estimationOrdered By: Mena Bundy on 07-15-2024 Estimated GFR (MDRD) Non-Af Amer 137 mL/min >60 [facility] Comment on above: Non- GFR Calc Glucose measurementOrdered B y: Mena Bundy on 07-15-2024 Glucose [Mass/Vol] 132 mg/dL High 74-106 [facility] Comment on above: Fasting Glucose resu lt greater than or equal to 126 mg/dL suggests DIABETES MELLITUS per A.D.A. criteria. Hematocrit Auto (Bld) [Volum e fraction]Ordered By: Mena Bundy on 07-15-2024 Hematocrit (Bld) [Volume fraction] 31.6 % Low 37-47 [facility] Hemoglobin measurementOrdere d By: Mena Bundy on 07-15-2024 Hemoglobin (Bld) [Mass/Vol] 10.7 g/dL Low 12.0-15.0 [facility] Immature granulocytes/100 WB C Auto (Bld)Ordered By: Mena Bundy on 07-15-2024 Immature granulocytes/100 WBC (Bld) 0.600 % 0.0-0.9 [facility] Comment on above: IG% - Immature Granu locytes (promyelocytes, myelocytes and metamyelocytes) > 1% indicates that a LEFT SHIFT is Present. Laboratory - Chemistry and C hemistry - challengeOrdered By: Mena Bundy on 07-15-2024 AST [Catalytic activity/Vol] 55 U/L High 15-37 [facility] Lymphocytes Auto (Unsp spec) [#/Vol]Ordered By: Mena Bundy on 07-15-2024 Lymphocytes (Bld) [#/Vol] 1.32 10*3/uL 0.83-4.51 [facility] Lymphocytes/100 WBC Auto (Un sp spec)Ordered By: Mena Bundy on 07-15-2024 Lymphocytes/100 WBC (Bld) 16.7 % Low 19-41 [facility] MCV (mean corpuscular volume ) determinationOrdered By: Mena Bundy on 07-15-2024 MCV (RBC) [Entitic vol] 97.8 fL 81-99 [facility] MR/MBMQQCNY3gh 07-15-2024 MR/POSTOPAN2 Normal [facility] Mean corpuscular hemoglobin (MCH) determinationOrdered By: Mena Bundy on 07-15-2024 MCH (RBC) [Entitic mass] 33.1 pg High 27.0-32.0 [facility] Mean corpuscular hemoglobin concentration (MCHC) determinationOrdered By: Mena Bundy on 07-15-2024 MCHC (RBC) [Mass/Vol] 33.9 g/dL 32-36 [facility] Mean platelet volume determi nationOrdered By: Mena Bundy on 07-15-2024 Platelet mean volume (Bld) [Entitic vol] 10.7 fL 6.2-12.0 [facility] Monocyte percentageOrdered B y: Mena Bundy on 07-15-2024 Monocytes/100 WBC (Bld) 9.5 % 0-10 [facility] Neutrophil percentageOrdered By: Mena Bundy on 07-15-2024 Neutrophils/100 WBC (Bld) 70.3 % High 47-70 [facility] Nucleated red blood cell per centageOrdered By: Mena Bundy on 07-15-2024 Nucleated RBC/100 WBC (Bld) [Ratio] 0 % 0-5 [facility] Platelet countOrdered By: Beto Bundy on 07-15-2024 Platelets (Bld) [#/Vol] 73 10*3/uL Low 150-450 [facility] Potassium measurementOrdered By: Mena Bundy on 07-15-2024 Potassium [Moles/Vol] 4.3 mmol/L 3.5-5.1 [facility] RBC Auto (Bld) [#/Vol]Ordere d By: Mena Bundy on 07-15-2024 RBC (Bld) [#/Vol] 3.23 10*6/uL Low 4.2-5.4 [facility] Serum anion gap measurementO rdered By: Mena Bundy on 07-15-2024 Anion gap [Moles/Vol] 4 mmol/L Low 5-15 [facility] Serum globulin measurementOr dered By: Mena Bundy on 07-15-2024 Globulin (S) [Mass/Vol] 3.9 g/dL 2.2-4.2 [facility] Serum or plasma alanine gutierrez otransferase (ALT) measurementOrdered By: Mena Bundy on 07-15-2024 ALT [Catalytic activity/Vol] 52 U/L 13-56 [facility] Serum or plasma albumin char urement (mass/volume)Ordered By: Mena Bundy on 07-15-2024 Albumin [Mass/Vol] 2.4 g/dL Low 3.2-5.0 [facility] Serum or plasma alkaline samy sphatase measurementOrdered By: Mena Bundy on 07-15-2024 ALP [Catalytic activity/Vol] 107 U/L 45-117 [facility] Serum or plasma calcium char urement (mass/volume)Ordered By: Mena Bundy on 07-15-2024 Calcium [Mass/Vol] 8.1 mg/dL Low 8.5-10.1 [facility] Serum or plasma creatinine m easurement (mass/volume)Ordered By: Mena Bundy on 07-15-2024 Creatinine [Mass/Vol] 0.52 mg/dL Low 0.55-1.02 [facility] Comment on above: The validity of the calculated GFR & GFRAA in patients over 70 years has not been determined. Clinical correlation is essential. Serum or plasma urea nitroge n measurement (mass/volume)Ordered By: Mena Bundy on 07-15-2024 Urea nitrogen [Mass/Vol] 5 mg/dL Low 7-18 [facility] Sodium levelOrdered By: [place] Bundy on 07-15-2024 Sodium [Moles/Vol] 133 mmol/L Low 136-145 [facility] Total proteinOrdered By: Darrin Bundy on 07-15-2024 Protein [Mass/Vol] 6.3 g/dL Low 6.4-8.2 [facility] White blood cell (WBC) count Ordered By: Mena Bundy on 07-15-2024 WBC (Bld) [#/Vol] 7.9 10*3/uL 4.4-11.0 [facility] Bedside Glucoseon 07-14-2024 FINGERSTICK GLU 73 mg/dL Low 74-106 [facility] Comment on above: Result Comment: AI ELIZABETH OF PATIENT CARE PER NURSING PROTOCOL Performed By: #### L 501.080 ####[facility] [address] [place], [address] Body Fluid Cell Count+Diffon 07-14-2024 PATH COMM/BF Reviewed Normal [facility] Comment on above: Result Comment: Nega tive for malignant cells.PLEASE ALSO REFER TO CYTOLOGY REPORT [id number] Ba M.D. 07/14/24 AMENDED REPORT 07/14/24 1409 PATH COMM/BF previously reported as: May follow Performed By: #### L 200.0200 ####[facility] [address] [place], [address] CBC W/Diff, Automatedon OVALOCYTE 1+ Normal [facility] Comment on above: Performed By: #### L 100.0100 ####[facility] [address] [place], [address] PLT EST MOD DEC Normal ADEQ [facility] Comment on above: Performed By: #### L 100.0100 ####[facility] [address] [place], [address] POLYCHROMASIA 1+ Normal [facility] Comment on above: Performed By: #### L 100.0100 ####[facility] [address] [place], [address] Comprehensive Metabolic Prof ilon 07-14-2024 Albumin [Mass/Vol] 2.2 g/dL Low 3.2-5.0 [facility] Comment on above: Performed By: #### L 501.5200, L500.4050, L501.9520 ####[facility] [address] [place], [address] Albumin/Globulin [Mass ratio] 0.6 {ratio} Low 0.9-2.4 [facility] Comment on above: Performed By: #### L 501.5200, L500.4050, L501.9520 ####[facility] [address] [place], [address] ALK P 112 U/L Normal 45-117 [facility] Comment on above: Performed By: #### L 501.5200, L500.4050, L501.9520 ####[facility] [address] [place], [address] ALT [Catalytic activity/Vol] 59 U/L High 13-56 [facility] Comment on above: Performed By: #### L 501.5200, L500.4050, L501.9520 ####[facility] [address] [place], [address] AST [Catalytic activity/Vol] 65 U/L High 15-37 [facility] Comment on above: Performed By: #### L 501.5200, L500.4050, L501.9520 ####[facility] [address] [place], [address] Bilirubin [Mass/Vol] 1.10 mg/dL High 0.20-1.00 [facility] Comment on above: Result Comment: For patients on eltrombopag therapy, use of Dimension [place] TBIL is not recommended. Performed By: #### L 501.5200, L500.4050, L501.9520 ####[facility] [address] [place], [address] BUN/CRE 17.5 RATIO Normal 10-20 [facility] Comment on above: Performed By: #### L 501.5200, L500.4050, L501.9520 ####[facility] [address] [place], [address] CA,Total 7.9 mg/dL Low 8.5-10.1 [facility] Comment on above: Performed By: #### L 501.5200, L500.4050, L501.9520 ####[facility] [address] [place], [address] Chloride [Moles/Vol] 104 mmol/L Normal 98-107 [facility] Comment on above: Performed By: #### L 501.5200, L500.4050, L501.9520 ####[facility] [address] [place], [address] CO2 [Moles/Vol] 24.0 mmol/L Normal 21.0-32.0 [facility] Comment on above: Performed By: #### L 501.5200, L500.4050, L501.9520 ####[facility] [address] [place], [address] Creatinine [Mass/Vol] 0.52 mg/dL Low 0.55-1.02 [facility] Comment on above: Result Comment: The validity of the calculated GFR GFRAA in patients over70 years has not been determined. Clinical correlation isessential. Performed By: #### L 501.5200, L500.4050, L501.9520 ####[facility] [address] [place], [address] ECRCL 115.92 ml/min Normal [facility] Comment on above: Performed By: #### L 501.5200, L500.4050, L501.9520 ####[facility] [address] [place], [address] EST GFR - AA 168 mL/min Normal >60 [facility] Comment on above: Result Comment: Afri can Iraqi GFR Calc Performed By: #### L 501.5200, L500.4050, L501.9520 ####[facility] [address] [place], [address] GAP 5 Normal 5-15 [facility] Comment on above: Performed By: #### L 501.5200, L500.4050, L501.9520 ####[facility] [address] [place], [address] GFR/1.73 sq M.predicted among non-blacks MDRD (S/P/Bld) [Vol rate/Area] 139 mL/min/{1.73_m2} Normal >60 [facility] Comment on above: Result Comment: Non- GFR Calc Performed By: #### L 501.5200, L500.4050, L501.9520 ####[facility] [address] [place], [address] Globulin (S) [Mass/Vol] 3.8 g/dL Normal 2.2-4.2 [facility] Comment on above: Performed By: #### L 501.5200, L500.4050, L501.9520 ####[facility] [address] [place], [address] Glucose [Mass/Vol] 121 mg/dL High 74-106 [facility] Comment on above: Result Comment: Fast ing Glucose result from 100 to 125 mg/dLsuggests IMPAIRED HOMEOSTASIS per A.D.A. criteria. Performed By: #### L 501.5200, L500.4050, L501.9520 ####[facility] [address] [place], [address] Potassium [Moles/Vol] 4.3 mmol/L Normal 3.5-5.1 [facility] Comment on above: Performed By: #### L 501.5200, L500.4050, L501.9520 ####[facility] [address] [place], [address] Sodium [Moles/Vol] 132 mmol/L Low 136-145 [facility] Comment on above: Performed By: #### L 501.5200, L500.4050, L501.9520 ####[facility] [address] [place], [address] T PROT 6.0 g/dL Low 6.4-8.2 [facility] Comment on above: Performed By: #### L 501.5200, L500.4050, L501.9520 ####[facility] [address] [place], [address] Urea nitrogen [Mass/Vol] 9 mg/dL Normal 7-18 [facility] Comment on above: Performed By: #### L 501.5200, L500.4050, L501.9520 ####[facility] [address] 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 [facility] Comment on above: Result Comment: Resu lt Units: log10 IU/mL Performed By: #### L 503.5510, L7000.7000, L504.2610 ####[facility] [address] [place], [address] HCV QT RNA PCR 2004184 IU/mL Normal . [facility] Comment on above: Performed By: #### L 503.5510, L7000.7000, L504.2610 ####[facility] [address] [place], [address] TEST INFO: Comment Normal . [facility] Comment on above: Result Comment: The quantitative range of this assay is 15 IU/mL to 100million IU/mL.Performed at: [address] [id number] Director: Avi Cardenas MD, Phone: [phone] Performed By: #### L 503.5510, L7000.7000, L504.2610 ####[facility] [address] [place], [place], [address] MR/PN.GIon 07-14-2024 MR/PN.GI Normal [facility] MR/POSTOP.ANEon 07-14-2024 MR/POSTOP.ANE Normal [facility] Magnesiumon 07-14-2024 Magnesium [Mass/Vol] 1.8 mg/dL Normal 1.6-2.6 [facility] Comment on above: Performed By: #### L 501.5200, L500.4050, L501.95 ####[facility] [address] [place], [place], [address] Magnesium measurementOrdered By: Enzo Pascual on 07-14-2024 Magnesium [Mass/Vol] 1.8 mg/dL 1.6-2.6 [facility] Ovalocytes LM Ql (Bld)Ordere d By: Mena Bundy on 07-14-2024 Ovalocytes 1+ [facility] Phosphoruson 07-14-2024 Phosphate [Mass/Vol] 2.8 mg/dL Normal 2.5-4.9 [facility] Comment on above: Performed By: #### L 501.2300 ####[facility] [address] [place], [address] Phosphorus measurementOrdere d By: Enzo Pascual on 07-14-2024 Phosphorus Level 2.8 mg/dL 2.5-4.9 [facility] Platelets LM Ql (Bld)Ordered By: Mena Bundy on 07-14-2024 Platelet Estimate MOD DEC ADEQ [facility] Polychromasia LM Ql (Bld)Ord ered By: Mena Bundy on 07-14-2024 Polychromasia 1+ [facility] TSH QnOrdered By: Mena mathias on 07-14-2024 Thyroid Stimulating Hormone (TSH) 2.340 uIU/mL 0.358-3.740 [facility] Thyroid Stim Hormone (TSH)on 07-14-2024 TSH 2.340 uIU/mL Normal 0.358-3.740 [facility] Comment on above: Performed By: #### L 501.5200, L500.4050, L501.9520 ####[facility] [address] [place], [address] 12 Lead EKGon 07-13-2024 12 Lead EKG Normal [facility] Abdomen/Pelvis W IV Cont ONL Yon 07-13-2024 Abdomen/Pelvis W IV Cont ONLY Normal [facility] Albumin Ql (Body fld)Ordered By: Mena Bundy on 07-13-2024 Body Fluid Albumin 0.4 g/dL Not Estab. [facility] Comment on above: The reference interv al(s) and other method performance specificationshave not been established for this body fluid. The test result must beintegrated into the clinical context for interpretation.Performed at: - [facility] [id number] Director: Floyd Sandra PhD, Phone: [phone] Ammoniaon 07-13-2024 Ammonia (P) [Moles/Vol] 24.0 umol/L Normal 11-32 [facility] Comment on above: Performed By: #### L 503.5510, L7000.7000, L504.2610 ####[facility] [address] [place], [address] Appearance (Body fld)Ordered By: Mena Bundy on 07-13-2024 Body Fluid Appearance CLEAR [facility] Bacteria identified Anaer cx Nom (Unsp spec)Ordered By: Mena Bundy on 07-13-2024 Anaerobic Culture No growth in 5 days. [facility] Basic Metabolic Profile (BMP )on 07-13-2024 BUN/CRE 14.4 RATIO Normal 10-20 [facility] Comment on above: Performed By: #### L 501.2450, L500.2500, L500.3400 ####[facility] [address] [place], [address] CA,Total 8.6 mg/dL Normal 8.5-10.1 [facility] Comment on above: Performed By: #### L 501.2450, L500.2500, L500.3400 ####[facility] [address] [place], [address] Chloride [Moles/Vol] 106 mmol/L Normal 98-107 [facility] Comment on above: Performed By: #### L 501.2450, L500.2500, L500.3400 ####[facility] [address] [place], [address] CO2 [Moles/Vol] 27.0 mmol/L Normal 21.0-32.0 [facility] Comment on above: Performed By: #### L 501.2450, L500.2500, L500.3400 ####[facility] [address] [place], [address] Creatinine [Mass/Vol] 0.56 mg/dL Normal 0.55-1.02 [facility] Comment on above: Result Comment: The validity of the calculated GFR GFRAA in patients over70 years has not been determined. Clinical correlation isessential. Performed By: #### L 501.2450, L500.2500, L500.3400 ####[facility] [address] [place], [address] ECRCL 105.92 ml/min Normal [facility] Comment on above: Performed By: #### L 501.2450, L500.2500, L500.3400 ####[facility] [address] [place], [address] EST GFR - AA 154 mL/min Normal >60 [facility] Comment on above: Result Comment: Afri can Iraqi GFR Calc Performed By: #### L 501.2450, L500.2500, L500.3400 ####[facility] [address] [place], [address] GAP 4 Low 5-15 [facility] Comment on above: Performed By: #### L 501.2450, L500.2500, L500.3400 ####[facility] [address] [place], [address] GFR/1.73 sq M.predicted among non-blacks MDRD (S/P/Bld) [Vol rate/Area] 127 mL/min/{1.73_m2} Normal >60 [facility] Comment on above: Result Comment: Non- GFR Calc Performed By: #### L 501.2450, L500.2500, L500.3400 ####[facility] [address] [place], [address] Glucose [Mass/Vol] 114 mg/dL High 74-106 [facility] Comment on above: Result Comment: Fast ing Glucose result from 100 to 125 mg/dLsuggests IMPAIRED HOMEOSTASIS per A.D.A. criteria. Performed By: #### L 501.2450, L500.2500, L500.3400 ####[facility] [address] [place], [address] Potassium [Moles/Vol] 4.0 mmol/L Normal 3.5-5.1 [facility] Comment on above: Performed By: #### L 501.2450, L500.2500, L500.3400 ####[facility] [address] [place], [address] Sodium [Moles/Vol] 137 mmol/L Normal 136-145 [facility] Comment on above: Performed By: #### L 501.2450, L500.2500, L500.3400 ####[facility] [address] [place], [address] Urea nitrogen [Mass/Vol] 8 mg/dL Normal 7-18 [facility] Comment on above: Performed By: #### L 501.2450, L500.2500, L500.3400 ####[facility] [address] [place], [address] Bilirubin Test strip Ql (U)O rdered By: Arias White on 07-13-2024 Bilirubin Ql (U) 1 mg/dL High Negative [facility] Comment on above: COLOR OF URINE MAY A FFECT DIPSTICK RESULTS. Bilirubin directOrdered By: Arias White on 07-13-2024 Bilirubin.direct [Mass/Vol] 0.69 mg/dL High 0.00-0.30 [facility] Body fluid cultureOrdered By : Mena Bundy on 07-13-2024 Body Fluid Culture Culture exhibits no growth. [facility] Body fluid lactate dehydroge nase (LDH) measurementOrdered By: Mena Bundy on 07-13-2024 Body Fluid Lactate Dehydrogenase 38 Units/L Not Establ. [facility] Body fluid mononuclear cell countOrdered By: Mena Bundy on 07-13-2024 Body Fluid Mononuclear WBCs 0.208 10^3/uL [facility] Body fluid polymorphonuclear leukocyte countOrdered By: Mena Bundy on 07-13-2024 Body Fluid Polynuclear WBCs (#) 0.010 10^3/uL [facility] CBC W/Diff, Automatedon Absolute Lymph 1.95 X10 3/uL Normal 0.83-4.51 [facility] Comment on above: Performed By: #### L 503.6005, L100.0100, L300.3900 ####[facility] [address] [place], [address] Absolute Neut 6.2 X10 3/uL Normal 2.0-7.7 [facility] Comment on above: Performed By: #### L 503.6005, L100.0100, L300.3900 ####[facility] [address] [place], [address] Basophils/100 WBC (Bld) 0.5 % Normal 0-1 [facility] Comment on above: Performed By: #### L 503.6005, L100.0100, L300.3900 ####[facility] [address] [place], [address] Eosinophils/100 WBC (Bld) 2.4 % Normal 0-5 [facility] Comment on above: Performed By: #### L 503.6005, L100.0100, L300.3900 ####[facility] [address] [place], [address] Erythrocyte distribution width (RBC) [Ratio] 17.4 % High 11.6-14.6 [facility] Comment on above: Performed By: #### L 503.6005, L100.0100, L300.3900 ####[facility] [address] [place], [address] Hematocrit (Bld) [Volume fraction] 32.7 % Low 37-47 [facility] Comment on above: Performed By: #### L 503.6005, L100.0100, L300.3900 ####[facility] [address] [place], [address] Hemoglobin (Bld) [Mass/Vol] 11.1 g/dL Low 12.0-15.0 [facility] Comment on above: Performed By: #### L 503.6005, L100.0100, L300.3900 ####[facility] [address] [place], [address] IG% 0.600 Normal 0.0-0.9 [facility] Comment on above: Result Comment: IG% - Immature Granulocytes (promyelocytes, myelocytes andmetamyelocytes) > 1% indicates that a LEFT SHIFT is Present. Performed By: #### L 503.6005, L100.0100, L300.3900 ####[facility] [address] [place], [address] Lymphocytes/100 WBC (Bld) 20.5 % Normal 19-41 [facility] Comment on above: Performed By: #### L 503.6005, L100.0100, L300.3900 ####[facility] [address] [place], [address] MCH (RBC) [Entitic mass] 32.8 pg High 27.0-32.0 [facility] Comment on above: Performed By: #### L 503.6005, L100.0100, L300.3900 ####[facility] [address] [place], [address] MCHC (RBC) [Mass/Vol] 33.9 g/dL Normal 32-36 [facility] Comment on above: Performed By: #### L 503.6005, L100.0100, L300.3900 ####[facility] [address] [place], [address] MCV (RBC) [Entitic vol] 96.7 fL Normal 81-99 [facility] Comment on above: Performed By: #### L 503.6005, L100.0100, L300.3900 ####[facility] [address] [place], [address] Monocytes/100 WBC (Bld) 10.9 % High 0-10 [facility] Comment on above: Performed By: #### L 503.6005, L100.0100, L300.3900 ####[facility] [address] [place], [address] Neutrophils/100 WBC (Bld) 65.1 % Normal 47-70 [facility] Comment on above: Performed By: #### L 503.6005, L100.0100, L300.3900 ####[facility] [address] [place], [address] Nucleated RBC (Bld) [#/Vol] 0 10*3/uL Normal 0-5 [facility] Comment on above: Performed By: #### L 503.6005, L100.0100, L300.3900 ####[facility] [address] [place], [address] Platelet mean volume (Bld) [Entitic vol] 10.6 fL Normal 6.2-12.0 [facility] Comment on above: Performed By: #### L 503.6005, L100.0100, L300.3900 ####[facility] [address] [place], [address] Platelets (Bld) [#/Vol] 64 10*3/uL Low 150-450 [facility] Comment on above: Performed By: #### L 503.6005, L100.0100, L300.3900 ####[facility] [address] [place], [address] RBC (Bld) [#/Vol] 3.38 10*6/uL Low 4.2-5.4 [facility] Comment on above: Performed By: #### L 503.6005, L100.0100, L300.3900 ####[facility] [address] [place], [address] RDW SD 60.6 fl High 35.1-43.9 [facility] Comment on above: Performed By: #### L 503.6005, L100.0100, L300.3900 ####[facility] [address] [place], [address] WBC (Bld) [#/Vol] 9.5 10*3/uL Normal 4.4-11.0 [facility] Comment on above: Performed By: #### L 503.6005, L100.0100, L300.3900 ####[facility] [address] [place], [place], [address] Cells Counted Total (Body fl d) [#]Ordered By: Mena Bundy on 07-13-2024 Body Fluid Total Cells Counted 0.251 10^3/ul High 0.000-0.000 [facility] Comment on above: This is the Total Nu mber of Nucleated Cell Types in the Body Fluid. Color (Body fld)Ordered By: Mena Bundy on 07-13-2024 Body Fluid Color LT YEL [facility] Cytology report Cyto stain D oc (Body fld)Ordered By: Mena Bundy on 07-13-2024 Miscellaneous Cytology SEE PATHOLOGY REPORT [facility] Comment on above: Specimen submitted t o Anatomical Pathology Department for testing. Cytology, Body Fluid / CSFon 07-13-2024 CYTOLOGY,BF/CSF SEE PATHOLOGY REPORT Normal [facility] Comment on above: Order Comment: Order Date: 07/13/24 Result Comment: Spec imen submitted to Anatomical Pathology Department fortesting. Performed By: #### L 350.1000 ####[facility] [address] [place], [place], [address] Emergency Department Summary on 07-13-2024 Emergency Department Summary Normal [facility] Epithelial cells.squamous LM Ql (Urine sed)Ordered By: Arias White on 07-13-2024 Epithelial cells.squamous LM.HPF (Urine sed) [#/Area] 10 /[HPF] 5-10 [facility] Comment on above: Previous reported re sult: 0 SEEN /hpfEdited by: VIRI on 07/13/24:1035 AMENDED REPORT 07/13/24 1035 SQUAM EPI previously reported as: 0 SEEN /hpf Glucose Ql (U)Ordered By: Ki White on 07-13-2024 Urine Glucose (UA) Normal mg/dl Normal [facility] Glucose, Body Fluidon 2024 GLU,BF 117 mg/dL High 40-70 [facility] Comment on above: Performed By: #### L 504.0250, L503.0300, L503.0100 ####[facility] [address] [place], [address] Glucose, body fluidOrdered B y: Mena Bundy on 07-13-2024 Body Fluid Glucose 117 mg/dL High 40-70 [facility] Gram Stainon 07-13-2024 GS Centrifuged Specimen ? Culture performed on centrifuged specimen Gram Stain No organisms seen 2+ Red Blood Cells 2+ White Blood Cells Normal [facility] Comment on above: Performed By: #### M 100.2000, M100.4001, M100.2900 ####[facility] [address] [place], [address] Gram stainOrdered By: Mena Bundy on 07-13-2024 Microscopic observation Gram stain Nom (Unsp spec) [facility] H AND P Exam - Hospitaliston 07-13-2024 H&P Exam - Hospitalist Normal [facility] HBV surface Ag IA QlOrdered By: Mena Bundy on 07-13-2024 Hepatitis B Surface Antigen Negative Negative [facility] HCV RNA LORAINE+probe QnOrdered By: Mena Bundy on 07-13-2024 Hepatitis C RNA Quantitative (PCR) [id number] IU/mL . [facility] Hepatitis A virus IgM antibo dy assayOrdered By: Mena Bundy on 07-13-2024 Hepatitis A IgM Antibody Negative Negative [facility] Comment on above: A negative anti-HAV IgM result suggests no recent orcurrent HAV infection. Hepatitis B virus core IgM a ntibody assayOrdered By: Mena Bundy on 07-13-2024 Hepatitis B Core IgM Antibody Negative Negative [facility] Hepatitis C viral load measu rementOrdered By: Mena Bundy on 07-13-2024 Hepatitis C RNA (PCR) IU log10 6.658 . [facility] Comment on above: Result Units: log10 IU/mL Hepatitis C virus antibody a ssayOrdered By: Mena Bundy on 07-13-2024 Hepatitis C Antibody (EIA) Reactive High Non Reactive [facility] International normalized rat io (INR) calculationOrdered By: Arias White on 07-13-2024 INR Coag (Bld) [Relative time] 1.3 {INR} [facility] Ketones Test strip Ql (U)Ord ered By: Arias White on 07-13-2024 Ketones Ql (U) Negative Negative [facility] LDHon 07-13-2024 LDH 356 U/L High 84-246 [facility] Comment on above: Performed By: #### L 503.5510, L7000.7000, L504.2610 ####[facility] [address] [place], [address] LDH,Body Fluidon 07-13-2024 LDH,BF 38 Units/L Normal Not Establ. [facility] Comment on above: Performed By: #### L 504.0250, L503.0300, L503.0100 ####[facility] [address] [place], [address] Lactate dehydrogenase (LDH) measurementOrdered By: Mena Bundy on 07-13-2024 LDH [Catalytic activity/Vol] 356 U/L High 84-246 [facility] Lactic Acidon 07-13-2024 Lactate [Moles/Vol] 1.9 mmol/L Normal 0.4-1.9 [facility] Comment on above: Order Comment: Y Performed By: #### L 503.6005, L100.0100, L300.3900 ####[facility] [address] [place], [address] Lactic acid measurementOrder ed By: Arias White on 07-13-2024 Lactate [Moles/Vol] 1.9 mmol/L 0.4-2.0 [facility] Lipaseon 07-13-2024 Lipase [Catalytic activity/Vol] 51 U/L Normal 13-75 [facility] Comment on above: Result Comment: Isaias paris note:LIPASE revised reference range effective 22.New Lipase methodology. Expected to produce lower valuesthan the previous assay method.NEW Reference Range: 13 - 75 U/L Performed By: #### L 501.2450, L500.2500, L500.3400 ####[facility] [address] [place], [address] Lipase measurementOrdered By : Arias White on 07-13-2024 Lipase [Catalytic activity/Vol] 51 U/L 13-75 [facility] Comment on above: Please note:LIPASE r evised reference range effective 22. New Lipase methodology. Expected to produce lower values than the previous assay method. NEW Reference Range: 13 - 75 U/L Liver Profileon 07-13-2024 Albumin [Mass/Vol] 2.6 g/dL Low 3.2-5.0 [facility] Comment on above: Performed By: #### L 501.2450, L500.2500, L500.3400 ####[facility] [address] [place], [address] ALK P 99 U/L Normal 45-117 [facility] Comment on above: Performed By: #### L 501.2450, L500.2500, L500.3400 ####[facility] [address] [place], [address] ALT [Catalytic activity/Vol] 48 U/L Normal 13-56 [facility] Comment on above: Performed By: #### L 501.2450, L500.2500, L500.3400 ####[facility] [address] [place], [address] AST [Catalytic activity/Vol] 48 U/L High 15-37 [facility] Comment on above: Performed By: #### L 501.2450, L500.2500, L500.3400 ####[facility] [address] [place], [address] Bilirubin [Mass/Vol] 1.40 mg/dL High 0.20-1.00 [facility] Comment on above: Result Comment: For patients on eltrombopag therapy, use of Dimension [place] TBIL is not recommended. Performed By: #### L 501.2450, L500.2500, L500.3400 ####[facility] [address] [place], [address] Bilirubin.direct [Mass/Vol] 0.69 mg/dL High 0.00-0.30 [facility] Comment on above: Performed By: #### L 501.2450, L500.2500, L500.3400 ####[facility] [address] [place], [address] Globulin (S) [Mass/Vol] 4.3 g/dL High 2.2-4.2 [facility] Comment on above: Performed By: #### L 501.2450, L500.2500, L500.3400 ####[facility] [address] [place], [address] T PROT 6.9 g/dL Normal 6.4-8.2 [facility] Comment on above: Performed By: #### L 501.2450, L500.2500, L500.3400 ####[facility] [address] [place], [address] Lymphocytes/100 WBC (Body fl d)Ordered By: Mena Bundy on 07-13-2024 Body Fluid Lymphocytes 27 % [facility] MR/CON.PCM.GIon 07-13-2024 MR/CON.PCM.GI Normal [facility] Mesothelial cells/100 WBC (B courtney fld)Ordered By: Mena Bundy on 07-13-2024 Body Fluid Mesothelial Cells 8 % [facility] Microscopic analysis of urin e for red blood cells (RBC)Ordered By: Arias White on 07-13-2024 Urine RBC 0 SEEN /hpf 0-5 [facility] Monocyte detectionOrdered By : Mena Bundy on 07-13-2024 Body Fluid Monocytes 64 % [facility] Mononuclear cells/100 WBC (B courtney fld)Ordered By: Mena Bundy on 07-13-2024 Body Fluid Mononuclear WBCs (%) 95.4 % [facility] Mucus LM Ql (Urine sed)Order ed By: Arias White on 07-13-2024 Mucus Ql (Urine sed) 1+ /hpf [facility] Comment on above: Previous reported re sult: 0 SEEN /hpfEdited by: VIRI on 07/13/24:1037 AMENDED REPORT 07/13/24 1037 MUCUS, URINE previously reported as: 0 SEEN /hpf Nitrite Test strip Ql (U)Ord ered By: Arias White on 07-13-2024 Nitrite Ql (U) Negative Negative [facility] No Panel InformationOrdered By: Mena Bundy on 07-13-2024 Body Fluid Comment 2 SEE COMMENT [facility] Body Fluid RBC 382 /mm3 [facility] HCV log10 Confirmation 6.[address] [facility] Comment on above: Result Units: log10 IU/mL Hepatitis C RNA Qnt (PCR) Test Info Comment . [facility] Comment on above: The quantitative ran ge of this assay is 15 IU/mL to 100million IU/mL. Hepatitis C Virus Note Comment . [facility] Comment on above: Positive HCV antibod y screen with the presence of HCV RNAis consistent with active infection.Performed at: [facility] [address] [id number] Director: Floyd Sandra PhD, Phone: [phone] at: [facility] [address] [id number] Director: Avi Cardenas MD, Phone: [phone] Paracentesis with USon 07-13 Paracentesis with US Normal [facility] Pathologist interpretation ( Body fld) [Interp]Ordered By: Mena Bundy on 07-13-2024 Body Fluid Pathologist Comment Reviewed [facility] Comment on above: Previous reported re sult: May follow Edited by: CARLIN on 07/14/24:1409Negative for malignant cells.PLEASE ALSO REFER TO CYTOLOGY REPORT [id number] Ba M.D. 07/14/24 AMENDED REPORT 07/14/24 1409 PATH COMM/BF previously reported as: May follow Polymorphonuclear (PMN) leuk ocyte countOrdered By: Mena Bundy on 07-13-2024 Body Fluid Polynuclear WBCs (%) 4.6 % [facility] ,Urineon 07-13-2024 Beta HCG ( test) Ql (U) Negative Normal [facility] Comment on above: Order Comment: Rosalia miranda has had a period within 12 [id number] Result Comment: Very dilute urine specimens, as indicated by a low specificgravity, may not contain public health representative levels of hCG.If is still suspected, a first morning urinespecimen should be collected 48 hours later and tested. Performed By: #### L 400.7600 ####[facility] [address] [place], [address] Beta HCG ( test) Ql (U) Negative Normal [facility] Comment on above: Order Comment: COLOR OF URINE MAY AFFECT DIPSTICK RESULTS.CLEAN CATCH Result Comment: Very dilute urine specimens, as indicated by a low specificgravity, may not contain public health representative levels of hCG.If is still suspected, a first morning urinespecimen should be collected 48 hours later and tested. Performed By: #### L 400.0001, L400.7600 ####[facility] [address] [place], [address] Protein (Body fld) [Mass/Vol ]Ordered By: Mena Bundy on 07-13-2024 Body Fluid Total Protein 0.5 g/dL Not Establ. [facility] Protein Test strip Ql (U)Ord ered By: Arias White on 07-13-2024 Protein Ql (U) 30 mg/dl High Negative [facility] Protein, Body Fluidon 2024 Protein [Mass/Vol] 0.5 g/dL Normal Not Establ. [facility] Comment on above: Performed By: #### L 504.0250, L503.0300, L503.0100 ####[facility] [address] [place], [address] Prothrombin Time w/INRon INR Coag (PPP) [Relative time] 1.3 {INR} Normal [facility] Comment on above: Performed By: #### L 503.6005, L100.0100, L300.3900 ####[facility] [address] [place], [address] PT Coag (PPP) [Time] 16.0 s High 11.7-14.9 [facility] Comment on above: Performed By: #### L 503.6005, L100.0100, L300.3900 ####[facility] [address] [place], [address] Prothrombin timeOrdered By: Arias White on 07-13-2024 PT Coag (PPP) [Time] 16.0 s High 11.7-14.9 [facility] Quantitative serum hepatitis C virus RNA measurement by PCROrdered By: Mena Bundy on 07-13-2024 Hepatitis C Virus Quantitation [id number] IU/mL . [facility] Segmented neutrophils (Body fld) [#/Vol]Ordered By: Mena Bundy on 07-13-2024 Body Fluid Neutrophils 1 % [facility] Special Stain Group IIon Special Stain Group II Normal [facility] Comment on above: Performed By: #### P SSII ####[facility] [address] [place], [address] Specimen source Nom (Body fl d)Ordered By: Mena Bundy on 07-13-2024 Body Fluid Source PARACENTESIS [facility] Urinalysis, Completeon 07-13 BACTERIA 1+ /hpf Normal None Seen [facility] Comment on above: Order Comment: COLOR OF URINE MAY AFFECT DIPSTICK RESULTS.CLEAN CATCH Result Comment: AMENDED REPORT 07/13/24 1037 BACTERIA previously reported as: 0 SEEN /hpf Performed By: #### L 400.0001, L400.7600 ####[facility] [address] [place], [address] Mucus Ql (Urine sed) 1+ /hpf Normal [facility] Comment on above: Order Comment: COLOR OF URINE MAY AFFECT DIPSTICK RESULTS.CLEAN CATCH Result Comment: AMENDED REPORT 07/13/24 1037 MUCUS, URINE previously reported as: 0 SEEN /hpf Performed By: #### L 400.0001, L400.7600 ####[facility] [address] [place], [address] WBC 0-5 SEEN Normal 0-5 [facility] Comment on above: Order Comment: COLOR OF URINE MAY AFFECT DIPSTICK RESULTS.CLEAN CATCH Result Comment: AMENDED REPORT 07/13/24 1036 WBC previously reported as: 0 SEEN /hpf Performed By: #### L 400.0001, L400.7600 ####[facility] [address] [place], [address] EPI,SQUAMOUS 10-25 SEEN Normal 5-10 [facility] Comment on above: Order Comment: COLOR OF URINE MAY AFFECT DIPSTICK RESULTS.CLEAN CATCH Result Comment: AMENDED REPORT 07/13/24 1035 SQUAM EPI previously reported as: 0 SEEN /hpf Performed By: #### L 400.0001, L400.7600 ####[facility] [address] [place], [address] Urine blood detectionOrdered By: Arias White on 07-13-2024 Urine Occult Blood 10 /ul High Negative [facility] Urine clarityOrdered By: Zay White on 07-13-2024 Clarity (U) Sl. Cloudy Clear [facility] Urine color determinationOrd ered By: Arias White on 07-13-2024 Color (U) Catherine Yellow [facility] Urine leukocyte esterase det ection by dipstickOrdered By: Arias White on 07-13-2024 Leukocyte esterase Test strip Ql (U) 25 /ul High Negative [facility] Urine pHOrdered By: Arias Lund on 07-13-2024 pH (U) 6.0 [pH] 5.0 - 8.0 [facility] Urine testOrdered By: Junior Holloway on 07-13-2024 HCG ( test) Ql (U) Negative [facility] Comment on above: Very dilute urine sp ecimens, as indicated by a low specificgravity, may not contain public health representative levels of hCG. If is still suspected, a first morning urinespecimen should be collected 48 hours later and tested. Urine sediment bacteria coun t by microscopy (number/high power field)Ordered By: Arias White on 07-13-2024 Bacteria LM.HPF (Urine sed) [#/Area] 1 /[HPF] None Seen [facility] Comment on above: Previous reported re sult: 0 SEEN /hpfEdited by: VIRI on 07/13/24:1037 AMENDED REPORT 07/13/24 1037 BACTERIA previously reported as: 0 SEEN /hpf Urine specific gravity measu rementOrdered By: Arias White on 07-13-2024 Specific gravity (U) [Rel density] 1.020 1.002-1.030 [facility] Urobilinogen Ql (U)Ordered B y: Arias White on 07-13-2024 Urobilinogen (U) [Mass/Vol] 8 mg/dL High Normal [facility] Venous blood ammonia measure mentOrdered By: Mena Bundy on 07-13-2024 Ammonia (P) [Moles/Vol] 24.0 umol/L 11-32 [facility] WBC (Body fld) [#/Vol]Ordere d By: Mena Bundy on 07-13-2024 Body Fluid WBC 0.218 10^3/uL [facility] White blood cell countOrdere d By: Arias White on 07-13-2024 Urine WBC 0-5 SEEN /hpf 0-5 [facility] Comment on above: Previous reported re sult: 0 SEEN /hpfEdited by: VIRI on 07/13/24:1036 AMENDED REPORT 07/13/24 1036 WBC previously reported as: 0 SEEN /hpf Basophil percentageOrdered B y: Kong Harris on 01-20-2023 WBC (Bld) [#/Vol] 5.6 10*3/uL 4.4-11.0 [facility] Blood erythrocytes count (nu mber/volume)Ordered By: Kong Harris on 01-20-2023 RBC (Bld) [#/Vol] 4.32 10*6/uL 4.2-5.4 [facility] Blood hemoglobin measurement (mass/volume)Ordered By: Kong Harris on 01-20-2023 Hemoglobin (Bld) [Mass/Vol] 14.4 g/dL 12.0-15.0 [facility] Blood manual differential co mment interpretation (narrative result)Ordered By: Kong Harris on 01-20-2023 Manual differential comment Neel (Bld) [Interp] SCANNED [facility] Blood platelet mean volumeOr dered By: Kong Harris on 01-20-2023 Platelet mean volume (Bld) [Entitic vol] 10.8 fL 6.2-12.0 [facility] Determination of erythrocyte mean corpuscular volume (MCV)Ordered By: Kong Harris on 01-20-2023 MCV (RBC) [Entitic vol] 99.5 fL 81-99 [facility] Hematocrit Auto (Bld) [Volum e fraction]Ordered By: Kong Harris on 01-20-2023 Hematocrit (Bld) [Volume fraction] 43.0 % 37-47 [facility] Laboratory - Hematology and Cell countsOrdered By: Kong Harris on 01-20-2023 Erythrocyte distribution width (RBC) [Entitic vol] 50.3 fL 35.1-43.9 [facility] Erythrocyte distribution width (RBC) [Ratio] 13.7 % 11.6-14.6 [facility] MCH (RBC) [Entitic mass] 33.3 pg 27.0-32.0 [facility] MCHC Auto (RBC) [Mass/Vol]Or dered By: Kong Harris on 01-20-2023 MCHC (RBC) [Mass/Vol] 33.5 g/dL 32-36 [facility] Platelets bldOrdered By: Lucian Harris on 01-20-2023 Platelets (Bld) [#/Vol] 60 10*3/uL 150-450 [facility] Serum or plasma choriogonado tropin detectionOrdered By: Wes Corona on 12-27-2022 HCG ( test) [place]l [address] mIU/mL <4 [facility] Comment on above: hCG levels with Gest ational AgeGestational Age hCG mIU/mL (IU/L)0.2 - 1 week 5 - 501-2 weeks 50 - 5002-3 weeks 100 - 09970-5 weeks 500 - 829333-4 weeks 1000 - 440506-7 weeks 62767 - 100,0006-8 weeks 89469 - 200,0002-3 months 40708 - 100,000 US ABDOMINAL LIMITEDon 05-01 US ABDOMINAL LIMITED Reading location: 200INDICATION: Hepatitis CFINDINGS: Sonographic evaluation right upper quadrantPrevious cholecystectomy. Normal caliber bile ducts. No focalabnormality of the visualized portions liver or pancreas.IMPRESSION: No focal abnormality. Sensitivity and specificity ofultrasound and evaluated for potential hepatocellular carcinoma thesetting of hepatitis C is relatively low.Interpreted by:OZZIE Jjigned by:Raf Mayers MD05/01/17Final result Normal [facility] Vital Signs Date Time Vital Sign Value Performing Clinician Malvin dangelo 12-13-2024 14:59-0400 Body height 152.4 cm Zebulun Beam [employer] Work Phone: [facility] 12-13-2024 14:59-0400 Body mass index (BMI) [Ratio] 21.9 kg/m2 Zebulun Beam [employer] Work Phone: [facility] 12-13-2024 14:59-0400 Body weight 50.8 kg Zebulun Beam [employer] Work Phone: [phone] [place] [address] 12-13-2024 14:59-0400 Diastolic blood pressure 91 mm[Hg] Zebulun Beam [employer] Work Phone: [phone] [place] [address] 12-13-2024 14:59-0400 Heart rate 79 /min Zebulun Beam [employer] Work Phone: [facility] 12-13-2024 14:59-0400 SaO2% (BldA) [Mass fraction] 98 % [employer] Be[employer] Work Phone: [facility] 12-13-2024 14:59-0400 Systolic blood pressure 159 mm[Hg] [employer] Beam [employer] Work Phone: [facility] 10-13-2024 11:37-0400 Body height 152.4 cm No Primary Care Physician [facility] 10-13-2024 11:37-0400 Body mass index (BMI) [Ratio] 21.2 kg/m2 No Primary Care Physician [facility] 10-13-2024 11:37-0400 Body weight 49.44 kg No Primary Care Physician [facility] 10-13-2024 11:37-0400 Diastolic blood pressure 73 mm[Hg] No Primary Care Physician [facility] 10-13-2024 11:37-0400 Heart rate 113 /min No Primary Care Physician [facility] 10-13-2024 11:37-0400 Respiratory rate 16 /min No Primary Care Physician [facility] 10-13-2024 11:37-0400 SaO2% (BldA) [Mass fraction] 100 % No Primary Care Physician [facility] 10-13-2024 11:37-0400 Systolic blood pressure 104 mm[Hg] No Primary Care Physician [facility] 07-23-2024 16:40-0500 Body temperature 98.5 [degF] No Primary Care Physician [facility] 07-23-2024 16:40-0500 Diastolic blood pressure 80 mm[Hg] No Primary Care Physician [facility] 07-23-2024 16:40-0500 Heart rate 96 /min No Primary Care Physician [facility] 07-23-2024 16:40-0500 Respiratory rate 18 /min No Primary Care Physician [facility] 07-23-2024 16:40-0500 SaO2% (BldA) [Mass fraction] 98 % No Primary Care Physician [facility] 07-23-2024 16:40-0500 Systolic blood pressure 118 mm[Hg] No Primary Care Physician [facility] 07-23-2024 05:09-0500 Body mass index (BMI) [Ratio] 27.6 kg/m2 No Primary Care Physician [facility] 07-23-2024 05:09-0500 Body weight 64.3 kg No Primary Care Physician [facility] 07-22-2024 15:53-0500 Inhaled oxygen flow rate 2 L/min No Primary Care Physician [facility] 07-15-2024 15:40-0500 Body temperature 98.9 [degF] No Primary Care Physician [facility] 07-15-2024 15:40-0500 Diastolic blood pressure 89 mm[Hg] No Primary Care Physician [facility] 07-15-2024 15:40-0500 Heart rate 98 /min No Primary Care Physician [facility] 07-15-2024 15:40-0500 Respiratory rate 18 /min No Primary Care Physician [facility] 07-15-2024 15:40-0500 SaO2% (BldA) [Mass fraction] 100 % No Primary Care Physician [facility] 07-15-2024 15:40-0500 Systolic blood pressure 134 mm[Hg] No Primary Care Physician [facility] 07-15-2024 06:00-0500 Body mass index (BMI) [Ratio] 25.7 kg/m2 No Primary Care Physician [facility] 07-15-2024 06:00-0500 Body weight 59.4 kg No Primary Care Physician [facility] 01-20-2023 14:20-0400 Body temperature 98.4 [degF] [facility] 01-20-2023 14:20-0400 Diastolic blood pressure 100 mm[Hg] [facility] 01-20-2023 14:20-0400 Heart rate 90 /min [facility] 01-20-2023 14:20-0400 Respiratory rate 18 /min [facility] 01-20-2023 14:20-0400 SaO2% (BldA) [Mass fraction] 98 % [facility] 01-20-2023 14:20-0400 Systolic blood pressure 152 mm[Hg] [facility] 01-20-2023 10:22-0400 Body height 152.[address] [facility] 01-20-2023 10:22-0400 Body mass index (BMI) [Ratio] 29.2 kg/m2 [facility] 01-20-2023 10:22-0400 Body weight 68.[address] [facility] 12-27-2022 23:03-0400 Diastolic blood pressure 96 mm[Hg] [facility] 12-27-2022 23:03-0400 Heart rate 81 /min [facility] 12-27-2022 23:03-0400 Respiratory rate 16 /min [facility] 12-27-2022 23:03-0400 SaO2% (BldA) [Mass fraction] 99 % [facility] 12-27-2022 23:03-0400 Systolic blood pressure 149 mm[Hg] [facility] 12-27-2022 21:11-0400 Body mass index (BMI) [Ratio] 28.8 kg/m2 [facility] 12-27-2022 21:11-0400 Body temperature 96.9 [degF] [facility] 12-27-2022 21:11-0400 Body weight 67.[address] [facility] Encounters Encounter Date Encounter Type Care Provider Facility Start: 04-06-2025 ambulatory Dave Dupree Facility: [facility] Start: 01-10-2025 End: 01-10-[address] Dave Dupree MD -[facility] Work Phone: Start: 01-10-2025 End: 01-10-2025 ambulatory Zebulun Beam [employer] Work Phone: -[facility] Start: 12-13-2024 End: 12-13-[address] Dave Dupree MD -[facility] Work Phone: Start: 12-13-2024 End: 12-13-2024 ambulatory Zebulun Beam [employer] Work Phone: [facility] Work Phone: Start: 12-13-2024 End: 12-13-2024 ambulatory Zebulun Beam [employer] Work Phone: [facility] Work Phone: Start: 12-13-2024 End: 12-13-[address] Dave Dupree MD -Laboratory Work Phone: Start: 12-13-2024 End: 12-13-2024 ambulatory Dave Dupree Facility:[facility] Start: 10-18-2024 End: 10-18-2024 ambulatory Rudi Jones MD Work Phone: [facility] Start: 10-13-2024 End: 10-13-[address] Dave Dupree MD -[facility] Work Phone: Start: 10-13-2024 End: 10-13-2024 ambulatory No Primary Care Physician [facility] Work Phone: Start: 10-13-2024 End: 10-13-2024 ambulatory Dave Dupree Facility:[facility] Start: 08-13-2024 End: 08-13-2024 Patient encounter procedure Junior Holloway [facility] Work Phone: Start: 08-13-2024 End: 08-13-2024 ambulatory [facility] Facility:[facility] Start: 08-13-2024 End: 08-13-2024 ambulatory [facility] Facility:[facility] Start: 07-23-2024 Non-patient / Non-visit Dr. Quang Blair DO Located [facility] Work Phone: Start: 07-23-2024 Non-patient / Non-visit Junior Holloway DO [facility] Start: 07-22-2024 Non-patient / Non-visit Dr. Quang Blair DO [facility] Work Phone: Start: 07-21-2024 Non-patient / Non-visit Junior Holloway DO [facility] Start: 07-21-2024 Non-patient / Non-visit Dr. Gogo Royal DO [facility] Work Phone: Start: 07-21-2024 ambulatory Junior Belmont Facility :[facility] Start: 07-21-2024 End: 07-23-2024 Evaluation and management of inpatient Dr. Quang Blair DO -[facility] Work Phone: Start: 07-15-2024 Non-patient / Non-visit Dr. Mena Bundy MD -[facility] Work Phone: Start: 07-14-2024 [facility] Start: 07-14-2024 Non-patient / Non-visit Dr. Mena Bundy MD -[facility] Work Phone: Start: 07-13-2024 [facility] Start: 07-13-2024 End: 07-15-2024 ambulatory No Primary Care Physician Facility:[facility] Start: 07-13-2024 End: 07-15-2024 Evaluation and management of inpatient Dr. Mena Bundy MD -[facility] Work Phone: Start: 02-12-2023 End: 02-12-2023 ambulatory [facility] Work Phone: Start: 02-12-2023 End: 02-12-2023 Patient encounter procedure [facility]-Laboratory, Specimen Work Phone: Start: 01-20-2023 End: 01-20-2023 Admission to same day surgery center [facility] Start: 01-20-2023 End: 01-20-2023 ambulatory [facility] Work Phone: Start: 12-27-2022 End: 12-27-2022 Emergency department patient visit [facility]Emergency Department Work Phone: Start: 05-01-2017 End: 05-02-2017 Ambulatory [facility] Facility:[facility] Procedures Date Procedure Procedure Detail Performing Clinician Start: 10-13-2024 MENDY measurement Zebulun Beam [employer] Work Phone: Comment on above: Performed at: [facility] [id number] Director: Floyd Sandra PhD, Phone: [phone] Start: 10-13-2024 Antibody to centromere measurement Zebul un Beam [employer] Work Phone: Comment on above: Test not performed Start: 10-13-2024 Antibody to extractable nuclear antigen measurement Zebulun Beam [employer] Work Phone: Comment on above: Test not performed Start: 10-13-2024 Antibody to ROSE-1 measurement Zebulun Terri m [employer] Work Phone: Comment on above: Test not performed Start: 10-13-2024 Antibody to lupus La protein measurement Zebulun Beam [employer] Work Phone: Comment on above: Test not performed Start: 10-13-2024 Antibody to SS-A measurement Zebulun Terri m [employer] Work Phone: Comment on above: Test not performed Start: 10-13-2024 Autoantibody measurement Zebulun Beam [employer] Work Phone: Comment on above: Test not performed Start: 10-13-2024 Hepatitis C virus genotype determination Zebulun Beam [employer] Work Phone: Comment on above: Performed at: [facility] [address] [id number] Director: Avi Cardenas MD, Phone: [phone] at: [facility] [address] [id number] Director: Floyd Sandra PhD, Phone: [phone] Start: 10-13-2024 Iadna hepatitis c quant & 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 lace 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 Zebulun Beam [employer] Work Phone: Comment on above: Result Units: log10 IU/mL Start: 10-13-2024 [employer]AM[employer]ING SUPER[employer]OR antibody measurement Zebulun Beam [employer] Work Phone: Comment on above: Test not performed Start: 10-13-2024 Serum inorganic phosphate measurement Zebulun Beam [employer] Work Phone: Start: 07-22-2024 Esophagogastroduodenoscopy No Primary Ca re Physician Start: 07-21-2024 Esophagogastroduodenoscopy No Primary Ca re Physician Start: 07-13-2024 Anaerobic microbial culture No Primary C are Physician Start: 07-13-2024 Gram stain microscopy No Primary Care Physician Start: 07-13-2024 Microbial culture, body fluid No Primary Care Physician Start: 07-13-2024 Centesis No Primary Care Physician Start: 07-13-2024 Computed tomography of abdomen and pelvis with intravenous contrast No Primary Care Physician Start: 01-20-2023 Dilation and curettage of uterus Plan of Treatment Date Care Activity Detail Author Start: 04-22-2025 Urine microalbumin profile DTaP,Tdap,Td Vaccine (2 - Td or Tdap) [facility] Start: 07-23-2024 Patient discharge [facility] Start: 07-23-2024 [facility] Start: 07-21-2024 End: 07-22-2024 [facility] Start: 07-21-2024 Application of intermittent pneumatic compression device [facility] Start: 07-21-2024 Following clinical pathway protocol [facility] Start: 07-21-2024 Assessment of risk of venous thromboembolism [facility] Start: 07-21-2024 Documentation procedure [facility] Start: 07-21-2024 Elevation of head of bed [facility] Start: 07-21-2024 Inhalation therapy procedure [facility] Start: 07-21-2024 Insertion of catheter into peripheral vein [facility] Start: 07-21-2024 Measuring intake and output [facility] Start: 07-21-2024 Patient referral to [facility] Start: 07-21-2024 Providing care according to standard [facility] Start: 07-21-2024 Referral to gastroenterology service [facility] Start: 07-21-2024 Referral to service [facility] Start: 07-21-2024 Tobacco use cessation education [facility] Start: 07-21-2024 Vital signs measurements [facility] Start: 07-21-2024 Admission procedure [facility] Start: 07-21-2024 Administration of blood product [facility] Start: 07-21-2024 Patient referral to dietitian [facility] Start: 07-15-2024 Patient discharge [facility] Start: 07-14-2024 Application of intermittent pneumatic compression device [facility] Start: 07-13-2024 [facility] Start: 07-13-2024 Egd band ligation esophgeal/gastric varices EGD VARICES LIGATION [facility] Start: 07-13-2024 Egd transoral biopsy single/multiple EGD BIOPSY SINGLE/MULTIPLE [facility] Start: 07-13-2024 Referral to gastroenterology service [facility] Start: 07-13-2024 Following clinical pathway protocol [facility] Start: 07-13-2024 End: 07-13-2024 [facility] Start: 07-13-2024 Assessment of risk of venous thromboembolism [facility] Start: 07-13-2024 Inhalation therapy procedure [facility] Start: 07-13-2024 Insertion of catheter into peripheral vein [facility] Start: 07-13-2024 Measuring intake and output [facility] Start: 07-13-2024 Providing care according to standard [facility] Start: 07-13-2024 Provision of activity privileges [facility] Start: 07-13-2024 Admission procedure [facility] Start: 03-07-2024 Covid-19 Vaccine ( season) Covid-19 Vaccine ( season) [facility] Start: 03-07-2024 Influenza vaccination Influenza Vaccine (#1) [facility] Start: 01-20-2023 Anti-D (Rh) immunoglobulin [facility] Start: 01-20-2023 End: 01-20-2023 Administration of blood product [facility] Start: 01-20-2023 Anesthesia incomplete/missed ANESTH INC/MISSED AB PROC [facility] Start: 01-20-2023 Tx missed first trimester surgical CARE OF MISCARRIAGE [facility] Start: 01-20-2023 Introduction of urinary catheter [facility] Start: 01-20-2023 Patient discharge [facility] Start: 01-20-2023 Ambulation therapy management [facility] Start: 01-20-2023 Continuous pulse oximetry [facility] Start: 01-20-2023 Elevation of head of bed [facility] Start: 01-20-2023 Incentive spirometry [facility] Start: 01-20-2023 Measuring intake and output [facility] Start: 01-20-2023 Notification of physician [facility] Start: 01-20-2023 End: 01-20-2023 Oxygen therapy [facility] Start: 01-20-2023 Patient education [facility] Start: 01-20-2023 Taking patient vital signs [facility] Start: 01-20-2023 Wound care [facility] Start: 01-20-2023 [facility] Start: 01-20-2023 [facility] Start: 01-20-2023 Anti-D (Rh) immunoglobulin [facility] Start: 12-27-2022 Administration of blood product [facility] Start: 2021 Screening for malignant neoplasm of breast Mammogram Screening [facility] Start: 2002 Screening for malignant neoplasm of cervix Cervical Cancer Screening [facility] Start: 2000 Hepatitis B Vaccine (1 of 3 - 19+ 3-dose series) Hepatitis B Vaccine (1 of 3 - 19+ 3-dose series) [facility] Start: 11-05-1999 Anxiety Screening Anxiety Screening [facility] Start: 11-05-1999 Depression Screening Depression Screening [facility] Start: 11-05-1999 HIV screening HIV Screening [facility] CBC W Auto Different ial panel - Blood [facility] Comprehensive metabo lic 1999 panel - Serum or Plasma [facility] Hepatitis C virus RNA assay [facility] Liver stiffness by US.transient elastography [facility] Patient Education [facility] Work Phone: Patient referral [facility] Work Phone: Prothrombin time [facility] Payers Date Payer Category Payer Self-pay 2024 Unknown [id number] 2005 Unknown [id number] Private Health Insurance [id number] Unknown [id number] 2.16.8 [id number] Unknown [id number] 2.16.8 [id number] Unknown [id number] 2.16.8 40.1.684071.3.579.2.462 Unknown [id number] 2.16.8 40.1.934038.3.579.2.462 Unknown [id number] 2.16.8 40.1.765979.3.579.2.462 Unknown [id number] 2.16.8 40.1.464132.3.579.2.462 Unknown [id number] 2.16.8 40.1.553728.3.579.2.462 Unknown [id number] 2.16.8 40.1.172932.3.579.2.462 Unknown [id number] 2.16.8 40.1.071080.3.579.2.462 Unknown [id number] 2.16.8 40.1.037110.3.579.2.462 Unknown [id number] 2.16.8 40.1.999212.3.579.2.462 Unknown [id number] 2.16.8 40.1.019265.3.579.2.462 Unknown [id number] 2.16.8 40.1.847056.3.579.2.462 Unknown [id number] 2.16.8 40.1.042359.3.579.2.462 Unknown [id number] 2.16.8 40.1.207179.3.579.2.462 Unknown [id number] 2.16.8 40.1.082436.3.579.2.462 Unknown [id number] 2.16.8 40.1.677518.3.579.2.462 Unknown [id number] 2.16.8 40.1.722173.3.579.2.462 Unknown [id number] 2.16.8 40.1.516919.3.579.2.462 Unknown [id number] 2.16.8 40.1.392468.3.579.2.462 Unknown [id number] 2.16.8 40.1.668448.3.579.2.462 Social History Date Type Detail Facility [facility] Start: 01-17-2023 Tobacco smoking status NHIS Unknown if ever smoked [facility] Start: 1980 Sex Assigned At Female [facility] Tobacco smoking status MOIS Smokes tobacco daily [facility] History of tobacco use Cigarette Smoker [facility] Start: 10-18-2024 Alcoholic beverage intake Current drinker of alcohol (finding) [facility] Start: 1980 Sex assigned at Not on file [facility] Gender identity Not on file [facility] Start: 07-23-2024 Tobacco smoking status NHIS Current Light tobacco smoker [facility] Start: 10-19-2024 Sex Female (finding) [facility] NEGATED: Highlighted row Not [facility] Medical Equipment Procedure Code Equipment Code Equipment Original Text Equipment Identifier Dates EGD, with monitored anesthesia care Oesophageal endoscopic ligator, single-useHaemorrhoid ligator [id number] FDA Start: 07-14-2024 EGD, with monitored anesthesia care Oesophageal endoscopic ligator, single-useHaemorrhoid ligator ()[id number] FDA Start: 07-21-2024 EGD, with monitored anesthesia care Gastrointestinal endoscopic clip, long-term, non-bioabsorbable ()[id number] FDA Start: 07-22-2024 Goals Date Patient Goal Desired Activity /State Functional Status Date Assessment Result Facility 07-23-2024 Functional status Patient Activity Chair [facility] Work Phone: 07-23-2024 Functional status Standby Assist [facility] Work Phone: 07-15-2024 Functional status Chair [facility] Work Phone: 07-15-2024 Functional status Assistive Devices None [facility] Work Phone: Mental Status Date Assessment Result Facility 07-23-2024 Cognitive function Voice/Name [facility] Work Phone: 07-15-2024 Cognitive function Voice/Name [facility] Work Phone: 01-20-2023 Cognitive function Voice/Name [facility] Work Phone: Clinical Notes 01-20-2023 to 01-10-2025 Note Date & Type Note Facility 01-10-2025 Progress note [facility] 01-10-2025 Progress note Note Date/Time January 10, 2025 2:55pm [facility] [address] [place] [address] OFFICE VISIT Date of Service: 01/10/25 MR#: [id number] Acct: [id number] Name: BOB WARNER Rep #: [id number] : 1980 Provider: Dr. Mar Dupree MD Age/Sex: 44/F [place] [facility] [place] [facility] [place]: Signed Intake Vital Signs 12/13/24 14:59 Height 5 ft Weight: 112 lb BMI 21.9 BP 159/91 H Blood Pressure Location Rt brachial Position Sitting Pulse 79 Pulse Oximetry (%) 98 Oxygen Delivery Method room air Intake Visit Reasons: 1 m F/u Liver Allergies No Known Allergies Allergy (Verified 01/10/25 14:15) Medications ?Medication ?Instructions ?Recorded ?Confirmed ?Type carvedilol 6.25 mg tablet 6.25 mg PO BIDCM 1 month #60 tabs 10/13/24 01/10/25 Rx sofosbuvir 400 mg-velpatasvir 100 1 tab PO QDAY 24 wee ks #168 tabs 10/25/24 01/10/25 Rx mg tablet (Epclusa) lactulose 20 gram/30 mL oral 10 g (15 mL) PO TID 3 mon ths 11/03/24 01/10/25 Rx solution #4,050 mL furosemide 20 mg tablet 20 mg PO DAILY 30 days #30 t abs 11/26/24 01/10/25 Rx spironolactone 25 mg tablet 25 mg PO DAILY 1 month #30 tabs 12/13/24 01/10/25 Rx PFSH Medical History Acute on chronic anemia Esophageal varices Hyperkalemia Thrombocytopenia Acute upper gastrointestinal bleeding ABLA (acute blood loss anemia) Cirrhosis GI bleed Hepatitis Diabetes Hepatitis C Loose, teeth Stroke/cerebrovascular accident Smoker Hypertension Surgical History H/O dilation and curettage History of cholecystectomy Family History Uncle Cancer Social History Smoking Status: Light Smoker (<10/day) alcohol intake: current alcohol intake frequency: a few times a month substance use type: former substance user HPI HPI Details: BOB WARNER, is a 44 F who presents to the office today for follow up. OV 10.13.24: No acute symptoms. No recent hospitalizations since last admission in July 2024. Patient saw Dr. Holloway in the office in August 2024. OV 12.13.25- Pt well since last visit. Continues with Epclusa. Denies abdominal pain, heartburn, nausea, dizziness and confusion. BMs are normal. Her last pillmight have been between December 31 to . It seems she got call from the pharmacy but she missed the phone call. She started taking the Epclusa in first week of November. ROS Const Constitutional: No fatigue, fever(s) or weight change ENT ENT: No difficulty swallowing Gastro GI: No abdominal pain, belching, bloating, change in bowel habits, change in stool character, coffee ground emesis, constipation, cramping, diarrhea, heartburn, difficulty swallowing, feeling full early, excessive flatus, incontinent of stools, Vomiting blood/hematemesis, Blood in stool, loose stools,Black,tarry stools, nausea/dyspepsia, pain with swallowing, vomiting or other Musc Musculoskeletal: No joint pain Skin Skin: No yellowing of the eye or itchy eyes Psych Psychiatric: No anxiety and No depression Endo Endocrine: No fatigue or weight change Aller/Imm Allergy/Immunologic: No itchy eyes Walker/Lymp Hematologic/Lymphatic: Positive for easy bruising; No easy bleeding Exam Const General: cooperative, no acute distress and well developed Nutritional Appearance: malnourished Orientation: alert, awake and oriented x3 HENMT Head: normocephalic and atraumatic Nose: external nose normal Face and sinus: normal facial exam Mouth: moist mucous membranes Other: No teeth in upper jaw. Eyes Pupils: PERRL EOM: EOM intact bilaterally Neck Neck: normal visual inspection, no meningeal signs and trachea midline Carotids: no bruits Chest Chest palpation & inspection: normal inspection of the chest Resp Effort & Inspection: normal respiratory effort and symmetric chest movement Auscultation: Bilateral: Clear to Auscultation Cardio Palpation: normal PMI Rate: regular rate Rhythm: regular rhythm Heart Sounds: S1 normal and S2 normal GI Auscultation: normal bowel sounds Percussion: normal to percussion Palpation: soft and no guarding Other: Liver not palpable. Clinically no ascites. Scaphoid abdomen with loose skin. Shifting dullness negative General: bimanual renal exam normal bilaterally, bladder normal to inspection and bladder normal to palpation Bimanual Exam- Vagina & Uterus: bladder normal to palpation Musc Musculoskeletal: No joint tenderness, joint redness, joint warmth or decreased range of motion Thoracic/Lumbar Spine: thor and lumb spine abnorm to inspection Skin General: rashes and/or lesions noted, turgor normal and no erythema Wounds: wound noted Neuro General: patient alert, patient awake, patient oriented x3 and no focal motor deficits Speech: speech normal Motor: muscle tone normal throughout Extrem General: normal exam except as noted Psych Appearance: grossly normal Mood: congruent mood Affect: normal affect Attitude: cooperative Assessment and Plan Assessment and Plan (1) Hepatitis C: Status: Acute Plan: BOB WARNER, is a 44 F who who was admitted in July 2024 for hematemesis melena,, encephalopathy features of decompensated hepatitis C cirrhosis. History of IV drug use and previous cholecystectomy.In the ED patient with totalbili 1.40, direct bili 0.69 with AST of [address] ALT of 48. CT abdomen with livercirrhosis, splenomegaly, and ascites. At that time patient had paracentesis and2.4 L was removed. Patient on spironolactone and furosemide. Spironolactone was discontinued due to hyponatremia. Fluid analysis showed no organisms on Gram stain and preliminary cultures negative. Cytology negative for malignant cells. Had severe anemia and thrombocytopenia. She underwent an upper endoscopy and was discovered to have grade 3-4 esophageal varices. One of her varices had stigmata of recent bleed. She underwent esophageal banding. Patient has genotype 3. Patient is high risk for reevaluating with history of severe anemia and thrombocytopenia and neutropenia in the past. Therefore decided to treat with Epclusa for 24 weeks last 6 months as per AASLD guidelines. She started taking Epclusa in first week of November, does not know the exact date but she has noted in the calendar. She had last dose between December 31 to and then seen missing the pills. Advised to call the pharmacy to get the refill. She has to complete total of 6 months. Liver chemistry shows improvement in ALT and AST Follow-up in 3 months. Her expected date of completion of 6 months will be in 1st-2nd week of April 2025 (2) Cirrhosis: Status: Chronic Plan: Decompensated chronic hep C symptoms as mentioned. MELD sodium score as per August 2024 is 10, CPT score class B 9 points with possible slight ascites and grade 1/2 encephalopathy MELD sodium score 12/13/2024 is 8 with CPT class B Coding Level of Care Code Established Pt Off vis,est,level 3 Patient Type Established History Expanded Problem Focused Exam Expanded Problem Focused Medical Decision Making Moderate Complexity Diagnoses Hepatitis C B19.20 Cirrhosis K74.60 01/10/25 7087 <Electronically signed by Dave Dupree MD> Date _ Dave Dupree MD Cosigner Signature: Date (if applicable) CC: Vicki GALLO CARAMEL CANDY MAKER HELPER-C Beam ~ [facility] Work Phone: 1([phone]) 165-672904-09-2025 Evaluation note* Diagnosis Onset Date Resolution Status Admit Date Esophageal varices acute October 13, 2024 11:17am Hepatitis C acute October 13 11:17am Acute on chronic anemia chronic A pril 2024 11:17am Cirrhosis chronic October 13 11:17am Esophageal varices acute December 132024 2:47pm Hepatitis C acute December 13 2:47pm Acute on chronic anemia chronic J une 2024 2:47pm Cirrhosis chronic December 13, 2024 2:47pm [facility] Work Phone: 1(363) 167-113604-09-2025 Evaluation note* Diagnosis Onset Date Resolution Status Admit Date Esophageal varices acute October 13, 2024 11:17am Hepatitis C acute October 13 11:17am Acute on chronic anemia chronic A pril 2024 11:17am Cirrhosis chronic October 13 11:17am Esophageal varices acute December 132024 2:47pm Hepatitis C acute December 13 2:47pm Acute on chronic anemia chronic J une 2024 2:47pm Cirrhosis chronic December 13, 2024 2:47pm Hepatitis C acute January 10 2:11pm Cirrhosis chronic January 10, 2025 2:11pm [facility] Work Phone: 1([phone]) 213-678701-17-2025 [facility]01-09-2025 [facility]01-07-2025 Evaluation note* Diagnosis Onset Date Resolution Status Admit Date Hepatitis C acute July 13, 2024 12:15pm Abdominal pain resolved July 12:15pm HCC (hepatocellular carcinoma) delet ed July 13, 2024 12:15pm Cirrhosis chronic July 21, 2024 1:50pm Abdominal pain resolved July 212024 1:50pm ABLA (acute blood loss anemia) inact abraham July 21, 2024 1:50pm Acute on chronic anemia inactive J anuary 2024 1:50pm Acute upper gastrointestinal bleeding inactive July 21 1:50pm Esophageal varices inactive Januar y 2024 1:50pm Hyperkalemia inactive July 1:50pm Thrombocytopenia inactive July 21, 2024 1:50pm Hepatitis C acute August 13, 2024 2:35pm Hepatitis C acute October 13 11:17am Cirrhosis chronic October 13 11:17am Acute on chronic anemia inactive A pril 2024 11:17am Esophageal varices inactive October 13, 2024 11:17am [facility] Work Phone: [phone]) 413-516107-17-2023 Procedure [facility] 01-20-2023 History and physical note Author Kong Harris [facility] January 20, 2023 9:58am Note Date/Time January 20, 2023 9:58 am [facility] Medical Records Department [address] [place] [address] H&P Exam - SOCIAL MEDIA SENIOR ASSOCIATE 01/20/23 0955 MR#: [id number] Acct: [id number] Name: BOB WARNER Rep #:[id number] : 1980 42 From: Kong Harris MD PCP: Care Physician,No Primary Status :[facility] Location: [place] [address] History and Physical Date of Admission: 01/20/23 Chief complaint: Missed History present illness: 42-year-old arrives for scheduled suction dilation and curettage with missed . No medical changes since last seen. All questions answered and consent signed. Obstetric history: with a history of 3 vaginal deliveries Past medical history: Hypertension, thrombocytopenia, hepatitis C Medications: vitamin Past surgical history: Cholecystectomy, D&C Allergies: No known drug allergies Social history: 1 pack/day smoker, denies alcohol or drug use Family history: Denies history DVT or PE Review of systems: Besides above pertinent positives a full review of systems was performed and found to be negative Physical exam: Vitals: Pending General: Normal-appearing no acute distress HEENT: Normocephalic/atraumatic no cervical lymphadenopathy Cardiac/respiratory: No use of accessory muscles, nonlabored breathing Abdomen: Soft, nontender, obese Extremities: No peripheral edema normal peripheral pulses Psych: Normal affect normal demeanor nonpressured speech Assessment and plan: 42-year-old arrives for scheduled suction dilation and curettage with missed . Educated patient on the risks of the procedure include but are not limited to visceral or vascular injury, prolonged hospitalization, blood loss need for transfusion, reoperation. Educated patient on other options for missedabortion. Patient states understanding and wished to proceed. All questions were answered and consent was signed. 01/20/23 0958 <Electronically signed by Kong Harris MD> Cosigner Signature (if applicable): CC: Dr. Kong Harris MD; No Primary Care Physician~ Signed [facility] Work Phone: Discharge summary Author Kong Harris [facility] January 20, 2023 1:41pm Note Date/Time January 20, 2023 1:41 pm [facility] Medical Records Department [address] [place] [address] Instructions for Home/Discharge Instructions 01/20/23 1340 MR#: [id number] Acct: [id number] Name: BOB WARNER Rep #:[id number] : 1980 42 From: Kong Harris MD PCP: Care Physician,No Primary Status :REG SDC Discharge Instructions Diet Discharge Diet: No restrictions Activity Discharge Activity: Return to Normal Activity, May Drive and May Shower May resume sexual activity in: 4-6 weeks Weight Bearing Status: Weight bearing as tolerated Dressing / Incision Call your doctor if your incision/area has: Continuous Slow Oozing and Foul Smelling Discharge Call your doctor if you observe: Fever of 101 or Higher, Shortness of breath andChest pain Follow Up Care Please Follow Up With: Kong Harris MD When: 2 weeks postoperatively Test Results: Test results from this visit will be discussed in further detail at your follow- up appointment, if applicable. Discharge Plan Admission Attending Provider: Kong Harris Primary Care Provider: Lyndsay Physician,Selina Primary Discharge Orders/Prescriptions Prescriptions: No Action (DME) vitamen See Rx Instructions .ROUTE .MEDSUPPLY Rx Instructions: once a day Referrals / Follow Up: Care Physician,No Primary [Primary Care Provider] - Disposition Disposition (needs filled in before D/C Order can be placed): Home, Self Care 01/20/23 1341<Electronically signed by Kong Harris MD>Kong Harris MD CC: No Primary Care Physician ~ Signed [facility] Work Phone: Evaluation noteNo assessment information available [facility] Work Phone: Evaluation note* Diagnosis Hepatitis C virus infection without hepatic coma, unspecified chronicity- Primary Esophageal varices without bleeding, unspecified esophageal varices type (HCC) Acidosis documented in this encounter [facility] for referral (narrative)No [facility] Work [facility]: Summary Purpose Family History No Family History Records Found Relationship Condition Age at Onset Recorded Date/T johnny uncle Malignant neoplasm Unknown Advance Directives No Advanced Directives Records Found Advance Directive Response Recorded Date/ Time Living Will No January 17, 2023 10:26am Power of Traveling Missionary No January 17 10:26am Advance Directive Response Recorded Date/ Time Living Will No July 13 1:32pm Do you have a Healthcare Power of Traveling Missionary? No July 13, 2024 1:32pm Living Will No July 21 7:09pm Do you have a Healthcare Power of Traveling Missionary? No July 21, 2024 7:09pm Chief Complaint and Reason for Visit Chief Complaint VAGINAL BLEEDING, OK EGNANT Dilation and Curettage, Suction Chief Complaint Admit Date NEW CIRRHOSIS, ABD PAIN, ASCITES July 13, 2024 12:15pm NEW CIRRHOSIS, ABD PAIN, ASCITES July 13, 2024 5:11pm NEW CIRRHOSIS, ABD PAIN, ASCITES July 14, 2024 7:56am NEW CIRRHOSIS, ABD PAIN, ASCITES July 14, 2024 3:48pm NEW CIRRHOSIS, ABD PAIN, ASCITES July 15, 2024 1:28pm UGIB 2/2 ESOPHAGEAL VARICES July 1:50pm UGIB 2/2 ESOPHAGEAL VARICES July 1:57pm UGIB 2/2 ESOPHAGEAL VARICES July 4:12pm UGIB 2/2 ESOPHAGEAL VARICES July 4:38pm UGIB 2/2 ESOPHAGEAL VARICES July 5:27pm UGIB 2/2 ESOPHAGEAL VARICES July 9:03am UGIB 2/2 ESOPHAGEAL VARICES July 4:06pm Hospital FU August 13, 2024 2 :35pm follow up October 13, 2024 11:1 7am INT LAB ORDERS October 13, 2024 12:1 0pm Reason for Visit Admit Date Hepatitis C July 13, 2024 12 :15pm Abdominal pain July 13, 2024 12 :15pm HCC (hepatocellular carcinoma) July 132024 12:15pm Cirrhosis July 21, 2024 1 :50pm Abdominal pain July 21, 2024 1 :50pm ABLA (acute blood loss anemia) July 072024 1:50pm Acute on chronic anemia July 21 1:50pm Acute upper gastrointestinal bleeding Ja nuary 2024 1:50pm Esophageal varices July 21, 2024 1 :50pm Hyperkalemia July 21, 2024 1 :50pm Thrombocytopenia July 21, 2024 1 :50pm Hepatitis C August 13, 2024 2 :35pm Hepatitis C October 13, 2024 11:1 7am Cirrhosis October 13, 2024 11:1 7am Acute on chronic anemia October 13, 2024 11:17am Esophageal varices October 13, 2024 11:1 7am Chief Complaint Admit Date follow up October 13, 2024 11:1 7am INT LAB ORDERS October 13, 2024 12:1 0pm E ORDER December 13, 2024 1:16p m Follow up to missed appt December 13, 2024 2:47pm Reason for Visit Admit Date Esophageal varices October 13, 2024 11:1 7am Hepatitis C October 13, 2024 11:1 7am Acute on chronic anemia October 13, 2024 11:17am Cirrhosis October 13, 2024 11:1 7am Esophageal varices December 13, 2024 2:47p m Hepatitis C December 13, 2024 2:47p m Acute on chronic anemia December 13, 2024 2 :47pm Cirrhosis December 13, 2024 2:47p m Chief Complaint Admit Date follow up October 13, 2024 11:1 7am INT LAB ORDERS October 13, 2024 12:1 0pm E ORDER December 13, 2024 1:16p m Follow up to missed appt December 13, 2024 2:47pm 1 m F/u Liver January 10, 2025 2:11p m Reason for Visit Admit Date Esophageal varices October 13, 2024 11:1 7am Hepatitis C October 13, 2024 11:1 7am Acute on chronic anemia October 13, 2024 11:17am Cirrhosis October 13, 2024 11:1 7am Esophageal varices December 13, 2024 2:47p m Hepatitis C December 13, 2024 2:47p m Acute on chronic anemia December 13, 2024 2 :47pm Cirrhosis December 13, 2024 2:47p m Hepatitis C January 10, 2025 2:11p m Cirrhosis January 10, 2025 2:11p m Additional Source Comments INFORMATION SOURCE (unrecogn ized section and content) DATE CREATED AUTHOR 12/30/2017 [facility] DATE CREATED AUTHOR AUTHOR'S ORGANIZ ATION 03/28/[address] [facility] Care Teams (unrecognized sec tion and content) Team Status: Active Member Role Status Dates Zebulun Beam VSC, CARAMEL CANDY MAKER HELPER-C Primary Care Provider Active Team Status: Inactive Member Role Status Dates Zebulun Beam VSC, CARAMEL CANDY MAKER HELPER-C Primary Care Provider Active Start: October 13, 2024 End: October 13, 2024 Zebulun Beam VSC, CARAMEL CANDY MAKER HELPER-C Referring Provider Active Start: October 13, 2024 End: October 13, 2024 Dr. Dave Dupree MD Attending Provider Active Start: October 13, 2024 End: October 13, 2024 Team Status: Inactive Member Role Status Dates Zebulun Beam VSC, CAR[employer]EL CANDY MAKER HELPER-C Primary Care Provider Active Start: October 13, 2024 End: October 13, 2024 Dr. Dave Dupree MD Attending Provider Active Start: October 13, 2024 End: October 13, 2024 Dr. Dave Dupree MD Referring Provider Active Start: October 13, 2024 End: October 13, 2024 Team Status: Active Member Role Status Dates Zebulun Beam VSC, CARAMEL CANDY MAKER HELPER-C Primary Care Provider Active Start: December 13, 2024 Dr. Dave Dupree MD Attending Provider Active Start: December 13, 2024 Dr. Dave Dupree MD Referring Provider Active Start: December 13, 2024 Team Status: Inactive Member Role Status Dates Zebulun Beam VSC, CARAMEL CANDY MAKER HELPER-C Primary Care Provider Active Start: December 13, 2024 End: December 13, 2024 Zebulun Beam VSC, CARAMEL CANDY MAKER HELPER-C Referring Provider Active Start: December 13, 2024 End: December 13, 2024 Dr. Dave Dupree MD Attending Provider Active Start: December 13, 2024 End: December 13, 2024 Team Status: Active Member Role Status Dates No Primary Care Physician Family Provider Active No Primary Care Physician Primary Care Provider Active Team Status: Inactive Member Role Status Dates No Primary Care Physician Primary Care Provider Active Dr. Wes Corona MD Attending Provider, Emergency Provider Active Team Status: Inactive Member Role Status Dates No Primary Care Physician Primary Care Provider Active Dr. Kong Harris MD Attending Provider, Referring Pr ovider Active Team Status: Inactive Member Role Status Dates No Primary Care Physician Primary Care Provider Active Dr. Kong Harris MD Attending Provider Active Hydrodynamics Professor Relationship Specialty Start Date End Date Amie Junior Tidwell DO [address] [address] PCP - General Gastroenterology 10/01/24 Team Status: Active Member Role Status Dates No Primary Care Physician Family Provider Active Zebulun Beam VSC, CARAMEL CANDY MAKER HELPER-C Primary Care Provider Active Team Status: Inactive Member Role Status Dates No Primary Care Physician Primary Care Provider Active Start: July 13, 2024 End: July 15, 2024 Dr. Arias White DO Emergency Provider Activ e Start: July 13, 2024 End: July 15, 2024 Dr. Mena Bundy MD Admit Provider Active Star t: July 13, 2024 End: July 15, 2024 Dr. Mena Bundy MD Attending Provider Active Start: July 13, 2024 End: July 15, 2024 Dr. Junior Holloway DO Other Provider Active St art: July 13, 2024 End: July 15, 2024 Team Status: Active Member Role Status Dates No Primary Care Physician Primary Care Provider Active Start: July 13, 2024 Dr. Arias White DO Emergency Provider Activ e Start: July 13, 2024 Dr. Mena Bundy MD Admit Provider Active Star t: July 13, 2024 Dr. Mena Bundy MD Referring Provider Active Start: July 13, 2024 Dr. Mena Bundy MD Other Provider Active Star t: July 13, 2024 Dr. Junior Holloway DO Attending Provider Active Start: July 13, 2024 Dr. Junior Holloway DO Other Provider Active St art: July 13, 2024 Team Status: Active Member Role Status Dates No Primary Care Physician Primary Care Provider Active Start: July 14, 2024 Dr. Arias White DO Emergency Provider Activ e Start: July 14, 2024 Dr. Mena Bundy MD Admit Provider Active Star t: July 14, 2024 Dr. Mena Bundy MD Attending Provider Active Start: July 14, 2024 Dr. Mena Bundy MD Other Provider Active Star t: July 14, 2024 Dr. Junior Holloway DO Other Provider Active St art: July 14, 2024 Team Status: Active Member Role Status Dates No Primary Care Physician Primary Care Provider Active Start: July 14, 2024 Dr. Arias White DO Emergency Provider Activ e Start: July 14, 2024 Dr. Mena Bundy MD Admit Provider Active Star t: July 14, 2024 Dr. Mena Bundy MD Referring Provider Active Start: July 14, 2024 Dr. Mena Bundy MD Other Provider Active Star t: July 14, 2024 Dr. Junior Holloway DO Attending Provider Active Start: July 14, 2024 Dr. Junior Holloway DO Other Provider Active St art: July 14, 2024 Team Status: Active Member Role Status Dates No Primary Care Physician Primary Care Provider Active Start: July 15, 2024 Dr. Arias White DO Emergency Provider Activ e Start: July 15, 2024 Dr. Mena Bundy MD Admit Provider Active Star t: July 15, 2024 Dr. Mena Bundy MD Attending Provider Active Start: July 15, 2024 Dr. Mena Bundy MD Other Provider Active Star t: July 15, 2024 Dr. Junior Holloway DO Other Provider Active St art: July 15, 2024 Team Status: Inactive Member Role Status Dates Dr. Eric Singh DO Emergency Provider Active Start: July 21, 2024 End: July 23, 2024 Dr. Gogo Royal DO Admit Provider Active Start : July 21, 2024 End: July 23, 2024 Dr. Gogo Royal DO Other Provider Active Start : July 21, 2024 End: July 23, 2024 Dr. Junior Holloway DO Referring Provider Active Start: July 21, 2024 End: July 23, 2024 Dr. Quang Blair DO Attending Provider Active Start: July 21, 2024 End: July 23, 2024 Vicki Kasper VSC, CARAMEL CANDY MAKER HELPER-C Primary Care Provider Active Start: July 21, 2024 End: July 23, 2024 Team Status: Active Member Role Status Dates No Primary Care Physician Primary Care Provider Active Start: July 21, 2024 Dr. Eric Singh DO Emergency Provider Active Start: July 21, 2024 Dr. Gogo Royal , DO Admit Provider Active Start : July 21, 2024 Dr. Gogo Royal , DO Attending Provider Active S tart: July 21, 2024 Dr. Gogo Royal , DO Other Provider Active Start : July 21, 2024 Team Status: Active Member Role Status Dates No Primary Care Physician Primary Care Provider Active Start: July 21, 2024 Dr. Eric Singh , Emergency Provider Active Start: July 21, 2024 Dr. Gogo Royal , DO Admit Provider Active Start : July 21, 2024 Dr. Gogo Royal , DO Other Provider Active Start : July 21, 2024 Dr. Junior Holloway , DO Attending Provider Active Start: July 21, 2024 Dr. Junior oHlloway , DO Referring Provider Active Start: July 21, 2024 Team Status: Active Member Role Status Dates No Primary Care Physician Primary Care Provider Active Start: July 22, 2024 Dr. Eric Singh DO Emergency Provider Active Start: July 22, 2024 Dr. Gogo Royal , Admit Provider Active Start : July 22, 2024 Dr. Gogo Royla , DO Other Provider Active Start : July 22, 2024 Dr. Junior Holloway , DO Attending Provider Active Start: July 22, 2024 Dr. Junior Holloway , DO Referring Provider Active Start: July 22, 2024 Dr. Quang Blair , DO Other Provider Active S tart: July 22, 2024 Team Status: Active Member Role Status Dates No Primary Care Physician Primary Care Provider Active Start: July 22, 2024 Dr. Eric Singh DO Emergency Provider Active Start: July 22, 2024 Dr. Gogo Royal , DO Admit Provider Active Start : July 22, 2024 Dr. Gogo Royal , DO Other Provider Active Start : July 22, 2024 Dr. Quang Blair DO Attending Provider Active Start: July 22, 2024 Dr. Quang Blair , DO Other Provider Active S tart: July 22, 2024 Team Status: Active Member Role Status Dates Dr. Eric Singh DO Emergency Provider Active Start: July 23, 2024 Dr. Gogo Royal DO Admit Provider Active Start : July 23, 2024 Dr. Gogo Royal DO Other Provider Active Start : July 23, 2024 Dr. Junior Holloway DO Attending Provider Active Start: July 23, 2024 Dr. Junior Holloway DO Referring Provider Active Start: July 23, 2024 Dr. Quang Blair DO Other Provider Active S tart: July 23, 2024 Zebulun Beam VSC, [employer] Primary Care Provider Active Start: July 23, 2024 Team Status: Active Member Role Status Dates Dr. Eric Singh DO Emergency Provider Active Start: July 23, 2024 Dr. Gogo Royal DO Admit Provider Active Start : July 23, 2024 Dr. Gogo Royal DO Other Provider Active Start : July 23, 2024 Dr. Quang Blair DO Attending Provider Active Start: July 23, 2024 Dr. Quang Blair DO Other Provider Active S tart: July 23, 2024 Zebulun Beam VSC, [employer] Primary Care Provider Active Start: July 23, 2024 Team Status: Inactive Member Role Status Dates Zebulun Beam VSC, [employer] Primary Care Provider Active Start: August 13, 2024 End: August 13, 2024 Zebulun Beam VSC, [employer] Referring Provider Active Start: August 13, 2024 End: August 13, 2024 Dr. Junior Holloway DO Attending Provider Active Start: August 13, 2024 End: August 13, 2024 Team Status: Inactive Member Role Status Dates Zebulun Beam VSC, [employer] Primary Care Provider Active Start: August 13, 2024 End: August 13, 2024 Dr. Junior Holloway DO Attending Provider Active Start: August 13, 2024 End: August 13, 2024 Dr. Junior Holloway DO Referring Provider Active Start: August 13, 2024 End: August 13, 2024 Team Status: Inactive Member Role Status Dates Zebulun Beam VSC, [employer] Primary Care Provider Active Start: December 13, 2024 End: December 13, 2024 Dr. Dave Dupree MD Attending Provider Active Start: December 13, 2024 End: December 13, 2024 Dr. Dave Dupree MD Referring Provider Active Start: December 13, 2024 End: December 13, 2024 Team Status: Active Member Role/Relationship Status Dates Zebulun Beam VSC, [employer] Primary Care Provider Active Team Status: Inactive Member Role/Relationship Status Dates Zebulun Beam VSC, [employer] Primary Care Provider Active Start: October 13, 2024 End: October 13, 2024 Zebulun Beam VSC, [employer] Referring Provider Active Start: October 13, 2024 End: October 13, 2024 Dr. Dave Dupree MD Attending Provider Active Start: October 13, 2024 End: October 13, 2024 Team Status: Inactive Member Role/Relationship Status Dates Zebulun Beam VSC, [employer] Primary Care Provider Active Start: October 13, 2024 End: October 13, 2024 Dr. Dave Dupree MD Attending Provider Active Start: October 13, 2024 End: October 13, 2024 Dr. Dave Dupree MD Referring Provider Active Start: October 13, 2024 End: October 13, 2024 Team Status: Inactive Member Role/Relationship Status Dates Zebulun Beam VSC, [employer] Primary Care Provider Active Start: December 13, 2024 End: December 13, 2024 Dr. Dave Dupree MD Attending Provider Active Start: December 13, 2024 End: December 13, 2024 Dr. Dave Dupree MD Referring Provider Active Start: December 13, 2024 End: December 13, 2024 Team Status: Inactive Member Role/Relationship Status Dates Zebulun Beam VSC, [employer] Primary Care Provider Active Start: December 13, 2024 End: December 13, 2024 Zebulun Beam VSC, [employer] Referring Provider Active Start: December 13, 2024 End: December 13, 2024 Dr. Dave Dupree MD Attending Provider Active Start: December 13, 2024 End: December 13, 2024 Team Status: Inactive Member Role/Relationship Status Dates Zebulun Beam VSC, [employer] Primary Care Provider Active Start: January 10, 2025 End: January 10, 2025 Zebulun Beam VSC, [employer] Referring Provider Active Start: January 10, 2025 End: January 10, 2025 Dr. Dave Dupree MD Attending Provider Active Start: January 10, 2025 End: January 10, 2025 Source Comments (unrecognize d section and content) In the event this informatio n is protected by the Federal Confidentiality of Alcohol and Drug Abuse Patient Records regulations: The Federal rules restrict any use of the information to criminally investigate or prosecute any alcohol or drug abuse patient.[facility] Goals (unrecognized section and content) Goals may be documented in a n alternate sectionGoals may be documented in an alternate sectionGoals may be documented in an alternate section FOR RECORDS PERTAINING TO PATIENTS WHO ARE OR HAVE BEEN ENROLLED IN A CHEMICAL DEPENDENCY/SUBSTANCEABUSE PROGRAM, SOME INFORMATION MAY BE OMITTED. This clinical summary was aggregated from multiple sources. Caution should be exercised in using it in the provision of clinical care. This summary normalizes information from multiple sources, and as a consequence, information in this document may materially change the coding, format and clinical context of patient data. In addition, data may be omitted in some cases. CLINICAL DECISIONS SHOULD BE BASED ON THE PRIMARY CLINICAL RECORDS. [facility] [employer] [facility]. provides no warranty or guarantee of the accuracy or completeness of information in this document.
== END | disposition home or self-care (01) ==
PROVIDERS: Referring Provider Internal Medicine; Visit Provider Internal Medicine
DX: I85.00 Esophageal varices without bleeding (principal); K74.60 Unspecified cirrhosis of liver; D69.6 Thrombocytopenia, unspecified; D64.9 Anemia, unspecified; B19.20 Unspecified viral hepatitis C without hepatic coma; R18.8 Other ascites
CPT/HCPCS: 76705; 76981